=== PATIENT | male | born 1995 | race Hispanic/Latino ===

== ENCOUNTER 2018-02-27 08:18 | Emergency (ER) | payer BC, SELFPAY ==
--- NOTE | 2018-02-27 09:32 | EDPHYS ---
Physician Documentation [facility] Name: Lele Castillo Jr Age: 23 yrs Sex: Male : 1995 Arrival Date: 02/27/2018 Time: 08:26 Bed 15 Private MD: ED Physician Cheikh Novoa HPI: 02/27 09:29 This 23 yrs old Male presents to ER via Ambulatory with complaints of Back kb Pain. 09:29 The patient presents with pain that is acute. The symptoms are located in the left kb scapular area, right scapular area, left subscapular area, right subscapular area, left low back, left mid back, right mid back and right low back. Onset: The symptoms/episode began/occurred 4 day(s) ago. The pain does not radiate. Associated signs and symptoms: The patient has no apparent associated signs or symptoms. The problem was sustained when lifting heavy object. Modifying factors: The patient symptoms are alleviated by nothing, the patient symptoms are aggravated by any movement. Severity of symptoms: At their worst the symptoms were mild, moderate, in the emergency department the symptoms are unchanged. The patient has not experienced similar symptoms in the past. The patient has not recently seen a physician. Pt states he started having back pain after work on Saturday. States pain has gotten worse. . Historical: - Allergies: 08:35 No Known Allergies; ss - Home Meds: 08:35 None [Active]; ss - PMHx: 08:35 None; ss - PSHx: 08:35 nose; ss - Immunization history:: Adult Immunizations up to date. - Social history:: Smoking status: Patient uses tobacco products, denies chronic smoking, but will smoke occasionally. ROS: 09:27 Constitutional: Negative for fever, chills, and weight loss, Cardiovascular: Negative kb for chest pain, palpitations, and edema, Respiratory: Negative for shortness of breath, cough, wheezing, and pleuritic chest pain, Abdomen/GI: Negative for abdominal pain, nausea, vomiting, diarrhea, and constipation, : Negative for injury, bleeding, discharge, and swelling, MS/Extremity: Negative for injury and deformity, Skin: Negative for injury, rash, and discoloration, Neuro: Negative for headache, weakness, numbness, tingling, and seizure. 09:27 Back: Positive for pain at rest, pain with movement, of the back. Exam: 09:27 Constitutional: This is a well developed, well nourished patient who is awake, alert, kb and in no acute distress. Head/Face: Normocephalic, atraumatic. Chest/axilla: Normal chest wall appearance and motion. Nontender with no deformity. No lesions are appreciated. Cardiovascular: Regular rate and rhythm with a normal S1 and S2. No gallops, murmurs, or rubs. Normal PMI, no JVD. No pulse deficits. Respiratory: Lungs have equal breath sounds bilaterally, clear to auscultation and percussion. No rales, rhonchi or wheezes noted. No increased work of breathing, no retractions or nasal flaring. Abdomen/GI: Soft, non-tender, with normal bowel sounds. No distension or tympany. No guarding or rebound. No evidence of tenderness throughout. Skin: Warm, dry with normal turgor. Normal color with no rashes, no lesions, and no evidence of cellulitis. MS/ Extremity: Pulses equal, no cyanosis. Neurovascular intact. Full, normal range of motion. Neuro: Awake and alert, GCS 15, oriented to person, place, time, and situation. Cranial nerves II-XII grossly intact. Motor strength 5/5 in all extremities. Sensory grossly intact. Cerebellar exam normal. Normal gait. 09:27 Back: pain, that is mild, that is moderate, of the left scapular area, right scapular area, left subscapular area, right subscapular area, left low back, left mid back, right mid back and right low back, ROM is normal, normal spinal alignment noted. Vital Signs: 08:43 BP 139 / 62; Pulse 73; Resp 16; Temp 98.3(O); Pulse Ox 98% on R/A; Weight 108.86 kg; ss Height 5 ft. 9 in. (175.26 cm); Pain 10/10; 08:43 Body Mass Index 35.44 (108.86 kg, 175.26 cm) ss MDM: 08:37 Patient medically screened. kb 09:27 Data reviewed: vital signs, nurses notes. Data interpreted: Pulse oximetry: on room air kb is 98 %. Interpretation: normal. Counseling: I had a detailed discussion with the patient and/or guardian regarding: the historical points, exam findings, and any diagnostic results supporting the discharge/admit diagnosis, the need for outpatient follow up, a family practitioner, to return to the emergency department if symptoms worsen or persist or if there are any questions or concerns that arise at home. 02/27 09:33 Order name: Urine Dipstick--Ancillary (enter results); Complete Time: 09:39 mw2 02/27 09:02 Order name: Urine Dipstick-Ancillary (obtain specimen); Complete Time: 09:11 kb Administered Medications: 09:47 Drug: TORadol 60 mg Route: IM; Site: right gluteus; iw 09:55 Follow up: Response: No adverse reaction iw Disposition: 02/28 07:51 Co-signature as Attending Physician, Cheikh Novoa MD I agree with the assessment and wa plan of care. Disposition: 02/27/18 09:31 Discharged to Home. Impression: Muscle spasm of back, Myalgia. - Condition is Stable. - Discharge Instructions: Muscle Pain, Adult, Back Pain, Adult, [id number], Muscle Cramps and Spasms, [id number]. - Prescriptions for Cyclobenzaprine 10 mg Oral Tablet - take 1 tablet by ORAL route every 8 hours As needed; 21 tablet. Diclofenac Sodium 75 mg Oral Tablet, Delayed Release (E.C.) - take 1 tablet by ORAL route 2 times per day As needed; 30 tablet. - Work release form, Medication Reconciliation Form, Thank You Letter, Antibiotic Education, Prescription Opioid Use form. - Follow up: Private Physician; When: 2 - 3 days; Reason: Recheck today's complaints, Continuance of care, Re-evaluation by your physician. Follow up: Emergency Department; When: As needed; Reason: Worsening of condition. Signatures: Dispatcher [employer] Nirmala Meadows, INA CAPPS-Jo Junior, Allison Benjamin RN, RN RN ss Appiah, William, MD MD wa
--- NOTE | 2018-02-27 09:32 | ER ---
Nurse's Notes [facility] Name: Lele Castillo Jr Age: 23 yrs Sex: Male : 1995 Arrival Date: 02/27/2018 Time: 08: Bed 15 Private MD: Diagnosis: Muscle spasm of back;Myalgia Presentation: 02/27 08:34 Presenting complaint: Patient states: lower back pain that began 3 days ago and has ss progressed to top of back. Pt denies injury. Transition of care: patient was not received from another setting of care. Onset of symptoms was February 24, 2018. Care prior to arrival: None. 08:34 Method Of Arrival: Ambulatory ss 08:34 Acuity: ANJANA 4 ss Historical: - Allergies: 08:35 No Known Allergies; ss - Home Meds: 08:35 None [Active]; ss - PMHx: 08:35 None; ss - PSHx: 08:35 nose; ss - Immunization history:: Adult Immunizations up to date. - Social history:: Smoking status: Patient uses tobacco products, denies chronic smoking, but will smoke occasionally. Screenin:44 Abuse screen: Denies threats or abuse. Denies injuries from another. Nutritional ss screening: No deficits noted. Tuberculosis screening: Never had TB. Fall Risk None identified. Assessment: 08:44 General: Appears uncomfortable, Behavior is calm, cooperative, Denies fever, feeling ss ill, fatigue, chills. Pain: Complains of pain in back Pain currently is 10 out of 10 on a pain scale. Quality of pain is described as aching, Pain began 2-3 days ago. Is continuous, Aggravated by exercise, increased activity, repositioning. Neuro: Level of Consciousness is awake, alert, obeys commands, Oriented to person, place, time, situation. Neuro: Denies blurred vision paresthesias numbness headache. Cardiovascular: Capillary refill < 3 seconds is brisk in bilateral fingers Patient's skin is warm and dry. Respiratory: Reports pain with cough pain with movement Airway is patent Respiratory effort is even, unlabored, Respiratory pattern is regular, agonal Denies cough, shortness of breath labored breathing. GI: Patient currently denies diarrhea, nausea, vomiting. : Denies burning with urination, inability to void, incontinence, urinary frequency. EENT: Nares are clear Throat is clear. Derm: Skin is intact, is healthy with good turgor, Skin is dry, Skin is pink, warm \T\ dry. normal. Musculoskeletal: Circulation, motion, and sensation intact. Capillary refill < 3 seconds, is brisk, in bilateral fingers. Range of motion: intact in all extremities, Swelling absent. 09:54 Reassessment: Patient appears in no apparent distress at this time. Patient and/or iw family updated on plan of care and expected duration. Pain level reassessed. Patient is alert, oriented x 3, equal unlabored respirations, skin warm/dry/pink. Patient states feeling better. Vital Signs: 08:43 BP 139 / 62; Pulse 73; Resp 16; Temp 98.3(O); Pulse Ox 98% on R/A; Weight 108.86 kg; ss Height 5 ft. 9 in. (175.26 cm); Pain 10/10; 08:43 Body Mass Index 35.44 (108.86 kg, 175.26 cm) ss ED Course: 08:26 Patient arrived in ED. as 08:34 Triage completed. ss 08:35 Arm band placed on right wrist. ss 08:36 Nirmala Reyna FNP-C is PHCP. kb 08:36 Cheikh Novoa MD is Attending Physician. kb 08:43 Allison Ochoa, REMBERTO is Primary Nurse. ss 08:44 Patient has correct armband on for positive identification. Bed in low position. Call ss light in reach. Side rails up X 1. 09:36 Urine collected: clean catch specimen, clear. ag 09:54 No provider procedures requiring assistance completed. Patient did not have IV access iw during this emergency room visit. Administered Medications: 09:47 Drug: TORadol 60 mg Route: IM; Site: right gluteus; iw 09:55 Follow up: Response: No adverse reaction iw Outcome: 09:31 Discharge ordered by . kb 09:54 Discharged to home ambulatory. iw 09:54 Condition: good 09:54 Discharge instructions given to patient, Instructed on discharge instructions, follow up and referral plans. medication usage, Demonstrated understanding of instructions, follow-up care, medications, Prescriptions given X 2. 09:55 Patient left the ED. iw Signatures: Nirmala Reyna FNP-C FNP-Darlyn Brown as Jo Godoy RN RN iw Allison Ochoa RN RN ss Lynnette Jewell ag
[2018-02-27 09:37] LABS: Urine Blood TRACE (NEG); Urine Glucose NEGATIVE (NEG); Urine Protein NEGATIVE (NEG); Urine Specific Gravity 1.025 (1.005-1.030); Urine pH 5.5 (5.0-7.0)
[2018-02-27] MEDS ORDERED: KETOROLAC 30 MG/ML INJ ONE (09:41)
[2018-02-27 10:00] VITALS: BP 139/62; TEMP 98.3; O2SAT 98
== END 2018-02-27 09:55 | disposition home or self-care (01) ==
LOC: ER 08:18
DX: M62.830 Muscle spasm of back (principal); Z72.0 Tobacco use
CPT/HCPCS: 81003; 96372; 99283

== ENCOUNTER 2018-03-20 16:31 | Emergency (ER) | payer BC ==
[2018-03-20] MEDS ORDERED: CEFTRIAXONE/SWI 1gm 1 GM/10 ML SYR ONE (18:29)
[2018-03-20] MEDS ORDERED: METHYLPREDNISOLONE 125 MG INJ ONE (18:29)
[2018-03-20] MEDS ORDERED: NA CHLORIDE 0.9% 2,000 ML ONE (18:29)
[2018-03-20 18:40] LABS: Absolute Lymphocytes (CBC) 1.4 K/uL (0.7-4.9); Absolute Monocytes 1.4 K/uL (0.1-1.3); Absolute Neutrophil 11.4 K/uL (1.8-8.0); Basophils % 0.4 % (0-1.3); Eosinophils % 5.1 % (0-4.4); Hematocrit 46.5 % (39.6-49.0); Lymphocytes % 9.5 % (15.3-44.8); MCH 29.2 pg (27.0-35.0); MCV 87.4 fL (80-100); MPV 9.3 fL (7.6-11.3); Monocytes % 9.4 % (3.3-12.3); RBC Red Blood Cell Count 5.32 M/uL (4.33-5.43)
[2018-03-20 18:46] LABS: Bicarbonate 25 mEq/L (21-31); Glucose Level 98 mg/dL (65-120); Potassium 3.5 mEq/L (3.6-5.0); Sodium Level 136 mEq/L (135-145)
[2018-03-20 18:47] LABS: BUN Blood Urea Nitrogen 11 mg/dL (6-20)
--- NOTE | 2018-03-20 19:49 | EDPHYS ---
Physician Documentation [facility] Name: Lele Castillo Jr Age: 23 yrs Sex: Male : 1995 Arrival Date: 03/20/2018 Time: 16:35 Bed 12 Private MD: ED Physician Cheikh Novoa HPI: 03/20 22:14 This 23 yrs old Male presents to ER via Ambulatory with complaints of Fever, snw Cough. 22:14 The patient reports fever, not measured (subjective). Onset: The symptoms/episode snw began/occurred suddenly, 4 day(s) ago, and became worse and became persistent. Associated signs and symptoms: Pertinent positives: headache, nausea, sinus congestion, sinus drainage, sore throat. Severity of symptoms: At their worst the symptoms were moderate. The patient has not experienced similar symptoms in the past. The patient has not recently seen a physician. Historical: - Allergies: 16:46 No Known Allergies; hj - Home Meds: 16:46 None [Active]; hj - PMHx: 16:46 None; hj - PSHx: 16:46 None; hj - Immunization history:: Adult Immunizations unknown. - Social history:: Smoking status: unknown. ROS: 22:14 Constitutional: Negative for fever, chills, and weight loss, Eyes: Negative for injury, snw pain, redness, and discharge. 22:14 Neck: Negative for injury, pain, and swelling, Cardiovascular: Negative for chest pain, palpitations, and edema. 22:14 Back: Negative for injury and pain, : Negative for injury, bleeding, discharge, and swelling, MS/Extremity: Negative for injury and deformity, Skin: Negative for injury, rash, and discoloration, Neuro: Negative for headache, weakness, numbness, tingling, and seizure. 22:14 ENT: Positive for ear pain, sinus congestion, sore throat. 22:14 Respiratory: Positive for cough. 22:14 Abdomen/GI: Positive for nausea. Exam: 18:20 Constitutional: This is a well developed, well nourished patient who is awake, alert, snw and in no acute distress. Head/Face: Normocephalic, atraumatic. Eyes: Pupils equal round and reactive to light, extra-ocular motions intact. Lids and lashes normal. Conjunctiva and sclera are non-icteric and not injected. Cornea within normal limits. Periorbital areas with no swelling, redness, or edema. Neck: Trachea midline, no thyromegaly or masses palpated, and no cervical lymphadenopathy. Supple, full range of motion without nuchal rigidity, or vertebral point tenderness. No Meningismus. Chest/axilla: Normal chest wall appearance and motion. Nontender with no deformity. No lesions are appreciated. 18:20 Back: No spinal tenderness. No costovertebral tenderness. Full range of motion. Skin: Warm, dry with normal turgor. Normal color with no rashes, no lesions, and no evidence of cellulitis. MS/ Extremity: Pulses equal, no cyanosis. Neurovascular intact. Full, normal range of motion. Neuro: Awake and alert, GCS 15, oriented to person, place, time, and situation. Cranial nerves II-XII grossly intact. Motor strength 5/5 in all extremities. Sensory grossly intact. Cerebellar exam normal. Normal gait. 18:20 ENT: TM's: are normal, Nose: is normal, Mouth: is normal, Posterior pharynx: Tonsils: bilaterally enlarged, with erythema, swelling, erythema, that is moderate, that is marked, Voice: is normal. 18:20 Cardiovascular: Rate: tachycardic, Rhythm: regular, Pulses: no pulse deficits are appreciated, Heart sounds: normal, Edema: is not appreciated. 18:20 Respiratory: the patient does not display signs of respiratory distress, Respirations: normal, Breath sounds: + upper airway congestion. bronchitic cough. 18:20 Abdomen/GI: Exam negative for Vital Signs: 16:46 BP 123 / 84; Pulse 118; Resp 18; Temp 98.8(TE); Pulse Ox 97% on R/A; Weight 108.86 kg; hj Height 5 ft. 9 in. (175.26 cm); Pain 10/10; 18:37 BP 112 / 68; Pulse 127; Resp 20 S; Pulse Ox 97% on R/A; Pain 10/10; iw 19:24 BP 118 / 63; Pulse 106; Resp 16; Pulse Ox 98% on R/A; Pain 0/10; aa1 20:02 BP 111 / 84; Pulse 107; Resp 18; Temp 98.6; Pulse Ox 100% on R/A; aa1 16:46 Body Mass Index 35.44 (108.86 kg, 175.26 cm) hj MDM: 17:41 Patient medically screened. snw 22:16 Data reviewed: vital signs, nurses notes. Data interpreted: Pulse oximetry: on room air snw is 100 %. Interpretation: normal. Counseling: I had a detailed discussion with the patient and/or guardian regarding: the historical points, exam findings, and any diagnostic results supporting the discharge/admit diagnosis, the presence of at least one elevated blood pressure reading (>120/80) during this emergency department visit, lab results, the need for outpatient follow up, to return to the emergency department if symptoms worsen or persist or if there are any questions or concerns that arise at home. Special discussion: I have referred the patient to see his PCP for further evaluation of high blood pressure. Based on the history and exam findings, there is no indication for further emergent testing or inpatient evaluation. I discussed with the patient/guardian the need to see the primary care provider for further evaluation of the symptoms. 03/20 17:47 Order name: Strep; Complete Time: 18:59 snw 03/20 17:47 Order name: CBC with Diff; Complete Time: 18:59 snw 03/20 17:34 Order name: Chest Pa And Lat (2 Views) XRAY snw 03/20 17:47 Order name: Chem 7; Complete Time: 18:50 snw 03/20 17:47 Order name: Blood Culture* snw Administered Medications: 18:37 Drug: NS 0.9% 2000 ml Route: IV; Rate: 1000 ml; Site: right hand; iw 20:03 Follow up: IV Status: Completed infusion aa1 18:37 Drug: SOLU-Medrol 125 mg Route: IVP; Site: right hand; iw 20:03 Follow up: Response: No adverse reaction; Marked relief of symptoms aa1 19:01 Drug: Rocephin 1 grams Route: IV; Rate: calculated rate; Site: right hand; iw 19:11 Follow up: IV Status: Completed infusion aa1 Disposition: 03/21 06:59 Co-signature as Attending Physician, Cheikh Novoa MD I agree with the assessment and wa plan of care. Disposition: 03/20/18 19:48 Discharged to Home. Impression: Streptococcal pharyngitis, Dehydration. - Condition is Stable. - Discharge Instructions: Dehydration, Adult, Strep Throat, Rehydration, Adult. - Prescriptions for Zithromax 500 mg Oral Tablet - take 1 tablet by ORAL route once daily for 5 days; 5 tablet. Prednisone 20 mg Oral Tablet - take 2 tablet by ORAL route once daily for 5 days; 10 tablet. - Work release form, Medication Reconciliation Form, Thank You Letter, Antibiotic Education, Prescription Opioid Use form. - Follow up: Private Physician; When: 1 - 2 days; Reason: Recheck today's complaints, Continuance of care, Re-evaluation by your physician. Follow up: Emergency Department; When: As needed; Reason: Worsening of condition. Signatures: Dispatcher [employer] EDMS Natalie Weeks RN RN aa1 Hoa Fairchild, NREMT-C NREMT-Csnw Jo Godoy RN RN Rafael Goss RN RN Cheikh Novoa MD MD wa Corrections: (The following items were deleted from the chart) 03/20 20:04 19:48 03/20/2018 19:48 Discharged to Home. Impression: Streptococcal pharyngitis; aa1 Dehydration. Condition is Stable. Prescriptions for Zithromax 500 mg Oral Tablet - take 1 tablet by ORAL route once daily for 5 days; 5 tablet. and Forms are Medication Reconciliation Form, Thank You Letter, Antibiotic Education, Prescription Opioid Use. Follow up: Private Physician; When: 1 - 2 days; Reason: Recheck today's complaints, Continuance of care, Re-evaluation by your physician. Follow up: Emergency Department; When: As needed; Reason: Worsening of condition. snw
--- NOTE | 2018-03-20 19:49 | ER ---
Nurse's Notes [facility] Name: Lele Castillo Jr Age: 23 yrs Sex: Male : 1995 Arrival Date: 03/20/2018 Time: 16:35 Bed 12 Private MD: Diagnosis: Streptococcal pharyngitis;Dehydration Presentation: 03/20 16:44 Presenting complaint: Patient states: fever, coughing, nausea and vomiting since Saturday hj night and its getting worse; reports painful swallowing;. Transition of care: patient was not received from another setting of care. Onset of symptoms was March 20, 2018. Initial Sepsis Screen: Does the patient meet any 2 criteria? No. Patient's initial sepsis screen is negative. Does the patient have a suspected source of infection? No. Patient's initial sepsis screen is negative. Care prior to arrival: None. 16:44 Method Of Arrival: Ambulatory 16:44 Acuity: ANJANA 4 hj Triage Assessment: 16:46 General: Appears in no apparent distress. uncomfortable, Behavior is calm, cooperative, hj appropriate for age. Pain: Complains of pain in throat. Historical: - Allergies: 16:46 No Known Allergies; hj - Home Meds: 16:46 None [Active]; hj - PMHx: 16:46 None; hj - PSHx: 16:46 None; hj - Immunization history:: Adult Immunizations unknown. - Social history:: Smoking status: unknown. Screenin:46 Abuse screen: Denies threats or abuse. Denies injuries from another. Nutritional iw screening: No deficits noted. Tuberculosis screening: No symptoms or risk factors identified. Fall Risk None identified. Assessment: 18:10 General: Appears uncomfortable, Behavior is calm, cooperative. General: Reports fever iw for feeling ill for. Pain: Complains of pain in throat Pain currently is 10 out of 10 on a pain scale. Neuro: Level of Consciousness is awake, alert, obeys commands, Oriented to person, place, time, Moves all extremities. Cardiovascular: Patient's skin is warm and dry. Respiratory: Respiratory effort is even, unlabored. EENT: Throat is reddened has enlarged tonsils bilaterally with gag reflex present, Reports difficulty swallowing. Derm: Skin is normal. Musculoskeletal: Range of motion: intact in all extremities. 20:02 Reassessment: Patient appears in no apparent distress at this time. Patient is alert, aa1 oriented x 3, equal unlabored respirations, skin warm/dry/pink. Discussed d/c \T\ f/u instructions with pt; denies questions or concerns at this time Patient states feeling better. Vital Signs: 16:46 BP 123 / 84; Pulse 118; Resp 18; Temp 98.8(TE); Pulse Ox 97% on R/A; Weight 108.86 kg; hj Height 5 ft. 9 in. (175.26 cm); Pain 10/10; 18:37 BP 112 / 68; Pulse 127; Resp 20 S; Pulse Ox 97% on R/A; Pain 10/10; iw 19:24 BP 118 / 63; Pulse 106; Resp 16; Pulse Ox 98% on R/A; Pain 0/10; aa1 20:02 BP 111 / 84; Pulse 107; Resp 18; Temp 98.6; Pulse Ox 100% on R/A; aa1 16:46 Body Mass Index 35.44 (108.86 kg, 175.26 cm) ED Course: 16:35 Patient arrived in ED. mr 16:45 Triage completed. hj 16:46 Arm band placed on left wrist. hj 17:00 Patient has correct armband on for positive identification. iw 17:34 Ho[facility] Fairchild [facility]C [facility]. snw 17:34 Cheikh Novoa MD is Attending Physician. snw 18:18 Initial lab(s) drawn, by il, sent to lab. First set of blood cultures drawn by me. dh3 Inserted saline lock: 20 gauge in right hand, using aseptic technique. Blood collected. 18:28 Jo Godoy, RN is Primary Nurse. iw 18:47 X-ray completed. Patient tolerated procedure well. ml 18:47 Chest Pa And Lat (2 Views) XRAY In Process Unspecified. EDMS 18:56 Second set of blood cultures drawn by venipuncture 23G left hand by me. dh3 20:02 No provider procedures requiring assistance completed. IV discontinued, intact, aa1 bleeding controlled, No redness/swelling at site. Pressure dressing applied. Administered Medications: 18:37 Drug: NS 0.9% 2000 ml Route: IV; Rate: 1000 ml; Site: right hand; iw 20:03 Follow up: IV Status: Completed infusion aa1 18:37 Drug: SOLU-Medrol 125 mg Route: IVP; Site: right hand; iw 20:03 Follow up: Response: No adverse reaction; Marked relief of symptoms aa1 19:01 Drug: Rocephin 1 grams Route: IV; Rate: calculated rate; Site: right hand; iw 19:11 Follow up: IV Status: Completed infusion aa1 Outcome: 19:48 Discharge ordered by MD. carlson 20:02 Discharged to home ambulatory. aa1 20:02 Condition: good 20:02 Discharge instructions given to patient, Instructed on discharge instructions, follow up and referral plans. medication usage, Demonstrated understanding of instructions, follow-up care, medications, Prescriptions given X 2. 20:04 Patient left the ED. aa1 Signatures: Dispatcher [employer] EDMS Natalie Weeks RN RN aa1 Hoa Fairchild, PYROTECHNIC MIXER-C PYROTECHNIC MIXER-Kimw Mary [place] Irene, RN RN iw Lopez, Melissa ml Joaquin, Henry, RN RN Genevieve Montoya 3 Corrections: (The following items were deleted from the chart) 16:48 16:46 Pulse 118bpm; Resp 18bpm; Pulse Ox 97% RA; Temp 98.8F Temporal; 108.86 kg; Height hj 5 ft. 9 in.; BMI: 35.4; Pain 10/10; hj 16:49 16:46 Pulse 118bpm; Resp 18bpm; Pulse Ox 97% RA; Temp 98.8F Temporal; 108.86 kg; Height hj 5 ft. 9 in.; BMI: 35.4; Pain 10/10; hj
--- NOTE | 2018-03-20 20:04 | RAD REPORT ---
EXAM DESCRIPTION: RAD - Chest Pa And Lat (2 Views) - 03/20/2018 6:47 pm CLINICAL HISTORY: Cough, fever COMPARISON: March 2008 TECHNIQUE: PA and lateral views of the chest were obtained. FINDINGS: The lungs are clear. No pneumonia evident at this time. No failure or volume overload. He art size is normal and central vasculature is within normal limits. No pleural effusion or pneumotho rax seen. No acute bony finding noted. No aortic abnormality. IMPRESSION: No acute cardiopulmonary process. No suspicious change from prior imaging.
[2018-03-20 20:11] VITALS: BP 111/84; TEMP 98.6; O2SAT 100
== END 2018-03-20 20:04 | disposition home or self-care (01) ==
LOC: ER 16:31
DX: J02.0 Streptococcal pharyngitis (principal); E86.0 Dehydration; R50.9 Fever, unspecified
CPT/HCPCS: 36415; 71046; 80048; 85025; 87040; 87081; 96361; 96374; 96375; 99284; J0696; J2930; J7030

== ENCOUNTER 2018-10-24 08:51 | Emergency (ER) | payer BC ==
[2018-10-24] MEDS ORDERED: NA CHLORIDE 0.9% 1,000 ML ONE ×2 (09:18→10:58)
[2018-10-24] MEDS ORDERED: PROMETHAZINE 25 MG/ML VIAL ONE (09:18)
[2018-10-24 09:36] LABS: Absolute Lymphocytes (CBC) 1.3 K/uL (0.7-4.9); Absolute Monocytes 0.7 K/uL (0.1-1.3); Absolute Neutrophil 7.6 K/uL (1.8-8.0); Basophils % 0.5 % (0-1.3); Eosinophils % 0.2 % (0-4.4); MCH 30.6 pg (27.0-35.0); MCV 87.3 fL (80-100); MPV 8.8 fL (7.6-11.3); Monocytes % 7.7 % (3.3-12.3); RBC Red Blood Cell Count 5.15 M/uL (4.33-5.43)
[2018-10-24 10:11] LABS: ALT/SGPT 184 U/L (12-78); AST/SGOT 103 U/L (15-37); Albumin 3.8 g/dL (3.4-5.0); Alkaline Phosphatase 97 U/L (45-117); BUN Blood Urea Nitrogen 9 mg/dL (7-18); Bicarbonate 23 mmol/L (21-32); Bilirubin Direct 0.3 mg/dL (0-0.2); Bilirubin Total 0.6 mg/dL (0.2-1.0); Glucose Level 115 mg/dL (74-106); Lipase 113 U/L (73-393); Potassium 3.3 mmol/L (3.5-5.1); Protein, Total 9.1 g/dL (6.4-8.2); Sodium Level 139 mmol/L (136-145)
[2018-10-24 12:12] LABS: Urine Blood 1+ (NEG); Urine Glucose NEGATIVE (NEG); Urine Protein NEGATIVE (NEG); Urine Specific Gravity 1.015 (1.005-1.030); Urine pH 5.5 (5.0-7.0)
--- NOTE | 2018-10-24 13:10 | ER ---
Nurse's Notes [facility] Name: Lele Castillo Jr Age: 23 yrs Sex: Male : 1995 Arrival Date: 10/24/2018 Time: 08:54 Bed 5 Private MD: None, None Diagnosis: Vomiting, unspecified;Dehydration;Hypokalemia Presentation: 10/24 09:07 Presenting complaint: Patient states: has had n/v cough, fever, body aches, headache iw for 3 days, had to leave work and was told to get a doctors note to come back. Transition of care: patient was not received from another setting of care. Onset of symptoms was October 21, 2018. Risk Assessment: Do you want to hurt yourself or someone else? Patient reports no desire to harm self or others. Initial Sepsis Screen: Does the patient meet any 2 criteria? No. Patient's initial sepsis screen is negative. Does the patient have a suspected source of infection? No. Patient's initial sepsis screen is negative. Care prior to arrival: None. 09:07 Method Of Arrival: Ambulatory iw 09:07 Acuity: ANJANA 3 iw Historical: - Allergies: 09:07 NKA; iw - Home Meds: 09:07 None [Active]; iw - PMHx: 09:07 None; iw - PSHx: 09:07 None; iw - Immunization history:: Adult Immunizations up to date. - Social history:: Smoking status: Patient uses tobacco products, 3 cigarettes per day , Patient uses alcohol, weekly. Patient/guardian denies using street drugs. - Ebola Screening: : Patient negative for fever greater than or equal to 101.5 degrees Fahrenheit, and additional compatible Ebola Virus Disease symptoms Patient denies exposure to infectious person Patient denies travel to an Ebola-affected area in the 21 days before illness onset No symptoms or risks identified at this time. Screenin:33 Abuse screen: Denies threats or abuse. Denies injuries from another. Nutritional jl7 screening: No deficits noted. Tuberculosis screening: No symptoms or risk factors identified. Fall Risk IV access (20 points). Total Betancourt Fall Scale indicates No Risk (0-24 pts). Assessment: 09:15 General: Appears in no apparent distress. uncomfortable, Behavior is calm, cooperative, jl7 appropriate for age. Pain: Complains of pain in "all over". Neuro: Level of Consciousness is awake, alert, obeys commands, Oriented to person, place, time, situation. Cardiovascular: Patient's skin is warm and dry. Respiratory: Airway is patent Respiratory effort is even, unlabored, Respiratory pattern is regular, symmetrical, Breath sounds are clear bilaterally. GI: Abdomen is round non-distended. Derm: Skin is pink, warm \\T\\ dry. 10:00 Reassessment: Patient appears in no apparent distress at this time. No changes from hb previously documented assessment. Patient and/or family updated on plan of care and expected duration. Pain level reassessed. Patient is alert, oriented x 3, equal unlabored respirations, skin warm/dry/pink. 11:00 Reassessment: Patient appears in no apparent distress at this time. No changes from jl7 previously documented assessment. Patient and/or family updated on plan of care and expected duration. Pain level reassessed. Patient is alert, oriented x 3, equal unlabored respirations, skin warm/dry/pink. Patient states symptoms have improved. 12:00 Reassessment: Patient and/or family updated on plan of care and expected duration. Pain jl7 level reassessed. Patient is alert, oriented x 3, equal unlabored respirations, skin warm/dry/pink. Vital Signs: 09:05 BP 141 / 81; Pulse 138; Resp 18 S; Temp 97.0(TE); Pulse Ox 98% on R/A; Weight 111.13 iw kg; Height 5 ft. 9 in. (175.26 cm); Pain 9/10; 09:35 BP 119 / 62; Pulse 133; Resp 19 S; Pulse Ox 97% on R/A; jl7 10:30 BP 118 / 63; Pulse 99; Resp 16 S; Pulse Ox 98% on R/A; jl7 11:36 BP 112 / 68; Pulse 87; Resp 14 S; Pulse Ox 96% on R/A; jl7 12:30 BP 125 / 82; Pulse 89; Resp 16 S; Pulse Ox 100% on R/A; jl7 13:30 BP 188 / 71; Pulse 86; Resp 16 S; Pulse Ox 97% on R/A; jl7 09:05 Body Mass Index 36.18 (111.13 kg, 175.26 cm) ED Course: 08:54 Patient arrived in ED. mr 08:55 None, None is Private Physician. mr 09:01 [facility] Fairchild [facility] snw 09:01 Thom Rodriguez MD is Attending Physician. snw 09:05 Arm band placed on. iw 09:08 Triage completed. iw 09:10 Sonali Torres, REMBERTO is Primary Nurse. jl7 09:33 Patient has correct armband on for positive identification. Bed in low position. Call jl7 light in reach. Side rails up X 1. Pulse ox on. NIBP on. 09:33 Initial lab(s) drawn, by me, sent to lab. Flu and/or RSV swab sent to lab. Strep swab jl7 sent to lab. Inserted saline lock: 20 gauge in right antecubital area, using aseptic technique. Blood collected. 13:47 No provider procedures requiring assistance completed. IV discontinued, intact, jl7 bleeding controlled, No redness/swelling at site. Pressure dressing applied. Administered Medications: 09:20 Drug: NS 0.9% 1000 ml Route: IV; Rate: 1 bolus; Site: right antecubital; jl7 10:30 Follow up: IV Status: Completed infusion jl7 09:21 Drug: Phenergan 6.25 mg Route: IVP; Site: right antecubital; jl7 09:45 Follow up: Response: No adverse reaction; Nausea is decreased jl7 11:05 Drug: NS 0.9% 1000 ml Route: IV; Rate: 1 bolus; Site: right antecubital; jl7 12:15 Follow up: Response: No adverse reaction; IV Status: Completed infusion jl7 Outcome: 13:09 Discharge ordered by . snw 13:47 Discharged to home ambulatory. jl7 13:47 Condition: stable 13:47 Discharge instructions given to patient, Instructed on discharge instructions, follow up and referral plans. medication usage, Demonstrated understanding of instructions, follow-up care, medications, Prescriptions given X 1. 13:48 Patient left the ED. jl7 Signatures: Hoa Fairchild FNP-C SHIRT LINE OPERATOR-Kimw [place] Renate GodoyJo, RN REMBERTO Dariela Moura RN RN Sonali Torres RN RN jl7
--- NOTE | 2018-10-24 13:10 | EDPHYS ---
Physician Documentation [facility] Name: Lele Castillo Jr Age: 23 yrs Sex: Male : 1995 Arrival Date: 10/24/2018 Time: 08:54 Bed 5 Private MD: None, None ED Physician Thom Rodriguez HPI: 10/24 09:23 This 23 yrs old Male presents to ER via Ambulatory with complaints of Cough, snw Vomiting. 09:23 The patient or guardian reports. snw 09:23 The patient presents with vomiting. Onset: The symptoms/episode began/occurred snw suddenly, 5 day(s) ago, and became persistent. The symptoms do not radiate. The symptoms are described as crampy. Severity of pain: At its worst the pain was very mild. The patient has not experienced similar symptoms in the past. The patient has not recently seen a physician. Historical: - Allergies: 09:07 NKA; iw - Home Meds: 09:07 None [Active]; iw - PMHx: : None; iw - PSHx: 09:07 None; iw - Immunization history:: Adult Immunizations up to date. - Social history:: Smoking status: Patient uses tobacco products, 3 cigarettes per day , Patient uses alcohol, weekly. Patient/guardian denies using street drugs. - Ebola Screening: : Patient negative for fever greater than or equal to 101.5 degrees Fahrenheit, and additional compatible Ebola Virus Disease symptoms Patient denies exposure to infectious person Patient denies travel to an Ebola-affected area in the 21 days before illness onset No symptoms or risks identified at this time. ROS: 09:23 Constitutional: Negative for fever, chills, and weight loss, Eyes: Negative for injury, snw pain, redness, and discharge, ENT: Negative for injury, pain, and discharge, Neck: Negative for injury, pain, and swelling, Cardiovascular: Negative for chest pain, palpitations, and edema, Respiratory: Negative for shortness of breath, cough, wheezing, and pleuritic chest pain, Back: Negative for injury and pain, : Negative for injury, bleeding, discharge, and swelling, MS/Extremity: Negative for injury and deformity, Skin: Negative for injury, rash, and discoloration, Neuro: Negative for headache, weakness, numbness, tingling, and seizure. 09:23 Abdomen/GI: Positive for nausea and vomiting, Negative for abdominal pain, diarrhea, constipation. Exam: 09:22 Constitutional: This is a well developed, well nourished patient who is awake, alert, snw and in no acute distress. Head/Face: Normocephalic, atraumatic. Eyes: Pupils equal round and reactive to light, extra-ocular motions intact. Lids and lashes normal. Conjunctiva and sclera are non-icteric and not injected. Cornea within normal limits. Periorbital areas with no swelling, redness, or edema. ENT: Nares patent. No nasal discharge, no septal abnormalities noted. Tympanic membranes are normal and external auditory canals are clear. Oropharynx with no redness, swelling, or masses, exudates, or evidence of obstruction, uvula midline. Mucous membranes moist. Neck: Trachea midline, no thyromegaly or masses palpated, and no cervical lymphadenopathy. Supple, full range of motion without nuchal rigidity, or vertebral point tenderness. No Meningismus. Chest/axilla: Normal chest wall appearance and motion. Nontender with no deformity. No lesions are appreciated. Cardiovascular: Tachycardic rate and rhythm with a normal S1 and S2. No gallops, murmurs, or rubs. Normal PMI, no JVD. No pulse deficits. Respiratory: Lungs have equal breath sounds bilaterally, clear to auscultation and percussion. No rales, rhonchi or wheezes noted. No increased work of breathing, no retractions or nasal flaring. Abdomen/GI: Soft, non-tender, with normal bowel sounds. No distension or tympany. No guarding or rebound. No evidence of tenderness throughout. Back: No spinal tenderness. No costovertebral tenderness. Full range of motion. Skin: Warm, dry with normal turgor. Normal color with no rashes, no lesions, and no evidence of cellulitis. MS/ Extremity: Pulses equal, no cyanosis. Neurovascular intact. Full, normal range of motion. Neuro: Awake and alert, GCS 15, oriented to person, place, time, and situation. Cranial nerves II-XII grossly intact. Motor strength 5/5 in all extremities. Sensory grossly intact. Cerebellar exam normal. Normal gait. Psych: Awake, alert, with orientation to person, place and time. Behavior, mood, and affect are within normal limits. Vital Signs: 09:05 BP 141 / 81; Pulse 138; Resp 18 S; Temp 97.0(TE); Pulse Ox 98% on R/A; Weight 111.13 iw kg; Height 5 ft. 9 in. (175.26 cm); Pain 9/10; 09:35 BP 119 / 62; Pulse 133; Resp 19 S; Pulse Ox 97% on R/A; jl7 10:30 BP 118 / 63; Pulse 99; Resp 16 S; Pulse Ox 98% on R/A; jl7 11:36 BP 112 / 68; Pulse 87; Resp 14 S; Pulse Ox 96% on R/A; jl7 12:30 BP 125 / 82; Pulse 89; Resp 16 S; Pulse Ox 100% on R/A; jl7 13:30 BP 188 / 71; Pulse 86; Resp 16 S; Pulse Ox 97% on R/A; jl7 09:05 Body Mass Index 36.18 (111.13 kg, 175.26 cm) iw MDM: 09:04 Patient medically screened. snw 13:13 Data reviewed: vital signs, nurses notes. Data interpreted: Pulse oximetry: on room air snw is 96 %. Interpretation: acceptable. Counseling: I had a detailed discussion with the patient and/or guardian regarding: the historical points, exam findings, and any diagnostic results supporting the discharge/admit diagnosis, lab results, the need for outpatient follow up, to return to the emergency department if symptoms worsen or persist or if there are any questions or concerns that arise at home. Response to treatment: the patient's symptoms have markedly improved after treatment, and as a result, I will discharge patient. Special discussion: Based on the history and exam findings, there is no indication for further emergent testing or inpatient evaluation. I discussed with the patient/guardian the need to see the primary care provider for further evaluation of the symptoms. 10/24 09:08 Order name: Basic Metabolic Panel snw 10/24 09:08 Order name: CBC with Diff; Complete Time: 09:40 snw 10/24 09:08 Order name: Hepatic Function snw 10/24 09:08 Order name: Lipase; Complete Time: 10:17 snw 10/24 09:08 Order name: Flu; Complete Time: 10:07 snw 10/24 09:08 Order name: Strep; Complete Time: 10:07 snw 10/24 09:08 Order name: IV Saline Lock; Complete Time: 09:35 snw 12 09:08 Order name: Basic Metabolic Panel; Complete Time: 10:17 EDMS 10/24 09:09 Order name: Liver (Hepatic) Function; Complete Time: 10:17 EDMS 10/24 10:01 Order name: Throat Culture EDMS 10/24 11:10 Order name: Urine Dipstick--Ancillary (enter results); Complete Time: 12:27 bd 10/24 09:08 Order name: Labs collected and sent; Complete Time: 09:35 snw 10/24 12:31 Order name: PO challenge; Complete Time: 13:21 snw Administered Medications: 09:20 Drug: NS 0.9% 1000 ml Route: IV; Rate: 1 bolus; Site: right antecubital; jl7 10:30 Follow up: IV Status: Completed infusion jl7 09:21 Drug: Phenergan 6.25 mg Route: IVP; Site: right antecubital; jl7 09:45 Follow up: Response: No adverse reaction; Nausea is decreased jl7 11:05 Drug: NS 0.9% 1000 ml Route: IV; Rate: 1 bolus; Site: right antecubital; jl7 12:15 Follow up: Response: No adverse reaction; IV Status: Completed infusion jl7 Disposition: 17:43 Co-signature as Attending Physician, Thom Rodriguez MD I agree with the assessment and kdr plan of care. Disposition: 10/24/18 13:09 Discharged to Home. Impression: Vomiting, unspecified, Dehydration, Hypokalemia. - Condition is Stable. - Discharge Instructions: Dehydration, Adult, Clear Liquid Diet, Adult, Potassium Content of Foods, Nausea and Vomiting, Adult, Rehydration, Adult. - Prescriptions for Zofran 4 mg Oral Tablet - take 1 tablet by ORAL route every 12 hours As needed; 20 tablet. - Work release form, Medication Reconciliation Form, Thank You Letter, Antibiotic Education, Prescription Opioid Use form. - Follow up: Emergency Department; When: As needed; Reason: Worsening of condition. Follow up: Private Physician; When: 2 - 3 days; Reason: Recheck today's complaints, Continuance of care, Re-evaluation by your physician. Signatures: Dispatcher [employer] EDThom Aquino MD MD kdr Hoa Fairchild, OFFICE SECRETARY-C OFFICE SECRETARY-Cs[facility] Jo Godoy, RN RN iw Sonali Torres RN RN jl7 Corrections: (The following items were deleted from the chart) 13:48 13:09 10/24/2018 13:09 Discharged to Home. Impression: Vomiting, unspecified; jl7 Dehydration; Hypokalemia. Condition is Stable. Forms are Medication Reconciliation Form, Thank You Letter, Antibiotic Education, Prescription Opioid Use. Follow up: Emergency Department; When: As needed; Reason: Worsening of condition. Follow up: Private Physician; When: 2 - 3 days; Reason: Recheck today's complaints, Continuance of care, Re-evaluation by your physician. snw
[2018-10-24 14:10] VITALS: TEMP 97
[2018-10-24 14:19] VITALS: BP 188/71; O2SAT 97
== END 2018-10-24 13:48 | disposition home or self-care (01) ==
LOC: ER 08:51
DX: E86.0 Dehydration (principal); E87.6 Hypokalemia; R11.10 Vomiting, unspecified; F17.210 Nicotine dependence, cigarettes, uncomplicated
CPT/HCPCS: 36415; 80048; 80076; 81003; 83690; 85025; 87070; 87081; 87804; 96361; 96374; 99284; J2550; J7030

== ENCOUNTER 2019-02-16 15:50 | Emergency (ER) | payer BC ==
[2019-02-16] MEDS ORDERED: DEXAMETHASONE 10 MG/ML VIAL ONE (17:35)
--- NOTE | 2019-02-16 17:46 | ER ---
Nurse's Notes [facility] Name: Lele Castillo Jr Age: 24 yrs Sex: Male : 1995 Arrival Date: 02/16/2019 Time: 15:52 Bed Treatment Private MD: None, None Diagnosis: Acute tonsillitis Presentation: 02/16 15:53 Presenting complaint: Patient states: cough, vomiting, sore throat x 3 weeks. sv Transition of care: patient was not received from another setting of care. Onset of symptoms was January 2019. Care prior to arrival: None. 15:53 Method Of Arrival: Ambulatory sv 15:53 Acuity: ANJANA 4 sv 18:16 Initial Sepsis Screen: Does the patient meet any 2 criteria? No. Patient's initial aj1 sepsis screen is negative. Does the patient have a suspected source of infection? No. Patient's initial sepsis screen is negative. 18:16 Risk Assessment: Do you want to hurt yourself or someone else? Patient reports no aj1 desire to harm self or others. Triage Assessment: 15:55 General: Appears in no apparent distress. uncomfortable, Behavior is calm, cooperative, sv appropriate for age. EENT: Reports pain when swallowing. Neuro: Level of Consciousness is awake, alert, obeys commands, Oriented to person, place, time, situation, Gait is steady. Respiratory: Reports cough that is non-productive, Respiratory effort is even, unlabored, Respiratory pattern is regular, symmetrical. GI: Reports vomiting. Historical: - Allergies: 15:54 NKA; sv - PMHx: 15:54 None; sv - PSHx: 15:54 None; sv - Immunization history:: Adult Immunizations up to date. - Social history:: Smoking status: unknown. - Ebola Screening: : Patient denies travel to an Ebola-affected area in the 21 days before illness onset. Screenin:30 Abuse screen: Denies threats or abuse. Denies injuries from another. Nutritional aj1 screening: No deficits noted. Tuberculosis screening: No symptoms or risk factors identified. 18:16 Fall Risk None identified. aj1 Assessment: 16:30 General: Appears in no apparent distress. uncomfortable, Behavior is calm, cooperative, aj1 appropriate for age. Pain: Complains of pain in left aspect of posterior pharynx and right aspect of posterior pharynx Pain does not radiate. Neuro: Level of Consciousness is awake, alert, obeys commands, Oriented to person, place, time, situation. Cardiovascular: Patient's skin is warm and dry. Respiratory: Airway is patent Respiratory effort is even, unlabored, Respiratory pattern is regular, symmetrical, Breath sounds are clear bilaterally. Respiratory: Reports cough that is non-productive. GI: Reports nausea. : No signs and/or symptoms were reported regarding the genitourinary system. EENT: Throat is reddened has enlarged tonsils bilaterally Reports difficulty swallowing. Derm: No signs and/or symptoms reported regarding the dermatologic system. Skin is pink, warm \T\ dry. normal. Musculoskeletal: No signs and/or symptoms reported regarding the musculoskeletal system. Circulation, motion, and sensation intact. 17:29 Reassessment: Patient appears in no apparent distress at this time. No changes from aj1 previously documented assessment. Patient and/or family updated on plan of care and expected duration. Pain level reassessed. Patient is alert, oriented x 3, equal unlabored respirations, skin warm/dry/pink. 18:15 Reassessment: Patient appears in no apparent distress at this time. No changes from aj1 previously documented assessment. Patient and/or family updated on plan of care and expected duration. Pain level reassessed. Patient is alert, oriented x 3, equal unlabored respirations, skin warm/dry/pink. Vital Signs: 15:54 BP 136 / 81; Pulse 117; Resp 20; Temp 98.3; Pulse Ox 98% ; Weight 104.33 kg; Height 5 sv ft. 9 in. (175.26 cm); 15:54 Body Mass Index 33.97 (104.33 kg, 175.26 cm) sv ED Course: 15:52 Patient arrived in ED. mr 15:53 None, None is Private Physician. mr 15:53 Triage completed. sv 15:55 Arm band placed on. sv 15:56 Adebayo Garcia PA is PHCP. jmm 15:56 Shahriar Mirza MD is Attending Physician. jmm 16:16 Lenora Bertrand, REMBERTO is Primary Nurse. aj1 16:30 Patient has correct armband on for positive identification. aj1 16:30 No provider procedures requiring assistance completed. aj1 18:16 Patient did not have IV access during this emergency room visit. aj1 Administered Medications: 17:27 Drug: Decadron 10 mg Route: IM; Site: left deltoid; aj1 18:17 Follow up: Response: No adverse reaction aj1 Outcome: 17:45 Discharge ordered by . juancho 18:16 Discharged to home ambulatory. aj1 18:16 Condition: good 18:16 Discharge instructions given to patient, Instructed on discharge instructions, follow up and referral plans. medication usage, Demonstrated understanding of instructions, follow-up care, medications, Prescriptions given X 1. 18:16 Patient left the ED. aj1 Signatures: Lenora Bertrand RN RN aj Emeli Richardson RN RN Adebayo Eugene PA PA jmm Rivera, Mary mr Corrections: (The following items were deleted from the chart) 15:55 15:54 Resp 20bpm; Pulse Ox 98%; Temp 98.3F; 104.33 kg; Height 5 ft. 9 in.; BMI: 33.9; svsv
--- NOTE | 2019-02-16 17:46 | EDPHYS ---
Physician Documentation [facility] Name: Lele Castillo Jr Age: 24 yrs Sex: Male : 1995 Arrival Date: 02/16/2019 Time: 15:52 Bed Treatment Private MD: None, None ED Physician Shahriar Mirza HPI: 02/16 15:57 This 24 yrs old Male presents to ER via Ambulatory with complaints of Sore jmm Throat. 15:57 The patient presents with sore throat. Onset: The symptoms/episode began/occurred jmm gradually, 3 week(s) ago. Associated signs and symptoms: Pertinent negatives dysphagia, fever, vomiting. This is a 24 year old male with no chronic medical conditions that presents to the ED with complaints of 3 weeks of sore throat, denies vomiting, denies shortness of breath. Denies cough. Historical: - Allergies: 15:54 NKA; sv - PMHx: 15:54 None; sv - PSHx: 15:54 None; sv - Immunization history:: Adult Immunizations up to date. - Social history:: Smoking status: unknown. - Ebola Screening: : Patient denies travel to an Ebola-affected area in the 21 days before illness onset. ROS: 15:57 Constitutional: Negative for fever, chills, and weight loss. jm 15:57 Neck: Negative for injury, pain, and swelling, Cardiovascular: Negative for chest pain, palpitations, and edema, Respiratory: Negative for shortness of breath, cough, wheezing, and pleuritic chest pain, Abdomen/GI: Negative for abdominal pain, nausea, vomiting, diarrhea, and constipation. 15:57 ENT: Positive for sore throat. 15:57 All other systems are negative. Exam: 15:57 Head/Face: atraumatic. Eyes: EOMI, no conjunctival erythema appreciated jm 15:57 Neck: Trachea midline, Supple Chest/axilla: Normal chest wall appearance and motion. Cardiovascular: Regular rate and rhythm. No edema appreciated Respiratory: Normal respirations, no respiratory distress appreciated Abdomen/GI: Non distended, soft Skin: General appearance color normal MS/ Extremity: Moves all extremities, no obvious deformities appreciated, no edema noted to the lower extremities Neuro: Awake and alert, normal gait Psych: Behavior is normal, Mood is normal, Patient is cooperative and pleasant 15:57 Constitutional: The patient appears in no acute distress, alert, awake. 15:57 ENT: Posterior pharynx: Tonsils: enlarged on the right, enlarged on the left, no exudate, swelling, is not appreciated, erythema, that is mild, Voice: is normal. Vital Signs: 15:54 BP 136 / 81; Pulse 117; Resp 20; Temp 98.3; Pulse Ox 98% ; Weight 104.33 kg; Height 5 sv ft. 9 in. (175.26 cm); 15:54 Body Mass Index 33.97 (104.33 kg, 175.26 cm) sv MDM: 15:57 Patient medically screened. ke 17:45 Data reviewed: vital signs, nurses notes. Counseling: I had a detailed discussion with juancho the patient and/or guardian regarding: the historical points, exam findings, and any diagnostic results supporting the discharge/admit diagnosis, radiology results, the need for outpatient follow up, to return to the emergency department if symptoms worsen or persist or if there are any questions or concerns that arise at home. 17:45 ED course: Enlarged tonsils noted on PE. No uvular shift, no peritonsillar mass juancho appreciated. patient administered dexamethasone and advised to follow up with ENT for further evaluation. patient is otherwise given strict return precautions. patient understood and agrees with the plan of care. . 02/16 16:09 Order name: Strep; Complete Time: 16:49 [facility] 02/16 16:49 Order name: Throat Culture EDMS Administered Medications: 17:27 Drug: Decadron 10 mg Route: IM; Site: left deltoid; aj1 18:17 Follow up: Response: No adverse reaction aj1 Disposition: 02/17 07:27 Co-signature as Attending Physician, Shahriar Mirza MD I agree with the assessment and [facility] plan of care. Disposition: 02/16/19 17:45 Discharged to Home. Impression: Acute tonsillitis. - Condition is Stable. - Discharge Instructions: Tonsillitis. - Prescriptions for Medrol (Eliseo) 4 mg Oral Tablets, Dose Pack - take 1 tablet by ORAL route as directed - follow package instructions; 1 packet. - Medication Reconciliation Form, Thank You Letter, Antibiotic Education, Prescription Opioid Use form. - Follow up: Private Physician; When: 2 - 3 days; Reason: Recheck today's complaints, Continuance of care, Re-evaluation by your physician. Signatures: Dispatcher [employer] EDLenora Hodges RN RN aj1 Emeli Richardson RN RN sv Anderson, Corey, MD MD cha Mickail, Joel, PA PA jmm Corrections: (The following items were deleted from the chart) 02/16 18:16 17:45 02/16/2019 17:45 Discharged to Home. Impression: Acute tonsillitis. Condition is aj1 Stable. Forms are Medication Reconciliation Form, Thank You Letter, Antibiotic Education, Prescription Opioid Use. Follow up: Private Physician; When: 2 - 3 days; Reason: Recheck today's complaints, Continuance of care, Re-evaluation by your physician. juancho
[2019-02-16 18:58] VITALS: BP 136/81; TEMP 98.3; O2SAT 98
== END 2019-02-16 18:16 | disposition home or self-care (01) ==
LOC: ER 15:50
DX: J03.90 Acute tonsillitis, unspecified (principal)
CPT/HCPCS: 87070; 87081; 96372; 99283; J1100

== ENCOUNTER 2019-07-08 08:56 | Emergency (ER) | payer BC ==
--- NOTE | 2019-07-08 10:12 | ER ---
Nurse's Notes [facility] Name: Lele Castillo Jr Age: 24 yrs Sex: Male : 1995 Arrival Date: 07/08/2019 Time: 09:09 Bed 11 Private MD: Diagnosis: Acute Gastroenteritis Presentation: 07/08 09:29 Presenting complaint: Patient states: for the last three days I have had a cough, felt la1 ill, been vomiting. Tolerating PO today, had to miss work. Transition of care: patient was not received from another setting of care. Onset of symptoms was July 08, 2019. Risk Assessment: Do you want to hurt yourself or someone else? Patient reports no desire to harm self or others. Initial Sepsis Screen: Does the patient meet any 2 criteria? No. Patient's initial sepsis screen is negative. Does the patient have a suspected source of infection? No. Patient's initial sepsis screen is negative. Care prior to arrival: None. 09:29 Method Of Arrival: Ambulatory la1 09:29 Acuity: ANJANA 4 la1 Historical: - Allergies: 09:30 NKA; la1 - Home Meds: 09:30 None [Active]; la1 - PMHx: 09:30 None; la1 - PSHx: 09:30 None; la1 - Immunization history:: Adult Immunizations up to date. - Social history:: Smoking status: Patient/guardian denies using tobacco. - Ebola Screening: : No symptoms or risks identified at this time. Screenin:32 Abuse screen: Denies threats or abuse. Nutritional screening: No deficits noted. la1 Tuberculosis screening: No symptoms or risk factors identified. Fall Risk None identified. Assessment: 09:31 General: Appears in no apparent distress. Behavior is calm, cooperative. Pain: Denies la1 pain. Neuro: Level of Consciousness is awake, alert, obeys commands, Oriented to person, place, time, situation. Cardiovascular: Capillary refill < 3 seconds Patient's skin is warm and dry. Respiratory: Airway is patent Respiratory effort is even, unlabored, Respiratory pattern is regular, symmetrical. GI: Abdomen is round non-distended, Abd is soft and non tender X 4 quads. Reports diarrhea, nausea. : No signs and/or symptoms were reported regarding the genitourinary system. Vital Signs: 09:30 BP 134 / 73; Pulse 97; Resp 16; Temp 97.6; Pulse Ox 98% on R/A; Weight 108.86 kg; la1 Height 5 ft. 9 in. (175.26 cm); 09:30 Body Mass Index 35.44 (108.86 kg, 175.26 cm) la1 ED Course: 09:09 Patient arrived in ED. cf2 09:30 Triage completed. la1 09:31 Arm band placed on left wrist. la1 09:32 Call light in reach. Side rails up X 1. la1 09:41 Orlin Abel PA is PHCP. jr8 09:41 Gibran Jasso MD is Attending Physician. jr8 10:10 Jo Godoy, RN is Primary Nurse. iw 10:23 No provider procedures requiring assistance completed. Patient did not have IV access iw during this emergency room visit. Administered Medications: No medications were administered Outcome: 10:11 Discharge ordered by MD. jr8 10:23 Discharged to home ambulatory. iw 10:23 Condition: good 10:23 Discharge instructions given to patient, Instructed on discharge instructions, follow up and referral plans. medication usage, Demonstrated understanding of instructions, follow-up care, medications, Prescriptions given X 2. 10:23 Patient left the ED. iw Signatures: Jo Godoy RN RN iw Orlin Abel PA PA jr8 Louie Chu RN RN la1 Dom Moreau cf2 Corrections: (The following items were deleted from the chart) 09:31 09:29 Acuity: ANJANA 3 la1 la1
--- NOTE | 2019-07-08 10:12 | EDPHYS ---
Physician Documentation [facility] Name: Lele Castillo Jr Age: 24 yrs Sex: Male : 1995 Arrival Date: 07/08/2019 Time: 09:09 Bed 11 Private MD: ED Physician Gibran Jasso HPI: 07/08 10:15 This 24 yrs old Male presents to ER via Ambulatory with complaints of jr8 Nausea/Vomiting, Cough, Doesn't Feel Right. 10:15 Onset: The symptoms/episode began/occurred gradually, 2 day(s) ago. Possible causes: jr8 unknown. The symptoms are aggravated by nothing. The symptoms are alleviated by nothing. Associated signs and symptoms: The patient has no apparent associated signs or symptoms. Severity of symptoms: At their worst the symptoms were mild in the emergency department the symptoms are unchanged. The patient has not experienced similar symptoms in the past. The patient has not recently seen a physician. Patient stated that he was sent home from work. Needs work note. Had been having congestion, n/v/d. Feeling better but still not well enough to go back to work. Historical: - Allergies: 09:30 NKA; la1 - Home Meds: 09:30 None [Active]; la1 - PMHx: 09:30 None; la1 - PSHx: 09:30 None; la1 - Immunization history:: Adult Immunizations up to date. - Social history:: Smoking status: Patient/guardian denies using tobacco. - Ebola Screening: : No symptoms or risks identified at this time. ROS: 10:15 Eyes: Negative for injury, pain, redness, and discharge, ENT: Negative for injury, jr8 pain, and discharge, Neck: Negative for injury, pain, and swelling, Cardiovascular: Negative for chest pain, palpitations, and edema, Respiratory: Negative for shortness of breath, cough, wheezing, and pleuritic chest pain, Back: Negative for injury and pain, MS/Extremity: Negative for injury and deformity, Skin: Negative for injury, rash, and discoloration, Neuro: Negative for headache, weakness, numbness, tingling, and seizure. 10:15 Abdomen/GI: Positive for nausea, vomiting, and diarrhea, abdominal cramps, Negative for abdominal pain, abdominal distension, anorexia, dysphagia, hematemesis, black/tarry stool, rectal pain, rectal bleeding, bowel incontinence, flatulence. Exam: 10:15 Eyes: Pupils equal round and reactive to light, extra-ocular motions intact. Lids and jr8 lashes normal. Conjunctiva and sclera are non-icteric and not injected. Cornea within normal limits. Periorbital areas with no swelling, redness, or edema. ENT: Nares patent. No nasal discharge, no septal abnormalities noted. Tympanic membranes are normal and external auditory canals are clear. Oropharynx with no redness, swelling, or masses, exudates, or evidence of obstruction, uvula midline. Mucous membranes moist. Neck: Trachea midline, no thyromegaly or masses palpated, and no cervical lymphadenopathy. Supple, full range of motion without nuchal rigidity, or vertebral point tenderness. No Meningismus. Cardiovascular: Regular rate and rhythm with a normal S1 and S2. No gallops, murmurs, or rubs. Normal PMI, no JVD. No pulse deficits. Respiratory: Lungs have equal breath sounds bilaterally, clear to auscultation and percussion. No rales, rhonchi or wheezes noted. No increased work of breathing, no retractions or nasal flaring. Abdomen/GI: Soft, non-tender, with normal bowel sounds. No distension or tympany. No guarding or rebound. No evidence of tenderness throughout. Back: No spinal tenderness. No costovertebral tenderness. Full range of motion. Skin: Warm, dry with normal turgor. Normal color with no rashes, no lesions, and no evidence of cellulitis. MS/ Extremity: Pulses equal, no cyanosis. Neurovascular intact. Full, normal range of motion. Neuro: Awake and alert, GCS 15, oriented to person, place, time, and situation. Cranial nerves II-XII grossly intact. Motor strength 5/5 in all extremities. Sensory grossly intact. Cerebellar exam normal. Normal gait. Vital Signs: 09:30 BP 134 / 73; Pulse 97; Resp 16; Temp 97.6; Pulse Ox 98% on R/A; Weight 108.86 kg; la1 Height 5 ft. 9 in. (175.26 cm); 09:30 Body Mass Index 35.44 (108.86 kg, 175.26 cm) la1 MDM: 10:00 Patient medically screened. jr8 10:11 Data reviewed: vital signs, nurses notes, and as a result, I will discharge patient. jr8 Data interpreted: Pulse oximetry: on room air is 98 %. Interpretation: normal. Counseling: I had a detailed discussion with the patient and/or guardian regarding: the historical points, exam findings, and any diagnostic results supporting the discharge/admit diagnosis, the need for outpatient follow up, a family practitioner, to return to the emergency department if symptoms worsen or persist or if there are any questions or concerns that arise at home. 10:15 ED course: Patients exam in benign. No acute findings. Patient wants to try medication jr8 for now without being worked up and see how he does. If worse would come back for further work up. I agreed with plan and feel that that is reasonable for now . Administered Medications: No medications were administered Disposition: 14:10 Co-signature as Attending Physician, Gibran Jasso MD. rn Disposition: 07/08/19 10:11 Discharged to Home. Impression: Acute Gastroenteritis. - Condition is Stable. - Discharge Instructions: Viral Gastroenteritis, Adult. - Prescriptions for Bentyl 20 mg Oral Tablet - take 1 tablet by ORAL route every 6 hours As needed; 20 tablet. Zofran 4 mg Oral Tablet - take 1 tablet by ORAL route every 12 hours As needed; 20 tablet. - Work release form, Medication Reconciliation Form, Thank You Letter, Antibiotic Education, Prescription Opioid Use form. - Follow up: Private Physician; When: 5 - 6 days; Reason: Recheck today's complaints, Continuance of care, Re-evaluation by your physician. - Problem is new. - Symptoms have improved. Signatures: Jo Godoy RN RN iw Gibran Jasso MD MD rn Roszak, Josh, PA PA jr8 Louie Chu RN RN la1 Corrections: (The following items were deleted from the chart) 10:23 10:11 07/08/2019 10:11 Discharged to Home. Impression: Acute Gastroenteritis. Condition iw is Stable. Forms are Medication Reconciliation Form, Thank You Letter, Antibiotic Education, Prescription Opioid Use. Follow up: Private Physician; When: 5 - 6 days; Reason: Recheck today's complaints, Continuance of care, Re-evaluation by your physician. Problem is new. Symptoms have improved. jr8
[2019-07-08 10:40] VITALS: BP 134/73; TEMP 97.6; O2SAT 98
== END 2019-07-08 10:23 | disposition home or self-care (01) ==
LOC: ER 08:56
DX: K52.9 Noninfective gastroenteritis and colitis, unspecified (principal)
CPT/HCPCS: 99282

== ENCOUNTER 2019-12-02 09:26 | Emergency (ER) | payer BC ==
[2019-12-02] MEDS ORDERED: ONDANSETRON 4 MG (ODT) TAB ONE (10:28)
[2019-12-02] MEDS ORDERED: AMOX/K CLAV 875 MG TAB ONE (10:28)
--- NOTE | 2019-12-02 11:00 | EDPHYS ---
Physician Documentation [facility] Name: Lele Castillo Jr Age: 24 yrs Sex: Male : 1995 Arrival Date: 12/02/2019 Time: 09:27 Bed 13 Private MD: REHANA Physician Shahriar Mirza HPI: 12/02 10:20 This 24 yrs old Male presents to ER via Ambulatory with complaints of Flu ke Symptoms. 10:20 The patient presents to the emergency department with nausea, vomiting. Onset: The ke symptoms/episode began/occurred 3 day(s) ago. Possible causes: unknown. The symptoms are aggravated by nothing. The symptoms are alleviated by nothing. The patient or guardian reports cough, described as mild, flu symptoms, arthralgias, low-grade fever, myalgias, no appetite. Modifying factors: The symptoms are alleviated by nothing. the symptoms are aggravated by nothing. Severity of symptoms: At their worst the symptoms were mild, in the emergency department the symptoms are unchanged. Historical: - Allergies: 09:41 NKA; ss - Home Meds: :41 None [Active]; ss - PMHx: :41 None; ss - PSHx: 09:41 None; ss - Immunization history:: Adult Immunizations up to date. - Social history:: Smoking status: Patient/guardian denies using tobacco. - Ebola Screening: : Patient denies exposure to infectious person Patient denies travel to an Ebola-affected area in the 21 days before illness onset. - Family history:: not pertinent. ROS: 10:20 Constitutional: Negative for fever, chills, and weight loss, Eyes: Negative for injury, ke pain, redness, and discharge, Neck: Negative for injury, pain, and swelling, Cardiovascular: Negative for chest pain, palpitations, and edema, Back: Negative for injury and pain, : Negative for injury, bleeding, discharge, and swelling, MS/Extremity: Negative for injury and deformity, Skin: Negative for injury, rash, and discoloration, Neuro: Negative for headache, weakness, numbness, tingling, and seizure, Psych: Negative for depression, anxiety, suicide ideation, homicidal ideation, and hallucinations, Allergy/Immunology: Negative for hives, rash, and allergies, Endocrine: Negative for neck swelling, polydipsia, polyuria, polyphagia, and marked weight changes, Hematologic/Lymphatic: Negative for swollen nodes, abnormal bleeding, and unusual bruising. 10:20 ENT: Positive for sinus congestion, sore throat. 10:20 Respiratory: Positive for cough. 10:20 Abdomen/GI: Positive for nausea and vomiting. Exam: 10:20 Constitutional: This is a well developed, well nourished patient who is awake, alert, ke and in no acute distress. Head/Face: Normocephalic, atraumatic. Eyes: Pupils equal round and reactive to light, extra-ocular motions intact. Lids and lashes normal. Conjunctiva and sclera are non-icteric and not injected. Cornea within normal limits. Periorbital areas with no swelling, redness, or edema. ENT: Nares patent. No nasal discharge, no septal abnormalities noted. Tympanic membranes are normal and external auditory canals are clear. Oropharynx with no redness, swelling, or masses, exudates, or evidence of obstruction, uvula midline. Mucous membranes moist. Neck: Trachea midline, no thyromegaly or masses palpated, and no cervical lymphadenopathy. Supple, full range of motion without nuchal rigidity, or vertebral point tenderness. No Meningismus. Chest/axilla: Normal chest wall appearance and motion. Nontender with no deformity. No lesions are appreciated. Abdomen/GI: Soft, non-tender, with normal bowel sounds. No distension or tympany. No guarding or rebound. No evidence of tenderness throughout. Back: No spinal tenderness. No costovertebral tenderness. Full range of motion. Skin: Warm, dry with normal turgor. Normal color with no rashes, no lesions, and no evidence of cellulitis. MS/ Extremity: Pulses equal, no cyanosis. Neurovascular intact. Full, normal range of motion. Neuro: Awake and alert, GCS 15, oriented to person, place, time, and situation. Cranial nerves II-XII grossly intact. Motor strength 5/5 in all extremities. Sensory grossly intact. Cerebellar exam normal. Normal gait. Psych: Awake, alert, with orientation to person, place and time. Behavior, mood, and affect are within normal limits. 10:20 Cardiovascular: Rate: tachycardic, Rhythm: regular, Pulses: Pulses are 4+ in bilateral radial, brachial, femoral, popliteal, posterior tibial and and dorsalis pedis arteries.. Heart sounds: normal, normal S1and S2, no S3 or S4, no murmur, no rub, no gallop, Edema: is not appreciated, JVD: is not appreciated. Vital Signs: 09:38 BP 131 / 85; Pulse 114; Resp 20; Temp 97.0(TE); Pulse Ox 99% on R/A; Weight 108.86 kg; ss Height 5 ft. 9 in. (175.26 cm); Pain 0/10; 10:38 BP 123 / 80; Pulse 110; Resp 17; Pulse Ox 95% ; bp 11:07 BP 148 / 86; Pulse 105; Resp 16; Pulse Ox 95% ; bp 09:38 Body Mass Index 35.44 (108.86 kg, 175.26 cm) ss MDM: 09:36 Patient medically screened. [facility] 10:23 Data reviewed: vital signs, nurses notes, lab test result(s). [facility] 12/02 10:17 Order name: Flu; Complete Time: [facility] 12/02 10:17 Order name: Strep; Complete Time: [facility] 12/02 10:20 Order name: PO challenge; Complete Time: 10:37 [facility] 12/02 10:45 Order name: Throat Culture EDMS Administered Medications: 10:25 Drug: Augmentin 875 mg Route: PO; bp 11:06 Follow up: Response: No adverse reaction; Nausea is decreased bp 10:25 Drug: Zofran 4 mg Route: PO; bp 11:07 Follow up: Response: Nausea is decreased bp Disposition: 12/02/19 11:00 Discharged to Home. Impression: Acute upper respiratory infection, unspecified, Acute pharyngitis, Vomiting. - Condition is Stable. - Discharge Instructions: Nausea and Vomiting, Adult, Pharyngitis, Upper Respiratory Infection, Adult, Nausea and Vomiting, Adult, [id number], Pharyngitis, [id number], Cough, Adult, Sore Throat, [id number]. - Prescriptions for Augmentin 875- 125 mg Oral Tablet - take 1 tablet by ORAL route every 12 hours for 10 days; 20 tablet. Zofran 4 mg Oral Tablet - take 1 tablet by ORAL route every 12 hours As needed; 20 tablet. - Work release form, Medication Reconciliation Form, Thank You Letter, Antibiotic Education, Prescription Opioid Use form. - Follow up: Private Physician; When: 2 - 3 days; Reason: Recheck today's complaints, Continuance of care, Re-evaluation by your physician. - Problem is new. - Symptoms have improved. Signatures: Dispatcher [employer] EDShahriar Rivera MD MD cha Smirch, Shelby, RN RN Rhett Hearn RN RN bp Corrections: (The following items were deleted from the chart) 11:22 11:00 12/02/2019 11:00 Discharged to Home. Impression: Acute upper respiratory bp infection, unspecified; Acute pharyngitis; Vomiting. Condition is Stable. Discharge Instructions: Nausea and Vomiting, Adult, Pharyngitis, Upper Respiratory Infection, Adult, Nausea and Vomiting, Adult, [id number], Pharyngitis, [id number], Cough, Adult, Sore Throat, [id number]. Prescriptions for Augmentin 875-125 mg Oral Tablet - take 1 tablet by ORAL route every 12 hours for 10 days; 20 tablet, Zofran 4 mg Oral Tablet - take 1 tablet by ORAL route every 12 hours As needed; 20 tablet. and Forms are Medication Reconciliation Form, Thank You Letter, Antibiotic Education, Prescription Opioid Use. Follow up: Private Physician; When: 2 - 3 days; Reason: Recheck today's complaints, Continuance of care, Re-evaluation by your physician. Problem is new. Symptoms have improved. ke
--- NOTE | 2019-12-02 11:00 | ER ---
Nurse's Notes [facility] Name: Lele Castillo Jr Age: 24 yrs Sex: Male : 1995 Arrival Date: 12/02/2019 Time: 09:27 Bed 13 Private MD: Diagnosis: Acute upper respiratory infection, unspecified;Acute pharyngitis;Vomiting Presentation: 12/02 09:38 Presenting complaint: Patient states: fever, cough, N/V/D that began 3 days ago. ss Transition of care: patient was not received from another setting of care. Onset of symptoms was November 29, 2019. Risk Assessment: Do you want to hurt yourself or someone else? Patient reports no desire to harm self or others. Initial Sepsis Screen: Does the patient meet any 2 criteria? HR > 90 bpm. Does the patient have a suspected source of infection? No. Patient's initial sepsis screen is negative. Care prior to arrival: None. 09:38 Method Of Arrival: Ambulatory ss 09:38 Acuity: ANJANA 3 ss Triage Assessment: 09:45 General: Appears in no apparent distress. comfortable, Behavior is cooperative, bp appropriate for age, anxious. Pain: Complains of pain in GENERALIZED [place]. EENT: No deficits noted. Neuro: No deficits noted. Cardiovascular: No deficits noted. Respiratory: Reports cough that is. GI: Reports nausea. : No deficits noted. No signs and/or symptoms were reported regarding the genitourinary system. Derm: No deficits noted. Musculoskeletal: No deficits noted. Historical: - Allergies: 09:41 NKA; ss - Home Meds: 09:41 None [Active]; ss - PMHx: 09:41 None; ss - PSHx: 09:41 None; ss - Immunization history:: Adult Immunizations up to date. - Social history:: Smoking status: Patient/guardian denies using tobacco. - Ebola Screening: : Patient denies exposure to infectious person Patient denies travel to an Ebola-affected area in the 21 days before illness onset. - Family history:: not pertinent. Screenin:38 Abuse screen: Denies threats or abuse. Denies injuries from another. Nutritional bp screening: No deficits noted. Tuberculosis screening: No symptoms or risk factors identified. Fall Risk None identified. Assessment: 09:45 General: SEE TRIAGE NOTE. bp 10:38 Reassessment: PO CHALLENGE SUCCESSFUL. LAB RESULTS PENDING. PT STATES NO CHANGE S/S. bp 11:21 Reassessment: PT D/C HOME AMBULATORY, DX WITH ACUTE URI. bp Vital Signs: 09:38 BP 131 / 85; Pulse 114; Resp 20; Temp 97.0(TE); Pulse Ox 99% on R/A; Weight 108.86 kg; Height 5 ft. 9 in. (175.26 cm); Pain 0/10; 10:38 BP 123 / 80; Pulse 110; Resp 17; Pulse Ox 95% ; bp 11:07 BP 148 / 86; Pulse 105; Resp 16; Pulse Ox 95% ; bp 09:38 Body Mass Index 35.44 (108.86 kg, 175.26 cm) ED Course: 09:27 Patient arrived in ED. as 09:34 Rhett Gomez, RN is Primary Nurse. bp 09:36 Shahriar Mirza MD is Attending Physician. [facility] 09:38 Arm band placed on right wrist. 09:40 Triage completed. 10:38 Patient has correct armband on for positive identification. Bed in low position. Call bp light in reach. Side rails up X2. 11:08 No provider procedures requiring assistance completed. Patient did not have IV access bp during this emergency room visit. Administered Medications: 10:25 Drug: Augmentin 875 mg Route: PO; bp 11:06 Follow up: Response: No adverse reaction; Nausea is decreased bp 10:25 Drug: Zofran 4 mg Route: PO; bp 11:07 Follow up: Response: Nausea is decreased bp Outcome: 11:00 Discharge ordered by . [facility] 11:21 Discharged to home ambulatory. bp 11:21 Condition: stable 11:21 Discharge instructions given to patient, Instructed on discharge instructions, follow up and referral plans. medication usage, Demonstrated understanding of instructions, follow-up care, medications, Prescriptions given X 2. 11:22 Patient left the ED. bp Signatures: Shahriar Mirza MD MD cha Martinez, Amelia as Smirch, Shelby, RN RN Rhett Gomez, REMBERTO RN bp
[2019-12-02 11:39] VITALS: O2SAT 95
[2019-12-02 11:40] VITALS: TEMP 97
[2019-12-02 11:42] VITALS: BP 148/86
== END 2019-12-02 11:22 | disposition home or self-care (01) ==
LOC: ER 09:26
DX: J06.9 Acute upper respiratory infection, unspecified (principal); J02.9 Acute pharyngitis, unspecified; R11.10 Vomiting, unspecified
CPT/HCPCS: 87070; 87081; 87804; 99283

== ENCOUNTER 2020-02-25 08:04 | Emergency (ER) | payer BC ==
[2020-02-25] MEDS ORDERED: FAMOTIDINE 20 MG TAB ONE (08:25)
[2020-02-25] MEDS ORDERED: predniSONE 20 MG TAB ONE (08:25)
[2020-02-25] MEDS ORDERED: DIPHENHYDRAMINE 25 MG TAB/CAP ONE (08:25)
--- NOTE | 2020-02-25 08:29 | ER ---
Nurse's Notes [facility] Name: Lele Castillo Jr Age: 25 yrs Sex: Male : 1995 Arrival Date: 02/25/2020 Time: 08:05 Bed 4 Private MD: Diagnosis: Allergic contact dermatitis due to plants, except food Presentation: 02/24 08:14 Chief complaint: Patient states: poison roro to bilateral hands to elbows and groin. jl7 Coronavirus screen: Proceed with normal triage. Ebola Screen: No symptoms or risks identified at this time. Initial Sepsis Screen: Does the patient meet any 2 criteria? No. Patient's initial sepsis screen is negative. Does the patient have a suspected source of infection? No. Patient's initial sepsis screen is negative. Risk Assessment: Do you want to hurt yourself or someone else? Patient reports no desire to harm self or others. Onset of symptoms was February 22, 2020. 08:14 Method Of Arrival: Ambulatory 7 08:14 Acuity: ANJANA 4 jl7 Triage Assessment: 08:16 General: Appears in no apparent distress. uncomfortable, Behavior is calm, cooperative, jl7 appropriate for age. Pain: Denies pain. Neuro: Level of Consciousness is awake, alert, obeys commands, Oriented to person, place, time, situation. Cardiovascular: Patient's skin is warm and dry. Respiratory: Airway is patent Respiratory effort is even, unlabored, Respiratory pattern is regular, symmetrical, Denies shortness of breath. Derm: Rash noted that is itchy, papular, on left hand, right arm and left arm Reports itching. Historical: - Allergies: 08:16 NKA; jl7 - Home Meds: 08:16 None [Active]; jl7 - PMHx: 08:16 None; jl7 - PSHx: 08:16 None; jl7 - Immunization history:: Adult Immunizations not up to date. - Social history:: Smoking status: Patient denies any tobacco usage or history of. Screenin:15 Abuse screen: Denies threats or abuse. Denies injuries from another. Nutritional jl7 screening: No deficits noted. Tuberculosis screening: No symptoms or risk factors identified. Fall Risk None identified. Assessment: 08:15 General: See triage assessment. jl7 08:41 Reassessment: Patient is alert, oriented x 3, equal unlabored respirations, skin aa5 warm/dry/pink. Vital Signs: 08:14 BP 141 / 98; Pulse 103; Resp 17; Temp 97.9; Pulse Ox 100% ; Pain 10/10; jl7 ED Course: 08:05 Patient arrived in ED. as 08:06 Thom Rodriguez MD is Attending Physician. kdr 08:14 Sonali Torres, RN is Primary Nurse. jl7 08:15 Triage completed. jl7 08:15 Patient has correct armband on for positive identification. Bed in low position. Call jl7 light in reach. Side rails up X 1. Pulse ox on. NIBP on. 08:16 Arm band placed on not placed per pt due to rash on wrists. jl7 08:42 No provider procedures requiring assistance completed. Patient did not have IV access aa5 during this emergency room visit. Administered Medications: 08:20 Drug: predniSONE 60 mg Route: PO; jl7 08:20 Drug: Pepcid 20 mg Route: PO; jl7 08:20 Drug: Benadryl 25 mg Route: PO; jl7 Outcome: 08:28 Discharge ordered by . kdr 08:41 Discharged to home ambulatory. aa5 08:41 Condition: stable 08:41 Discharge instructions given to patient, Instructed on discharge instructions, follow up and referral plans. medication usage, Demonstrated understanding of instructions, follow-up care, medications, Prescriptions given X 3. 08:42 Patient left the ED. aa5 Signatures: Thom Rodriguez MD MD kdr Darlyn Jeronimo Audri RN RN aa5 Sonali Torres, REMBERTO RN jl7
--- NOTE | 2020-02-25 08:29 | EDPHYS ---
Physician Documentation [facility] Name: Lele Castillo Jr Age: 25 yrs Sex: Male : 1995 Arrival Date: 02/25/2020 Time: 08:05 Bed 4 Private MD: ED Physician Thom Rodriguez HPI: 02/24 08:14 This 25 yrs old Male presents to ER via Unassigned with complaints of Rash - kdr poison lisa. 08:14 The patient's rash thought to be caused by allergies, Dermatitis Contact allergy. The kdr rash is located on the pelvis, right arm and left arm. The rash can be described as diffuse, macular, papular, raised. Onset: The symptoms/episode began/occurred gradually, 4 day(s) ago. Associated signs and symptoms: Pertinent positives: burning sensation, itching, Pertinent negatives: swelling of lips, swelling of throat, swelling of tongue, vomiting, wheezing. Severity of symptoms: At their worst the symptoms were moderate just prior to arrival, in the emergency department the symptoms are unchanged. Treatment given at home: Calamine Lotion. The patient has experienced similar episodes in the past. The patient has not recently seen a physician. Historical: - Allergies: 08:16 NKA; jl7 - Home Meds: 08:16 None [Active]; jl7 - PMHx: 08:16 None; jl7 - PSHx: 08:16 None; jl7 - Immunization history:: Adult Immunizations not up to date. - Social history:: Smoking status: Patient denies any tobacco usage or history of. ROS: 08:14 Constitutional: Negative for fever, chills, and weight loss, Eyes: Negative for injury, kdr pain, redness, and discharge, ENT: Negative for injury, pain, and discharge, Neck: Negative for injury, pain, and swelling, Cardiovascular: Negative for chest pain, palpitations, and edema, Respiratory: Negative for shortness of breath, cough, wheezing, and pleuritic chest pain, Abdomen/GI: Negative for abdominal pain, nausea, vomiting, diarrhea, and constipation, Back: Negative for injury and pain, MS/Extremity: Negative for injury and deformity, Neuro: Negative for headache, weakness, numbness, tingling, and seizure activity. Psych: Negative for depression, anxiety, suicide ideation, homicidal ideation, and hallucinations, Allergy/Immunology: Negative for hives, rash, and allergies, Endocrine: Negative for neck swelling, polydipsia, polyuria, polyphagia, and marked weight changes, Hematologic/Lymphatic: Negative for swollen nodes, abnormal bleeding, and unusual bruising. 08:14 Skin: Positive for rash. Exam: 08:14 Constitutional: This is a well developed, well nourished patient who is awake, alert, kdr and in no acute distress. Head/Face: Normocephalic, atraumatic. Eyes: Pupils equal round and reactive to light, extra-ocular motions intact. Lids and lashes normal. Conjunctiva and sclera are non-icteric and not injected. Cornea within normal limits. Periorbital areas with no swelling, redness, or edema. 08:14 Skin: rash a moderate rash is noted, contact dermatitis. Vital Signs: 08:14 BP 141 / 98; Pulse 103; Resp 17; Temp 97.9; Pulse Ox 100% ; Pain 10/10; jl7 MDM: 08:28 Patient medically screened. kdr 15:31 Data reviewed: vital signs, nurses notes, lab test result(s), radiologic studies. kdr Counseling: I had a detailed discussion with the patient and/or guardian regarding: the historical points, exam findings, and any diagnostic results supporting the discharge/admit diagnosis, lab results. Administered Medications: 08:20 Drug: predniSONE 60 mg Route: PO; jl7 08:20 Drug: Pepcid 20 mg Route: PO; jl7 08:20 Drug: Benadryl 25 mg Route: PO; jl7 Disposition: 02/25/20 08:28 Discharged to Home. Impression: Allergic contact dermatitis due to plants, except food. - Condition is Stable. - Discharge Instructions: Contact Dermatitis, Poison Lisa Dermatitis, Poison [place] Dermatitis, Rash, [id number]. - Prescriptions for Benadryl 25 mg Oral Capsule - take 1 capsule by ORAL route every 6 hours As needed; 30 tablet. Prednisone 20 mg Oral Tablet - take 1 tablet by ORAL route as directed for 10 days Take one tablet three times a day for three days then 1 tablet two times a day for three days then 1 dablet per day for four days. Dispense QS; 1 Pack. Pepcid 20 mg Oral Tablet - take 1 tablet by ORAL route once daily for 10 days; 10 tablet. - Medication Reconciliation Form, Thank You Letter form. - Follow up: Private Physician; When: 2 - 3 days; Reason: If symptoms return, Further diagnostic work-up, Recheck today's complaints, Continuance of care, Re-evaluation by your physician. - Problem is an ongoing problem. - Symptoms are unchanged. Signatures: Thom Rodriguez MD MD kdr Isatu Le RN RN aa5 Sonali Torres RN RN jl7 Corrections: (The following items were deleted from the chart) 08:42 08:28 02/25/2020 08:28 Discharged to Home. Impression: Allergic contact dermatitis due aa5 to plants, except food. Condition is Stable. Forms are Medication Reconciliation Form, Thank You Letter, Antibiotic Education, Prescription Opioid Use. Follow up: Private Physician; When: 2 - 3 days; Reason: If symptoms return, Further diagnostic work-up, Recheck today's complaints, Continuance of care, Re-evaluation by your physician. Problem is an ongoing problem. Symptoms are unchanged. kdr
[2020-02-25 08:47] VITALS: BP 141/98; TEMP 97.9; O2SAT 100
== END 2020-02-25 08:42 | disposition home or self-care (01) ==
LOC: ER 08:04
DX: L23.7 Allergic contact dermatitis due to plants, except food (principal)
CPT/HCPCS: 99283; J7512

== ENCOUNTER 2020-05-12 14:35 | Emergency (ER) | payer BC ==
[2020-05-12] MEDS ORDERED: dexAMETHasone 10 MG/ML VIAL ONE (15:06)
[2020-05-12] MEDS ORDERED: NA CHLORIDE 0.9% 1,000 ML ONE ×2 (15:07→16:35)
[2020-05-12 15:29] LABS: Absolute Lymphocytes (CBC) 0.4 K/uL (0.7-4.9); Basophils % 0.6 % (0-1.3); Hematocrit 45.7 % (39.6-49.0); Lymphocytes % 6.3 % (15.3-44.8); MPV 9.9 fL (7.6-11.3); RBC Red Blood Cell Count 5.12 M/uL (4.33-5.43)
[2020-05-12 15:46] LABS: Potassium 3.6 mmol/L (3.5-5.1)
[2020-05-12] MEDS ORDERED: CEFTRIAXONE/SWI 1gm 1 GM/10 ML SYR ONE (16:11)
--- NOTE | 2020-05-12 16:19 | RAD REPORT ---
EXAM DESCRIPTION: CT - Soft Tissue Neck W/Contr - 05/12/2020 4:00 pm CLINICAL HISTORY: r/o abscess;Swelling;Pain;Sore throat COMPARISON: No comparisonsNo comparisons TECHNIQUE: During dynamic enhancement using 100 milliliters nonionic IV contrast, axial 5 millimeter thick images of the neck were obtained. All CT scans are performed using dose optimization technique as appropriate and may include automated exposure control or mA/KV adjustment according to patient size. FINDINGS: Intracranial portion the examination is unremarkable. No globe or orbital content abnormal ity. Mastoid air cells and paranasal sinuses are clear. No adenoid tissue abnormality seen. Tonsillar tissue is mildly prominent with the baseline unknown. Soft palate appear slightly thickened as well. No peritonsillar abscess identified. The parapharyngeal fat is normal. No tongue base abnormality. T he epiglottis and laryngeal structures are normal. No oropharyngeal mass. Parotid, submandibular and thyroid gland tissue show no suspicious findings. Bilateral cervical lymph nodes are present. These are relatively few in number. The largest measures 2.4 cm on the left. No suspicious enhancement pattern or necrosis. No suspicious bony finding. No vascular abnormality. IMPRESSION: Mild prominence of the bilateral tonsillar tissues and soft palate. Baseline presentatio n for the patient is unknown. A mild tonsillitis/pharyngitis is certainly possible. No peritonsillar abscess seen. Benign-appearing reactive bilateral cervical lymph nodes.
--- NOTE | 2020-05-12 16:26 | EDPHYS ---
Physician Documentation [facility] Name: Lele Castillo Jr Age: 25 yrs Sex: Male : 1995 Arrival Date: 05/12/2020 Time: 14:38 Bed 2 Private MD: ED Physician Zachary Low HPI: 05/12 14:59 This 25 yrs old Male presents to ER via Ambulatory with complaints of Sore kb Throat. 14:59 The patient presents with sore throat. The patient describes throat pain as constant. kb Onset: The symptoms/episode began/occurred this morning. Severity of symptoms: At their worst the symptoms were moderate, in the emergency department the symptoms are unchanged. Modifying factors: The symptoms are alleviated by nothing, the symptoms are aggravated by swallowing. Associated signs and symptoms: Pertinent positives: fever, Sore throat. The patient has not experienced similar symptoms in the past. The patient has not recently seen a physician. Pt reports he woke up with sore throat and fever. 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 Historical: - Allergies: 14:48 NKA; ll1 - PSHx: 14:48 nasal surgery; ll1 - Immunization history:: Adult Immunizations. - Social history:: Smoking status: Patient denies any tobacco usage or history of. Patient/guardian denies using alcohol, street drugs, tobacco products. ROS: 14:58 Cardiovascular: Negative for chest pain, palpitations, and edema, Respiratory: Negative kb for shortness of breath, cough, wheezing, and pleuritic chest pain, Abdomen/GI: Negative for abdominal pain, nausea, diarrhea, and constipation. +vomiting MS/Extremity: Negative for injury and deformity, Skin: Negative for injury, rash, and discoloration, Neuro: Negative for headache, weakness, numbness, tingling, and seizure. 14:58 Constitutional: Positive for fever. 14:58 ENT: Positive for sore throat. Exam: 14:59 Constitutional: This is a well developed, well nourished patient who is awake, alert, kb and in no acute distress. Head/Face: Normocephalic, atraumatic. Chest/axilla: Normal chest wall appearance and motion. Nontender with no deformity. No lesions are appreciated. Cardiovascular: Regular rate and rhythm with a normal S1 and S2. No gallops, murmurs, or rubs. Normal PMI, no JVD. No pulse deficits. Respiratory: Lungs have equal breath sounds bilaterally, clear to auscultation and percussion. No rales, rhonchi or wheezes noted. No increased work of breathing, no retractions or nasal flaring. Abdomen/GI: Soft, non-tender, with normal bowel sounds. No distension or tympany. No guarding or rebound. No evidence of tenderness throughout. Skin: Warm, dry with normal turgor. Normal color with no rashes, no lesions, and no evidence of cellulitis. MS/ Extremity: Pulses equal, no cyanosis. Neurovascular intact. Full, normal range of motion. Neuro: Awake and alert, GCS 15, oriented to person, place, time, and situation. Cranial nerves II-XII grossly intact. Motor strength 5/5 in all extremities. Sensory grossly intact. Cerebellar exam normal. Normal gait. 14:59 ENT: Posterior pharynx: Airway: patent, Tonsils: bilaterally enlarged, with erythema, Uvula: edematous, erythema, swelling, that is moderate, erythema, that is moderate. Vital Signs: 14:46 BP 120 / 60; Pulse 148; Resp 18; Temp 99.6; Pulse Ox 95% ; Pain 10/10; ll1 15:26 BP 140 / 96; Pulse 121; Resp 16; Pulse Ox 95% ; sv 16:15 BP 145 / 59; Pulse 116; Pulse Ox 95% ; sv 17:13 BP 132 / 77; Pulse 115; Resp 20; Temp 99; Pulse Ox 96% ; sv 18:00 BP 139 / 60; Pulse 105; Resp 16; Pulse Ox 96% ; sv MDM: 14:51 Patient medically screened. kb 14:58 Data reviewed: vital signs, nurses notes. Data interpreted: Pulse oximetry: on room air kb is 95 %. Interpretation: normal. 15:49 ED course: Pt states he can swallow better now, appears to be feeling better. kb 16:23 Counseling: I had a detailed discussion with the patient and/or guardian regarding: the kb historical points, exam findings, and any diagnostic results supporting the discharge/admit diagnosis, lab results, radiology results, the need for outpatient follow up, a family practitioner, to return to the emergency department if symptoms worsen or persist or if there are any questions or concerns that arise at home. 05/12 14:56 Order name: CBC with Diff; Complete Time: 15:38 kb 05/12 14:56 Order name: Basic Metabolic Panel; Complete Time: 15:48 kb 05/12 14:56 Order name: Strep; Complete Time: 15:38 kb 05/12 15:49 Order name: CT Soft Tissue Neck W/contr; Complete Time: 16:23 kb 05/12 16:01 Order name: Throat Culture EDMA 05/12 14:56 Order name: IV Start; Complete Time: 15:11 kb Administered Medications: 15:11 Drug: Decadron - Dexamethasone 10 mg Route: IVP; Site: left antecubital; sv 16:06 Follow up: Response: No adverse reaction sv 15:11 Drug: NS 0.9% 1000 ml Route: IV; Rate: 1000 ml; Site: left antecubital; sv 16:30 Follow up: Response: No adverse reaction; IV Status: Completed infusion; IV Intake: sv 1000ml 16:06 Drug: Rocephin 1 grams Route: IV; Rate: calculated rate; Site: left antecubital; sv 16:08 Follow up: Response: No adverse reaction; IV Status: Completed infusion; IV Intake: 10mlsv 16:30 Drug: NS 0.9% 1000 ml Route: IV; Rate: 1000 ml; Site: left antecubital; sv 18:24 Follow up: Response: No adverse reaction; IV Status: Completed infusion; IV Intake: sv 1000ml Disposition: 19:35 Co-signature as Attending Physician, Zachary Low MD. [email or web address] Disposition: 05/12/20 16:25 Discharged to Home. Impression: Acute tonsillitis. - Condition is Stable. - Discharge Instructions: Tonsillitis, [id number]. - Prescriptions for Augmentin 875- 125 mg Oral Tablet - take 1 tablet by ORAL route every 12 hours for 10 days; 20 tablet. Prednisone 20 mg Oral Tablet - take 1 tablet by ORAL route once daily for 5 days; 5 tablet. - Medication Reconciliation Form, Thank You Letter, Antibiotic Education, Prescription Opioid Use form. - Follow up: Emergency Department; When: As needed; Reason: Worsening of condition. Follow up: Private Physician; When: 2 - 3 days; Reason: Recheck today's complaints, Continuance of care, Re-evaluation by your physician. Signatures: Dispatcher [employer] EDMA Nirmala Reyna LYE TREATER-C LYE TREATER-Emeli Curiel, RN RN sv Sam Marion RN RN ll1 Zachary Low MD MD [email or web address] Corrections: (The following items were deleted from the chart) 18:25 16:25 05/12/2020 16:25 Discharged to Home. Impression: Acute tonsillitis. Condition is sv Stable. Forms are Medication Reconciliation Form, Thank You Letter, Antibiotic Education, Prescription Opioid Use. Follow up: Emergency Department; When: As needed; Reason: Worsening of condition. Follow up: Private Physician; When: 2 - 3 days; Reason: Recheck today's complaints, Continuance of care, Re-evaluation by your physician. kb
--- NOTE | 2020-05-12 16:26 | ER ---
Nurse's Notes [facility] Name: Lele Castillo Jr Age: 25 yrs Sex: Male : 1995 Arrival Date: 05/12/2020 Time: 14:38 Bed 2 Private MD: Diagnosis: Acute tonsillitis Presentation: 05/12 14:46 Chief complaint: Patient states: Awoke today with severe pain and swelling to tonsil ll1 area. No fever. + lightheaded and dizzy. Coronavirus screen: Proceed with normal triage. Patient denies a cough. Patient denies shortness of breath or difficulty breathing. Patient denies measured and/or subjective temperature greater than 100.4F prior to today's visit. Patient denies travel on a cruise ship or to a country the [facility] currently lists as an affected area. Patient denies contact with known and/or suspected case of COVID-19. Ebola Screen: Patient denies travel to an Ebola-affected area in the 21 days before illness onset. Initial Sepsis Screen: Does the patient meet any 2 criteria? HR > 90 bpm. No. Patient's initial sepsis screen is negative. Does the patient have a suspected source of infection? Yes: Other: sore throat/tonsils. Risk Assessment: Do you want to hurt yourself or someone else? Patient reports no desire to harm self or others. Onset of symptoms was May 12, 2020. 14:46 Method Of Arrival: Ambulatory ll1 14:46 Acuity: ANJANA 2 ll1 Historical: - Allergies: 14:48 NKA; ll1 - PSHx: 14:48 nasal surgery; ll1 - Immunization history:: Adult Immunizations. - Social history:: Smoking status: Patient denies any tobacco usage or history of. Patient/guardian denies using alcohol, street drugs, tobacco products. Screenin:00 Abuse screen: Denies threats or abuse. Denies injuries from another. Nutritional sv screening: No deficits noted. Tuberculosis screening: No symptoms or risk factors identified. Fall Risk None identified. Assessment: 15:00 General: Appears in no apparent distress. uncomfortable, well developed, Behavior is sv calm, cooperative, appropriate for age. Pain: Complains of pain in left aspect of posterior pharynx and right aspect of posterior pharynx Pain currently is 10 out of 10 on a pain scale. Is continuous. Neuro: Level of Consciousness is awake, alert, obeys commands, Oriented to person, place, time, situation, Moves all extremities. Full function Gait is steady. Respiratory: Airway is patent Respiratory effort is even, unlabored, Respiratory pattern is regular, symmetrical. EENT: Oral mucosa is moist. Throat is reddened has enlarged tonsils bilaterally with gag reflex present. 15:50 Reassessment: Patient appears in no apparent distress at this time. Patient and/or sv family updated on plan of care and expected duration. Pain level reassessed. Patient is alert, oriented x 3, equal unlabored respirations, skin warm/dry/pink. Patient states feeling better. Patient states symptoms have improved. 16:30 Reassessment: Patient appears in no apparent distress at this time. Patient and/or sv family updated on plan of care and expected duration. Pain level reassessed. Patient is alert, oriented x 3, equal unlabored respirations, skin warm/dry/pink. Pt up for discharge but is to receive 1L NS bolus first before discharge. Patient states feeling better. Patient states symptoms have improved. 17:16 Reassessment: Patient appears in no apparent distress at this time. Patient and/or sv family updated on plan of care and expected duration. Pain level reassessed. Patient is alert, oriented x 3, equal unlabored respirations, skin warm/dry/pink. Pt still receiving NS bolus. 18:23 Reassessment: Patient appears in no apparent distress at this time. Patient and/or sv family updated on plan of care and expected duration. Pain level reassessed. Patient is alert, oriented x 3, equal unlabored respirations, skin warm/dry/pink. Vital Signs: 14:46 BP 120 / 60; Pulse 148; Resp 18; Temp 99.6; Pulse Ox 95% ; Pain 10/10; ll1 15:26 BP 140 / 96; Pulse 121; Resp 16; Pulse Ox 95% ; sv 16:15 BP 145 / 59; Pulse 116; Pulse Ox 95% ; sv 17:13 BP 132 / 77; Pulse 115; Resp 20; Temp 99; Pulse Ox 96% ; sv 18:00 BP 139 / 60; Pulse 105; Resp 16; Pulse Ox 96% ; sv ED Course: 14:38 Patient arrived in ED. mr 14:48 Triage completed. ll1 14:49 Arm band placed on. ll1 14:51 Nirmala Reyna FNP-C is PHCP. kb 14:51 Zachary Low MD is Attending Physician. kb 14:57 Emeli Richardson, REMBERTO is Primary Nurse. sv 15:00 Patient has correct armband on for positive identification. Bed in low position. Call sv light in reach. Pulse ox on. NIBP on. Door closed. Head of bed elevated. 15:00 Strep swab sent to lab. Inserted saline lock: 20 gauge in left antecubital area, using sv aseptic technique. Blood collected. Flushed left antecubital with 5 ml normal saline. 16:01 CT Soft Tissue Neck W/contr In Process Unspecified. EDMS 16:06 Throat Culture Sent. sv 18:24 No provider procedures requiring assistance completed. IV discontinued, intact, sv bleeding controlled, No redness/swelling at site. Pressure dressing applied. Administered Medications: 15:11 Drug: Decadron - Dexamethasone 10 mg Route: IVP; Site: left antecubital; sv 16:06 Follow up: Response: No adverse reaction sv 15:11 Drug: NS 0.9% 1000 ml Route: IV; Rate: 1000 ml; Site: left antecubital; sv 16:30 Follow up: Response: No adverse reaction; IV Status: Completed infusion; IV Intake: sv 1000ml 16:06 Drug: Rocephin 1 grams Route: IV; Rate: calculated rate; Site: left antecubital; sv 16:08 Follow up: Response: No adverse reaction; IV Status: Completed infusion; IV Intake: 10mlsv 16:30 Drug: NS 0.9% 1000 ml Route: IV; Rate: 1000 ml; Site: left antecubital; sv 18:24 Follow up: Response: No adverse reaction; IV Status: Completed infusion; IV Intake: sv 1000ml Intake: 16:08 IV: 10ml; Total: 10ml. sv 16:30 IV: 1000ml; Total: 1010ml. sv 18:24 IV: 1000ml; Total: 2010ml. sv Outcome: 16:25 Discharge ordered by . kb 18:24 Discharged to home ambulatory. sv 18:24 Condition: stable 18:24 Condition: improved 18:24 Discharge instructions given to patient, Instructed on discharge instructions, follow up and referral plans. medication usage, Demonstrated understanding of instructions, follow-up care, medications, Prescriptions given X 2. 18:25 Patient left the ED. sv Signatures: Dispatcher [employer] EDMS Nirmala Reyna, ARIADNAC OFFICE HELPER-Emeli Curiel RN RN Renate Joshi Lynsay, RN RN ll1 Corrections: (The following items were deleted from the chart) 17:14 17:13 BP 132 / 77; Pulse 115bpm; Resp 20bpm; sv sv
[2020-05-12 18:48] VITALS: TEMP 99; O2SAT 96
[2020-05-12 18:50] VITALS: BP 139/60
== END 2020-05-12 18:25 | disposition home or self-care (01) ==
LOC: ER 14:35
DX: J03.90 Acute tonsillitis, unspecified (principal)
CPT/HCPCS: 96361; 87070; 85025; 80048; 36415; 87081; 70491; 96375; 96374; 99284; Q9967; J1100; J0696; J7030 ×2

== ENCOUNTER 2021-04-17 16:51 | Emergency (ER) | payer BC ==
--- OUTSIDE RECORDS SUMMARY | 2021-04-17 16:53 | XMS REPORT | Continuity of Care Document ---
:1995 Author Organization [facility] t Address [address] [place] [address] [address]. Clemente. [address] [place] [address] Care Team Providers Name Role Phone Nic WEST Attending Clinician Problems This patient has no known problems. Allergies, Adverse Reactions, Alerts This patient has no known allergies or adverse reactions. Medications This patient has no known medications. Procedures This patient has no known procedures. Encounters Start End Encounter Admission Attending Care Care Encounter Source Date/Time Date/Time Type Type Clinicians Facility Department ID 2020-10-17 2020-10-17 Emergency Nic [facility] [id number] 09:13:00 11:07:00 Shivam Naranjo [id number] [place] [id number] [place] [id number] Results This patient has no known results.
--- NOTE | 2021-04-17 18:00 | RAD REPORT ---
EXAM DESCRIPTION: RAD - Chest Single View - 04/17/2021 5:54 pm CLINICAL HISTORY: cough, sob COMPARISON: Two view chest March 2018 TECHNIQUE: AP portable chest image was obtained 04/17/2021 5:54 pm . FINDINGS: Lungs are clear. Heart and vasculature are normal. No measurable pleural effusion and no p neumothorax. No acute bony abnormality seen. No acute aortic findings suspected. IMPRESSION: No acute cardiopulmonary process. No significant change from comparison study.
[2021-04-17 19:21] LABS: SARS-COV-2 RT PCR NEGATIVE (NEGATIVE)
--- NOTE | 2021-04-17 19:30 | ER ---
Nurse's Notes [facility] Name: Lele Castillo Jr Age: 26 yrs Sex: Male : 1995 Arrival Date: 04/17/2021 Time: 16:53 Bed 14 Private MD: Diagnosis: Acute bronchitis Presentation: 04/17 16:56 Chief complaint: Patient states: Runny nose and cough for 2 days. Dry heaves/vomit with ll1 bad coughing fit. No fever. Coronavirus screen: Client denies travel out of the [place] in the last 14 days. chills, congestion, cough unrelated to allergies, runny nose, vomiting. Client presents with at least one sign or symptom that may indicate coronavirus-19. Standard/surgical mask placed on the client. Ebola Screen: Patient denies travel to an Ebola-affected area in the 21 days before illness onset. Initial Sepsis Screen: Does the patient meet any 2 criteria? HR > 90 bpm. No. Patient's initial sepsis screen is negative. Does the patient have a suspected source of infection? Yes: Productive cough/pneumonia. Risk Assessment: Do you want to hurt yourself or someone else? Patient reports no desire to harm self or others. Onset of symptoms was April 16, 2021. 16:56 Method Of Arrival: Ambulatory ll1 16:56 Acuity: ANJANA 3 ll1 Historical: - Allergies: 16:59 NKA; ll1 - PMHx: 16:59 None; ll1 - PSHx: 16:59 nasal surgery; ll1 - Immunization history:: Flu vaccine is not up to date. - Social history:: Smoking status: Patient denies any tobacco usage or history of. Screenin:39 Abuse screen: Denies threats or abuse. Nutritional screening: No deficits noted. vg1 Tuberculosis screening: No symptoms or risk factors identified. Fall Risk No fall in past 12 months (0 pts). No secondary diagnosis (0 pts). No IV (0 pts). Ambulatory Aid- None/Bed Rest/Nurse Assist (0 pts). Gait- Normal/Bed Rest/Wheelchair (0 pts) Mental Status- Oriented to own ability (0 pts). Total Betancourt Fall Scale indicates No Risk (0-24 pts). Assessment: 18:37 General: Appears in no apparent distress. comfortable, Behavior is calm, cooperative. vg1 Pain: Denies pain. Neuro: Level of Consciousness is awake, alert, obeys commands, Oriented to person, place, time, situation. Cardiovascular: Patient's skin is warm and dry. Respiratory: Reports cough that is dry, Airway is patent Respiratory effort is even, unlabored, Denies shortness of breath. GI: Patient currently denies diarrhea, nausea, vomiting. : No signs and/or symptoms were reported regarding the genitourinary system. EENT: Reports nasal congestion nasal discharge. Derm: Skin is intact, is healthy with good turgor. Musculoskeletal: Circulation, motion, and sensation intact. Vital Signs: 16:56 BP 116 / 58; Pulse 108; Resp 18; Temp 98.5; Pulse Ox 96% on R/A; Weight 108.86 kg; ll1 Height 5 ft. 9 in. (175.26 cm); Pain 0/10; 18:39 BP 125 / 77; Pulse 108; Resp 16; Pulse Ox 100% on R/A; vg1 16:56 Body Mass Index 35.44 (108.86 kg, 175.26 cm) ll1 ED Course: 16:53 Patient arrived in ED. ds1 16:58 Triage completed. ll1 16:59 Arm band placed on. 1 17:31 Adebayo Garcia [facility] 17:31 Gibran Jasso MD is Attending Physician. [facility] 17:54 Chest Single View XRAY In Process Unspecified. EDMS 18:37 Anusha Tejada, RN is Primary Nurse. vg1 18:40 Patient has correct armband on for positive identification. Bed in low position. Call 1 light in reach. Side rails up X 1. 19:56 No provider procedures requiring assistance completed. Patient did not have IV access aldo during this emergency room visit. Administered Medications: No medications were administered Outcome: 19:29 Discharge ordered by . juancho 19:57 Discharged to home ambulatory. jm8 19:57 Condition: good 19:57 Discharge instructions given to patient, Instructed on discharge instructions, follow up and referral plans. medication usage, Demonstrated understanding of instructions, follow-up care, medications, Prescriptions given X 2. 19:57 Patient left the ED. jm8 Signatures: Dispatcher [employer] EDMS Adebayo Garcia PA PA jmm [place], Demi ds1 Anusha Tejada, RN RN vg1 Sam Marion, REMBERTO RN ll1 Pete Cantu, REMBERTO RN jm8 Corrections: (The following items were deleted from the chart) 16:59 16:56 BP 116 / 58; Pulse 113bpm; Resp 18bpm; Pulse Ox 96% RA; Temp 98.5F; 108.86 kg; ll1 Height 5 ft. 9 in.; BMI: 35.4; Pain 0/10; ll1 18:26 17:55 CORONAVIRUS+MR.LAB.BRZ drawn [facility] EDMS 19:47 17:55 Influenza Screen (A \T\ B)+BA.LAB.BRZ drawn and [facility]. [facility] EDMS
--- NOTE | 2021-04-17 19:30 | EDPHYS ---
Physician Documentation [facility] Name: Lele Castillo Jr Age: 26 yrs Sex: Male : 1995 Arrival Date: 04/17/2021 Time: 16:53 Bed 14 Private MD: ED Physician Gibran Jasso HPI: 04/17 19:27 This 26 yrs old Male presents to ER via Ambulatory with complaints of Cough. jmm 19:27 The patient or guardian reports cough. Onset: The symptoms/episode began/occurred jmm gradually, 2 day(s) ago. Modifying factors: The symptoms are alleviated by nothing, the symptoms are aggravated by nothing. Associated signs and symptoms: Pertinent negatives: fever, sore throat. It is unknown whether or not the patient has had similar symptoms in the past. Historical: - Allergies: 16:59 NKA; ll1 - PMHx: 16:59 None; ll1 - PSHx: 16:59 nasal surgery; ll1 - Immunization history:: Flu vaccine is not up to date. - Social history:: Smoking status: Patient denies any tobacco usage or history of. ROS: 19:27 Constitutional: Negative for fever, chills, and weight loss, Cardiovascular: Negative jmm for chest pain, palpitations, and edema. 19:27 Respiratory: Positive for cough. 19:27 All other systems are negative. Exam: 19:27 Constitutional: This is a well developed, well nourished patient who is awake, alert, jmm and in no acute distress. Head/Face: atraumatic. Eyes: EOMI, no conjunctival erythema appreciated ENT: Moist Mucus Membranes Neck: Trachea midline, Supple Chest/axilla: Normal chest wall appearance and motion. Cardiovascular: Regular rate and rhythm. No edema appreciated 19:27 Back: Normal ROM Skin: General appearance color normal MS/ Extremity: Moves all extremities, no obvious deformities appreciated, no edema noted to the lower extremities Neuro: Awake and alert, normal gait Psych: Behavior is normal, Mood is normal, Patient is cooperative and pleasant 19:27 Respiratory: the patient does not display signs of respiratory distress, Respirations: normal, Breath sounds: wheezing: that is mild, is scattered, is heard in the right posterior upper lobe. Vital Signs: 16:56 BP 116 / 58; Pulse 108; Resp 18; Temp 98.5; Pulse Ox 96% on R/A; Weight 108.86 kg; ll1 Height 5 ft. 9 in. (175.26 cm); Pain 0/10; 18:39 BP 125 / 77; Pulse 108; Resp 16; Pulse Ox 100% on R/A; vg1 16:56 Body Mass Index 35.44 (108.86 kg, 175.26 cm) ll1 MDM: 17:37 Patient medically screened. [facility] 19:28 Data reviewed: vital signs, nurses notes. Counseling: I had a detailed discussion with [facility] the patient and/or guardian regarding: the historical points, exam findings, and any diagnostic results supporting the discharge/admit diagnosis, radiology results, the need for outpatient follow up, to return to the emergency department if symptoms worsen or persist or if there are any questions or concerns that arise at home. ED course: Patient is alert and non toxic in appearance in the ED. No signs of resp distress. Patient is advised to follow up with pcp and otherwise given strict return precautions. Patient understood and agrees with the plan of care. . 04/17 17:41 Order name: Chest Single View XRAY; Complete Time: 18:15 [facility] 04/17 19:21 Order name: COVID-19/FLU A+B; Complete Time: 19:27 EDMS Administered Medications: No medications were administered Disposition: 04/18 19:09 Co-signature as Attending Physician, Gibran Jasso MD. rn Disposition: 04/17/21 19:29 Discharged to Home. Impression: Acute bronchitis. - Condition is Stable. - Discharge Instructions: Acute Bronchitis, Adult. - Prescriptions for Prednisone 20 mg Oral Tablet - take 3 tablet by ORAL route once daily for 5 days; 15 tablet. Albuterol Sulfate 90 mcg/actuation - inhale 1-2 puff by INHALATION route every 4-6 hours; 1 Inhaler. - Medication Reconciliation Form, Thank You Letter, Antibiotic Education, Prescription Opioid Use form. - Follow up: Private Physician; When: 2 - 3 days; Reason: Recheck today's complaints, Continuance of care, Re-evaluation by your physician. Signatures: Dispatcher [employer] EDMS Adebayo Garcia PA PA [facility] Gibran Jasso MD MD rn Lewis, Lynsay, RN RN 1 Pete Cantu RN RN jm8 Corrections: (The following items were deleted from the chart) 04/17 18:26 17:42 CORONAVIRUS+MR.LAB.BRZ ordered. EDMS EDMS 19:47 17:42 Influenza Screen (A \T\ B)+BA.LAB.BRZ ordered. EDMS EDMS 19:57 19:29 04/17/2021 19:29 Discharged to Home. Impression: Acute bronchitis. Condition is jm8 Stable. Forms are Medication Reconciliation Form, Thank You Letter, Antibiotic Education, Prescription Opioid Use. Follow up: Private Physician; When: 2 - 3 days; Reason: Recheck today's complaints, Continuance of care, Re-evaluation by your physician. juancho
[2021-04-17 20:29] VITALS: TEMP 98.5
[2021-04-17 20:30] VITALS: BP 125/77; O2SAT 100
== END 2021-04-17 19:57 | disposition home or self-care (01) ==
LOC: ER 16:51
DX: J20.9 Acute bronchitis, unspecified (principal); Z20.822 Contact with and (suspected) exposure to COVID-19
CPT/HCPCS: 0240U; 71045; 99283

== ENCOUNTER 2021-04-24 10:13 | Emergency (ER) | payer BC ==
--- OUTSIDE RECORDS SUMMARY | 2021-04-24 10:16 | XMS REPORT | Continuity of Care Document ---
:1995 Author Organization [facility] t Address [address] [place] [address] [address]. [address]e. [address] [place] [address] Care Team Providers Name Role Phone Nic [...] Facility Department ID 2020-10-17 2020-10-17 Emergency Nic [facility] [id number] 09:13:00 11:07:00 Shivam Naranjo [id number] [place] [id number] [place] [id number] Results This patient has no known results.
--- NOTE | 2021-04-24 11:25 | ER ---
Nurse's Notes [facility] Name: Lele Castillo Jr Age: 26 yrs Sex: Male : 1995 Arrival Date: 04/24/2021 Time: 10:14 Bed 18 Private MD: Diagnosis: Acute tonsillitis;Acute sinusitis Presentation: 04/24 10:36 Chief complaint: Patient states: "I was here the Saturday before last and I was told I jd3 have bronchitis. and I am just feeling worse 2 weeks later.". Coronavirus screen: cough unrelated to allergies, nausea, Client presents with at least one sign or symptom that may indicate coronavirus-19. Standard/surgical mask placed on the client. Provider contacted for isolation considerations. Ebola Screen: Patient negative for fever greater than or equal to 101.5 degrees Fahrenheit, and additional compatible Ebola Virus Disease symptoms. Initial Sepsis Screen: Does the patient meet any 2 criteria? No. Patient's initial sepsis screen is negative. Does the patient have a suspected source of infection? No. Patient's initial sepsis screen is negative. Risk Assessment: Do you want to hurt yourself or someone else? Patient reports no desire to harm self or others. Onset of symptoms was April 11, 2021. 10:36 Method Of Arrival: Ambulatory jd3 10:36 Acuity: ANJANA 3 jd3 Historical: - Allergies: 10:39 NKA; jd3 - Home Meds: 10:39 None [Active]; jd3 - PMHx: 10:39 None; jd3 - PSHx: 10:39 nasal surgery; jd3 - Immunization history:: Adult Immunizations up to date. - Social history:: Smoking status: Patient denies any tobacco usage or history of. - Family history:: not pertinent. - Hospitalizations: : No recent hospitalization is reported. Screenin:42 Abuse screen: Denies threats or abuse. Nutritional screening: No deficits noted. ll1 Tuberculosis screening: No symptoms or risk factors identified. Fall Risk None identified. Total Betancourt Fall Scale indicates No Risk (0-24 pts). Assessment: 10:41 General: Appears in no apparent distress. Behavior is calm, cooperative, appropriate ll1 for age. Pain: Complains of pain in throat Quality of pain is described as aching, Aggravated by eating, drinking. Neuro: No deficits noted. Cardiovascular: No deficits noted. Respiratory: Airway is patent Trachea midline Respiratory effort is even, unlabored, Respiratory pattern is regular, symmetrical, Breath sounds are clear bilaterally. Onset: The symptoms/episode began/occurred 2 weeks, the patient has mild shortness of breath. EENT: Throat is reddened Reports nasal congestion pain when swallowing. Musculoskeletal: Circulation, motion, and sensation intact. Capillary refill < 3 seconds, Range of motion: intact in all extremities, Reports pain in body. Vital Signs: 10:39 BP 132 / 88; Pulse 106; Resp 17 S; Temp 97.7(TE); Pulse Ox 99% on R/A; Weight 108.86 kg jd3 (R); Height 5 ft. 9 in. (175.26 cm) (R); Pain 10/10; 11:37 Pulse 100; Resp 17; Pulse Ox 99% on R/A; ll1 10:39 Body Mass Index 35.44 (108.86 kg, 175.26 cm) jd3 ED Course: 10:14 Patient arrived in ED. am2 10:38 Triage completed. jd3 10:40 Arm band placed on. jd3 10:41 Sam Marion, RN is Primary Nurse. ll1 10:43 Patient has correct armband on for positive identification. Bed in low position. Call ll1 light in reach. Side rails up X 1. Cardiac monitoring not applicable on this patient. 10:44 Gibran Jasso MD is Attending Physician. rn 11:36 No provider procedures requiring assistance completed. Patient did not have IV access ll1 during this emergency room visit. Administered Medications: No medications were administered Outcome: 11:24 Discharge ordered by . rn 11:37 Discharged to home ambulatory. ll1 11:37 Condition: stable 11:37 Discharge instructions given to patient, Instructed on discharge instructions, follow up and referral plans. medication usage, Demonstrated understanding of instructions, follow-up care, medications, Prescriptions given X 1. 11:37 Patient left the ED. ll1 Signatures: Gibran Jasso MD MD rn Moreno, Amanda am2 Davies, Jonathon, RN RN jSam Dey RN RN 1
--- NOTE | 2021-04-24 11:25 | EDPHYS ---
Physician Documentation [facility] Name: Lele Castillo Jr Age: 26 yrs Sex: Male : 1995 Arrival Date: 04/24/2021 Time: 10:14 Bed 18 Private MD: ED Physician Gibran Jasso HPI: 04/24 11:21 This 26 yrs old Male presents to ER via Ambulatory with complaints of Sore rn Throat, Difficulty Swallowing, Doesn't Feel Right, Nausea/Vomiting. 11:21 The patient presents with sore throat. The patient describes throat pain as raw. Onset: rn The symptoms/episode began/occurred 1 week(s) ago. Severity of symptoms: At their worst the symptoms were moderate, in the emergency department the symptoms are unchanged. Modifying factors: The symptoms are alleviated by nothing, the symptoms are aggravated by nothing. The patient has experienced a previous episode. The patient has been recently seen by a physician:. Reports seen 1 week ago for this, feels worse, neg COVID/flu/CXR last week, keep getting sent home from work for feeling sick. No sob. + sinus pressure and drainage. . Historical: - Allergies: 10:39 NKA; jd3 - Home Meds: 10:39 None [Active]; jd3 - PMHx: 10:39 None; jd3 - PSHx: 10:39 nasal surgery; jd3 - Immunization history:: Adult Immunizations up to date. - Social history:: Smoking status: Patient denies any tobacco usage or history of. - Family history:: not pertinent. - Hospitalizations: : No recent hospitalization is reported. ROS: 11:21 Constitutional: Negative for fever, chills, and weight loss, Eyes: Negative for injury, rn pain, redness, and discharge, ENT: + sore throat and sinus pressure Neck: Negative for injury, pain, and swelling, Cardiovascular: Negative for chest pain, palpitations, and edema, Respiratory: Negative for shortness of breath, cough, wheezing, and pleuritic chest pain, Abdomen/GI: Negative for abdominal pain, nausea, vomiting, diarrhea, and constipation, Back: Negative for injury and pain, : Negative for injury, bleeding, discharge, and swelling, MS/Extremity: Negative for injury and deformity, Skin: Negative for injury, rash, and discoloration, Neuro: Negative for headache, weakness, numbness, tingling, and seizure. Exam: 11:21 Constitutional: This is a well developed, well nourished patient who is awake, alert, rn and in no acute distress. Head/Face: Normocephalic, atraumatic. Eyes: Pupils equal round and reactive to light, extra-ocular motions intact. Lids and lashes normal. Conjunctiva and sclera are non-icteric and not injected. Cornea within normal limits. Periorbital areas with no swelling, redness, or edema. ENT: No stridor, + mild tonsillar hypertrophy, no exudate Neck: Trachea midline, no thyromegaly or masses palpated, and no cervical lymphadenopathy. Supple, full range of motion without nuchal rigidity, or vertebral point tenderness. No Meningismus. Cardiovascular: Tachycardic, regular. No pulse deficits. Respiratory: No increased work of breathing, no retractions or nasal flaring. Skin: Warm, dry MS/ Extremity: Pulses equal, no cyanosis. Neuro: Awake and alert, GCS 15 Vital Signs: 10:39 BP 132 / 88; Pulse 106; Resp 17 S; Temp 97.7(TE); Pulse Ox 99% on R/A; Weight 108.86 kg jd3 (R); Height 5 ft. 9 in. (175.26 cm) (R); Pain 10/10; 11:37 Pulse 100; Resp 17; Pulse Ox 99% on R/A; ll1 10:39 Body Mass Index 35.44 (108.86 kg, 175.26 cm) jd3 MDM: 10:44 Patient medically screened. rn 11:21 Differential diagnosis: gastroesophageal reflux disease, kawasaki's disease rn pharyngitis, tonsillitis, upper respiratory infection, viral syndrome. Data reviewed: vital signs, nurses notes, old medical records, and as a result, I will discharge patient. Counseling: I had a detailed discussion with the patient and/or guardian regarding: the historical points, exam findings, and any diagnostic results supporting the discharge/admit diagnosis, the need for outpatient follow up, to return to the emergency department if symptoms worsen or persist or if there are any questions or concerns that arise at home. Special discussion: I discussed with the patient/guardian in detail that at this point there is no indication for admission to the hospital. It is understood, however, that if the symptoms persist or worsen the patient needs to return immediately for re-evaluation. ED course: NO need to repeat tests, no need for imaging, will dc home with abx given worsening symptoms, already with neg cxr and COVID. No oxygen requirement. . Administered Medications: No medications were administered Disposition: 04/24/21 11:24 Discharged to Home. Impression: Acute tonsillitis, Acute sinusitis. - Condition is Stable. - Discharge Instructions: Sinusitis, Adult, Tonsillitis. - Prescriptions for Zithromax Z- Eliseo 250 mg Oral Tablet - take 1 tablet by ORAL route as directed for 5 days Day 1 - take two (2) tablets one time. Day 2, 3, 4 , 5 take one (1) tablet once daily.; 6 tablet. - Medication Reconciliation Form, Thank You Letter, Antibiotic Education, Prescription Opioid Use, Work release form form. - Follow up: Private Physician; When: As needed; Reason: Recheck today's complaints, Re-evaluation by your physician. - Problem is an ongoing problem. - Symptoms are unchanged. Signatures: Gibran Jasso MD MD rn Davies, Jonathon, RN RN jd3 Sam Marion RN RN ll1 Corrections: (The following items were deleted from the chart) 11:37 11:24 04/24/2021 11:24 Discharged to Home. Impression: Acute tonsillitis; Acute ll1 sinusitis. Condition is Stable. Forms are Medication Reconciliation Form, Thank You Letter, Antibiotic Education, Prescription Opioid Use. Follow up: Private Physician; When: As needed; Reason: Recheck today's complaints, Re-evaluation by your physician. Problem is an ongoing problem. Symptoms are unchanged. rn
[2021-04-24 11:43] VITALS: BP 132/88; TEMP 97.7; O2SAT 99
== END 2021-04-24 11:37 | disposition home or self-care (01) ==
LOC: ER 10:13
DX: J03.90 Acute tonsillitis, unspecified (principal); J01.90 Acute sinusitis, unspecified
CPT/HCPCS: 99282

== ENCOUNTER 2021-06-14 08:50 | Emergency (ER) | payer BC ==
--- OUTSIDE RECORDS SUMMARY | 2021-06-14 08:53 | XMS REPORT | Continuity of Care Document ---
:1995 Author Organization [facility] t Address [address] [place] [address] [address] [place] [address] Care Team Providers Name Role Phone Nic [...] Facility Department ID 2020-10-17 2020-10-17 Emergency Nic [facility] [id number] [id number] 09:13:00 11:07:00 Shivam [place] [id number] [place] [id number] [place] [id number] Results This patient has no known results.
--- NOTE | 2021-06-14 09:35 | ER ---
Nurse's Notes [facility] Name: Lele Castillo Jr Age: 26 yrs Sex: Male : 1995 Arrival Date: 06/14/2021 Time: 08:51 Bed 24 Private MD: Diagnosis: Presentation: 06/14 09:06 Chief complaint: Patient states: numbness and tingling to L leg that began yesterday 1 ss pm. Went away after a while but after laying down last night the tingling came back in L leg. Pt reports he woke up at 0600 this morning and from his neck down his L side feels tinglly/ numb. Also c/o L groin pain 08/27. Coronavirus screen: Client denies travel out of the [place] in the last 14 days. Ebola Screen: Patient denies exposure to infectious person. Patient denies travel to an Ebola-affected area in the 21 days before illness onset. Initial Sepsis Screen: Does the patient meet any 2 criteria? HR > 90 bpm. No. Patient's initial sepsis screen is negative. Does the patient have a suspected source of infection? No. Patient's initial sepsis screen is negative. Risk Assessment: Do you want to hurt yourself or someone else? Patient reports no desire to harm self or others. Onset of symptoms was June 14, 2021. 09:06 Method Of Arrival: Ambulatory 09:06 Acuity: ANJANA 3 ss Historical: - Allergies: 09:08 NKA; ss - Home Meds: 09:08 None [Active]; ss - PMHx: 09:08 None; ss - PSHx: 09:08 None; ss - Immunization history:: Adult Immunizations up to date. - Social history:: Smoking status: Patient denies any tobacco usage or history of. - Family history:: not pertinent. - Hospitalizations: : No recent hospitalization is reported. Screenin:16 Abuse screen: Denies threats or abuse. Nutritional screening: No deficits noted. tw2 Tuberculosis screening: No symptoms or risk factors identified. Fall Risk None identified. Assessment: 09:16 Reassessment: provider at bedside at this time. tw2 09:33 Reassessment: came in to exam room at this time to ask pt his name and with iv tw2 start items and medication, pt states "im not going to do all that for just a migraine", pt educated and instructed as to POC, pt refused states "he didn't help me last time", pt signed ama form, provider notified. Vital Signs: 09:06 BP 137 / 83; Pulse 110; Resp 18; Temp 97.0(TE); Pulse Ox 99% on R/A; Weight 108.86 kg; Height 5 ft. 9 in. (175.26 cm); Pain 10; 09:06 Body Mass Index 35.44 (108.86 kg, 175.26 cm) ED Course: 08:51 Patient arrived in ED. am2 09:08 Triage completed. ss 09:08 Arm band placed on left wrist. ss 09:09 Gibran Jasso MD is Attending Physician. rn 09:10 Bed in low position. Call light in reach. Pulse ox on. NIBP on. tw2 09:16 Mala Juarez, RN is Primary Nurse. tw2 Administered Medications: 09:24 Not Given (Duplicate Order): Ketorolac 15 mg IVP once rn Outcome: 09:34 AMA AMA form signed tw2 09:35 Patient left the ED. tw2 Signatures: Gibran Jasso MD MD rn Smirch, Shelby, RN RN Mala Juarez RN RN tw2 Maria Dolores Wells am2
[2021-06-14] MEDS ORDERED: KETOROLAC 30 MG/ML INJ ONE (09:50)
[2021-06-14] MEDS ORDERED: dexAMETHasone 10 MG/ML VIAL ONE (09:50)
[2021-06-14] MEDS ORDERED: NA CHLORIDE 0.9% 1,000 ML ONE (09:50)
[2021-06-14] MEDS ORDERED: METOCLOPRAMIDE 10 MG/2mL INJ ONE (09:50)
[2021-06-15 08:13] VITALS: BP 137/83; TEMP 97; O2SAT 99
--- NOTE | 2021-06-15 09:35 | EDPHYS ---
Physician Documentation [facility] Name: Lele Castillo Jr Age: 26 yrs Sex: Male : 1995 Arrival Date: 06/14/2021 Time: 08:51 Bed 24 Private MD: ED Physician Gibran Jasso HPI: 06/14 09:38 This 26 yrs old Male presents to ER via Ambulatory with complaints of Numbness rn - left side of body. 09:38 The patient's problem is reported as paresthesias, in left upper extremity, in left rn lower extremity, Left side of torso. Onset: The symptoms/episode began/occurred yesterday. Duration: The episodes are intermittent. Context: occurred while the patient was at rest. The symptoms are alleviated by nothing. The symptoms are aggravated by nothing. Associated signs and symptoms: Pertinent positives: headache, Pertinent negatives: abdominal pain, ataxia, chest pain, confusion, diaphoresis, lightheadedness, palpitations, seizure, shortness of breath, vertigo, vomiting, weakness. Severity of symptoms: At their worst the symptoms were mild in the emergency department the symptoms are unchanged. The patient has not experienced similar symptoms in the past. The patient has not recently seen a physician. Historical: - Allergies: 09:08 NKA; ss - Home Meds: 09:08 None [Active]; ss - PMHx: 09:08 None; ss - PSHx: 09:08 None; ss - Immunization history:: Adult Immunizations up to date. - Social history:: Smoking status: Patient denies any tobacco usage or history of. - Family history:: not pertinent. - Hospitalizations: : No recent hospitalization is reported. ROS: 09:39 Constitutional: Negative for fever, chills, and weight loss, Eyes: Negative for injury, rn pain, redness, and discharge, Neck: Negative for injury, pain, and swelling, Cardiovascular: Negative for chest pain, palpitations, and edema, Respiratory: Negative for shortness of breath, cough, wheezing, and pleuritic chest pain, Abdomen/GI: Negative for abdominal pain, nausea, vomiting, diarrhea, and constipation, Back: Negative for injury and pain, : Negative for injury, bleeding, discharge, and swelling, MS/Extremity: Negative for injury and deformity, Skin: Negative for injury, rash, and discoloration, Neuro: Negative for weakness, and seizure Exam: 09:39 Constitutional: This is a well developed, well nourished patient who is awake, alert, rn and in no acute distress. Patient texting using both hands when I walked in. Sitting straight up. Head/Face: Normocephalic, atraumatic. Eyes: Pupils equal round and reactive to light, extra-ocular motions intact. Periorbital areas with no swelling, redness, or edema. Cardiovascular: Tachycardic, regular. No pulse deficits. Respiratory: No increased work of breathing, no retractions or nasal flaring. Skin: Warm, dry MS/ Extremity: Pulses equal, no cyanosis. Neurovascular intact. Full, normal range of motion. Equal circumference. Neuro: Awake and alert, GCS 15, oriented to person, place, time, and situation. Cranial nerves II-XII grossly intact. Motor strength 5/5 in all extremities. Decreased sensation to soft touch and painful stimuli left upper extremity/left torso/left lower extremity. Cerebellar exam normal. Normal gait. Vital Signs: 09:06 BP 137 / 83; Pulse 110; Resp 18; Temp 97.0(TE); Pulse Ox 99% on R/A; Weight 108.86 kg; ss Height 5 ft. 9 in. (175.26 cm); Pain 10/10; 09:06 Body Mass Index 35.44 (108.86 kg, 175.26 cm) ss MDM: 09:09 Patient medically screened. rn 09:39 Differential diagnosis: CVA, metabolic disorder, Complicated migraine, electrolyte rn problem. Data reviewed: vital signs, nurses notes. Refusal of service: The patient/guardian displays adequate decision making capability and despite a detailed discussion of alternatives, benefits, risks, and consequences refuses: CT Scan, all lab tests, Medications. ED course: Patient refuses all care, I recommended a full work-up including blood and CT scan, patient refuses to stay. Does not give a reason, signed out AMA.. 06/14 09:22 Order name: EKG - Nurse/Tech rn Administered Medications: 09:24 Not Given (Duplicate Order): Ketorolac 15 mg IVP once rn Disposition Summary: 06/14/21 09:35 Left Against Medical Advice Location: Home tw2 Condition: Undetermined tw2 Signatures: Dispatcher [employer] EDMS Gibran Jasso MD MD rn Smirch, Allison, RN RN ss Mala Juarez RN RN tw2 Corrections: (The following items were deleted from the chart) 09:40 09:39 Constitutional: Negative for fever, chills, and weight loss, Eyes: Negative for rn injury, pain, redness, and discharge, Neck: Negative for injury, pain, and swelling, Cardiovascular: Negative for chest pain, palpitations, and edema, Respiratory: Negative for shortness of breath, cough, wheezing, and pleuritic chest pain, Abdomen/GI: Negative for abdominal pain, nausea, vomiting, diarrhea, and constipation, Back: Negative for injury and pain, : Negative for injury, bleeding, discharge, and swelling, MS/Extremity: Negative for injury and deformity, Skin: Negative for injury, rash, and discoloration, Neuro: Negative for weakness, and seizure rn
== END 2021-06-14 09:35 | disposition left against medical advice (07) ==
LOC: ER 08:50
DX: R20.2 Paresthesia of skin (principal)
CPT/HCPCS: 99282; J2765; J7030; J1100

== ENCOUNTER 2021-08-12 14:49 | Emergency (ER) | payer BC ==
--- NOTE | 2021-08-12 15:41 | EDPHYS ---
Physician Documentation [facility] Name: Lele Castillo Jr Age: 26 yrs Sex: Male : 1995 Arrival Date: 08/12/2021 Time: 14:52 Bed 12 Private MD: ED Physician Libra Alberto HPI: 08/12 15:37 This 26 yrs old Male presents to ER via Ambulatory with complaints of Rash. jmm 15:37 The patient's rash thought to be caused by Dermatitis. The rash is located on the body jmm diffusely. Onset: The symptoms/episode began/occurred 2 day(s) ago. Associated signs and symptoms: Pertinent positives: burning sensation, itching, Pertinent negatives: nausea, swelling of lips, swelling of throat, swelling of tongue, wheezing. Historical: - Allergies: 14:59 NKA; ll1 - PMHx: 14:59 None; ll1 - PSHx: 14:59 nose SX; ll1 - Immunization history:: Client reports receiving the 2nd dose of the Covid vaccine. - Social history:: Smoking status: Patient denies any tobacco usage or history of. ROS: 15:37 Constitutional: Negative for fever, chills, and weight loss, Cardiovascular: Negative jmm for chest pain, palpitations, and edema, Respiratory: Negative for shortness of breath, cough, wheezing, and pleuritic chest pain. 15:37 Skin: Positive for rash. 15:37 All other systems are negative. Exam: 15:37 Constitutional: This is a well developed, well nourished patient who is awake, alert, jmm and in no acute distress. Head/Face: atraumatic. Eyes: EOMI, no conjunctival erythema appreciated ENT: Moist Mucus Membranes Neck: Trachea midline, Supple Chest/axilla: Normal chest wall appearance and motion. Cardiovascular: Regular rate and rhythm. No edema appreciated Respiratory: Normal respirations, no respiratory distress appreciated Abdomen/GI: Non distended, soft Back: Normal ROM 15:37 Neuro: Awake and alert, normal gait Psych: Behavior is normal, Mood is normal, Patient is cooperative and pleasant 15:37 Skin: on the abdomen, right arm, left arm, right leg and left leg. Vital Signs: 14:57 BP 133 / 83; Pulse 100; Resp 17; Temp 97.2; Pulse Ox 100% ; Weight 108.86 kg; Height 5 ll1 ft. 9 in. (175.26 cm); Pain 0/10; 14:57 Body Mass Index 35.44 (108.86 kg, 175.26 cm) ll1 MDM: 15:37 Patient medically screened. [facility] 15:39 Data reviewed: vital signs, nurses notes. Counseling: I had a detailed discussion with [facility] the patient and/or guardian regarding: the historical points, exam findings, and any diagnostic results supporting the discharge/admit diagnosis, the need for outpatient follow up, to return to the emergency department if symptoms worsen or persist or if there are any questions or concerns that arise at home. Administered Medications: 15:44 CANCELLED (Duplicate Order): Decadron - Dexamethasone 10 mg IVP once [facility] 15:51 Drug: Decadron (dexamethasone) 10 mg Route: IM; Site: right deltoid; 1 15:53 Follow up: Response: Medication administered at discharge. vg1 Disposition: 17:43 Co-signature as Attending Physician, Libra Alberto MD. ma2 Disposition Summary: 08/12/21 15:40 Discharge Ordered Location: Home [facility] Condition: Stable [facility] Diagnosis - Rash and other nonspecific skin eruption [facility] Followup: [facility] - With: Private Physician - When: 2 - 3 days - Reason: Recheck today's complaints, Continuance of care, Re-evaluation by your physician Discharge Instructions: - Discharge Summary Sheet [facility] - Rash, Adult jmm Forms: - Medication Reconciliation Form [facility] - Thank You Letter [facility] - Antibiotic Education [facility] - Prescription Opioid Use [facility] Prescriptions: - Prednisone 20 mg Oral Tablet - take 3 tablets by ORAL route once daily for 5 days Please take 3 tabs by mouth [facility] daily for 3 days, then take 2 tabs by mouth daily for 3 days, then take 1 tab by mouth daily for 3 days, then take one half tab by mouth for 3 days daily; 20 tablet; Refills: 0, Product Selection Permitted Signatures: Adebayo Garcia PA PA jmm Alzahri, Mohammad, MD MD ma2 Anusha Tejada RN RN vg1 Sam Marion RN RN ll1 Corrections: (The following items were deleted from the chart) 15:44 15:37 Decadron - Dexamethasone 10 mg IVP once ordered. [facility] juancho
--- NOTE | 2021-08-12 15:41 | ER ---
Nurse's Notes [facility] Name: Lele Castillo Jr Age: 26 yrs Sex: Male : 1995 Arrival Date: 08/12/2021 Time: 14:52 Bed 12 Private MD: Diagnosis: Rash and other nonspecific skin eruption Presentation: 08/12 14:57 Chief complaint: Patient states: Rash to body for 2 days. Exposed to poison roro, wants ll1 a shot to help. Coronavirus screen: Vaccine status: Patient reports receiving the 2nd dose of the covid vaccine. Client denies travel out of the [place] in the last 14 days. At this time, the client does not indicate any symptoms associated with coronavirus-19. Ebola Screen: Patient denies travel to an Ebola-affected area in the 21 days before illness onset. Initial Sepsis Screen: Does the patient meet any 2 criteria? HR > 90 bpm. No. Patient's initial sepsis screen is negative. Does the patient have a suspected source of infection? Yes: Skin breakdown/wound. Risk Assessment: Do you want to hurt yourself or someone else? Patient reports no desire to harm self or others. Onset of symptoms was August 11, 2021. 14:57 Method Of Arrival: Ambulatory ll1 14:57 Acuity: ANJANA 4 ll1 Historical: - Allergies: 14:59 NKA; ll1 - PMHx: 14:59 None; ll1 - PSHx: 14:59 nose SX; ll1 - Immunization history:: Client reports receiving the 2nd dose of the Covid vaccine. - Social history:: Smoking status: Patient denies any tobacco usage or history of. Screenin:52 Abuse screen: Denies threats or abuse. Nutritional screening: No deficits noted. vg1 Tuberculosis screening: No symptoms or risk factors identified. Fall Risk No fall in past 12 months (0 pts). No secondary diagnosis (0 pts). No IV (0 pts). Ambulatory Aid- None/Bed Rest/Nurse Assist (0 pts). Gait- Normal/Bed Rest/Wheelchair (0 pts) Mental Status- Oriented to own ability (0 pts). Total Betancourt Fall Scale indicates No Risk (0-24 pts). Assessment: 15:45 General: Appears in no apparent distress. comfortable, Behavior is calm, cooperative. vg1 Pain: Denies pain. Neuro: Level of Consciousness is awake, alert, obeys commands, Oriented to person, place, time, situation. Cardiovascular: Patient's skin is warm and dry. Respiratory: Airway is patent Respiratory effort is even, unlabored, Denies shortness of breath. GI: No signs and/or symptoms were reported involving the gastrointestinal system. : No signs and/or symptoms were reported regarding the genitourinary system. EENT: No signs and/or symptoms were reported regarding the EENT system. Derm: Skin is intact, Rash noted that is Left arm, left side of abdomen, left leg and right wrist. Musculoskeletal: Circulation, motion, and sensation intact. Vital Signs: 14:57 BP 133 / 83; Pulse 100; Resp 17; Temp 97.2; Pulse Ox 100% ; Weight 108.86 kg; Height 5 ll1 ft. 9 in. (175.26 cm); Pain 0/10; 14:57 Body Mass Index 35.44 (108.86 kg, 175.26 cm) ll1 ED Course: 14:52 Patient arrived in ED. ds1 14:59 Triage completed. ll1 14:59 Arm band placed on Patient placed in an exam room, on a stretcher. ll1 15:01 Anusha Tejada, REMBERTO is Primary Nurse. vg1 15:09 Adebayo Garcia PA is PHCP. [facility] 15:09 Libra Alberto MD is Attending Physician. [facility] 15:52 Patient has correct armband on for positive identification. Call light in reach. vg1 15:52 No provider procedures requiring assistance completed. Patient did not have IV access vg1 during this emergency room visit. Administered Medications: 15:44 CANCELLED (Duplicate Order): Decadron - Dexamethasone 10 mg IVP once [facility] 15:51 Drug: Decadron (dexamethasone) 10 mg Route: IM; Site: right deltoid; vg1 15:53 Follow up: Response: Medication administered at discharge. vg1 Outcome: 15:40 Discharge ordered by . [facility] 15:52 Discharged to home ambulatory. vg1 15:52 Condition: stable 15:52 Discharge instructions given to patient, Instructed on discharge instructions, follow up and referral plans. medication usage, Demonstrated understanding of instructions, follow-up care, medications, Prescriptions given X 1. 15:53 Patient left the ED. vg1 Signatures: Adebayo Garcia PA PA jmm Sanford, Demi ds1 Anusha Tejada, RN RN vg1 Sam Marion RN RN ll1
[2021-08-12 15:58] VITALS: BP 133/83; TEMP 97.2; O2SAT 100
[2021-08-12] MEDS ORDERED: dexAMETHasone 10 MG/ML VIAL ONE (16:10)
== END 2021-08-12 15:53 | disposition home or self-care (01) ==
LOC: ER 14:49
DX: R21 Rash and other nonspecific skin eruption (principal)
CPT/HCPCS: 96372; 99283; J1100

== ENCOUNTER 2022-02-18 21:53 | Emergency (ER) | payer BC ==
--- OUTSIDE RECORDS SUMMARY | 2022-02-18 21:56 | XMS REPORT | Continuity of Care Document ---
:[address] [facility] t Address [address] [place] [address] [address] [place] [address] Care Team Providers Name Role Phone Nic WEST Attending Clinician Payers Payer Name Policy Type Policy Number Effective Date Expiration Date S ource Problems This patient has no known problems. Allergies, Adverse Reactions, Alerts Allergy Allergy Status Severity Reaction(s) Onset Inactive Treating Comm ents Source Name Type Date Date Clinician NO KNOWN Drug Active Univers ALLERGIE Class ity of S [facility] Social History Social Habit Start Date Stop Date Quantity Comments Source [facility] Exposure to SARS-CoV-2 Not sure [facility] [place] (event) [facility] Smoking Status Start Date Stop Date Source Unknown if ever smoked Universit y [facility] Medications Ordered Filled Start Stop Current Ordering Indication Dosage Frequency Signature Comments Components Source Medication Medication Date Date Medication? Clinician (SIG) Name Name ondansetron 2019-11 Yes [id number] 4mg Take 1 Univers 4 mg 1-30 tablet by ity of disintegrat 00:00: mouth [place] ing tablet 00 every 4 Medica l (four) Branch hours as needed for Nausea and Vomiting (N/V) (te). benzonatate 2019-11 Yes [id number] 100mg Take 1 Univers 100 mg 1-30 capsule by ity of capsule 00:00: mouth 3 [place] 00 (three) Medical times Branch daily as needed for Cough. albuterol 2019-11 Yes [id number] 2{puff} Inhale 2 Univers 90 1-30 Puffs ity of mcg/actuati 00:00: every 4 [place] as on inhaler 00 (four) Medical hours as Branch needed for Wheezing or Shortness of Breath. Vital Signs Vital Name Observation Time Observation Value Comments Source Systolic blood 2020-10-17 15:08:00 146 mm[Hg] Univer sity [facility] [place] [facility] Diastolic blood 2020-10-17 15:08:00 96 mm[Hg] Unive rs[facility] [place] [facility] Heart rate 2020-10-17 15:08:00 82 /min [facility] [place] [facility] Body temperature 2020-10-17 15:08:00 37.11 Debbie [facility] [place] [facility] Respiratory rate 2020-10-17 15:08:00 16 /min [facility] [place] [facility] Body height 2020-10-17 15:08:00 175.3 cm [facility] [place] [facility] Body weight 2020-10-17 15:08:00 108.863 kg [facility] [place] [facility] BMI 2020-10-17 15:08:00 35.44 kg/m2 [facility] [place] [facility] Oxygen saturation in 2020-10-17 15:08:00 99 /min University of Arterial blood by [place] [employer] [place] Pulse oximetry Branch Systolic blood 2020-10-17 15:08:00 146 mm[Hg] Univer sity [facility] [place] [facility] Diastolic blood 2020-10-17 15:08:00 96 mm[Hg] Unive rsity [facility] [place] [facility] Heart rate 2020-10-17 15:08:00 82 /min [facility] [place] [facility] Body temperature 2020-10-17 15:08:00 37.11 Debbie [facility] [place] [facility] Respiratory rate 2020-10-17 15:08:00 16 /min [facility] [place] [facility] Body height 2020-10-17 15:08:00 175.3 cm [facility] [place] [facility] Body weight 2020-10-17 15:08:00 108.863 kg [facility] [place] [facility] BMI 2020-10-17 15:08:00 35.44 kg/m2 [facility] [place] [facility] Oxygen saturation in 2020-10-17 15:08:00 99 /min University of Arterial blood by [employer] [place] Pulse oximetry Branch Procedures Procedure Date / Time Performed Performing Clinician Sourc e RAPID STREP SCREEN 2020-10-17 15:50:00 [facility] [place] [facility] COVID-19 (ID NOW 2020-10-17 15:50:00 Shivam Lucero [facility] RAPID TESTING) Medical Branch NOTICE OF PRIVACY 2020-10-17 15:05:13 [facility]igned, [facility] CONSENT/REFUSAL FOR 2020-10-17 15:04:51 Doctor Un[facility]igned, [facility] AND Name [facility] TREATMENT Encounters Start End Encounter Admission Attending Care Care Encounter Source Date/Time Date/Time Type Type Clinicians Facility Department ID 2020-10-17 2020-10-17 Emergency [facility] [id number] Univers 09:13:00 11:07:00 Shivam Naranjo [id number] i ty of [place] [id number] [facility] [id number] [facility] 08 Branch 2020-10-17 2020-10-17 Emergency [facility] [id number] 09:13:00 11:07:00 Shivam Naranjo [id number] [place] [id number] [place] [id number] [facility] 2020-10-17 2020-10-17 Emergency X [facility] ERT [id number] Univers 09:03:00 09:03:00 [facility] Results Test Description Test Time Test Comments Results Result Comments Source RAPID STREP SCREEN FOR GROUP A 2020-10-17 16:23:00 Test Item Value Reference Range Interpretation Comme nts Streptococcus pyogenes (group A) antigen (test code = 45206- 2) Negative Negative Lab Interpretation (test code = 21922-0) Normal [facility]2020-10-17 16:18:00 Test Item Value Reference Range Interpretation Comments SARS-CoV-2 Rapid ID NOW Positive Not Detected A (test code = 96438-4) TAYLOR (test code = TAYLOR) ID NOW COVID-19 Assay is an isothermal nucleic acid amplification test intended for the qualitative detection of nucleic acid from SARS-CoV-2 viral RNA in nasopharyngeal (PRESS CLIPPER) specimens. It is used under Emergency Use Authorization (EUA) by FDA. The limit of detection (LOD) of the assay is 125 Genome Equivalents/mL. A positive result is indicative of the presence of SARS-CoV-2 RNA. ?Clinical correlation with patient history and other diagnostic information is necessary to determine patient infection status. A negative (Not Detected) result does not preclude SARS-CoV-2 infection. In patients with clinical symptoms and other tests that are consistent with SARS-CoV-2 infection, negative results should be treated as presumptive negative and a new specimen should be tested with alternative PCR molecular test. Invalid: Please collect a new specimen for repeat patient testing if clinically indicated. Lab Interpretation Abnormal (test code = 02438-8) [facility]
[2022-02-19] MEDS ORDERED: IBUPROFEN 400 MG TAB ONE (00:22)
--- NOTE | 2022-02-19 01:33 | RAD REPORT ---
EXAM DESCRIPTION: RAD - Hand Right 3 View - 02/18/2022 11:49 pm CLINICAL HISTORY: SMASH INJURY COMPARISON: Hand Right 3 View dated 09/02/2016 FINDINGS: Soft tissue swelling is seen along the lateral aspect the hand. No acute fracture or dislo cation seen.
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
[2022-02-19 03:03] VITALS: TEMP 98.2; O2SAT 98
[2022-02-19 03:04] VITALS: BP 137/97
== END 2022-02-19 02:35 | disposition home or self-care (01) ==
LOC: ER 21:53
PROC: 2W3CX1Z Immobilization of Right Lower Arm using Splint (ICD-10-PCS; principal; 2022-02-19)
DX: S60.410A Abrasion of right index finger, initial encounter (principal); S60.221A Contusion of right hand, initial encounter; W51.XXXA Accidental striking against or bumped into by another person, initial encounter
CPT/HCPCS: 99284

== ENCOUNTER 2022-07-03 20:48 | Emergency (ER) | payer BC, SELFPAY ==
--- OUTSIDE RECORDS SUMMARY | 2022-07-03 20:51 | XMS REPORT | Continuity of Care Document ---
:[address] [facility] t Address [address] [place] [address] Care Team Providers Name Role Phone Rhett Wells Primary Care Physician CLAUDIO ESPINOSA Attending Clinician Unavailable Claudio Gómez Attending Clinician Shivam Lucero MD Attending Clinician Payers Payer Name Policy Type Policy Number Effective Date Expiration Date Albin francis [facility] [id number] 2017 2022 00:00:00 SELECT 00:00:00 Problems Condition Condition Condition Status Onset Resolution Last Treating Co mments Source Name Details Category Date Date Treatment Clinician Date No known No known Disease Unive rs active active ity of problems problems [facility] [place] Allergies, Adverse Reactions, Alerts Allergy Allergy Status Severity Reaction(s) Onset Inactive Treating Comm ents Source Name Type Date Date Clinician NO KNOWN Drug Active Univers ALLERGIE Class ity of S [facility] [place] Social History Social Habit Start Date Stop Date Quantity Comments Source Exposure to 2022-06-23 2022-07-03 Not sure [facility] SARS-CoV-2 (event) 00:00:00 14:28:00 Medica l Branch Sex Assigned At [birth year] [place] [facility] [place] 00:[facility] 00:00:00 Medical Branch Smoking Status Start Date Stop Date Source Tobacco smoking consumption [facility] Medications Ordered Filled Start Stop Current Ordering Indication Dosage Frequency Signature Comments Components Source Medication Medication Date Date Medication? Clinician (SIG) Name Name ondansetron 2021- Yes 4mg 4 mg, Univ ers (ZOFRAN-ODT 07-03 08-17 Oral, ity of ) 21:15: 09:14 ONCE, 1 [place] disintegrat 00 :00 dose, On Medi duane ing tablet Tue Branch 4 mg 07/03/22 at 1615, Routine NaCl 0.9% 2021- No 1000mL at 999 Uni vers (NS) bolus 05-22 07-05 mL/hr, ity of infusion 17:15: 17:50 1,000 mL, Shar as 1,000 mL 00 :00 IV Medical Infusion, Branch ONCE, 1 dose, On Sat05/22/22 at 1215, ESTELA ondansetron 2021- No 4mg 4 mg, Univ ers (ZOFRAN-ODT 05-22 07-05 Oral, ity of ) 15:15: 15:17 ONCE, 1 [place] disintegrat 00 :00 dose, On Medi duane ing tablet Sat05/22/22 Bra nch 4 mg at 1015, Routine metFORMIN 2021- Yes [id number] 500mg Take 1 Univers 500 mg 05-22 08-05 tablet by ity of tablet 00:00: 04:59 mouth 2 [place] 00 :00 (two) Medical times Branch daily with meals for 30 days. ondansetron 2019-11 Yes [id number] 4mg Take 1 Univers 4 mg 1-30 tablet by ity of disintegrat 00:00: mouth [place] ing tablet 00 every 4 Medica l (four) Branch hours as needed for Nausea and Vomiting (N/V) (te). benzonatate 2019-11 Yes [id number] 100mg Take 1 Univers 100 mg 1-30 capsule by ity of capsule 00:00: mouth 3 [place] 00 (three) Medical times Branch daily as needed for Cough. albuterol 2019-11 Yes [id number] 2{puff} Inhale 2 Univers 90 1-30 Puffs ity of mcg/actuati 00:00: every 4 Shar as on inhaler 00 (four) Medical hours as Branch needed for Wheezing or Shortness of Breath. ondansetron 2019-11 Yes [id number] 4mg Take 1 Univers 4 mg 1-30 tablet by ity of disintegrat 00:00: mouth [place] ing tablet 00 every 4 Medica l (four) Branch hours as needed for Nausea and Vomiting (N/V) (te). benzonatate 2019-11 Yes [id number] 100mg Take 1 Univers 100 mg 1-30 capsule by ity of capsule 00:00: mouth 3 [place] 00 (three) Medical times Branch daily as needed for Cough. ondansetron 2019-11 Yes [id number] 4mg Take 1 Univers 4 mg 1-30 tablet by ity of disintegrat 00:00: mouth [place] ing tablet 00 every 4 Medica l (four) Branch hours as needed for Nausea and Vomiting (N/V) (te). benzonatate 2019-11 Yes [id number] 100mg Take 1 Univers 100 mg 1-30 capsule by ity of capsule 00:00: mouth 3 [place] 00 (three) Medical times Branch daily as needed for Cough. albuterol 2019-11 Yes [id number] 2{puff} Inhale 2 Univers 90 1-30 Puffs ity of mcg/actuati 00:00: every 4 Shar as on inhaler 00 (four) Medical hours as Branch needed for Wheezing or Shortness of Breath. albuterol 2019-11 Yes [id number] 2{puff} Inhale 2 Univers 90 1-30 Puffs ity of mcg/actuati 00:00: every 4 Shar as on inhaler 00 (four) Medical hours as Branch needed for Wheezing or Shortness of Breath. Vital Signs Vital Name Observation Time Observation Value Comments Source Systolic blood 2022-07-03 19:29:00 131 mm[Hg] [facility] Diastolic blood 2022-07-03 19:29:00 78 mm[Hg] [facility] Heart rate 2022-07-03 19:29:00 105 /min [facility] Body temperature 2022-07-03 19:29:00 37.78 Debbie [facility] Respiratory rate 2022-07-03 19:29:00 17 /min [facility] Body height 2022-07-03 19:29:00 175.3 cm [facility] Body weight 2022-07-03 19:29:00 102.059 kg [facility] BMI 2022-07-03 19:29:00 33.23 kg/m2 [facility] Oxygen saturation in 2022-07-03 19:29:00 100 /min [facility] blood by [place] Medi duane Pulse oximetry Branch Systolic blood 2022-05-22 18:00:00 119 mm[Hg] Univer sity of pressure [place] [facility] Diastolic blood 2022-05-22 18:00:00 70 mm[Hg] Unive rsity of pressure [place] [facility] Heart rate 2022-05-22 18:00:00 69 /min [facility] [place] [facility] Body temperature 2022-05-22 18:00:00 36.22 Debbie Univ ers[facility] [place] [facility] Respiratory rate 2022-05-22 18:00:00 16 /min Univ ers[facility] [place] [facility] Oxygen saturation in 2022-05-22 18:00:00 95 /min University of Arterial blood by [facility] Pulse oximetry Branch Body height 2022-05-22 14:03:00 175.3 cm [facility]i [facility] [place] [facility] Body weight 2022-05-22 14:03:00 102.059 kg [facility] [place] [facility] BMI 2022-05-22 14:03:00 33.23 kg/m2 [facility] [place] [facility] Systolic blood 2020-10-17 15:08:00 146 mm[Hg] Univer sity of pressure [place] [facility] Diastolic blood 2020-10-17 15:08:00 96 mm[Hg] Unive rsity of pressure [place] [facility] Heart rate 2020-10-17 15:08:00 82 /min [facility] [place] [facility] Body temperature 2020-10-17 15:08:00 37.11 Debbie [facility] ers[facility] [place] [facility] Respiratory rate 2020-10-17 15:08:00 16 /min Univ [facility] [place] [facility] Body height 2020-10-17 15:08:00 175.3 cm [facility] [place] [facility] Body weight 2020-10-17 15:08:00 108.863 kg [facility] [place] [facility] BMI 2020-10-17 15:08:00 35.44 kg/m2 [facility] [place] [facility] Oxygen saturation in 2020-10-17 15:08:00 99 /min University of Arterial blood by [facility] Pulse oximetry Branch Systolic blood 2020-10-17 15:08:00 146 mm[Hg] Univer sity of pressure [place] [facility] Diastolic blood 2020-10-17 15:08:00 96 mm[Hg] Unive rsity of pressure [place] [facility] Heart rate 2020-10-17 15:08:00 82 /min [facility] Body temperature 2020-10-17 15:08:00 37.11 Debbie [facility] Respiratory rate 2020-10-17 15:08:00 16 /min [facility] Body height 2020-10-17 15:08:00 175.3 cm [facility] Body weight 2020-10-17 15:08:00 108.863 kg [facility] BMI 2020-10-17 15:08:00 35.44 kg/m2 [facility] Oxygen saturation in 2020-10-17 15:08:00 99 /min [facility] blood by [facility] Pulse oximetry Branch Procedures Procedure Date / Time Performing Clinician Source Performed CONSENT/REFUSAL FOR 2022-07-03 19:09:53 Doctor Kerline [facility] DIAGNOSIS AND TREATMENT [place] [facility] LIPASE 2022-05-22 16:49:00 Claudio Espinosa [facility] COMP. METABOLIC PANEL 2022-05-22 16:49:00 Claudio Espinosa [facility] ([id number]) Medical Branch CBC WITH DIFF 2022-05-22 16:49:00 [facility] COVID-19 (ID NOW RAPID 2022-05-22 15:18:00 Claudio Espinosa [facility] TESTING) Medical Branch LAB ONLY COVID 2022-05-22 15:18:00 Claudio Espinosa [facility] INTERPRETATION [facility] URINALYSIS 2022-05-22 15:18:[address] [facility] NOTICE OF PRIVACY 2022-05-22 13:54:40 Doctor Kerline, [facility] PRACTICES [place] [facility] CONSENT/REFUSAL FOR 2022-05-22 13:52:44 Doctor Kerline [facility] DIAGNOSIS AND TREATMENT [place] [facility] [place] CONSENT/REFUSAL FOR 2022-05-22 13:52:42 Doctor Kerline [facility] DIAGNOSIS AND TREATMENT [place] [facility] [place] RAPID STREP SCREEN FOR 2020-10-17 15:50:00 Shivam Lucero [facility] GROUP A Medical Branch COVID-19 (ID NOW RAPID 2020-10-17 15:50:00 Shivam Lucero [facility] TESTING) Medical [place] NOTICE OF PRIVACY 2020-10-17 15:05:13 Doctor Unassigned, [facility] PRACTICES [place] [facility] CONSENT/REFUSAL FOR 2020-10-17 15:04:51 [facility] DIAGNOSIS AND TREATMENT [place] [facility] Plan of Care Planned Activity Planned Date Details Comments Source Encounters Start End Encounter Admission Attending Care Care Encounter Source Date/Time Date/Time Type Type Clinicians Facility Department ID 2022-07-03 2022-07-03 Emergency X ESPINOSA, [facility] ERT [id number] Univers 14:29:00 16:03:00 CLAUDIO ity [facility] 2022-07-03 2022-07-03 Emergency Espinosa, [facility] [id number] Univers 14:29:00 16:03:00 Claudio NARANJO [id number] i ty of [place] [id number] [place] [id number] 2022-05-22 2022-05-22 Emergency X ESPINOSA, [facility] ERT [id number] Univers 09:14:00 13:43:00 CLAUDIO doty [facility] 2022-05-22 2022-05-22 Emergency Espinosa, [facility] [id number] Univers 09:14:00 13:43:00 Claudio NARANJO [id number] i ty [facility] [id number] [place] [id number] 2020-10-17 2020-10-17 Emergency Lucero, [facility] [id number] Univers 09:13:00 11:07:00 Shivam Naranjo [id number] i ty of [place] 4.2.7.2.686 [facility] [id number] [address] 2020-10-17 2020-10-17 Emergency Nic, [facility] [id number] 09:13:00 11:07:00 Shivam Naranjo [id number] [place] 4.2.7.2.686 [place] [id number] 2020-10-17 2020-10-[address] [facility] ERT [id number] Univers 09:03:00 09:03:00 [facility] Results Test Description Test Time Test Comments Results Result Comments Source CBC WITH DIFF 2022-05-22 17:42:14 Test Item Value Reference Range Interpretation Comme nts WBC (test code = 6690-2) See_Comment [A utomated message] The system which ge nerated this result transmit shaylee reference range: 4.20 - 1 0.70 10*3/?L. The reference r migue was not used to interpr et this result as normal/abnor mal. RBC (test code = 789-8) See_Comment H [Au tomated message] The system which ge nerated this result transmit shaylee reference range: 4.26 - 5 .52 10*6/?L. The reference r migue was not used to interpr et this result as normal/abnor mal. HGB (test code = 718-7) 16.3 g/dL 12.2-16.4 HCT (test code = 4544-3) 48.3 % 38.4-49.3 MCV (test code = 787-2) 84.7 fL 81.7-95.6 MCH (test code = 785-6) 28.6 pg 26.1-32.7 MCHC (test code = 786-4) 33.7 g/dL 31.2-35.0 RDW-SD (test code = 49039-8) 41.2 fL 38.5-51.6 RDW-CV (test code = 788-0) 13.2 % 12.1-15.4 PLT (test code = 777-3) See_Comment [Au tomated message] The system which ge nerated this result transmit shaylee reference range: 150 - 32 8 10*3/?L. The reference range was not used to interpret th is result as normal/abnormal . MPV (test code = 86285-9) 11.2 fL 9.8-13.0 NRBC/100 WBC (test code = See_Comment [ Automated message] The [id number]) system which ge nerated this result transmit shaylee reference range: 0.0 - 10 .0 /100 WBCs. The reference r migue was not used to interpr et this result as normal/abnor mal. NRBC x10^3 (test code = <0.01 See_Comment [Au tomated message] The 9865423031) system which ge nerated this result transmit shaylee reference range: 10*3/?L. The reference range was not u sed to interpret this result as normal/abnormal . GRAN MAT (NEUT) % (test code 66.0 % = 770-8) IMM GRAN % (test code = 0.40 % 7743399499) LYMPH % (test code = 736-9) 18.5 % MONO % (test code = 5905-5) 5.8 % EOS % (test code = 713-8) 8.5 % BASO % (test code = 706-2) 0.8 % GRAN MAT x10^3(ANC) (test 6.98 10*3/uL 1.99-6.95 H code = 9747852629) IMM GRAN x10^3 (test code = 0.04 10*3/uL 0.00-0.06 7483985057) LYMPH x10^3 (test code = 1.96 10*3/uL 1.09-3.23 731-0) MONO x10^3 (test code = 0.61 10*3/uL 0.36-1.02 742-7) EOS x10^3 (test code = 0.90 10*3/uL 0.06-0.53 H 711-2) BASO x10^3 (test code = 0.08 10*3/uL 0.01-0.09 704-7) Lab Interpretation (test Abnormal code = 72210-8) [id number][facility]2022-[facility]-22 17:40:54 Test Item Value Reference Range Interpretation Comments NA (test code = 136 mmol/L 135-145 0533918020) K (test code = 4.7 mmol/L 3.5-5.0 7662273008) CL (test code = 94 mmol/L 98-108 L 8475602566) CO2 TOTAL (test code = 28 mmol/L 23-31 4393183822) AGAP (test code = 2-16 3210072435) BUN (test code = 11 mg/dL 7-23 3845197778) GLUCOSE (test code = 357 mg/dL 70-110 H 6374138255) CREATININE (test code = 0.65 mg/dL 0.60-1.25 8130780684) TOTAL BILI (test code = 0.6 mg/dL 0.1-1.1 1504038338) CALCIUM (test code = 9.9 mg/dL 8.6-10.6 2687589902) T PROTEIN (test code = 8.5 g/dL 6.3-8.2 H 8485147098) ALBUMIN (test code = 4.7 g/dL 3.5-5.0 5264369564) ALK PHOS (test code = 223 U/L 34-122 H 1198397648) ALTv (test code = 80 U/L 5-50 H 1742-6) AST(SGOT) (test code = 42 U/L 13-40 H 0511206824) eGFR (test code = mL/min/1.73m2 4259138958) TAYLOR (test code = TAYLOR) Association of Glomerular Filtration Rate (GFR) and Staging of Kidney Disease* + --+ --+ ------+| GFR (mL/min/1.73 m2) ?| With Kidney Damage ?| ?Without Kidney Damage+ --------+ --------+ +| ?>90 ?| ?Stage one ?| ? Normal ?+ ---+ ---+ -------+| ?60-89 ?| ?Stage two ?| ? Decreased GFR ? + --+ --+ ------+| ?30-59 ?| ?Stage three ?| ? Stage three ? + --+ --+ ------+| ?15-29 ?| ?Stage four ? | ? Stage four ?+ ---+ ---+ -------+| ?<15 (or dialysis) ? ?| ?Stage five ? | ? Stage five ?+ ---+ ---+ -------+ *Each stage assumes the associated GFR level has been in effect for at least three months. ?Stages 1 to 5, with or without kidney disease, indicate chronic kidney disease. Notes: Determination of stages one and two (with eGFR >59mL/min/1.73 m2) requires estimation of kidney damage for at least three months as defined by structural or functional abnormalities of the kidney, manifested by either:Pathological abnormalities or Markers of kidney damage (including abnormalities in the composition of the blood or urine or abnormalities in imaging tests). Lab Interpretation Abnormal (test code = 31732-0) [facility] 17:40:09 Test Item Value Reference Range Interpretation Comments LIPASE (test code = 3997450707) 66 U/L 0-220 Lab Interpretation (test code = Normal 00038-8) [facility] [id number] 06:00:06 Test Item Value Reference Range Interpretation Comments HEMOGLOBIN A1c >15.5 % 4.2-5.6 H [place] GWEN MCCOLLUM (test code = 33321) ASSOCIAT ION GUIDELINES FOR HGB A1C: PREDIABETES/INC REASED RISK . . . . . . . 5 .7-6.4% DIAGNOSIS OF DI ABETES . . . . . . . . . >=6 .5% WITH CONFIRMATION OR APPROPRIATE SYMPTOMS NOTE: ASSAY MAY BE AFFECTED BY HEMOGLOBINOPATH IES (SICKLE CELL ANEMIA, S- C DISEASE, OTHERS) OR MYLENE FICIALLY LOWERED BY DECR EASED RED CELL SURVIVAL ( HEMOLYTIC ANEMIAS, BLOOD LOSS, ETC.). CONSIDER ALTERN ATE TESTING OR LABORATORY C ONSULTATION. UNLESS OTHERWIS E INDICATED, ALL TESTING PER [facility] ATCLINICAL PATH [facility], [address] [address] LABORATORY DIRE CTOR: Micky RAMOS CLIA NUMBER [id number] CAP ACCREDITATION N O. [id number] RAPID STREP SCREEN FOR GROUP [id number] 16:23:00 Test Item Value Reference Range Interpretation Comments Streptococcus pyogenes (group A) Negative Negative antigen (test code = 89782-5) Lab Interpretation (test code = Normal 99036-9) [facility] (ID NOW RAPID TESTING)2020-10-17 16:18:00 Test Item Value Reference Range Interpretation Comments SARS-CoV-2 Rapid ID NOW Positive Not Detected A (test code = 01445-4) TAYLOR (test code = TAYLOR) ID NOW COVID-19 Assay is an isothermal nucleic acid amplification test intended for the qualitative detection of nucleic acid from SARS-CoV-2 viral RNA in nasopharyngeal (EXCEPTIONAL STUDENT EDUCATION AIDE) specimens. It is used under Emergency Use [...] indicated. Lab Interpretation Abnormal (test code = 11193-6) [facility]"
[2022-07-03] MEDS ORDERED: ACETAMINOPHEN 500 MG TAB ONE (21:32)
[2022-07-03] MEDS ORDERED: ONDANSETRON 4 MG (ODT) TAB ONE (21:39)
--- NOTE | 2022-07-03 21:59 | RAD REPORT ---
EXAM DESCRIPTION: Elvis Single View07/03/2022 9:52 pm CLINICAL HISTORY: Fever COMPARISON: 2020 FINDINGS: Right upper lobe consolidation Left lung appears clear The heart is normal size IMPRESSION: Right upper lobe consolidation consistent with pneumonia
[2022-07-03 22:57] LABS: Absolute Lymphocytes (CBC) 1.2 K/uL (0.7-4.9); Hematocrit 40.9 % (39.6-49.0); Lymphocytes % 10.4 % (15.3-44.8); MCV 82.7 fL (80-100); MPV 8.4 fL (7.6-11.3); RBC Red Blood Cell Count 4.95 M/uL (4.33-5.43)
[2022-07-03] MEDS ORDERED: CEFTRIAXONE 1000 MG/VIAL ONE (22:57)
[2022-07-03 22:58] LABS: Protime INR 1.5
[2022-07-03] MEDS ORDERED: NA CHLORIDE 0.9% 250 ML ONE (22:58)
[2022-07-03] MEDS ORDERED: NA CHLORIDE 0.9% 3,000 ML ONE (22:58)
[2022-07-03] MEDS ORDERED: AZITHROMYCIN 500 MG INJ IVPB ONE (22:58)
[2022-07-03 23:20] LABS: ALT/SGPT 57 U/L (12-78); AST/SGOT 27 U/L (15-37); Albumin 3.1 g/dL (3.4-5.0); Alkaline Phosphatase 94 U/L (45-117); BUN Blood Urea Nitrogen 8 mg/dL (7-18); Bicarbonate 27 mmol/L (21-32); Bilirubin Direct 0.2 mg/dL (0-0.2); Bilirubin Total 0.7 mg/dL (0.2-1.0); Glomerular Filtration Rate 97 ml/min (=/>90); Glucose Level 285 mg/dL (74-106); Lipase 78 U/L (73-393); Magnesium 2.1 mg/dL (1.8-2.4); Potassium 3.6 mmol/L (3.5-5.1); Protein, Total 8.8 g/dL (6.4-8.2); Sodium Level 133 mmol/L (136-145); Troponin High Sensitivity 3.5 pg/mL (<58.9)
--- NOTE | 2022-07-04 02:11 | EDPHYS ---
Physician Documentation [facility] Name: Lele Castillo Jr Age: 27 yrs Sex: Male : 1995 Arrival Date: 07/03/2022 Time: 20:50 Bed 27 Private MD: ED Physician Zachary Low HPI: 07/03 21:35 This 27 yrs old Male presents to ER via Wheelchair with complaints of cp Nausea/Vomiting, Headache, Fever. 21:35 The patient presents to the emergency department with nausea, with "dry heaves", cp vomiting, that is continuous. Onset: The symptoms/episode began/occurred 8 day(s) ago. Possible causes: patient with history of non-insulin dependent diabetes. Associated signs and symptoms: Pertinent positives: fever, nausea, vomiting, headache, Pertinent negatives: abdominal pain, diarrhea, GI bleeding. 21:35 Severity of symptoms: in the emergency department the symptoms are unchanged despite cp home interventions. Historical: - Allergies: 21:11 NKA; hb - Immunization history:: Client reports receiving the 2nd dose of the Covid vaccine. - Social history:: Smoking status: Patient denies any tobacco usage or history of. ROS: 21:40 Constitutional: Positive for fever, poor PO intake. cp 21:40 Eyes: Negative for injury, pain, redness, and discharge. cp 21:40 ENT: Negative for drainage from ear(s), ear pain, sore throat, difficulty swallowing, difficulty handling secretions. 21:40 Neck: Negative for pain with movement, pain at rest, stiffness. 21:40 Cardiovascular: Negative for chest pain, edema, palpitations. 21:40 Respiratory: Negative for cough, shortness of breath, wheezing. 21:40 Abdomen/GI: Positive for nausea and vomiting, anorexia, Negative for abdominal pain, diarrhea, constipation. 21:40 Back: Negative for pain at rest, pain with movement. 21:40 : Negative for urinary symptoms, flank pain, testicular pain 21:40 Skin: Negative for cellulitis, rash. 21:40 Neuro: Positive for headache, Negative for altered mental status, weakness. 21:40 All other systems are negative. Exam: 21:45 Constitutional: The patient appears in no acute distress, alert, awake, cp non-diaphoretic, non-toxic, well developed, well nourished, overweight 21:45 Head/Face: Normocephalic, atraumatic. cp 21:45 Eyes: Periorbital structures: appear normal, Conjunctiva: normal, no exudate, no injection, Sclera: no appreciated abnormality, Lids and lashes: appear normal, bilaterally. 21:45 ENT: External ear(s): are unremarkable, Ear canal(s): are normal, clear, TM's: dullness, bilaterally, Nose: is normal, Mouth: Lips: moist, Oral mucosa: moist, Posterior pharynx: Airway: no evidence of obstruction, patent, Tonsils: with erythema, no enlargement, no exudate, swelling, is not appreciated, erythema, that is mild, exudate, is not appreciated. 21:45 Neck: ROM/movement: is normal, is supple, without pain, no range of motions limitations, no meningismus, no nuchal rigidity, Lymph nodes: no appreciated lymphadenopathy. 21:45 Chest/axilla: Inspection: normal, Palpation: is normal, no crepitus, no tenderness. 21:45 Cardiovascular: Rate: tachycardic, Rhythm: regular, Edema: is not appreciated, JVD: is not appreciated. 21:45 Respiratory: the patient does not display signs of respiratory distress, Respirations: normal, no use of accessory muscles, no retractions, labored breathing, is not present, Breath sounds: bronchial sounds, that are mild, are heard diffusely, stridor, is not appreciated, wheezing: is not appreciated. 21:45 Abdomen/GI: Inspection: abdomen appears normal, Bowel sounds: active, all quadrants, Palpation: abdomen is soft and non-tender, in all quadrants. 21:45 Back: pain, is absent, ROM is normal, CVA tenderness, is absent. 21:45 Skin: cellulitis, is not appreciated, no rash present. 21:45 Neuro: Orientation: to person, place \\T\\ time. Mentation: is normal, Cerebellar function: is grossly normal, Motor: moves all fours, strength is normal, Sensation: is normal. Vital Signs: 21:06 BP 130 / 71; Pulse 149; Resp 20; Temp 103.3(O); Pulse Ox 100% on R/A; Weight 102.06 kg; hb Height 5 ft. 9 in. (175.26 cm); Pain 08/27; 07/04 01:14 BP 119 / 58; Pulse 81; Resp 18; Temp 98.8(O); Pulse Ox 98% on R/A; Pain 0/10; ke1 02:53 BP 122 / 60; Pulse 79; Resp 17; Temp 98.7; Pulse Ox 100% ; Pain 0/10; ke1 07/03 21:06 Body Mass Index 33.23 (102.06 kg, 175.26 cm) hb MDM: 07/03 21:25 Patient medically screened. 07/04 01:51 Data reviewed: vital signs, nurses notes, lab test result(s), EKG, radiologic studies, cp CT scan, plain films. Test interpretation: by ED physician or midlevel provider: ECG, plain radiologic studies. Counseling: I had a detailed discussion with the patient and/or guardian regarding: the historical points, exam findings, and any diagnostic results supporting the discharge/admit diagnosis, lab results, radiology results, the need for outpatient follow up, a family practitioner, to return to the emergency department if symptoms worsen or persist or if there are any questions or concerns that arise at home. Special discussion: left adrenal mass with recommendation for f/u for dedicated CT abdomen adrenal mass protocol. ED course: VSS. Patient appears non-toxic and no signs of respiratory distress. Will discharge to home for continued monitoring. 07/03 21:33 Order name: Basic Metabolic Panel; Complete Time: 23:29 07/03 23:29 Interpretation: Normal except: NA 133; GLUC 285. 07/03 21:33 Order name: CBC with Diff; Complete Time: 23:29 07/03 23:29 Interpretation: Normal except: WBC 11.40; MCV 82.7; MARYLOU% 78.4; LYM% 10.4; NEUT A 8.9. 07/03 21:33 Order name: LFT's; Complete Time: 23:29 07/04 01:40 Interpretation: Normal except: TP 8.8; ALB 3.1; GLOB 5.7; A/G 0.5. 07/03 21:33 Order name: Magnesium; Complete Time: 23:29 cp 07/04 01:41 Interpretation: MG 2.1; Reviewed. 07/03 21:33 Order name: PT-INR; Complete Time: 23:29 cp 07/04 01:40 Interpretation: Reviewed. 07/03 21:33 Order name: Troponin HS; Complete Time: 23:29 cp 07/04 01:40 Interpretation: Reviewed. 07/03 21:33 Order name: Procalcitonin; Complete Time: 01:36 cp 07/04 01:36 Interpretation: Abnormal: Procalcitonin 0.14. cp 07/03 21:33 Order name: Lactate; Complete Time: 23:29 07/04 01:41 Interpretation: LAC 1.1; Reviewed. 07/03 21:33 Order name: Blood Culture Adult (2) cp 07/03 21:33 Order name: Ketone, Serum; Complete Time: 23:29 cp 07/03 21:33 Order name: Strep; Complete Time: 01:36 07/04 01:36 Interpretation: Reviewed. 07/03 21:33 Order name: [place] Screen Profile; Complete Time: 01:36 07/04 01:36 Interpretation: Reviewed. 07/03 21:33 Order name: COVID-19 SARS RT PCR (Document "Date of Onset" if Symptomatic); Complete cp Time: :36 07/04 01:37 Interpretation: Reviewed. 07/03 21:33 Order name: Influenza Screen (a \\T\\ B); Complete Time: 01:36 07/04 01:37 Interpretation: Reviewed. 07/03 21:33 Order name: XRAY Chest (1 view); Complete Time: 22:38 07/04 01:41 Interpretation: Report review. 07/03 21:33 Order name: EKG; Complete Time: 21:35 07/03 21:33 Order name: Cardiac monitoring; Complete Time: 00:48 07/03 21:33 Order name: EKG - Nurse/Tech; Complete Time: 00:48 cp 07/03 21:33 Order name: IV Saline Lock; Complete Time: 22:45 07/03 21:33 Order name: Labs collected and sent; Complete Time: 22:45 07/03 21:33 Order name: Lipase; Complete Time: 23:29 cp 07/04 01:42 Interpretation: Reviewed. 07/03 22:46 Order name: Glucose, Ancillary Testing; Complete Time: 23:29 EDMS 07/04 01:40 Interpretation: GLUC,ANCIL 269; Reviewed. 07/03 23:32 Order name: CT Chest For PE Angio cp 07/03 23:32 Order name: CT Abd/Pelvis - IV Contrast Only cp 07/03 23:39 Order name: Throat Culture EDMS 07/03 21:33 Order name: O2 Per Protocol; Complete Time: 22:45 cp 07/03 21:33 Order name: O2 Sat Monitoring; Complete Time: 22:45 cp 07/03 21:33 Order name: Accucheck Blood Glucose; Complete Time: 22:45 cp 07/04 01:54 Order name: PO challenge; Complete Time: 02:49 cp Administered Medications: 07/03 21:29 Drug: Tylenol 1000 mg Route: PO; bb 23:00 Follow up: Response: Marked relief of symptoms ke 21:29 Drug: Zofran (Ondansetron) 4 mg Route: PO; bb 22:45 Follow up: Response: No adverse reaction 23:08 Drug: Zithromax (azithromycin) 500 mg Route: IVPB; Infused Over: 1 hrs; Site: right [facility] antecubital; 07/04 00:08 Follow up: Response: No adverse reaction; IV Status: Completed infusion [facility] 07/03 23:20 Drug: NS 0.9% (30 ml/kg) 30 ml/kg Route: IV; Rate: bolus; Site: right antecubital; [facility] 07/04 02:51 Follow up: IV Status: Completed infusion [facility] 07/03 23:20 Drug: Rocephin (cefTRIAXone) 1 grams Route: IV; Rate: calculated rate; Site: right [facility] antecubital; 23:21 Follow up: Response: No adverse reaction; IV Status: Completed infusion [facility] Disposition: 07/04 06:39 Co-signature as Attending Physician, Zachary Low MD. [email or web address] Disposition Summary: 07/04/22 02:10 Discharge Ordered Location: Home cp Problem: new cp Symptoms: have improved cp Condition: Stable cp Diagnosis - Pneumonia, unspecified organism cp - Nausea with vomiting, unspecified cp - Fever presenting with conditions classified elsewhere cp - Diabetes mellitus due to underlying condition with hyperglycemia cp - Left Adrenal Mass cp - Headache cp Followup: cp - With: Private Physician - When: 2 - 3 days - Reason: Recheck today's complaints Discharge Instructions: - Discharge Summary Sheet cp - Hyperglycemia cp - Nausea and Vomiting, Adult cp - Community-Acquired Pneumonia, Adult cp - Blood Glucose Monitoring, Adult cp - Diabetes Mellitus and Nutrition, Adult cp - Form - Excuse from Work, School, or Physical Activity cp Forms: - Medication Reconciliation Form cp - Thank You Letter cp - Antibiotic Education cp - Prescription Opioid Use cp - Work release form bd Prescriptions: - Ibuprofen 800 mg Oral Tablet - take 1 tablet by ORAL route every 8 hours As needed take with food; 30 tablet; cp Refills: 0, Product Selection Permitted - Zofran 4 mg Oral Tablet - take 1 tablet by ORAL route every 12 hours As needed; 20 tablet; Refills: 0, cp Product Selection Permitted - Zithromax Z-Eliseo 250 mg Oral Tablet - take 1 tablet by ORAL route as directed for 5 days Day 1 - take two (2) tablets cp one time. Day 2, 3, 4 , 5 take one (1) tablet once daily.; 6 tablet; Refills: 0, Product Selection Permitted - cefdinir 300 mg Oral capsule - take 1 capsule by ORAL route every 12 hours for 10 days; 20 capsule; Refills: cp 0, Product Selection Permitted Signatures: Dispatcher [employer] Geeta Edwards RN RN bb Shahriar Pete, ANTONI PA cp Dariela Moura RN RN Zachary Low MD MD [email or web address] Estelita Hatfield RN RN ke1 Corrections: (The following items were deleted from the chart) 15:10 08/16 21:35 Associated signs and symptoms: Pertinent positives: fever, headache, cp cp
--- NOTE | 2022-07-04 02:11 | ER ---
Nurse's Notes [facility] Name: Lele Castillo Jr Age: 27 yrs Sex: Male : 1995 Arrival Date: 07/03/2022 Time: 20:50 Bed 27 Private MD: Diagnosis: Pneumonia, unspecified organism;Nausea with vomiting, unspecified;Fever presenting with conditions classified elsewhere;Diabetes mellitus due to underlying condition with hyperglycemia;Left Adrenal Mass;Headache Presentation: 07/03 21:06 Chief complaint: N/V and headache x 8 days. Not tolerating fluids. Coronavirus screen: Client presents with at least one sign or symptom that may indicate coronavirus-19. Standard/surgical mask placed on the client. Provider contacted for isolation considerations. Ebola Screen: No symptoms or risks identified at this time. Initial Sepsis Screen: Does the patient meet any 2 criteria? Yes. Risk Assessment: Do you want to hurt yourself or someone else? Patient reports no desire to harm self or others. Onset of symptoms was June 25, 2022. 21:06 Method Of Arrival: Wheelchair 21:06 Acuity: ANJANA 2 hb 21:15 Initial Sepsis Screen: Does the patient meet any 2 criteria? Temp <36.0*C (96.8*F)) or ke1 > 38.3*C (100.9*F). HR > 90 bpm. Yes Does the patient have a suspected source of infection? No. Patient's initial sepsis screen is negative. Triage Assessment: 23:00 Pain: Denies pain. GI: Reports nausea, vomiting. ke1 07/04 00:45 General: Appears in no apparent distress. Behavior is appropriate for age. ke1 Historical: - Allergies: 07/03 21:11 NKA; hb - Immunization history:: Client reports receiving the 2nd dose of the Covid vaccine. - Social history:: Smoking status: Patient denies any tobacco usage or history of. Screenin/17 00:45 Abuse screen: Denies threats or abuse. Abuse screen: Denies threats or abuse. ke1 Nutritional screening: No deficits noted. Tuberculosis screening: No symptoms or risk factors identified. Fall Risk None identified. Assessment: 07/03 23:00 GI: Abdomen is round non-distended. ke1 07/04 00:00 Reassessment: Patient states feeling better. Patient states symptoms have improved. ke1 01:00 Reassessment: Patient appears in no apparent distress at this time. No changes from ke1 previously documented assessment. 02:00 Reassessment: Patient appears in no apparent distress at this time. No changes from ke1 previously documented assessment. Vital Signs: 07/03 21:06 BP 130 / 71; Pulse 149; Resp 20; Temp 103.3(O); Pulse Ox 100% on R/A; Weight 102.06 kg; hb Height 5 ft. 9 in. (175.26 cm); Pain 10/10; 07/04 01:14 BP 119 / 58; Pulse 81; Resp 18; Temp 98.8(O); Pulse Ox 98% on R/A; Pain 0/10; ke1 02:53 BP 122 / 60; Pulse 79; Resp 17; Temp 98.7; Pulse Ox 100% ; Pain 0/10; ke1 07/03 21:06 Body Mass Index 33.23 (102.06 kg, 175.26 cm) hb ED Course: 07/03 20:50 Patient arrived in ED. ag3 21:11 Triage completed. hb 21:11 Arm band placed on. hb 21:15 Bed in low position. ke1 21:22 Shahriar Pete PA is PHCP. cp 21:22 Zachary Low MD is Attending Physician. cp 21:33 Estelita Hatfield, REMBERTO is Primary Nurse. ke1 21:54 XRAY Chest (1 view) In Process Unspecified. EDMS 22:44 Inserted saline lock: 20 gauge in right antecubital area, using aseptic technique. ke1 22:45 Influenza Screen (a \\T\\ B) Sent. ke1 22:45 COVID-19 SARS RT PCR (Document "Date of Onset" if Symptomatic) Sent. ke1 22:45 Strep Sent. ke1 07/04 00:49 CT Chest For PE Angio In Process Unspecified. EDMS 00:50 CT Abd/Pelvis - IV Contrast Only In Process Unspecified. EDMS 02:52 No provider procedures requiring assistance completed. IV discontinued. ke1 Administered Medications: 07/03 21:29 Drug: Tylenol 1000 mg Route: PO; bb 23:00 Follow up: Response: Marked relief of symptoms ke1 21:29 Drug: Zofran (Ondansetron) 4 mg Route: PO; bb 22:45 Follow up: Response: No adverse reaction ke1 23:08 Drug: Zithromax (azithromycin) 500 mg Route: IVPB; Infused Over: 1 hrs; Site: right ke1 antecubital; 07/04 00:08 Follow up: Response: No adverse reaction; IV Status: Completed infusion ke1 07/03 23:20 Drug: NS 0.9% (30 ml/kg) 30 ml/kg Route: IV; Rate: bolus; Site: right antecubital; ke1 07/04 02:51 Follow up: IV Status: Completed infusion ke1 07/03 23:20 Drug: Rocephin (cefTRIAXone) 1 grams Route: IV; Rate: calculated rate; Site: right ke1 antecubital; 23:21 Follow up: Response: No adverse reaction; IV Status: Completed infusion ke1 Medication: 07/04 02:52 VIS not applicable for this client. ke1 Outcome: 02:10 Discharge ordered by MD. alejo 02:52 Discharged to home ambulatory. ke1 02:52 Condition: good 02:52 Discharge instructions given to patient. 02:54 Patient left the ED. ke1 Signatures: Dispatcher [employer] Geeta Edwards RN Shahriar Novak PA PA cp Baxter, Heather, RN RN Mattie Mcmillan [facility] Estelita Hatfield RN RN ke1
[2022-07-04 03:29] VITALS: BP 122/60; TEMP 98.7; O2SAT 100
--- NOTE | 2022-07-04 11:18 | RAD REPORT ---
EXAM DESCRIPTION: CT Abdomen and Pelvis With Intravenous Contrast CLINICAL HISTORY: The patient is 27 years old and is Male; Nausea/vomiting TECHNIQUE: Axial computed tomography images of the abdomen and pelvis with intravenous contrast. S agittal and coronal reformatted images were created and reviewed. This CT exam was performed using one or more of the following dose reduction techniques: automated exposure control, adjustment of t he mA and/or kV according to patient size, and/or use of iterative reconstruction technique. DLP: 1689 mGy*cm COMPARISON: None. FINDINGS: LUNG BASES: Lung bases are clear. HEART: Visualized heart is normal. ABDOMEN: LIVER: Diffuse hepatic steatosis. GALLBLADDER AND BILE DUCTS: Unremarkable. No calcified stones. No ductal dilation. PANCREAS: Unremarkable. No mass. No ductal dilation. SPLEEN: Unremarkable. No splenomegaly. ADRENALS: Small enhancing left adrenal mass measuring 8 mm. KIDNEYS AND URETERS: Unremarkable. No solid mass. No hydronephrosis. STOMACH AND BOWEL: Unremarkable. No obstruction. No mucosal thickening. PELVIS: APPENDIX: No findings to suggest acute appendicitis. BLADDER: Unremarkable. No mass. REPRODUCTIVE: Unremarkable as visualized. ABDOMEN and PELVIS: INTRAPERITONEAL SPACE: Unremarkable. No free air. No significant fluid collection. BONES/JOINTS: L5-S1 degenerative changes. No acute fracture. No dislocation. SOFT TISSUES: Unremarkable. VASCULATURE: Unremarkable. No abdominal aortic aneurysm. LYMPH NODES: Unremarkable. No enlarged lymph nodes. IMPRESSION: 1. No acute abdominal or pelvic abnormality. 2. Small enhancing left adrenal mass measuring [address] abdomen within without contrast adrenal mass protocol is recommended. 3. Diffuse hepatic steatosis. Electronically signed by: Gurdeep Echols DO 07/04/2022 1:17 AM CDT Due to temporary technical issues with the PACS/Fluency reporting system, reports are being signed by the in house radiologists without review as a courtesy to insure prompt reporting. The interpreting radiologist is fully responsible for the content of the report.
--- NOTE | 2022-07-04 11:24 | RAD REPORT ---
EXAM DESCRIPTION: CT chest angiography with intravenous contrast CLINICAL HISTORY: 27 years Male pneumonia. TECHNIQUE: Following the administration of intravenous contrast, multiple high-resolution axial imag es of the chest were performed followed by sagittal and coronal reconstructed images. Coronal oblique MIP images were also performed. The CT study is performed according to ALARA (as low as reasonably a chievable) or ALARA/IMAGE GENTLY, with automatic adjustment of mA and/or kV according to patient size . Performed on: 07/04/2022 and 12:28 AM COMPARISON: Chest x-ray report from 07/03/2022. The image was unavailable for review. FINDINGS: There is satisfactory visualization and contrast opacification of pulmonary arteries. No definite intra-arterial filling defects are identified to suggest acute or chronic pulmonary embolis m. The thoracic aorta is normal in caliber and contour without evidence of aneurysm or dissection. There is dense and patchy airspace consolidation in the right upper lobe consistent with a pneumonic infiltrate. There is also mild patchy airspace disease in the posterior superior right lower lobe mos t consistent with multifocal pneumonia. There is likely minimal lingular atelectasis. The central air ways are clear.. The heart is normal in size. There is no pericardial effusion. There is no reflux of contrast into th e hepatic veins to suggest right heart strain.The RV/LV ratio is within normal limits. There is no evidence of hilar, mediastinal or axillary lymphadenopathy. No acute osseous abnormality is identified. Visualized upper abdominal structures revealed decreased attenuation of the liver commonly due to fat ty infiltration. No acute abnormalities are identified in the visualized portions of the upper abdome n. IMPRESSION: 1. No CT evidence to suggest acute or chronic pulmonary embolism, aortic aneurysm or a ortic dissection. 2. Dense and patchy airspace consolidation in the right upper lobe consistent with a pneumonic infi ltrate. There is also mild patchy airspace disease in the posterior superior right lower lobe most co nsistent with multifocal pneumonia. 3. Decreased attenuation of the liver commonly due to fatty infiltration. Electronically signed by: Rochelle Horan DO 07/04/2022 1:24 AM CDT Due to temporary technical issues with the PACS/Fluency reporting system, reports are being signed by the in house radiologists without review as a courtesy to insure prompt reporting. The interpreting radiologist is fully responsible for the content of the report.
--- NOTE | 2022-07-05 07:56 | EKG ---
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
== END 2022-07-04 02:54 | disposition home or self-care (01) ==
LOC: ER 20:48
DX: J18.9 Pneumonia, unspecified organism (principal); E11.65 Type 2 diabetes mellitus with hyperglycemia; R51.9 Headache, unspecified; E27.8 Other specified disorders of adrenal gland; Z20.822 Contact with and (suspected) exposure to COVID-19
CPT/HCPCS: 36415; 71045; 71275; 74177; 80048; 80076; 82010; 82947; 83605; 83690; 83735; 84145; 84484; 85025; 85610; 86308; 87040; 87070; 87081; 87804; 93005; J0456; J7030; J7050; Q0162; Q9967; U0003

== ENCOUNTER 2022-08-03 00:12 | Emergency (ER) | payer SELFPAY ==
--- OUTSIDE RECORDS SUMMARY | 2022-08-03 00:16 | XMS REPORT | Continuity of Care Document ---
:1995 Author Organization [facility] t Address [address] [place] [address] Care Team Providers Name Role Phone MUSA STOREY Primary Care Physician Unavailable CLAUDIO ESPINOSA Attending Clinician Unavailable Claudio Gómez Attending Clinician Shivam Lucero MD Attending Clinician Payers Payer Name Policy Type Policy Number Effective Date Expiration Date Albin francis [facility] [id number] 2017 2022 00:00:00 SELECT 00:00:00 Problems Condition Condition Condition Status Onset Resolution Last Treating Co mments Source Name Details Category Date Date Treatment Clinician Date No known No known Disease Unive rs active active ity of problems problems [facility] Allergies, Adverse Reactions, Alerts Allergy Allergy Status Severity Reaction(s) Onset Inactive Treating Comm ents Source Name Type Date Date Clinician NO KNOWN Drug Active Univers ALLERGIE Class ity of S [facility] Social History Social Habit Start Date Stop Date Quantity Comments Source Exposure to 2022-06-23 2022-07-03 Not sure [facility] SARS-CoV-2 (event) 00:00:00 14:28:00 Medica l Branch Sex Assigned At [birth year] [facility] 00:00:00 00:00:00 Medical Branch Smoking Status Start Date Stop Date Source Tobacco smoking consumption Univ [facility] Medical unknown Branch Medications Ordered Filled Start Stop Current Ordering Indication Dosage Frequency Signature Comments Components Source Medication Medication Date Date Medication? Clinician (SIG) Name Name ondansetron 2021- Yes 4mg 4 mg, [facility] ers (ZOFRAN-ODT 07-03 Oral, ity of ) 21:15: 09:14 ONCE, 1 [place] disintegrat 00 :00 dose, On Medi [place] ing tablet Tue Branch 4 mg 07/03/22 at 1615, Routine NaCl 0.9% 2021- No 1000mL at 999 Uni vers (NS) bolus 05-22-05 mL/hr, ity of infusion 17:15: 17:50 1,000 mL, Shar as 1,000 mL 00 :00 IV Medical Infusion, Branch ONCE, 1 dose, On Sat05/22/22 at 1215, ESETLA ondansetron 2021- No 4mg 4 mg, [facility] ers (ZOFRAN-ODT 05-22 Oral, ity of ) 15:15: 15:17 ONCE, 1 [place] disintegrat 00 :00 dose, On Medi [place] ing tablet Sat05/22/22 Bra nch 4 mg at 1015, Routine metFORMIN 2021- Yes [id number] 500mg Take 1 Univers 500 mg 05-22 tablet by ity of tablet 00:00: 04:59 mouth 2 [place] 00 :00 (two) Medical times Branch daily with meals for 30 days. ondansetron 2019-11 Yes [id number] 4mg Take 1 Univers 4 mg 1-30 tablet by ity of disintegrat 00:00: mouth [place] ing tablet 00 every 4 Medica l (four) Branch hours as needed for Nausea and Vomiting (N/V) (te). benzonatate 2019-11 Yes [id number] 100mg Take 1 Univers 100 mg 1-30 capsule by ity of capsule 00:00: mouth 3 [place] 00 (three) Medical times Branch daily as needed for Cough. albuterol 2019-11 Yes [id number] 2{puff} Inhale 2 Univers 90 1-30 Puffs ity of mcg/actuati 00:00: every 4 Shar as on inhaler 00 (four) Medical hours as Branch needed for Wheezing or Shortness of Breath. ondansetron 2019-11 Yes [id number] 4mg Take 1 Univers 4 mg 1-30 tablet by ity of disintegrat 00:00: mouth [place] ing tablet 00 every 4 Medica l (four) Branch hours as needed for Nausea and Vomiting (N/V) (te). benzonatate 2019-11 Yes [id number] 100mg Take 1 Univers 100 mg 1-30 capsule by ity of capsule 00:00: mouth 3 [place] 00 (three) Medical times Branch daily as needed for Cough. ondansetron 2019-11 Yes [id number] 4mg Take 1 Univers 4 mg 1-30 tablet by ity of disintegrat 00:00: mouth [place] ing tablet 00 every 4 Medica l (four) Branch hours as needed for Nausea and Vomiting (N/V) (te). benzonatate 2019-11 Yes [id number] 100mg Take 1 Univers 100 mg 1-30 capsule by ity of capsule 00:00: mouth 3 [place] 00 (three) Medical times Branch daily as needed for Cough. albuterol 2019-11 Yes [id number] 2{puff} Inhale 2 Univers 90 1-30 Puffs ity of mcg/actuati 00:00: every 4 Shar as on inhaler 00 (four) Medical hours as Branch needed for Wheezing or Shortness of Breath. albuterol 2019-11 Yes [id number] 2{puff} Inhale 2 Univers 90 1-30 Puffs ity of mcg/actuati 00:00: every 4 Shar as on inhaler 00 (four) Medical hours as Branch needed for Wheezing or Shortness of Breath. Vital Signs Vital Name Observation Time Observation Value Comments Source Systolic blood 2022-07-03 19:29:00 131 mm[Hg] [facility] Diastolic blood 2022-07-03 19:29:00 78 mm[Hg] [facility] Heart rate 2022-07-03 19:29:00 105 /min [facility] Body temperature 2022-07-03 19:29:00 37.78 Debbie [facility] Respiratory rate 2022-07-03 19:29:00 17 /min [facility] Body height 2022-07-03 19:29:00 175.3 cm [facility] Body weight 2022-07-03 19:29:00 102.059 kg [facility] BMI 2022-07-03 19:29:00 33.23 kg/m2 [facility] Oxygen saturation in 2022-07-03 19:29:00 100 /min University of Arterial blood by [place] [employer] [place] Pulse oximetry Branch Systolic blood 2022-05-22 18:00:00 119 mm[Hg] Univer sity [facility] Diastolic blood 2022-05-22 18:00:00 70 mm[Hg] Unive rsity of [facility] Heart rate 2022-05-22 18:00:00 69 /min [facility] Body temperature 2022-05-22 18:00:00 36.22 Debbie [facility] Respiratory rate 2022-05-22 18:00:00 16 /min [facility] Oxygen saturation in 2022-05-22 18:00:00 95 /min University of Arterial blood by [place] [employer] [place] Pulse oximetry Branch Body height 2022-05-22 14:03:00 175.3 cm [facility] Body weight 2022-05-22 14:03:00 102.059 kg [facility] BMI 2022-05-22 14:03:00 33.23 kg/m2 [facility] Systolic blood 2020-10-17 15:08:00 146 mm[Hg] [facility]iver [facility]ity [facility] Diastolic blood 2020-10-17 15:08:00 96 mm[Hg] Unive rsity [facility] Heart rate 2020-10-17 15:08:00 82 /min [facility] Body temperature 2020-10-17 15:08:00 37.11 Debbie [facility] Respiratory rate 2020-10-17 15:08:00 16 /min [facility] Body height 2020-10-17 15:08:00 175.3 cm [facility] Body weight 2020-10-17 15:08:00 108.863 kg [facility] [place] [facility] BMI 2020-10-17 15:08:00 35.44 kg/m2 [facility] Oxygen saturation in 2020-10-17 15:08:00 99 /min [facility] of Arterial blood by [facility] Pulse oximetry Branch Systolic blood 2020-10-17 15:08:00 146 mm[Hg] Univer sity of pressure [facility] Diastolic blood 2020-10-17 15:08:00 96 mm[Hg] Unive rsity of pressure [facility] Heart rate 2020-10-17 15:08:00 82 /min [facility] Body temperature 2020-10-17 15:08:00 37.11 Debbie [facility] Respiratory rate 2020-10-17 15:08:00 16 /min [facility] Body height 2020-10-17 15:08:00 175.3 cm [facility] Body weight 2020-10-17 15:08:00 108.863 kg [facility] BMI 2020-10-17 15:08:00 35.44 kg/m2 [facility] Oxygen saturation in 2020-10-17 15:08:00 99 /min [facility] Arterial blood by [facility] Pulse oximetry Branch Procedures Procedure Date / Time Performing Clinician Source Performed CONSENT/REFUSAL FOR 2022-07-03 19:09:53 Doctor Kerline, [facility] DIAGNOSIS AND TREATMENT [facility] LIPASE 2022-05-22 16:49:00 Claudio Espinosa [facility] COMP. METABOLIC PANEL 2022-05-22 16:49:00 [id number] Branch CBC WITH DIFF 2022-05-22 16:49:00 Claudio Espinosa [facility] COVID-19 (ID NOW RAPID 2022-05-22 15:18:00 Claudio Espinosa [facility] TESTING) Medical Branch LAB ONLY COVID 2022-05-22 15:18:00 Claudio Espinosa [facility] INTERPRETATION [facility] URINALYSIS 2022-05-22 15:18:00 Claudio Espinosa [facility] NOTICE OF PRIVACY 2022-05-22 13:54:40 Doctor Kerline, [facility] PRACTICES [facility] CONSENT/REFUSAL FOR 2022-05-22 13:52:44 Doctor Kerline, [facility] DIAGNOSIS AND TREATMENT [facility] CONSENT/REFUSAL FOR 2022-05-22 13:52:42 [facility] DIAGNOSIS AND TREATMENT [facility] RAPID STREP SCREEN FOR 2020-10-17 15:50:00 [facility]ivam [facility] GROUP A Medical Branch COVID-19 (ID NOW RAPID 2020-10-17 15:50:00 Shivam Lucero [facility] TESTING) Medical Branch NOTICE OF PRIVACY 2020-10-17 15:05:13 Doctor Kerline [facility] PRACTICES [facility] CONSENT/REFUSAL FOR 2020-10-17 15:04:51 Doctor Marilyn Churchill [facility] DIAGNOSIS AND TREATMENT [facility] Encounters Start End Encounter Admission Attending Care Care Encounter Source Date/Time Date/Time Type Type Clinicians Facility Department ID 2022-07-03 2022-07-03 Emergency X ESPINOSA, [facility] ERT [id number] Univers 14:29:00 16:03:00 CLAUDIO doty [facility] 2022-07-03 2022-07-03 Emergency [facility] [id number] Univers 14:29:00 16:03:00 Claudio NARANJO [id number] i ty of [place] 4.2.7.2.686 [facility] [id number] [address] 2022-05-22 2022-05-22 Emergency X ESPINOSA, [facility] ERT [id number] Univers 09:14:00 13:43:00 CLAUDIO [facility] 2022-05-22 2022-05-22 Emergency [facility] [id number] Univers 09:14:00 13:43:00 Claudio NARANJO [id number] i ty of [place] 4.2.7.2.686 [facility] [id number] [address] 2020-10-17 2020-10-17 [facility] [id number] Univers 09:13:00 11:07:00 Shivam Naranjo 350.1.13.10 i ty of [place] 4.2.7.2.686 [facility] [id number] [address] 2020-10-17 2020-10-17 Emergency Lucero, [facility] [id number] 09:13:00 11:07:00 Shivam Naranjo [id number] [place] 4.2.7.2.686 [place] [id number] [employer] 2020-10-17 2020-10-17 Emergency X [facility] ERT [id number] Univers 09:03:00 09:03:00 ity [facility] Results Test Description Test Time [...] 33.7 g/dL 31.2-35.0 RDW-SD (test code = 54399-4) 41.2 fL 38.5-51.6 RDW-CV (test code = 788-0) 13.2 % 12.1-15.4 PLT (test code = 777-3) See_Comment [Au tomated message] The system which ge nerated this result transmit shaylee reference range: 150 - 32 8 10*3/?L. The reference range was not used to interpret th is result as normal/abnormal . MPV (test code = 18446-3) 11.2 fL 9.8-13.0 NRBC/100 WBC (test code = See_Comment [ Automated message] The [id number]) system which [employer] nerated this result transmit shaylee reference range: 0.0 - 10 .0 /100 WBCs. The reference r migue was not used to interpr et this result as normal/abnor mal. NRBC x10^3 (test code = <0.01 See_Comment [Au tomated message] The [id number]) system which [employer] nerated this result transmit shaylee reference range: 10*3/?L. The reference range was not u sed to interpret this result as normal/abnormal . GRAN MAT (NEUT) % (test code 66.0 % = 770-8) IMM GRAN % (test code = 0.40 % 4461005119) LYMPH % (test code = 736-9) 18.5 % MONO % (test code = 5905-5) 5.8 % EOS % (test code = 713-8) 8.5 % BASO % (test code = 706-2) 0.8 % GRAN MAT x10^3(ANC) (test 6.98 10*3/uL 1.99-6.95 H code = 3680712168) IMM GRAN x10^3 (test code = 0.04 10*3/uL 0.00-0.06 8290743828) LYMPH x10^3 (test code = 1.96 10*3/uL 1.09-3.23 731-0) MONO x10^3 (test code = 0.61 10*3/uL 0.36-1.02 742-7) EOS x10^3 (test code = 0.90 10*3/uL 0.06-0.53 H 711-2) BASO x10^3 (test code = 0.08 10*3/uL 0.01-0.09 704-7) Lab Interpretation (test Abnormal code = 08863-8) [facility] (01843)2022-05-22 17:40:54 Test Item Value Reference Range Interpretation Comments NA (test code = 136 mmol/L 135-145 1106158435) K (test code = 4.7 mmol/L 3.5-5.0 9352264896) CL (test code = 94 mmol/L 98-108 L 2866143602) CO2 TOTAL (test code = 28 mmol/L 23-31 2856253359) AGAP (test code = 2-16 4718533374) BUN (test code = 11 mg/dL 7-23 6217195991) GLUCOSE (test code = 357 mg/dL 70-110 H 9981073451) CREATININE (test code = 0.65 mg/dL 0.60-1.25 0729308290) TOTAL BILI (test code = 0.6 mg/dL 0.1-1.0 6200357736) CALCIUM (test code = 9.9 mg/dL 8.6-10.6 3998109599) T PROTEIN (test code = 8.5 g/dL 6.3-8.2 H 7937868506) ALBUMIN (test code = 4.7 g/dL 3.5-5.0 2436555795) ALK PHOS (test code = 223 U/L 34-122 H 1607272335) ALTv (test code = 80 U/L 5-50 H 1742-6) AST(SGOT) (test code = 42 U/L 13-40 H 5072509243) eGFR (test code = mL/min/1.73m2 8284595250) TAYLOR (test code = TAYLOR) Association of [...] tests). Lab Interpretation Abnormal (test code = 34438-6) [facility]09 Test Item Value Reference Range Interpretation Comments LIPASE (test code = 0491324334) 66 U/L 0-220 Lab Interpretation (test code = Normal 05555-9) [facility] [id number] 06:00:06 Test Item Value Reference Range Interpretation Comments HEMOGLOBIN A1c >15.5 % 4.2-5.6 H HUNGARIAN GWEN MCCOLLUM (test code = 40665) ASSOCIAT ION GUIDELINES FOR HGB A1C: PREDIABETES/INC [...] UNLESS OTHERWIS E INDICATED, ALL TESTING PER FORMED ATCLINICAL PATH [facility], [address] [address] LABORATORY DIRE CTOR: Micky RAMOS. CLIA NUMBER [id number] CAP ACCREDITATION N O. [id number] RAPID STREP SCREEN FOR GROUP [id number] 16:23:00 Test Item Value Reference Range Interpretation Comments Streptococcus pyogenes (group A) Negative Negative antigen (test code = 92094-9) Lab Interpretation (test code = Normal 22426-7) [facility]ID NOW RAPID TESTING)2020-10-17 16:18:00 Test Item Value Reference Range Interpretation Comments SARS-CoV-2 Rapid ID NOW Positive Not Detected A (test code = 93947-3) TAYLOR (test code = TAYLOR) ID NOW COVID-19 Assay is an isothermal nucleic acid amplification test intended for the qualitative detection of nucleic acid from SARS-CoV-2 viral RNA in nasopharyngeal (GAMING SURVEILLANCE OBSERVER) specimens. It is used under Emergency Use [...] indicated. Lab Interpretation Abnormal (test code = 61189-9) [facility]"
--- NOTE | 2022-08-03 00:36 | EDPHYS ---
Physician Documentation [facility] Name: Lele Castillo Jr Age: 27 yrs Sex: Male : 1995 Arrival Date: 08/03/2022 Time: 00:17 Bed Waiting Private MD: ED Physician Gibran Jasso HPI: 08/03 00:31 This 27 yrs old Male presents to ER via Unassigned with complaints of Eye rn Problem. 00:31 The patient is experiencing foreign body sensation, The patient sustained None. to the rn left eye, caused by metal fragment. Onset: The symptoms/episode began/occurred just prior to arrival. Duration: the symptoms are continuous. Aggravated by closing eye, rubbing, Alleviated by nothing. Associated signs and symptoms: Pertinent negatives: fever. Patient does not utilize any form of vision correction. Severity of symptoms: At their worst the symptoms were moderate in the emergency department the symptoms are unchanged. The patient has not experienced similar symptoms in the past. The patient has not recently seen a physician. Pt reports working under vehicle, no eye protection, piece of metal fell into eye, tried flushing it but still feels something in eye. Not high speed injury, just a hans fell off vehicle.. Historical: - Allergies: 00:32 NKA; tw5 - PSHx: 00:32 nose sx; tw5 - Immunization history:: Flu vaccine is up to date. - Social history:: Smoking status: Patient denies any tobacco usage or history of. - Family history:: not pertinent. - Hospitalizations: : No recent hospitalization is reported. ROS: 00:31 Constitutional: Negative for fever, chills, and weight loss, Eyes: + foreign body rn sensation left eye Exam: 00:31 Constitutional: This is a well developed, well nourished patient who is awake, alert, rn rubbing left eye Head/Face: Normocephalic, atraumatic. Eyes: Left eye with erythema and injected sclera. NO evidence of corneal abrasion. PEERL. + small piece of metal identified under upper eyelid. Vital Signs: 00:30 Pulse 80; Resp 18; Temp 98.2; Pulse Ox 100% on R/A; Weight 98.88 kg; Height 5 ft. 9 in. tw5 (175.26 cm); 00:30 Body Mass Index 32.19 (98.88 kg, 175.26 cm) tw5 Procedures: 00:31 Foreign Body Removal: a piece of metal, from the left eye, by using a cotton-tipped rn swab, The patient tolerated the removal well, Used tetracaine drops x 2. MDM: 00:23 Patient medically screened. rn 00:31 Differential diagnosis: Foreign body in left eye. Data reviewed: vital signs, nurses rn notes, and as a result, I will discharge patient. Counseling: I had a detailed discussion with the patient and/or guardian regarding: the historical points, exam findings, and any diagnostic results supporting the discharge/admit diagnosis, the need for outpatient follow up, to return to the emergency department if symptoms worsen or persist or if there are any questions or concerns that arise at home. Response to treatment: the patient's symptoms have resolved after treatment, the patient's condition has returned to base line, the patient is now symptom free, and as a result, I will discharge patient. Special discussion: I discussed with the patient/guardian in detail that at this point there is no indication for admission to the hospital. It is understood, however, that if the symptoms persist or worsen the patient needs to return immediately for re-evaluation. Administered Medications: 00:33 Drug: Tetracaine Drops 0.5 % 1 drops Route: Ophthalmic; Site: left eye; tw5 00:33 Follow up: Response: No adverse reaction; Pain is decreased tw5 Disposition Summary: 08/03/22 00:35 Discharge Ordered Location: Home rn Problem: new rn Symptoms: are resolved rn Condition: Stable rn Diagnosis - Superficial foreign body of left eyelid and periocular area, initial encounter rn Followup: rn - With: Private Physician - When: As needed - Reason: Recheck today's complaints, Re-evaluation by your physician Discharge Instructions: - Discharge Summary Sheet rn - Eye Foreign Body rn Forms: - Medication Reconciliation Form rn - Thank You Letter rn - Antibiotic broomcorn seeder - Prescription Opioid Use rn Signatures: Gibran Jasso MD MD rn Wood, Tiffany tw5
--- NOTE | 2022-08-03 00:36 | ER ---
Nurse's Notes [facility] Name: Lele Castillo Jr Age: 27 yrs Sex: Male : 1995 Arrival Date: 08/03/2022 Time: 00:17 Bed Waiting Private MD: Diagnosis: Superficial foreign body of left eyelid and periocular area, initial encounter Presentation: 08/03 00:30 Chief complaint: Patient states: I was cutting a muffler off my car and something got tw5 in my eye. Coronavirus screen: Vaccine status: Patient reports being unvaccinated. Ebola Screen: Patient negative for fever greater than or equal to 101.5 degrees Fahrenheit, and additional compatible Ebola Virus Disease symptoms Patient denies exposure to infectious person. Patient denies travel to an Ebola-affected area in the 21 days before illness onset. Initial Sepsis Screen: Does the patient meet any 2 criteria? No. Patient's initial sepsis screen is negative. Does the patient have a suspected source of infection? No. Patient's initial sepsis screen is negative. Risk Assessment: Do you want to hurt yourself or someone else? Patient reports no desire to harm self or others. Onset of symptoms is unknown. 00:30 Method Of Arrival: Ambulatory tw5 00:30 Acuity: ANJANA 5 tw5 Triage Assessment: 00:32 General: Appears in no apparent distress. Behavior is calm, cooperative, appropriate tw5 for age. Pain: Pain currently is 0 out of 10 on a pain scale. Historical: - Allergies: 00:32 NKA; tw5 - PSHx: 00:32 nose sx; tw5 - Immunization history:: Flu vaccine is up to date. - Social history:: Smoking status: Patient denies any tobacco usage or history of. - Family history:: not pertinent. - Hospitalizations: : No recent hospitalization is reported. Screenin:33 Abuse screen: Denies threats or abuse. Denies injuries from another. Nutritional tw5 screening: No deficits noted. Nutritional screening: No deficits noted. Tuberculosis screening: No symptoms or risk factors identified. Fall Risk None identified. Vital Signs: 00:30 Pulse 80; Resp 18; Temp 98.2; Pulse Ox 100% on R/A; Weight 98.88 kg; Height 5 ft. 9 in. tw5 (175.26 cm); 00:30 Body Mass Index 32.19 (98.88 kg, 175.26 cm) tw5 ED Course: 00:17 Patient arrived in ED. ja2 00:23 Gibran Jasso MD is Attending Physician. rn 00:32 Triage completed. tw5 00:32 Arm band placed on. tw5 00:33 No provider procedures requiring assistance completed. Patient did not have IV access tw5 during this emergency room visit. 00:34 Meaghan Santoyo is Primary Nurse. tw5 00:34 Patient has correct armband on for positive identification. tw5 Administered Medications: 00:33 Drug: Tetracaine Drops 0.5 % 1 drops Route: Ophthalmic; Site: left eye; tw 00:33 Follow up: Response: No adverse reaction; Pain is decreased Medication: 00:34 VIS not applicable for this client. Outcome: 00:33 Discharged to home ambulatory. tw 00:33 Condition: improved 00:33 Discharge instructions given to patient, Instructed on discharge instructions, follow up and referral plans. Demonstrated understanding of instructions, follow-up care. 00:35 Discharge ordered by . rn 00:36 Patient left the ED. tw5 Signatures: Gibran Jasso MD MD rn Alexander, Jessica ja2 Wood, Tiffany tw5
[2022-08-03] MEDS ORDERED: TETRACAINE HCL 0.5% 4ML OPTH ONE (00:37)
[2022-08-04 09:39] VITALS: TEMP 98.2; O2SAT 100
== END 2022-08-03 00:36 | disposition home or self-care (01) ==
LOC: ER 00:12
PROC: 08C1XZZ Extirpation of Matter from Left Eye, External Approach (ICD-10-PCS; principal; 2022-08-03)
DX: S00.252A Superficial foreign body of left eyelid and periocular area, initial encounter (principal)
CPT/HCPCS: 99282

== ENCOUNTER 2022-09-01 20:33 | Emergency (ER) | payer SELFPAY ==
--- OUTSIDE RECORDS SUMMARY | 2022-09-01 20:36 | XMS REPORT | Continuity of Care Document ---
:1995 Author Organization [facility] t Address [address] [place] [address] Care Team Providers Name Role Phone MUSA STOREY Primary Care Physician Unavailable CLAUDIO ESPINOSA Attending Clinician Unavailable Claudio Gómez Attending Clinician Shivam Lucero MD Attending Clinician Payers Payer Name Policy Type Policy Number Effective Date Expiration Date Albin francis [facility] [id number] 2017 2022 00:00:00 SELECT 00:00:00 Problems Condition Condition Condition Status Onset Resolution Last Treating Co mments Source Name Details Category Date Date Treatment Clinician Date No known No known Disease Unive rs active active ity of problems problems [facility] Allergies, Adverse Reactions, Alerts Allergy Allergy Status Severity Reaction(s) Onset Inactive Treating Comm ents Source Name Type Date Date Clinician NO KNOWN Drug Active Univers ALLERGIE Class ity of S [facility] Social History Social Habit Start Date Stop Date Quantity Comments Source Exposure to 2022-06-23 2022-07-03 Not sure [facility] SARS-CoV-2 (event) 00:00:00 14:28:00 Medica l Branch Sex Ass[birth year] At [birth year] [facility] [place] 00:00:00 00:00:00 Medical Branch Smoking Status Start Date Stop Date Source Tobacco smoking consumption [facility] [place] [facility] unknown Branch Medications Ordered Filled Start Stop Current Ordering Indication Dosage Frequency Signature Comments Components Source Medication Medication Date Date Medication? Clinician (SIG) Name Name ondansetron 2021- Yes 4mg 4 mg, [facility] ers (ZOFRAN-ODT 07-03 Oral, ity of ) 21:15: 09:14 ONCE, 1 [place] disintegrat 00 :00 dose, On Medi [place] ing tablet Sat Branch 4 mg 07/03/22 at 1615, Routine NaCl 0.9% 2021- No 1000mL at 999 Uni vers (NS) bolus 05-22 mL/hr, ity of infusion 17:15: 17:50 1,000 mL, Shar as 1,000 mL 00 :00 IV Medical Infusion, Branch ONCE, 1 dose, On Sat05/22/22 at 1215, ESTELA ondansetron 2021- No 4mg 4 mg, [facility] ers (ZOFRAN-ODT 05-22 Oral, ity of ) 15:15: 15:17 ONCE, 1 [place] disintegrat 00 :00 dose, On Medi [place] ing tablet Sat05/22/22 Bra nch 4 mg at 1015, Routine metFORMIN 2021- No [id number] 500mg Take 1 Univers 500 mg 05-22 tablet by ity of tablet 00:00: 04:59 mouth 2 [place] 00 :00 (two) Medical times Branch daily with meals for 30 days. ondansetron 2019-11 Yes [id number] 4mg Take 1 Univers 4 mg 1-30 tablet by ity of disintegrat 00:00: mouth [place] ing tablet 00 every 4 Medica l (four) Branch hours as needed for Nausea and Vomiting (N/V) (te). benzonatate 2019-11 Yes [id number] 100mg Take 1 Univers 100 mg 1-30 capsule by ity of capsule 00:00: mouth 3 [place] 00 (three) Medical times Branch daily as needed for Cough. albuterol 2019-11 Yes [id number] 2{puff} Inhale 2 Univers 90 1-30 Puffs ity of mcg/actuati 00:00: every 4 Shar as on inhaler 00 (four) Medical hours as Branch needed for Wheezing or Shortness of Breath. ondansetron 2019-11 Yes [id number] 4mg Take 1 Univers 4 mg 1-30 tablet by ity of disintegrat 00:00: mouth [place] ing tablet 00 every 4 Medica l (four) Branch hours as needed for Nausea and Vomiting (N/V) (te). benzonatate 2019-11 Yes [id number] 100mg Take 1 Univers 100 mg 1-30 capsule by ity of capsule 00:00: mouth 3 [place] 00 (three) Medical times Branch daily as needed for Cough. ondansetron 2019-11 Yes [id number] 4mg Take 1 Univers 4 mg 1-30 tablet by ity of disintegrat 00:00: mouth [place] ing tablet 00 every 4 Medica l (four) Branch hours as needed for Nausea and Vomiting (N/V) (te). benzonatate 2019-11 Yes [id number] 100mg Take 1 Univers 100 mg 1-30 capsule by ity of capsule 00:00: mouth 3 [place] 00 (three) Medical times Branch daily as needed for Cough. albuterol 2019-11 Yes [id number] 2{puff} Inhale 2 Univers 90 1-30 Puffs ity of mcg/actuati 00:00: every 4 Shar as on inhaler 00 (four) Medical hours as Branch needed for Wheezing or Shortness of Breath. albuterol 2019-11 Yes [id number] 2{puff} Inhale 2 Univers 90 1-30 Puffs ity of mcg/actuati 00:00: every 4 Shar as on inhaler 00 (four) Medical hours as Branch needed for Wheezing or Shortness of Breath. Vital Signs Vital Name Observation Time Observation Value Comments Source Systolic blood 2022-07-03 19:29:00 131 mm[Hg] [facility] Diastolic blood 2022-07-03 19:29:00 78 mm[Hg] [facility] Heart rate 2022-07-03 19:29:00 105 /min [facility] Body temperature 2022-07-03 19:29:00 37.78 Debbie [facility] Respiratory rate 2022-07-03 19:29:00 17 /min [facility] Body height 2022-07-03 19:29:00 175.3 cm [facility] Body weight 2022-07-03 19:29:00 102.059 kg [facility] [place] [facility] BMI 2022-07-03 19:29:00 33.23 kg/m2 [facility] [place] [facility] Oxygen saturation in 2022-07-03 19:29:00 100 /min University of Arterial blood by [facility] Pulse oximetry Branch Systolic blood 2022-05-22 18:00:00 119 mm[Hg] [facility] [place] [facility] Diastolic blood 2022-05-22 18:00:00 70 mm[Hg] [facility]ive [facility] [place] [facility] Heart rate 2022-05-22 18:00:00 69 /min [facility] [place] [facility] Body temperature 2022-05-22 18:00:00 36.22 Debbie [facility] [place] [facility] Respiratory rate 2022-05-22 18:00:00 16 /min [facility] [place] [facility] Oxygen saturation in 2022-05-22 18:00:00 95 /min University of Arterial blood by [facility] Pulse oximetry Branch Body height 2022-05-22 14:03:00 175.3 cm [facility] [place] [facility] Body weight 2022-05-22 14:03:00 102.059 kg [facility] [place] [facility] BMI 2022-05-22 14:03:00 33.23 kg/m2 [facility] [place] [facility] Systolic blood 2020-10-17 15:08:00 146 mm[Hg] [facility] [place] [facility] Diastolic blood 2020-10-17 15:08:00 96 mm[Hg] [facility]ive [facility] [place] [facility] Heart rate 2020-10-17 15:08:00 82 /min [facility] [place] [facility] Body temperature 2020-10-17 15:08:00 37.11 Debbie [facility] [place] [facility] Respiratory rate 2020-10-17 15:08:00 16 /min [facility] [place] [facility] Body height 2020-10-17 15:08:00 175.3 cm [facility] [place] [facility] Body weight 2020-10-17 15:08:00 108.863 kg [facility] [place] [facility] BMI 2020-10-17 15:08:00 35.44 kg/m2 [facility] [place] [facility] Oxygen saturation in 2020-10-17 15:08:00 99 /min University of Arterial blood by [facility] Pulse oximetry Branch Systolic blood 2020-10-17 15:08:00 146 mm[Hg] Univer sity of pressure [facility] Diastolic blood 2020-10-17 15:08:00 96 mm[Hg] Unive rsity of pressure [facility] Heart rate 2020-10-17 15:08:00 82 /min [facility] Body temperature 2020-10-17 15:08:00 37.11 Debbie [facility] Respiratory rate 2020-10-17 15:08:00 16 /min [facility] Body height 2020-10-17 15:08:00 175.3 cm [facility] Body weight 2020-10-17 15:08:00 108.863 kg [facility] BMI 2020-10-17 15:08:00 35.44 kg/m2 [facility] Oxygen saturation in 2020-10-17 15:08:00 99 /min [facility] Arterial blood by [facility] Pulse oximetry Branch Procedures Procedure Date / Time Performing Clinician Source Performed CONSENT/REFUSAL FOR 2022-07-03 19:09:53 Doctor Kerline, [facility] DIAGNOSIS AND TREATMENT [facility] LIPASE 2022-05-22 16:49:00 Claudio Espinosa [facility] COMP. METABOLIC PANEL 2022-05-22 16:49:00 Claudio Espinosa [facility] ([id number]) [facility] CBC WITH DIFF 2022-05-22 16:49:00 Claudio Espinosa [facility] COVID-19 (ID NOW RAPID 2022-05-22 15:18:00 Claudio Espinosa [facility] TESTING) Medical Branch LAB ONLY COVID 2022-05-22 15:18:00 Claudio Espinosa [facility] INTERPRETATION [facility] URINALYSIS 2022-05-22 15:18:00 Claudio Espinosa [facility] NOTICE OF PRIVACY 2022-05-22 13:54:40 Doctor Kerline, [facility] PRACTICES [facility] [place] CONSENT/REFUSAL FOR 2022-05-22 13:52:44 Doctor Kerline [facility] DIAGNOSIS AND TREATMENT [facility] CONSENT/REFUSAL FOR 2022-05-22 13:52:42 [facility] DIAGNOSIS AND TREATMENT [facility] RAPID STREP SCREEN FOR 2020-10-17 15:50:00 Shivma Lucero [facility] GROUP A Medical Branch COVID-19 (ID NOW RAPID 2020-10-17 15:50:00 Shivam Lucero [facility] TESTING) Medical Branch NOTICE OF PRIVACY 2020-10-17 15:05:[address] [facility] PRACTICES [facility] CONSENT/REFUSAL FOR 2020-10-17 15:04:51 Doctor Marilyn Churchill [facility] DIAGNOSIS AND TREATMENT [facility] Encounters Start End Encounter Admission Attending Care Care Encounter Source Date/Time Date/Time Type Type Clinicians Facility Department ID 2022-07-03 2022-07-03 Emergency X ESPINOSA, [facility] ERT [id number] Univers 14:29:00 16:03:[facility]22-07-03 2022-07-03 Emergency Espinosa, [facility] [id number] Univers 14:29:00 16:03:00 Claudio NARANJO [id number] i ty of [place] [id number] [facility] [id number] [address] 2022-05-22 2022-05-22 Emergency X ESPINOSA, [facility] ERT [id number] Univers 09:14:00 13:43:00 [facility] 2022-05-22 2022-05-22 Emergency Espinosa, [facility] [id number] Univers 09:14:00 13:43:00 Claudio NARANJO [id number] i ty of [place] [id number] [facility] [id number] [address] 2020-10-17 2020-10-17 [facility] [id number] Univers 09:13:00 11:07:00 Shivam Naranjo [id number] i ty of [place] [id number] [facility] [id number] [address] 2020-10-17 2020-10-17 Emergency Lucero, [facility] [id number] 09:13:00 11:07:00 Shivam Naranjo [id number] [place] [id number] [place] [id number] [facility] 2020-10-17 2020-10-17 Emergency X [place] ERT [id number] Univers 09:03:00 09:03:00 ity [facility] Results Test Description Test Time Test [...] 33.7 g/dL 31.2-35.0 RDW-SD (test code = 00370-8) 41.2 fL 38.5-51.6 RDW-CV (test code = 788-0) 13.2 % 12.1-15.4 PLT (test code = 777-3) See_Comment [Au tomated message] The system which ge nerated this result transmit shaylee reference range: 150 - 32 8 10*3/?L. The reference range was not used to interpret th is result as normal/abnormal . MPV (test code = 81521-5) 11.2 fL 9.8-13.0 NRBC/100 WBC (test code = See_Comment [ Automated message] The [id number]) system which [facility] nerated this result transmit shaylee reference range: 0.0 - 10 .0 /100 WBCs. The reference r migue was not used to interpr et this result as normal/abnor mal. NRBC x10^3 (test code = <0.01 See_Comment [Au tomated message] The 8940484309) system which [facility] nerated this result transmit shaylee reference range: 10*3/?L. The reference range was not u sed to interpret this result as normal/abnormal . GRAN MAT (NEUT) % (test code 66.0 % = 770-8) IMM GRAN % (test code = 0.40 % 7075622799) LYMPH % (test code = 736-9) 18.5 % MONO % (test code = 5905-5) 5.8 % EOS % (test code = 713-8) 8.5 % BASO % (test code = 706-2) 0.8 % GRAN MAT x10^3(ANC) (test 6.98 10*3/uL 1.99-6.95 H code = 9071742082) IMM GRAN x10^3 (test code = 0.04 10*3/uL 0.00-0.06 2821501505) LYMPH x10^3 (test code = 1.96 10*3/uL 1.09-3.23 731-0) MONO x10^3 (test code = 0.61 10*3/uL 0.36-1.02 742-7) EOS x10^3 (test code = 0.90 10*3/uL 0.06-0.53 H 711-2) BASO x10^3 (test code = 0.08 10*3/uL 0.01-0.09 704-7) Lab Interpretation (test Abnormal code = 11561-0) [facility]. METABOLIC PANEL (86342)2022-05-22 17:40:54 Test Item Value Reference Range Interpretation Comments NA (test code = 136 mmol/L 135-145 7107521297) K (test code = 4.7 mmol/L 3.5-5.0 4925368354) CL (test code = 94 mmol/L 98-108 L 2825127618) CO2 TOTAL (test code = 28 mmol/L 23-31 2327765976) AGAP (test code = 2-16 8050789584) BUN (test code = 11 mg/dL 7-23 6443335492) GLUCOSE (test code = 357 mg/dL 70-110 H 6090095185) CREATININE (test code = 0.65 mg/dL 0.60-1.25 3244825459) TOTAL BILI (test code = 0.6 mg/dL 0.1-1.1 1538014716) CALCIUM (test code = 9.9 mg/dL 8.6-10.6 7112016178) T PROTEIN (test code = 8.5 g/dL 6.3-8.2 H 0050006651) ALBUMIN (test code = 4.7 g/dL 3.5-5.0 6337944570) ALK PHOS (test code = 223 U/L 34-122 H 8048512625) ALTv (test code = 80 U/L 5-50 H 1742-6) AST(SGOT) (test code = 42 U/L 13-40 H 5671578677) eGFR (test code = mL/min/1.73m2 0856004688) TAYLOR (test code = TAYLOR) Association of [...] tests). Lab Interpretation Abnormal (test code = 24863-4) [facility] 17[facility]40:09 Test Item Value Reference Range Interpretation Comments LIPASE (test code = 6015684639) 66 U/L 0-220 Lab Interpretation (test code = Normal 48499-8) [facility] [id number] 06:00:06 Test Item Value Reference Range Interpretation Comments HEMOGLOBIN A1c >15.5 % 4.2-5.6 H MACANESE GWEN MCCOLLUM (test code = 76031) ASSOCIAT ION GUIDELINES FOR HGB A1C: PREDIABETES/INC [...] INDICATED, ALL TESTING PER FORMED ATCLINICAL PATH [facility], [place] [address] [place] [id number] LABORATORY DIRE CTOR: Micky RAMOS. CLIA NUMBER [id number] CAP ACCREDITATION N O. [id number] RAPID STREP SCREEN FOR GROUP [id number] 16:23:00 Test Item Value Reference Range Interpretation Comments Streptococcus pyogenes (group A) Negative Negative antigen (test code = 49170-4) Lab Interpretation (test code = Normal 29250-0) [facility] (ID NOW RAPID TESTING)2020-10-17 16:18:00 Test Item Value Reference Range Interpretation Comments SARS-CoV-2 Rapid ID NOW Positive Not Detected A (test code = 96997-7) TAYLOR (test code = TAYLOR) ID NOW COVID-19 Assay is an isothermal nucleic acid amplification test intended for the qualitative detection of nucleic acid from SARS-CoV-2 viral RNA in nasopharyngeal (WILDLIFE REFUGE SPECIALIST) specimens. It is used under Emergency Use [...] indicated. Lab Interpretation Abnormal (test code = 97332-5) [facility]"
[2022-09-01] MEDS ORDERED: CYCLOBENZAPRINE 10 MG TAB ONE (21:25)
[2022-09-01] MEDS ORDERED: KETOROLAC 30 MG/ML INJ ONE (21:25)
--- NOTE | 2022-09-01 21:25 | ER ---
Nurse's Notes [facility] Name: Lele Castillo Jr Age: 27 yrs Sex: Male : 1995 Arrival Date: 09/01/2022 Time: 20:34 Bed IW4 Private MD: Diagnosis: Torticollis Presentation: 09/01 20:42 Chief complaint: Neck pain upon waking 2 weeks ago. Pain is temporarily relieved by hb popping his neck. Denies injury. Coronavirus screen: At this time, the client does not indicate any symptoms associated with coronavirus-19. Ebola Screen: No symptoms or risks identified at this time. Risk Assessment: Do you want to hurt yourself or someone else? Patient reports no desire to harm self or others. Onset of symptoms was August 18, 2022. 20:42 Method Of Arrival: Ambulatory hb 20:42 Acuity: ANJANA 4 hb Triage Assessment: 20:44 General: Appears in no apparent distress. Behavior is calm, cooperative. Pain: Pain hb currently is 10 out of 10 on a pain scale. Neuro: Level of Consciousness is awake, alert, obeys commands, Oriented to person, place, time, situation. Cardiovascular: Patient's skin is warm and dry. Respiratory: Respiratory effort is even, unlabored, Respiratory pattern is regular, symmetrical. Historical: - Allergies: 20:44 NKA; hb - Immunization history:: Adult Immunizations up to date. - Social history:: Smoking status: Patient denies any tobacco usage or history of. Vital Signs: 20:42 BP 126 / 74; Pulse 76; Resp 16; Temp 98.3; Pulse Ox 100% on R/A; Weight 99.79 kg; hb Height 5 ft. 9 in. (175.26 cm); Pain 10/10; 20:42 Body Mass Index 32.49 (99.79 kg, 175.26 cm) hb ED Course: 20:34 Patient arrived in ED. as 20:39 Nirmala Reyna [facility]-C [facility]. kb 20:39 Ryan Doyle DO is Attending Physician. kb 20:44 Triage completed. hb 20:44 Arm band placed on. hb Administered Medications: 21:31 Drug: Ketorolac 30 mg Route: IM; Site: right deltoid; hb 21:31 Drug: Flexeril (cyclobenzaprine) 10 mg Route: PO; hb Medication: 20:45 VIS not applicable for this client. hb Outcome: 21:24 Discharge ordered by . lynsey 21:31 Discharged to home ambulatory. hb 21:31 Condition: stable 21:31 Discharge instructions given to patient, Instructed on discharge instructions, follow up and referral plans. medication usage, Demonstrated understanding of instructions, follow-up care, medications, Prescriptions given X 2. 21:31 Patient left the ED. hb Signatures: Nirmala Reyna FNP-Damaso CAPPS-Darlyn Brown as Dariela Moura, RN RN hb Corrections: (The following items were deleted from the chart) 20:44 20:44 Social history: Smoking status: Patient/guardian denies using tobacco, hb hb
--- NOTE | 2022-09-01 21:25 | EDPHYS ---
Physician Documentation [facility] Name: Lele Castillo Jr Age: 27 yrs Sex: Male : 1995 Arrival Date: 09/01/2022 Time: 20:34 Bed IW4 Private MD: ED Physician Ryan Doyle HPI: 09/01 22:26 This 27 yrs old Male presents to ER via Ambulatory with complaints of Neck kb Pain, >24Hrs Old. 22:26 The patient or guardian complains of pain, that is acute. The symptoms are located on kb the right trapezius and left trapezius and right mid cervical area and left mid cervical area. Onset: The symptoms/episode began/occurred 2 week(s) ago. Context: The problem was sustained at home, The neck injury/problem resulted from from unknown cause. Associated signs and symptoms: The patient has no apparent associated signs or symptoms. The pain does not radiate. Modifying factors: The symptoms are alleviated by remaining still, the symptoms are aggravated by movement. Severity of symptoms: At their worst the symptoms were moderate, in the emergency department the symptoms are unchanged. The patient has not experienced similar symptoms in the past. The patient has not recently seen a physician. Pt reports he woke up with neck pain 2 weeks ago. Denies injury or trauma. States pain is reproducible when he turns head to the right. Historical: - Allergies: 20:44 NKA; hb - Immunization history:: Adult Immunizations up to date. - Social history:: Smoking status: Patient denies any tobacco usage or history of. ROS: 22:24 Constitutional: Negative for fever, chills, and weight loss. kb 22:24 Neck: Positive for pain with movement. 22:24 All other systems are negative. Exam: 22:24 Constitutional: This is a well developed, well nourished patient who is awake, alert, kb and in no acute distress. Head/Face: Normocephalic, atraumatic. Cardiovascular: Regular rate and rhythm with a normal S1 and S2. No gallops, murmurs, or rubs. No pulse deficits. Respiratory: Respirations even and unlabored. No increased work of breathing. Talking in full sentences Skin: Warm, dry with normal turgor. Normal color. MS/ Extremity: Pulses equal, no cyanosis. Neurovascular intact. Full, normal range of motion. Neuro: Awake and alert, GCS 15, oriented to person, place, time, and situation. Moves all extremities. Normal gait. Psych: Awake, alert, with orientation to person, place and time. Behavior, mood, and affect are within normal limits. 22:24 Neck: External neck: tenderness, that is mild, of the left mid cervical area, right mid cervical area, left trapezius and right trapezius, C-spine: appears grossly normal. Vital Signs: 20:42 BP 126 / 74; Pulse 76; Resp 16; Temp 98.3; Pulse Ox 100% on R/A; Weight 99.79 kg; hb Height 5 ft. 9 in. (175.26 cm); Pain 10/10; 20:42 Body Mass Index 32.49 (99.79 kg, 175.26 cm) hb MDM: 20:47 Patient medically screened. kb 22:24 Data reviewed: vital signs, nurses notes. Data interpreted: Pulse oximetry: on room air kb is 100 %. Interpretation: normal. Counseling: I had a detailed discussion with the patient and/or guardian regarding: the historical points, exam findings, and any diagnostic results supporting the discharge/admit diagnosis, the need for outpatient follow up, a family practitioner, to return to the emergency department if symptoms worsen or persist or if there are any questions or concerns that arise at home. Administered Medications: 21:31 Drug: Ketorolac 30 mg Route: IM; Site: right deltoid; hb 21:31 Drug: Flexeril (cyclobenzaprine) 10 mg Route: PO; hb Disposition: 09/02 05:15 Co-signature as Attending Physician, Ryan HAQ was immediately available onsite ms3 in the emergency department for consultation in the care of the patient. Disposition Summary: 09/01/22 21:24 Discharge Ordered Location: Home kb Condition: Stable kb Diagnosis - Torticollis kb Followup: kb - With: Emergency Department - When: As needed - Reason: Worsening of condition Followup: kb - With: Private Physician - When: 2 - 3 days - Reason: Recheck today's complaints, Continuance of care, Re-evaluation by your physician Discharge Instructions: - Discharge Summary Sheet kb - Acute Torticollis, Adult kb Forms: - Medication Reconciliation Form kb - Thank You Letter kb - Antibiotic Education kb - Prescription Opioid Use kb Prescriptions: - Cyclobenzaprine 10 mg Oral Tablet - take 1 tablet by ORAL route every 8 hours As needed; 15 tablet; Refills: 0, kb Product Selection Permitted - Diclofenac Sodium 75 mg Oral tablet,delayed release (DR/EC) - take 1 tablet by ORAL route 2 times per day As needed; 30 tablet; Refills: 0, kb Product Selection Permitted Signatures: Nirmala Reyna, Dariela Michelle RN RN Ryan Doyle DO DO ms3 Corrections: (The following items were deleted from the chart) 09/01 20:44 20:44 Social history: Smoking status: Patient/guardian denies using tobacco, [facility] 21:25 21:24 Myalgia kb kb
[2022-09-01 21:36] VITALS: BP 126/74; TEMP 98.3; O2SAT 100
== END 2022-09-01 21:31 | disposition home or self-care (01) ==
LOC: ER 20:33
DX: M43.6 Torticollis (principal)
CPT/HCPCS: 96372; 99283

== ENCOUNTER 2022-10-14 00:23 | Emergency (ER) | payer SELFPAY ==
--- OUTSIDE RECORDS SUMMARY | 2022-10-14 00:27 | XMS REPORT | Continuity of Care Document ---
:1995 Author Organization [facility] t Address [address] [place] [address] Care Team Providers Name Role Phone MUSA STOREY Primary Care Physician Unavailable CLAUDIO ESPINOSA Attending Clinician Unavailable Claudio Gómez Attending Clinician Shivam Lucero MD Attending Clinician Payers Payer Name Policy Type Policy Number Effective Date Expiration Date Albin francis [facility] [id number] 2017 2022 00:00:00 SELECT 00:00:00 Problems Condition Condition Condition Status Onset Resolution Last Treating Co mments Source Name Details Category Date Date Treatment Clinician Date No known No known Disease Unive rs active active ity of problems problems [facility] Allergies, Adverse Reactions, Alerts Allergy Allergy Status Severity Reaction(s) Onset Inactive Treating Comm ents Source Name Type Date Date Clinician NO KNOWN Drug Active Univers ALLERGIE Class ity of S [facility] Social History Social Habit Start Date Stop Date Quantity Comments Source Exposure to 2022-06-23 2022-07-03 Not sure [facility] SARS-CoV-2 (event) 00:00:00 14:28:00 Medica l Branch Sex Ass[birth year] At [birth year] [facility] 00:00:00 00:00:00 Medical Branch Smoking Status Start Date Stop Date Source Tobacco smoking consumption Univ [facility] Medical unknown Branch Medications Ordered Filled Start Stop Current Ordering Indication Dosage Frequency Signature Comments Components Source Medication Medication Date Date Medication? Clinician (SIG) Name Name ondansetron No 4mg 4 mg, [facility] ers (ZOFRAN-ODT 07-03 Oral, ity of ) 21:15: 09:14 ONCE, 1 [place] disintegrat 00 :00 dose, On Medi [place] ing tablet Tue Branch 4 mg 07/03/22 at 1615, Routine NaCl 0.9% No 1000mL at 999 Uni vers (NS) bolus 05-22 07-05 mL/hr, ity of infusion 17:15: 17:50 1,000 mL, Shar as 1,000 mL 00 :00 IV Medical Infusion, Branch ONCE, 1 dose, On Sat05/22/22 at 1215, ESTELA ondansetron No 4mg 4 mg, [facility] ers (ZOFRAN-ODT 05-22 Oral, ity of ) 15:15: 15:17 ONCE, 1 [place] disintegrat 00 :00 dose, On Medi [place] ing tablet Sat05/22/22 Bra nch 4 mg at 1015, Routine metFORMIN 2021- No [id number] 500mg Take 1 Univers 500 mg 05-22 tablet by ity of tablet 00:00: 04:59 mouth 2 [place] 00 :00 (two) Medical times Branch daily with meals for 30 days. ondansetron 2019-11 Yes [id number] 4mg Take 1 Univers 4 mg 1-30 tablet by ity of disintegrat 00:00: mouth [place] ing tablet 00 every 4 Medica l (four) Branch hours as needed for Nausea and Vomiting (N/V) (te). benzonatate 2019-11 Yes [id number] 100mg Take 1 Univers 100 mg 1-30 capsule by ity of capsule 00:00: mouth 3 [place] 00 (three) Medical times Branch daily as needed for Cough. albuterol 2019-11 Yes [id number] 2{puff} Inhale 2 Univers 90 1-30 Puffs ity of mcg/actuati 00:00: every 4 Shar as on inhaler 00 (four) Medical hours as Branch needed for Wheezing or Shortness of Breath. ondansetron 2019-11 Yes [id number] 4mg Take 1 Univers 4 mg 1-30 tablet by ity of disintegrat 00:00: mouth [place] ing tablet 00 every 4 Medica l (four) Branch hours as needed for Nausea and Vomiting (N/V) (te). benzonatate 2019-11 Yes [id number] 100mg Take 1 Univers 100 mg 1-30 capsule by ity of capsule 00:00: mouth 3 [place] 00 (three) Medical times Branch daily as needed for Cough. ondansetron 2019-11 Yes [id number] 4mg Take 1 Univers 4 mg 1-30 tablet by ity of disintegrat 00:00: mouth [place] ing tablet 00 every 4 Medica l (four) Branch hours as needed for Nausea and Vomiting (N/V) (te). benzonatate 2019-11 Yes [id number] 100mg Take 1 Univers 100 mg 1-30 capsule by ity of capsule 00:00: mouth 3 [place] 00 (three) Medical times Branch daily as needed for Cough. albuterol 2019-11 Yes [id number] 2{puff} Inhale 2 Univers 90 1-30 Puffs ity of mcg/actuati 00:00: every 4 Shar as on inhaler 00 (four) Medical hours as Branch needed for Wheezing or Shortness of Breath. albuterol 2019-11 Yes [id number] 2{puff} Inhale 2 Univers 90 1-30 Puffs ity of mcg/actuati 00:00: every 4 Shar as on inhaler 00 (four) Medical hours as Branch needed for Wheezing or Shortness of Breath. Vital Signs Vital Name Observation Time Observation Value Comments Source Systolic blood 2022-07-03 19:29:00 131 mm[Hg] [facility] Diastolic blood 2022-07-03 19:29:00 78 mm[Hg] [facility] Heart rate 2022-07-03 19:29:00 105 /min [facility] Body temperature 2022-07-03 19:29:00 37.78 Debbie [facility] Respiratory rate 2022-07-03 19:29:00 17 /min [facility] Body height 2022-07-03 19:29:00 175.3 cm [facility] Body weight 2022-07-03 19:29:00 102.059 kg [facility] [place] [facility] BMI 2022-07-03 19:29:00 33.23 kg/m2 [facility] [place] [facility] Oxygen saturation in 2022-07-03 19:29:00 100 /min University of Arterial blood by [facility] duane Pulse oximetry Branch Systolic blood 2022-05-22 18:00:00 119 mm[Hg] Univer sity of pressure [place] [facility] Diastolic blood 2022-05-22 18:00:00 70 mm[Hg] Unive rsity of pressure [place] [facility] Heart rate 2022-05-22 18:00:00 69 /min [facility] [place] [facility] Body temperature 2022-05-22 18:00:00 36.22 Debbie [facility] [place] [facility] Respiratory rate 2022-05-22 18:00:00 16 /min [facility] [place] [facility] Oxygen saturation in 2022-05-22 18:00:00 95 /min University of Arterial blood by [facility] Pulse oximetry Branch Body height 2022-05-22 14:03:00 175.3 cm [facility] [place] [facility] Body weight 2022-05-22 14:03:00 102.059 kg [facility] [place] [facility] BMI 2022-05-22 14:03:00 33.23 kg/m2 [facility] [place] [facility] Systolic blood 2020-10-17 15:08:00 146 mm[Hg] Univer sity of [facility] [place] [facility] Diastolic blood 2020-10-17 15:08:00 96 mm[Hg] Unive rsity of [facility] [place] [facility] Heart rate 2020-10-17 15:08:00 82 /min [facility] [place] [facility] Body temperature 2020-10-17 15:08:00 37.11 Debbie [facility] [place] [facility] Respiratory rate 2020-10-17 15:08:00 16 /min [facility] [place] [facility] Body height 2020-10-17 15:08:00 175.3 cm [facility] [place] [facility] Body weight 2020-10-17 15:08:00 108.863 kg [facility] [place] [facility] BMI 2020-10-17 15:08:00 35.44 kg/m2 [facility] [place] [facility] Oxygen saturation in 2020-10-17 15:08:00 99 /min University of Arterial blood by [facility] Pulse oximetry Branch Systolic blood 2020-10-17 15:08:00 146 mm[Hg] Univer sity of pressure [facility] Diastolic blood 2020-10-17 15:08:00 96 mm[Hg] Unive rsity of pressure [facility] Heart rate 2020-10-17 15:08:00 82 /min [facility] Body temperature 2020-10-17 15:08:00 37.11 Debbie [facility] Respiratory rate 2020-10-17 15:08:00 16 /min [facility] Body height 2020-10-17 15:08:00 175.3 cm [facility] Body weight 2020-10-17 15:08:00 108.863 kg [facility] BMI 2020-10-17 15:08:00 35.44 kg/m2 [facility] Oxygen saturation in 2020-10-17 15:08:00 99 /min [facility] of Arterial blood by [facility] Pulse oximetry Branch Procedures Procedure Date / Time Performing Clinician Source Performed CONSENT/REFUSAL FOR 2022-07-03 19:09:53 Doctor Kerline [facility] DIAGNOSIS AND TREATMENT [facility] [place] LIPASE 2022-05-22 16:49:00 Claudio Espinosa [facility] COMP. METABOLIC PANEL 2022-05-22 16:49:00 Claudio Espinosa [facility] ([id number]) [facility] [place] CBC WITH DIFF 2022-05-22 16:49:00 Claudio Espinosa [facility] COVID-19 (ID NOW RAPID 2022-05-22 15:18:00 Claudio Espinosa [facility] TESTING) Medical Branch LAB ONLY COVID 2022-05-22 15:18:00 Claudio Espinosa [facility] INTERPRETATION [facility] URINALYSIS 2022-05-22 15:18:00 Claudio Espinosa [facility] NOTICE OF PRIVACY 2022-05-22 13:54:40 Doctor Kerline, [facility] PRACTICES [facility] [place] CONSENT/REFUSAL FOR 2022-05-22 13:52:44 Doctor Kerline [facility] DIAGNOSIS AND TREATMENT [facility] [place] CONSENT/REFUSAL FOR 2022-05-22 13:52:42 [facility] DIAGNOSIS AND TREATMENT [facility] RAPID STREP SCREEN FOR 2020-10-17 15:50:00 Shivam Lucero [facility] GROUP A Medical Branch COVID-19 (ID NOW RAPID 2020-10-17 15:50:00 Shivam Lucero [facility] TESTING) Medical Branch NOTICE OF PRIVACY 2020-10-17 15:05:13 Doctor Kerline [facility] CONSENT/REFUSAL FOR 2020-10-17 15:04:51 Doctor Marilyn Churchill [facility] DIAGNOSIS AND TREATMENT [facility] Encounters Start End Encounter Admission Attending Care Care Encounter Source Date/Time Date/Time Type Type Clinicians Facility Department ID 2022-07-03 2022-07-03 Emergency X ESPINOSA, [facility] ERT [id number] Univers 14:29:00 16:03:00 CLAUDIO lopeskt [facility] 2022-07-03 2022-07-03 Emergency [facility] [id number] Univers 14:29:00 16:03:00 Claudio NARANJO [id number] i ty of [place] [id number] [facility] [id number] [address] 2022-05-22 2022-05-22 Emergency X ESPINOSA, [facility] ERT [id number] Univers 09:14:00 13:43:00 CLAUDIO [facility] 2022-05-22 2022-05-22 Emergency [facility] [id number] Univers 09:14:00 13:43:00 Claudio NARANJO [id number] i ty of [place] [id number] [facility] [id number] [address] 2020-10-17 2020-10-17 [facility] [id number] Univers 09:13:00 11:07:00 Shivam Naranjo [id number] i ty of [place] [id number] [facility] [id number] [address] 2020-10-17 2020-10-17 Emergency Lucero, [facility] [id number] 09:13:00 11:07:00 Shivam Naranjo [id number] [place] [id number] [place] [id number] [facility] 2020-10-17 2020-10-17 Emergency X [facility] ERT [id number] Univers 09:03:00 09:03:00 ity [facility] Results Test Description Test Time Test Comments [...] 33.7 g/dL 31.2-35.0 RDW-SD (test code = 78096-0) 41.2 fL 38.5-51.6 RDW-CV (test code = 788-0) 13.2 % 12.1-15.4 PLT (test code = 777-3) See_Comment [Au tomated message] The system which ge nerated this result transmit shaylee reference range: 150 - 32 8 10*3/?L. The reference range was not used to interpret th is result as normal/abnormal . MPV (test code = 93694-9) 11.2 fL 9.8-13.0 NRBC/100 WBC (test code = See_Comment [ Automated message] The [id number]) system which fintonic nerated this result transmit shaylee reference range: 0.0 - 10 .0 /100 WBCs. The reference r migue was not used to interpr et this result as normal/abnor mal. NRBC x10^3 (test code = <0.01 See_Comment [Au tomated message] The [id number]) system which fintonic nerated this result transmit shaylee reference range: 10*3/?L. The reference range was not u sed to interpret this result as normal/abnormal . GRAN MAT (NEUT) % (test code 66.0 % = 770-8) IMM GRAN % (test code = 0.40 % 6595664689) LYMPH % (test code = 736-9) 18.5 % MONO % (test code = 5905-5) 5.8 % EOS % (test code = 713-8) 8.5 % BASO % (test code = 706-2) 0.8 % GRAN MAT x10^3(ANC) (test 6.98 10*3/uL 1.99-6.95 H code = 8355985315) IMM GRAN x10^3 (test code = 0.04 10*3/uL 0.00-0.06 1161913672) LYMPH x10^3 (test code = 1.96 10*3/uL 1.09-3.23 731-0) MONO x10^3 (test code = 0.61 10*3/uL 0.36-1.02 742-7) EOS x10^3 (test code = 0.90 10*3/uL 0.06-0.53 H 711-2) BASO x10^3 (test code = 0.08 10*3/uL 0.01-0.09 704-7) Lab Interpretation (test Abnormal code = 24281-5) [facility]76001[facility]-22 17:40:54 Test Item Value Reference Range Interpretation Comments NA (test code = 136 mmol/L 135-145 1281374272) K (test code = 4.7 mmol/L 3.5-5.0 0859103652) CL (test code = 94 mmol/L 98-108 L 4499510981) CO2 TOTAL (test code = 28 mmol/L 23-31 2211893303) AGAP (test code = 2-16 0804880893) BUN (test code = 11 mg/dL 7-23 6188576078) GLUCOSE (test code = 357 mg/dL 70-110 H 8579904906) CREATININE (test code = 0.65 mg/dL 0.60-1.25 0853634734) TOTAL BILI (test code = 0.6 mg/dL 0.1-1.3 8008429051) CALCIUM (test code = 9.9 mg/dL 8.6-10.6 8875590353) T PROTEIN (test code = 8.5 g/dL 6.3-8.2 H 4670432067) ALBUMIN (test code = 4.7 g/dL 3.5-5.0 3558536861) ALK PHOS (test code = 223 U/L 34-122 H 6130013788) ALTv (test code = 80 U/L 5-50 H 1742-6) AST(SGOT) (test code = 42 U/L 13-40 H 2122496965) eGFR (test code = mL/min/1.73m2 9746497203) TAYLOR (test code = TAYLOR) Association of [...] tests). Lab Interpretation Abnormal (test code = 02291-5) [facility] 17[facility]40:09 Test Item Value Reference Range Interpretation Comments LIPASE (test code = 7482472716) 66 U/L 0-220 Lab Interpretation (test code = Normal 67523-9) [facility] [id number] 06:00:06 Test Item Value Reference Range Interpretation Comments HEMOGLOBIN A1c >15.5 % 4.2-5.6 H BRAZILIAN GWEN MCCOLLUM (test code = 60585) ASSOCIAT ION GUIDELINES FOR HGB A1C: PREDIABETES/INC [...] INDICATED, ALL TESTING PER FORMED ATCLINICAL PATH [facility], [address] [address] LABORATORY DIRE CTOR: Micky RAMOS. CLIA NUMBER [id number] CAP ACCREDITATION N O. [id number] RAPID STREP SCREEN FOR GROUP [id number] 16:23:00 Test Item Value Reference Range Interpretation Comments Streptococcus pyogenes (group A) Negative Negative antigen (test code = 94632-0) Lab Interpretation (test code = Normal 31943-1) [facility]ID NOW RAPID TESTING)2020-10-17 16:18:00 Test Item Value Reference Range Interpretation Comments SARS-CoV-2 Rapid ID NOW Positive Not Detected A (test code = 19136-0) TAYLOR (test code = TAYLOR) ID NOW COVID-19 Assay is an isothermal nucleic acid amplification test intended for the qualitative detection of nucleic acid from SARS-CoV-2 viral RNA in nasopharyngeal (FACING GRINDER) specimens. It is used under Emergency Use [...] indicated. Lab Interpretation Abnormal (test code = 16421-1) [facility]"
[2022-10-14] MEDS ORDERED: MORPHINE 4 MG/ML SYR ONE (01:51)
[2022-10-14] MEDS ORDERED: ONDANSETRON 4 MG/2 ML VIAL ONE (01:51)
[2022-10-14 01:57] LABS: Absolute Lymphocytes (CBC) 2.6 K/uL (0.7-4.9); Hematocrit 46.2 % (39.6-49.0); Lymphocytes % 18.1 % (15.3-44.8); MCV 84.5 fL (80-100); MPV 9.2 fL (7.6-11.3); RBC Red Blood Cell Count 5.47 M/uL (4.33-5.43)
--- NOTE | 2022-10-14 01:57 | EDPHYS ---
Physician Documentation [facility] Name: Lele Castillo Jr Age: 27 yrs Sex: Male : 1995 Arrival Date: 10/14/2022 Time: 00:26 Bed 7 Private MD: ED Physician Robbin Machado HPI: 10/14 01:49 This 27 yrs old Male presents to ER via Ambulatory with complaints of rt Testicular Lump, Testicular Pain. 01:49 The patient presents with swelling, that is moderate. Onset: The symptoms/episode rt began/occurred 3 day(s) ago. Modifying factors: The symptoms are alleviated by nothing, the symptoms are aggravated by movement. Associated signs and symptoms: The patient has no apparent associated signs or symptoms. Severity of symptoms: At their worst the symptoms were moderate. Patient is a type II diabetic presents to the ED with swelling to the left perineal region for about 3 days. This is worsened, to the point where he finds it difficult to walk due to the pain. Denies dysuria, discharge. Denies other acute complaints at this time, symptoms are moderate in severity, no other aggravating or alleviating factors.. Historical: - Allergies: 00:48 NKA; kd3 - Home Meds: 00:48 None [Active]; kd3 - PMHx: 00:48 Diabetes mellitus; kd3 - Immunization history:: Adult Immunizations up to date. - Social history:: Smoking status: Patient denies any tobacco usage or history of. - Family history:: not pertinent. ROS: 01:49 Constitutional: Negative for fever, chills, and weight loss, Eyes: Negative for injury, rt pain, redness, and discharge, ENT: Negative for injury, pain, and discharge, Neck: Negative for injury, pain, and swelling, Cardiovascular: Negative for chest pain, palpitations, and edema, Respiratory: Negative for shortness of breath, cough, wheezing, and pleuritic chest pain, Abdomen/GI: Negative for abdominal pain, nausea, vomiting, diarrhea, and constipation, MS/Extremity: Negative for injury and deformity, Skin: Negative for injury, rash, and discoloration, Neuro: Negative for headache, weakness, numbness, tingling, and seizure, Psych: Negative for depression, anxiety, suicide ideation, homicidal ideation, and hallucinations. 01:49 : Positive for Negative for urinary frequency, hematuria. Exam: 01:49 Constitutional: This is a well developed, well nourished patient who is awake, alert, rt and in no acute distress. Head/Face: Normocephalic, atraumatic. Eyes: Pupils equal round and reactive to light, extra-ocular motions intact. Lids and lashes normal. Conjunctiva and sclera are non-icteric and not injected. Cornea within normal limits. Periorbital areas with no swelling, redness, or edema. ENT: Nares patent. No nasal discharge, no septal abnormalities noted. Tympanic membranes are normal and external auditory canals are clear. Oropharynx with no redness, swelling, or masses, exudates, or evidence of obstruction, uvula midline. Mucous membranes moist. Neck: Trachea midline, no thyromegaly or masses palpated, and no cervical lymphadenopathy. Supple, full range of motion without nuchal rigidity, or vertebral point tenderness. No Meningismus. Chest/axilla: Normal chest wall appearance and motion. Nontender with no deformity. No lesions are appreciated. Cardiovascular: Regular rate and rhythm with a normal S1 and S2. No gallops, murmurs, or rubs. Normal PMI, no JVD. No pulse deficits. Respiratory: Lungs have equal breath sounds bilaterally, clear to auscultation and percussion. No rales, rhonchi or wheezes noted. No increased work of breathing, no retractions or nasal flaring. Abdomen/GI: Soft, non-tender, with normal bowel sounds. No distension or tympany. No guarding or rebound. No evidence of tenderness throughout. Skin: Warm, dry with normal turgor. Normal color with no rashes, no lesions, and no evidence of cellulitis. MS/ Extremity: Pulses equal, no cyanosis. Neurovascular intact. Full, normal range of motion. Neuro: Awake and alert, GCS 15, oriented to person, place, time, and situation. Cranial nerves II-XII grossly intact. Motor strength 5/5 in all extremities. Sensory grossly intact. Cerebellar exam normal. Normal gait. Psych: Awake, alert, with orientation to person, place and time. Behavior, mood, and affect are within normal limits. 01:49 : 1 x 2 cm region of swelling, pain to the left perineal region. Scrotum and penis are within normal limits, there is no testicular swelling, tenderness.. Vital Signs: 00:46 BP 125 / 68; Pulse 109; Resp 19; Pulse Ox 98% on R/A; Weight 97.52 kg; Height 5 ft. 9 kd3 in. (175.26 cm); Pain 10/10; 01:04 Temp 98.6(O); kd3 00:46 Body Mass Index 31.75 (97.52 kg, 175.26 cm) kd3 MDM: 01:04 Patient medically screened. rt 01:57 Differential diagnosis: Perineal abscess, Blayne's gangrene, cellulitis, rt lymphadenopathy. Data reviewed: vital signs, nurses notes. Refusal of service: The patient/guardian displays adequate decision making capability and despite a detailed discussion of alternatives, benefits, risks, and consequences refuses: CT Scan, all lab tests, Medications. ED course: Patient presents to the ED with swelling to the perineal region. I have a suspicion of an abscess at that location. I ordered labs, CT scan. The patient stated that he did not wish to stay for this work-up to be performed. I informed patient that I was concerned for an abscess and that he could potentially have a severe infection present especially as he is a diabetic. Patient understands and has decisional making capacity. He was informed that he may return anytime if he changes his mind or if he has worsening symptoms.. 10/14 01:09 Order name: CBC with Diff rt 10/14 01:09 Order name: CMP rt 10/14 01:09 Order name: Lactate w/ 2H reflex if indic. rt 10/14 01:21 Order name: Scrotum Testicles bb Administered Medications: 02:02 Not Given (Patient Refused): Zofran (Ondansetron) 4 mg IVP once; over 2 minutes jb4 02:03 Not Given (Patient Refused): morphine 4 mg IVP once over 4 mins jb4 Disposition Summary: 10/14/22 01:56 Discharge Ordered Location: Home rt Problem: new rt Symptoms: are unchanged rt Condition: Fair rt Diagnosis - Cutaneous abscess of perineum rt Followup: rt - With: Private Physician - When: 1 - 2 days - Reason: Discharge Instructions: - Discharge Summary Sheet rt - Skin Abscess rt Forms: - Medication Reconciliation Form rt - Thank You Letter rt - Antibiotic Education rt - Prescription Opioid Use rt Signatures: Dispatcher [employer] Lacey Russo RN RN kd3 Robbin Machado MD MD rt Franki Goldberg RN jb4 Corrections: (The following items were deleted from the chart) 00:49 00:48 PSHx: nose sx; kd3 kd3
--- NOTE | 2022-10-14 01:57 | ER ---
Nurse's Notes [facility] Name: Lele Castillo Jr Age: 27 yrs Sex: Male : 1995 Arrival Date: 10/14/2022 Time: 00:26 Bed 7 Private MD: Diagnosis: Cutaneous abscess of perineum Presentation: 10/14 00:46 Chief complaint: Patient states: I have a lump on the left side on the under side of my kd3 testicle that hurts. I thought it would go away but it didn't. it showed up the day before thanksgiving. It hurts to sit, walk. really to do anything. Coronavirus screen: Vaccine status: Patient reports receiving the 2nd dose of the covid vaccine. [employer]. Ebola Screen: No symptoms or risks identified at this time. Initial Sepsis Screen: Does the patient meet any 2 criteria? No. Patient's initial sepsis screen is negative. Does the patient have a suspected source of infection? No. Patient's initial sepsis screen is negative. Risk Assessment: Do you want to hurt yourself or someone else? Patient reports no desire to harm self or others. Onset of symptoms was October 14, 2022. 00:46 Method Of Arrival: Ambulatory kd3 00:46 Acuity: ANJANA 3 kd3 Triage Assessment: 00:48 General: Appears uncomfortable, Behavior is calm, cooperative. Pain: Complains of pain kd3 in left testicle. Neuro: Level of Consciousness is awake, alert, obeys commands, Oriented to person, place, time, situation. Cardiovascular: Patient's skin is warm and dry. Respiratory: Airway is patent Trachea midline Respiratory effort is even, unlabored, Respiratory pattern is regular, symmetrical. Historical: - Allergies: 00:48 NKA; kd3 - Home Meds: 00:48 None [Active]; kd3 - PMHx: 00:48 Diabetes mellitus; kd3 - Immunization history:: Adult Immunizations up to date. - Social history:: Smoking status: Patient denies any tobacco usage or history of. - Family history:: not pertinent. Screenin:49 Abuse screen: Denies threats or abuse. Denies injuries from another. Nutritional kd3 screening: No deficits noted. Tuberculosis screening: No symptoms or risk factors identified. Fall Risk None identified. Assessment: 01:57 Reassessment: Pt states " I want to leave, I don't want to be waiting here for hours. I jb4 am going to go to [place]." Pt refused pain medication and zofran. Provider made aware. Pt refused CT, removed own IV. Catheter intact. No bleeding noted, refused bandage. Ambulated out of ED prior to receiving discharge paper work. Vital Signs: 00:46 BP 125 / 68; Pulse 109; Resp 19; Pulse Ox 98% on R/A; Weight 97.52 kg; Height 5 ft. 9 kd3 in. (175.26 cm); Pain 1010; 01:04 Temp 98.6(O); kd3 00:46 Body Mass Index 31.75 (97.52 kg, 175.26 cm) kd3 ED Course: 00:26 Patient arrived in ED. bp1 00:48 Triage completed. kd3 00:48 Arm band placed on right wrist. kd3 00:50 Patient has correct armband on for positive identification. kd3 01:04 Robbin Machado MD is Attending Physician. rt 01:41 US Scrotum Testicles In Process Unspecified. EDMS 01:51 Lactate w/ 2H reflex if indic. Sent. rv1 01:51 CMP Sent. rv1 01:51 CBC with Diff Sent. rv1 02:01 No provider procedures requiring assistance completed. intact, bleeding controlled, No jb4 redness/swelling at site. Administered Medications: 02:02 Not Given (Patient Refused): Zofran (Ondansetron) 4 mg IVP once; over 2 minutes jb4 02:03 Not Given (Patient Refused): morphine 4 mg IVP once over 4 mins jb4 Medication: 00:50 VIS not applicable for this client. kd3 Outcome: 01:56 Discharge ordered by . rt 02:01 Discharged to home ambulatory. jb4 02:01 Condition: stable 02:01 Discharge instructions given to Pt left prior to recieving 02:03 Patient left the ED. jb4 Signatures: Dispatcher [employer] EDMS Franki Goldberg, RN RN jb4 Jo-Ann Cobb bp1 Lacey Miner RN RN kd3 Robbin Machado MD MD rt Akilah Sánchez rv1 Corrections: (The following items were deleted from the chart) 00:49 00:48 PSHx: nose sx; kd3 kd3
[2022-10-14 02:08] VITALS: BP 125/68; TEMP 98.6; O2SAT 98
[2022-10-14 02:19] LABS: Albumin 3.8 g/dL (3.4-5.0); Bilirubin Total 0.5 mg/dL (0.2-1.0); Protein, Total 8.9 g/dL (6.4-8.2)
[2022-10-14 02:20] LABS: Potassium 4.1 mmol/L (3.5-5.1)
--- NOTE | 2022-10-14 17:27 | RAD REPORT ---
EXAM DESCRIPTION: US - Scrotum Testicles - 10/14/2022 1:40 am CLINICAL HISTORY: The patient is 27 years old and is Male; PAIN TECHNIQUE: Real-time ultrasound of the scrotum with color Doppler and image documentation. COMPARISON: 07/04/2022 CT abdomen pelvis with contrast FINDINGS: BILATERAL TESTES: Left and right testes demonstrate normal internal blood flow and low res istance arterial waveforms. No evidence of torsion. RIGHT TESTICLE: Unremarkable. The right testicle measures 3.1 x 4.3 x 2.8 cm. LEFT TESTICLE: Unremarkable. The left testicle measures 3.4 x 4.5 x 2.5 cm. EPIDIDYMIDES: Unremarkable. SCROTUM: Small right hydrocele. Left-sided varicocele. OTHER FINDINGS: Irregular, avascular area of heterogenous echogenicity demonstrated within the repo rted area of pain and palpation, measuring approximately 3.2 x 2.1 x 1.8 cm. IMPRESSION: 1. Left and right testes demonstrate normal internal blood flow and low resistance art erial waveforms. No evidence of torsion. 2. Irregular area of avascular subcutaneous heterogeneity demonstrated within the reported area of pain and palpation in the left posterior perineum, measuring approximately 3.2 x 2.1 x 1.8 cm, with m ild peripheral blood flow. Appearance is nonspecific but could reflect a sebaceous cyst or similar in flammatory process. Physical exam correlation recommended. 3. Left-sided varicocele. Electronically signed by: Jevon Barrett MD 10/14/2022 3:43 AM [employer] Due to temporary technical issues with the PACS/Fluency reporting system, reports are being signed by the in house radiologists without review as a courtesy to insure prompt reporting. The interpreting radiologist is fully responsible for the content of the report.
== END 2022-10-14 02:03 | disposition home or self-care (01) ==
LOC: ER 00:23
DX: L02.215 Cutaneous abscess of perineum (principal)
CPT/HCPCS: 36415; 76870; 80053; 83605; 85025; 99283; J2405

== ENCOUNTER 2023-10-16 10:35 | Emergency (ER) | payer BC, SELFPAY ==
--- OUTSIDE RECORDS SUMMARY | 2023-10-16 10:51 | XMS REPORT | Continuity of Care Document ---
:[address] [facility] t Address [address] [facility] [address] [place] [id number] Care Team Providers Name Role Phone MUSA STOREY Primary Care Physician Unavailable Heriberto Monae Attending Clinician HERIBERTO CARDENAS Attending Clinician Unavailable CLAUDIO ESPINOSA Attending Clinician Unavailable Claudio Gómez Attending Clinician Shivam Lucero MD Attending Clinician HERIBERTO CARDENAS Admitting Clinician Unavailable Payers Payer Name Policy Type Policy Number Effective Date Expiration Date Albin francis [facility] [id number] 2017 2022 00:00:00 SELECT 00:00:00 Problems Condition Condition Condition Status Onset Resolution Last Treating Co mments Source Name Details Category Date Date Treatment Clinician Date No known No known Disease Unive rs active active ity of problems problems [facility] Allergies, Adverse Reactions, Alerts Allergy Allergy Status Severity Reaction(s) Onset Inactive Treating Comm ents Source Name Type Date Date Clinician NO KNOWN Drug Active Univers ALLERGIE Class ity of S [facility] Social History Social Habit Start Date Stop Date Quantity Comments Source Exposure to 2022-10-04 2022-10-14 Not sure [facility] SARS-CoV-2 (event) 00:00:00 18:30:00 Medica l Branch Sex Assigned At [address] [facility] 00:00:00 00:00:00 Medical Branch Smoking Status Start Date Stop Date Source Tobacco smoking consumption [facility] Medical unknown Branch Medications Ordered Filled Start Stop Current Ordering Indication Dosage Frequency Signature Comments Components Source Medication Medication Date Date Medication? Clinician (SIG) Name Name juventino 2021-11- No 3.375g 3.375 g, Univers n-tazobacta 12-15 IV ity of m (ZOSYN) 06:15: 06:57 [place]back[place] 3.375 g in 00 :00 ONCE, 1 Medica l NaCl 0.9% dose, On Branch (NS) 50 mL Mon MINI-BAG 10/15/22 at 0015, Administer over 30 Minutes, 50 mL
Reas on for Anti-Infec tive: Documented Infection< br>Documen shaylee Infection Site: Skin / Soft Tissue
Duration of Therapy: Other (see Comments) iopamidol 2021-11 No [id number] 75mL 75 mL, U nivers (ISOVUE 12-15 Intravenou ity o f 370-500 mL) 06:00: 06:00 s, ONCE, 1 [place] injection 00 :00 dose, On Medica l 75 mL [facility] 10/15/22 at 0000, Routine NaCl 0.9% 2021-11 No 1000mL at 999 Uni vers (NS) bolus 12-15 mL/hr, ity of infusion 06:00: 06:00 1,000 mL, Shar as 1,000 mL 00 :00 IV Medical Infusion, Branch ONCE, 1 dose, On [facility] 10/15/22 at 0000, ESTELA ketorolac 2021-11- No 30mg 30 mg, Unive rs (TORADOL) 12-15 Slow IV ity of injection 05:30: 04:49 Push, [place] 30 mg 00 :00 ONCE, 1 Medical dose, On Branch [place] 10/14/22 at 2330, Routine ondansetron 2021-11- No 4mg 4 mg, Slow Univers (ZOFRAN 12-15 IV Push, ity of (PF)) 04:30: 04:49 ONCE, 1 [place] injection 4 00 :00 dose, On Medi [place] [facility] 10/14/22 at 2230, ESTELA metFORMIN 2021-11- No [id number] 500mg Take 1 Univers 500 mg 12-15-29 tablet by ity of tablet 00:00: 05:59 mouth in [place] 00 :00 the Medical morning Branch and 1 tablet in the evening. Do all this for 30 days. amoxicillin 2021-11- No [id number] 1{tbl} Take 1 Univers -clavulanat 12-15 12-13 tablet by it y of e [id number] 00:00: 05:59 mouth [place] mg per 00 :00 every 12 Medical tablet (twelve) Branch hours for 14 days. ondansetron 2021- No 4mg 4 mg, Univ ers (ZOFRAN-ODT 07-03 Oral, ity of ) 21:15: 09:14 ONCE, 1 [place] disintegrat 00 :00 dose, On Medi [place] ing tablet [facility] Branch 4 mg 07/03/22 at 1615, Routine NaCl 0.9% No 1000mL at 999 Uni vers (NS) bolus 05-22 07-05 mL/hr, ity of infusion 17:15: 17:50 1,000 mL, Shar as 1,000 mL 00 :00 IV Medical Infusion, Branch ONCE, 1 dose, On Sat05/22/22 at 1215, ESTELA ondansetron 2021- No 4mg 4 mg, [facility] ers (ZOFRAN-ODT 05-22 07-05 Oral, ity of ) 15:15: 15:17 ONCE, 1 [place] disintegrat 00 :00 dose, On Medi [place] ing tablet Sat05/22/22 Bra nch 4 mg at 1015, Routine metFORMIN 2021- No [id number] 500mg Take 1 Univers 500 mg 05-22 08-05 tablet by ity of tablet 00:00: 04:59 mouth 2 [place] 00 :00 (two) Medical times Branch daily with meals for 30 days. ondansetron 2019-11 Yes [id number] 4mg Take 1 Univers 4 mg 1-30 tablet by ity of disintegrat 00:00: mouth [place] ing tablet 00 every 4 Medica l (four) Branch hours as needed for Nausea and Vomiting (N/V) (te). benzonatate 2019-11 Yes [id number] 100mg Take 1 Univers 100 mg 1-30 capsule by ity of capsule 00:00: mouth 3 [place] 00 (three) Medical times Branch daily as needed for Cough. albuterol 2019-11 Yes [id number] 2{puff} Inhale 2 Univers 90 1-30 Puffs ity of mcg/actuati 00:00: every 4 [place] as on inhaler 00 (four) Medical hours as Branch needed for Wheezing or Shortness of Breath. ondansetron 2019-11 Yes [id number] 4mg Take 1 Univers 4 mg 1-30 tablet by ity of disintegrat 00:00: mouth [place] ing tablet 00 every 4 Medica l (four) Branch hours as needed for Nausea and Vomiting (N/V) (te). benzonatate 2019-11 Yes [id number] 100mg Take 1 Univers 100 mg 1-30 capsule by ity of capsule 00:00: mouth 3 [place] 00 (three) Medical times Branch daily as needed for Cough. albuterol 2019-11 Yes [id number] 2{puff} Inhale 2 Univers 90 1-30 Puffs ity of mcg/actuati 00:00: every 4 [place] as on inhaler 00 (four) Medical hours as Branch needed for Wheezing or Shortness of Breath. ondansetron 2019-11 Yes [id number] 4mg Take 1 Univers 4 mg 1-30 tablet by ity of disintegrat 00:00: mouth [place] ing tablet 00 every 4 Medica l (four) Branch hours as needed for Nausea and Vomiting (N/V) (te). benzonatate 2019-11 Yes [id number] 100mg Take 1 Univers 100 mg 1-30 capsule by ity of capsule 00:00: mouth 3 [place] 00 (three) Medical times Branch daily as needed for Cough. ondansetron 2019-11 Yes [id number] 4mg Take 1 Univers 4 mg 1-30 tablet by ity of disintegrat 00:00: mouth [place] ing tablet 00 every 4 Medica l (four) Branch hours as needed for Nausea and Vomiting (N/V) (te). benzonatate 2019-11 Yes [id number] 100mg Take 1 Univers 100 mg 1-30 capsule by ity of capsule 00:00: mouth 3 [place] 00 (three) Medical times Branch daily as needed for Cough. albuterol 2019-11 Yes [id number] 2{puff} Inhale 2 Univers 90 1-30 Puffs ity of mcg/actuati 00:00: every 4 [place] as on inhaler 00 (four) Medical hours as Branch needed for Wheezing or Shortness of Breath. albuterol 2019-11 Yes [id number] 2{puff} Inhale 2 Univers 90 1-30 Puffs ity of mcg/actuati 00:00: every 4 Shar as on inhaler 00 (four) Medical hours as Branch needed for Wheezing or Shortness of Breath. Vital Signs Vital Name Observation Time Observation Value Comments Source Systolic blood 2022-10-15 07:00:00 120 mm[Hg] Univer [facility]ity of [facility] Diastolic blood 2022-10-15 07:00:00 49 mm[facility]Hg] [facility] 2022-10-15 07:00:00 83 /min [facility] Respiratory rate 2022-10-15 07:00:00 16 /min [facility] Oxygen saturation in 2022-10-15 07:00:00 96 /min University of Arterial blood by [facility] Pulse oximetry Branch Body temperature 2022-10-15 00:32:00 37.33 Debbie [facility] Body height 2022-10-15 00:32:00 175.3 cm Universi ty [facility] [place] Body weight 2022-10-15 00:32:00 97.523 kg Universi [facility] BMI 2022-10-15 00:32:00 31.75 kg/m2 Universi [facility] Respiratory rate 2022-07-03 19:29:00 17 /min [facility] Body height 2022-07-03 19:29:00 175.3 cm Universi ty [facility] [place] Body weight 2022-07-03 19:29:00 102.059 kg Universi [facility] BMI 2022-07-03 19:29:00 33.23 kg/m2 Universi [facility] Oxygen saturation in 2022-07-03 19:29:00 100 /min University of Arterial blood by [place] [employer] [place] Pulse oximetry Branch Systolic blood 2022-07-03 19:29:00 131 mm[Hg] Univer sity of [facility] [place] [facility] Diastolic blood 2022-07-03 19:29:00 78 mm[Hg] Unive rsity of [facility] [place] [facility] Heart rate 2022-07-03 19:29:00 105 /min Universi ty [facility] [place] [facility] Body temperature 2022-07-03 19:29:00 37.78 Debbie Univ ers[facility] [place] [facility] Systolic blood 2022-05-22 18:00:00 119 mm[Hg] Univer sity of [facility] [place] [facility] Diastolic blood 2022-05-22 18:00:00 70 mm[Hg] Unive rsity of [facility] [place] [facility] Heart rate 2022-05-22 18:00:00 69 /min Universi ty [facility] [place] [facility] Body temperature 2022-05-22 18:00:00 36.22 Debbie Univ ers[facility] [place] [facility] Respiratory rate 2022-05-22 18:00:00 16 /min Univ ersity of [facility] Oxygen saturation in 2022-05-22 18:00:00 95 /min University of Arterial blood by [facility] Pulse oximetry Branch Body height 2022-05-22 14:03:00 175.3 cm [facility]i ty [facility] [place] [facility] Body weight 2022-05-22 14:03:00 102.059 kg [facility]i ty [facility] [place] [facility] BMI 2022-05-22 14:03:00 33.23 kg/m2 [facility]i [facility] [place] [facility] Systolic blood 2020-10-17 15:08:00 146 mm[Hg] Univer sity of [facility] [place] [facility] Diastolic blood 2020-10-17 15:08:00 96 mm[Hg] Unive rsity of [facility] [place] [facility] Heart rate 2020-10-17 15:08:00 82 /min [facility]i ty [facility] [place] [facility] Body temperature 2020-10-17 15:08:00 37.11 Debbie Univ ersity of [facility] Respiratory rate 2020-10-17 15:08:00 16 /min Univ ers[facility] [place] [facility] Body height 2020-10-17 15:08:00 175.3 cm Universi ty [facility] [place] [facility] [place] Body weight 2020-10-17 15:08:00 108.863 kg [facility]i [facility] [place] [facility] BMI 2020-10-17 15:08:00 35.44 kg/m2 Universi ty of [facility] Branch Oxygen saturation in 2020-10-17 15:08:00 99 /min University of Arterial blood by [facility] Pulse oximetry Branch Systolic blood 2020-10-17 15:08:00 146 mm[Hg] [facility] Diastolic blood 2020-10-17 15:08:00 96 mm[Hg] [facility] Heart rate 2020-10-17 15:08:00 82 /min [facility] Body temperature 2020-10-17 15:08:00 37.11 Debbie [facility] 2020-10-17 15:08:00 16 /min [facility] Body height 2020-10-17 15:08:00 175.3 cm [facility] Body weight 2020-10-17 15:08:00 108.863 kg [facility] BMI 2020-10-17 15:08:00 35.44 kg/m2 [facility] Oxygen saturation in 2020-10-17 15:08:00 99 /min [place] [facility] Arterial blood by [facility] Pulse oximetry Branch Procedures Procedure Date / Time Performing Clinician Source Performed INCISION AND DRAINAGE 2022-10-15 06:24:14 Heriberto Cardenas [facility] CT ABDOMEN PELVIS W 2022-10-15 05:12:47 Heriberto Cardenas [facility] CONTRAST [facility] BASIC METABOLIC PANEL 2022-10-15 04:35:00 Heriberto Cardenas [facility] (NA, K, CL, CO2, GLUCOSE, Medica l Branch BUN, CREATININE, CA) CBC WITH DIFF 2022-10-15 04:35:00 Heriberto Cardenas [place] o f [facility] NOTICE OF PRIVACY 2022-10-15 00:08:32 Doctor Kerline, [facility] PRACTICES [place] [facility] CONSENT/REFUSAL FOR 2022-10-15 00:07:37 Doctor Kerline, Marilyn [facility] DIAGNOSIS AND TREATMENT [place] [facility] [place] CONSENT/REFUSAL FOR 2022-07-03 19:09:53 [facility] [place] [facility] LIPASE 2022-05-22 16:49:00 Claudio Espinosa [facility] COMP. METABOLIC PANEL 2022-05-22 16:49:00 Claudio Espinosa [facility] ([id number]) Medical Branch CBC WITH DIFF 2022-05-22 16:49:00 Claudio Espinosa [facility] URINALYSIS 2022-05-22 15:18:00 Claudio Espinosa [facility] COVID-19 (ID NOW RAPID 2022-05-22 15:18:[address] [facility] TESTING) Medical Branch LAB ONLY COVID 2022-05-22 15:18:00 Claudio Espinosa [facility] INTERPRETATION [facility] Branch NOTICE OF PRIVACY 2022-05-22 13:54:40 Doctor Unassigned, [facility] PRACTICES [facility] [place] CONSENT/REFUSAL FOR 2022-05-22 13:52:44 Doctor Kerline [facility] DIAGNOSIS AND TREATMENT [facility] [place] CONSENT/REFUSAL FOR 2022-05-22 13:52:42 Doctor Unasseduardo, [facility] DIAGNOSIS AND TREATMENT [place] [facility] RAPID STREP SCREEN FOR 2020-10-17 15:50:00 Shivam Lucero [facility] GROUP A Medical Branch COVID-19 (ID NOW RAPID 2020-10-17 15:50:00 Shivam Lucero [facility] TESTING) Medical Branch NOTICE OF PRIVACY 2020-10-17 15:05:13 Doctor Unajuanigned, [facility] [place] CONSENT/REFUSAL FOR 2020-10-17 15:04:51 Doctor Unanara [facility] DIAGNOSIS AND TREATMENT [place] [facility] Encounters Start End Encounter Admission Attending Care Care Encounter Source Date/Time Date/Time Type Type Clinicians Facility Department ID 2022-10-14 2022-10-15 Emergency Ebrahim, [facility] [id number] Univers 18:33:00 02:20:00 Heriberto LOCKWOOD [id number] i [place] 4.2.7.2.686 [facility] [id number] [facility] 084 Branch 2022-10-14 2022-10-15 Emergency X EBRAHIM, [facility] ERT [id number] Univers 18:33:00 02:20:00 HERIBERTO itkt [facility] [place] 2022-07-03 2022-07-03 Emergency X ESPINOSA, [facility] ERT [id number] Univers 14:29:00 16:03:00 CLAUDIO doty [facility] [place] 2022-07-03 2022-07-03 Emergency Espinosa, [facility] [id number] Univers 14:29:00 16:03:00 Claudio LOCKWOOD [id number] i ty of [place] [id number] [facility] [id number] [address] 2022-05-22 2022-05-22 Emergency X ESPINOSA, [facility] ERT [id number] Univers 09:14:00 13:43:00 CLAUDIO doty [facility] [place] 2022-05-22 2022-05-22 Emergency Espinosa, [facility] [id number] Univers 09:14:00 13:43:00 Claudio LOCKWOOD [id number] i ty of [place] [id number] [facility] [id number] [address] 2020-10-17 2020-10-17 Emergency Lucero, [facility] [id number] Univers 09:13:00 11:07:00 Shivam Teixeiraton 350.1.13.10 i ty of [place] 4.2.7.2.686 [facility] [id number] [address] 2020-10-17 2020-10-17 Emergency Lucero, [facility] [id number] 09:13:00 11:07:00 Shivam Krebs 350.1.13.10 [place] 4.2.7.2.686 [place] [id number] [facility] 2020-10-17 2020-10-17 Emergency X [facility] ERT [id number] Univers 09:03:00 09:03:00 [facility] Results Test Description Test Time Test [...] 33.7 g/dL 31.2-35.0 RDW-SD (test code = 99097-3) 41.2 fL 38.5-51.6 RDW-CV (test code = 788-0) 13.2 % 12.1-15.4 PLT (test code = 777-3) See_Comment [Au tomated message] The system which ge nerated this result transmit shaylee reference range: 150 - 32 8 10*3/?L. The reference range was not used to interpret th is result as normal/abnormal . MPV (test code = 25797-9) 11.2 fL 9.8-13.0 NRBC/100 WBC (test code = See_Comment [ Automated message] The 9059658752) system which Portr nerated this result transmit shaylee reference range: 0.0 - 10 .0 /100 WBCs. The reference r migue was not used to interpr et this result as normal/abnor mal. NRBC x10^3 (test code = <0.01 See_Comment [Au tomated message] The 8159334075) system which Portr nerated this result transmit shaylee reference range: 10*3/?L. The reference range was not u sed to interpret this result as normal/abnormal . GRAN MAT (NEUT) % (test code 66.0 % = 770-8) IMM GRAN % (test code = 0.40 % 1405067970) LYMPH % (test code = 736-9) 18.5 % MONO % (test code = 5905-5) 5.8 % EOS % (test code = 713-8) 8.5 % BASO % (test code = 706-2) 0.8 % GRAN MAT x10^3(ANC) (test 6.98 10*3/uL 1.99-6.95 H code = 4322141321) IMM GRAN x10^3 (test code = 0.04 10*3/uL 0.00-0.06 6888014449) LYMPH x10^3 (test code = 1.96 10*3/uL 1.09-3.23 731-0) MONO x10^3 (test code = 0.61 10*3/uL 0.36-1.02 742-7) EOS x10^3 (test code = 0.90 10*3/uL 0.06-0.53 H 711-2) BASO x10^3 (test code = 0.08 10*3/uL 0.01-0.09 704-7) Lab Interpretation (test Abnormal code = 07778-3) [facility]. METABOLIC PANEL (12556)2022-05-22 17:40:54 Test Item Value Reference Range Interpretation Comments NA (test code = 136 mmol/L 135-145 2932893250) K (test code = 4.7 mmol/L 3.5-5.0 9701067375) CL (test code = 94 mmol/L 98-108 L 6894857771) CO2 TOTAL (test code = 28 mmol/L 23-31 4430939413) AGAP (test code = 2-16 5827984399) BUN (test code = 11 mg/dL 7-23 6929566495) GLUCOSE (test code = 357 mg/dL 70-110 H 7178987025) CREATININE (test code = 0.65 mg/dL 0.60-1.25 3672158631) TOTAL BILI (test code = 0.6 mg/dL 0.1-1.7 7278647746) CALCIUM (test code = 9.9 mg/dL 8.6-10.6 2804481809) T PROTEIN (test code = 8.5 g/dL 6.3-8.2 H 0453688977) ALBUMIN (test code = 4.7 g/dL 3.5-5.0 2979641203) ALK PHOS (test code = 223 U/L 34-122 H 8704717455) ALTv (test code = 80 U/L 5-50 H 1742-6) AST(SGOT) (test code = 42 U/L 13-40 H 4231695363) eGFR (test code = mL/min/1.73m2 9001079441) TAYLOR (test code = TAYLOR) Association of [...] tests). Lab Interpretation Abnormal (test code = 84270-6) [facility] 17[facility]09 Test Item Value Reference Range Interpretation Comments LIPASE (test code = 0096545005) 66 U/L 0-220 Lab Interpretation (test code = Normal 52347-3) [facility] [id number] 06:00:06 Test Item Value Reference Range Interpretation Comments HEMOGLOBIN A1c >15.5 % 4.2-5.6 H ADENIKE MCCOLLUM (test code = 14981) ASSOCIAT ION GUIDELINES FOR HGB A1C: PREDIABETES/INC [...] OTHERWIS E INDICATED, ALL TESTING PER FORMED [facility]. [address] [place] [address] LABORATORY DIRE CTOR: Micky RAMOS CLIA NUMBER [id number] CAP ACCREDITATION N O. [id number] RAPID STREP SCREEN FOR GROUP [id number] 16:23:00 Test Item Value Reference Range Interpretation Comments Streptococcus pyogenes (group A) Negative Negative antigen (test code = 83441-7) Lab Interpretation (test code = Normal 80597-1) [facility]ID NOW RAPID TESTING)2020-10-17 16:18:00 Test Item Value Reference Range Interpretation Comments SARS-CoV-2 Rapid ID NOW Positive Not Detected A (test code = 92662-2) TAYLOR (test code = TAYLOR) ID NOW COVID-19 Assay is an isothermal nucleic acid amplification test intended for the qualitative detection of nucleic acid from SARS-CoV-2 viral RNA in nasopharyngeal (HAT TRIMMER) specimens. It is used under Emergency Use [...] indicated. Lab Interpretation Abnormal (test code = 23755-0) [facility]"
--- NOTE | 2023-10-16 11:39 | RAD REPORT ---
EXAM DESCRIPTION: CT - Stone Protocol - 10/16/2023 11:03 am CLINICAL HISTORY: Abdominal pain. COMPARISON: None. TECHNIQUE: Computed axial tomography of the abdomen pelvis was obtained without oral or IV contrast. Lack of IV and oral contrast limits evaluation of solid organs, appendix, bowel, and vessels. Nash l reformatted images were obtained and reviewed. All CT scans are performed using dose optimization technique as appropriate and may include automated exposure control or mA/KV adjustment according to patient size. FINDINGS: A renal calculus is not seen. An ureteral calculus is not noted. A bladder calculus is not present. No hydronephrosis Fatty liver. Spleen, pancreas and adrenals appear grossly normal There is no evidence of diverticulitis. The appendix appears normal IMPRESSION: Negative for a genitourinary calculus Fatty liver
--- NOTE | 2023-10-16 11:40 | RAD REPORT ---
EXAM DESCRIPTION: RAD - Shoulder Right 2 View - 10/16/2023 11:08 am CLINICAL HISTORY: Right shoulder pain FINDINGS: No fracture or dislocation is seen. No bone or joint abnormality noted
[2023-10-16 11:53] LABS: Absolute Lymphocytes (CBC) 1.6 K/uL (0.7-4.9); Hematocrit 48.9 % (39.6-49.0); Lymphocytes % 22.4 % (15.3-44.8); MCV 86.9 fL (80-100); MPV 9.5 fL (7.6-11.3); Platelets 229 thou/uL (152-406); RBC Red Blood Cell Count 5.63 M/uL (4.33-5.43)
[2023-10-16] MEDS ORDERED: KETOROLAC 30 MG/ML INJ ONE (11:57)
[2023-10-16] MEDS ORDERED: ONDANSETRON 4 MG/2 ML VIAL ONE (11:57)
[2023-10-16] MEDS ORDERED: NA CHLORIDE 0.9% 1,000 ML ONE ×2 (11:57→12:54)
[2023-10-16 12:10] LABS: Specific Gravity > 1.030 (1.005-1.030); Urine Bilirubin NEGATIVE (Negative); Urine Blood Negative (Negative); Urine Clarity Clear (Clear); Urine Color Colorless (Yellow); Urine Glucose 4+ (Over) (Negative); Urine Protein NEGATIVE (Negative); Urine Urobilinogen Normal (Normal)
[2023-10-16 12:15] LABS: Albumin 3.3 g/dL (3.4-5.0); Bilirubin Total 0.4 mg/dL (0.2-1.0); Potassium 4.4 mEq/L (3.5-5.1); Protein, Total 8.3 g/dL (6.4-8.2)
[2023-10-16] MEDS ORDERED: INSULIN REGULAR (HUMAN) 100 UNIT/ML ONE (12:54)
--- NOTE | 2023-10-16 13:37 | EDPHYS ---
Physician Documentation [facility] Name: Lele Castillo Jr Age: 28 yrs Sex: Male : 1995 Arrival Date: 10/16/2023 Time: 10:35 Bed 11 Private MD: ED Physician Shahriar Mirza HPI: 10/16 11:31 This 28 yrs old Male presents to ER via Ambulatory with complaints of kb Vomiting, Headache, Low Back Pain, Neck and Upper Back Pain, Shoulder Pain, Fall Injury - on [id number]. 11:31 Patient is a 28-year-old male who presents for right shoulder pain after a fall off the kb bed on as well as malaise, vomiting and left flank pain that started Saturday. Denies cough, congestion, fever.. Historical: - Allergies: 10:44 NKA; aa5 - PMHx: 10:44 diabetes mellitus; aa5 - PSHx: 10:44 nose (diabetes mellitus ); aa5 - Immunization history:: Adult Immunizations unknown. - Social history:: Smoking status: Patient denies any tobacco usage or history of. ROS: 11:31 Respiratory: Negative for shortness of breath, cough, wheezing, and pleuritic chest kb pain, 11:31 Constitutional: Positive for malaise, 11:31 Abdomen/GI: Positive for nausea and vomiting, Negative for abdominal pain, 11:31 Back: Positive for flank pain, on the left, 11:31 MS/extremity: Positive for pain, of the anterior aspect of right shoulder, 11:31 All other systems are negative, Exam: 11:31 Constitutional: This is a well developed, well nourished patient who is awake, alert, kb and in no acute distress. Head/Face: Normocephalic, atraumatic. ENT: Moist Mucous membranes Cardiovascular: Regular rate Respiratory: Respirations even and unlabored. No increased work of breathing. Talking in full sentences Abdomen/GI: Soft, non-tender. No distention Skin: Warm, dry with normal turgor. Normal color. Neuro: Awake and alert, GCS 15, oriented to person, place, time, and situation. Moves all extremities. Normal gait. 11:31 Back: CVA tenderness, that is mild, is noted on the left, 11:31 Musculoskeletal/extremity: Extremities: grossly normal except: noted in the anterior aspect of right shoulder: pain, ROM: intact in all extremities, Circulation is intact in all extremities. Sensation intact. Weight bearing: able to fully bear weight, Vital Signs: 10:45 BP 142 / 96; Pulse 116; Resp 20 S; Temp 97.7(TE); Pulse Ox 98% on R/A; Weight 97.52 kg aa5 (R); Height 5 ft. 9 in. (R); 11:53 BP 124 / 76; Pulse 99; Resp 18; Pulse Ox 96% on R/A; cm10 13:49 BP 131 / 75; Pulse 87; Resp 18; Pulse Ox 96% ; cm10 10:45 Body Mass Index 31.75 (97.52 kg, 175.26 cm) aa5 MDM: 10:39 Patient medically screened. kb 11:33 Differential diagnosis: fracture, strain, contusion, kidney stone, flu, covid. Data kb reviewed: vital signs, nurses notes. 13:36 Counseling: I had a detailed discussion with the patient and/or guardian regarding the kb historical points, exam findings, and any diagnostic results supporting the discharge/admit diagnosis, lab results, radiology results, the need for outpatient follow up, a family practitioner, to return to the emergency department if symptoms worsen or persist or if there are any questions or concerns that arise at home. ED course: Pt states his blood sugar is always high and he doesn't take anything for it. Now requesting to be discharged. 10/16 10:49 Order name: CBC with Diff; Complete Time: 11:56 kb 10/16 10:49 Order name: CMP; Complete Time: 12:19 kb 10/16 10:49 Order name: Lipase; Complete Time: 12:19 kb 10/16 10:49 Order name: Urinalysis w/ reflexes; Complete Time: 12:10 kb 10/16 10:49 Order name: Flu; Complete Time: 11:51 kb 10/16 10:49 Order name: COVID-19 SARS RT PCR; Complete Time: 11:51 kb 10/16 12:50 Order name: Glucose, Ancillary Testing; Complete Time: 12:50 EDMS 10/16 13:44 Order name: Glucose, Ancillary Testing; Complete Time: 13:46 EDMS 10/16 10:49 Order name: Shoulder Right (2 View) XRAY; Complete Time: 11:44 kb 10/16 10:49 Order name: CT Stone Protocol; Complete Time: 11:44 kb 10/16 10:49 Order name: IV Saline Lock; Complete Time: 11:38 kb 10/16 10:49 Order name: Labs collected and sent; Complete Time: 11:38 kb Administered Medications: 11:51 Drug: NS 0.9% IV 1000 ml IV at 1 bolus Per protocol; 1000 mL bolus Route: IV; Rate: 1 cm10 bolus; Site: left antecubital; 12:43 Follow up: Response: No adverse reaction; IV Status: Completed infusion; IV Intake: cm10 1000ml 11:51 Drug: TORadol - Ketorolac IVP 15 mg IVP once Route: IVP; Site: left antecubital; cm10 12:46 Follow up: Response: No adverse reaction cm10 11:51 Drug: Ondansetron IVP 4 mg IVP once; over 2 minutes Route: IVP; Site: left antecubital; cm10 12:46 Follow up: Response: No adverse reaction cm10 12:46 Drug: NS 0.9% IV 1000 ml IV at 1000 ml once Route: IV; Rate: 1000 ml; Site: left cm10 antecubital; 13:49 Follow up: Response: No adverse reaction; IV Status: Completed infusion; IV Intake: cm10 1000ml 12:46 Drug: Insulin Regular Human IVP 10 units IVP once {Co-Signature: ko1 (Leslie Ibarra cm10 RN).} Route: IVP; Site: left antecubital; 13:48 Follow up: Response: No adverse reaction; Blood sugar is lowered cm10 Disposition Summary: 10/16/23 13:37 Discharge Ordered Notes: Location: Home kb Condition: Stable kb Diagnosis - Diabetes mellitus due to underlying condition with hyperglycemia kb - Pain in right shoulder kb Followup: kb - With: Emergency Department - When: As needed - Reason: Worsening of condition Followup: kb - With: Private Physician - When: 2 - 3 days - Reason: Recheck today's complaints, Continuance of care, Re-evaluation by your physician Discharge Instructions: - Discharge Summary Sheet kb - Musculoskeletal Pain kb - Shoulder Pain, [id number] kb - Hyperglycemia, [id number] kb Forms: - Medication Reconciliation Form kb - Thank You Letter kb - Antibiotic Education kb - Prescription Opioid Use kb - Patient Portal Instructions kb - Leadership Thank You Letter kb - Work release form cm10 Prescriptions: - Metformin 500 mg Oral tablet - take 1 tablet ORAL route every 12 hours; 30 tablet; Refills: 0, Product kb Selection Permitted Signatures: Dispatcher [employer] Nirmala Meadows, Isatu Santiago RN RN aa5 Seda Jeronimo RN RN cm10 Leslie Ibarra RN ko1
--- NOTE | 2023-10-16 13:37 | ER ---
Nurse's Notes [facility] Name: Lele Castillo Jr Age: 28 yrs Sex: Male : 1995 Arrival Date: 10/16/2023 Time: 10:35 Bed 11 Private MD: Diagnosis: Diabetes mellitus due to underlying condition with hyperglycemia;Pain in right shoulder Presentation: 10/16 10:45 Chief complaint: Patient states: lower back pain and vomiting that began Saturday. Pt aa5 states he fell out of bed on and has right shoulder pain from fall. Coronavirus screen: vomiting. Ebola Screen: Patient denies travel to an Ebola-affected area in the 21 days before illness onset. Initial Sepsis Screen: Does the patient meet any 2 criteria? HR > 90 bpm. Does the patient have a suspected source of infection? No. Patient's initial sepsis screen is negative. Risk Assessment: Do you want to hurt yourself or someone else? Patient reports no desire to harm self or others. Onset of symptoms was September 2023. 10:45 Acuity: ANJANA 3 aa5 10:45 Method Of Arrival: Ambulatory aa5 Triage Assessment: 13:50 GI: Reports. cm10 Historical: - Allergies: 10:44 NKA; aa5 - PMHx: 10:44 diabetes mellitus; aa5 - PSHx: 10:44 nose (diabetes mellitus ); aa5 - Immunization history:: Adult Immunizations unknown. - Social history:: Smoking status: Patient denies any tobacco usage or history of. Screenin:53 [facility] ED Fall Risk Assessment (Adult) History of falling in the last 3 months, cm10 including since admission No falls in past 3 months (0 pts) Confusion or Disorientation No (0 pts) Intoxicated or Sedated No (0 pts) Impaired Gait No (0 pts) Mobility Assist Device Used No (0 pt) Altered Elimination No (0 pt) Score/Fall Risk Level 0 - 2 = Low Risk Oriented to surroundings, Maintained a safe environment, Hourly rounding (assess needs \T\ fall precautionary measures) done. Abuse screen: Denies threats or abuse. Denies injuries from another. Nutritional screening: No deficits noted. Tuberculosis screening: No symptoms or risk factors identified. Assessment: 11:51 General: Appears in no apparent distress. uncomfortable, Behavior is calm, cooperative. cm10 Pain: Complains of pain in left low back and anterior aspect of right shoulder. Pain: Pain currently is 10 out of 10 on a pain scale. Neuro: No deficits noted. Level of Consciousness is awake, alert, obeys commands, Oriented to person, place, time, situation. Cardiovascular: No deficits noted. Heart tones present Patient's skin is warm and dry. Respiratory: No deficits noted. Airway is patent Respiratory effort is even, unlabored, Respiratory pattern is regular, symmetrical. GI: Abdomen is flat, Bowel sounds present X 4 quads. Abd is soft and non tender. : No deficits noted. No signs and/or symptoms were reported regarding the genitourinary system. Derm: No deficits noted. Skin is intact, Skin is pink, warm \T\ dry. Musculoskeletal: No deficits noted. Range of motion: intact in all extremities. 13:49 Reassessment: Patient appears in no apparent distress at this time. Patient and/or cm10 family updated on plan of care and expected duration. Pain level reassessed. Patient is alert, oriented x 3, equal unlabored respirations, skin warm/dry/pink. Patient states feeling better. Patient states symptoms have improved. Vital Signs: 10:45 BP 142 / 96; Pulse 116; Resp 20 S; Temp 97.7(TE); Pulse Ox 98% on R/A; Weight 97.52 kg aa5 (R); Height 5 ft. 9 in. (R); 11:53 BP 124 / 76; Pulse 99; Resp 18; Pulse Ox 96% on R/A; cm10 13:49 BP 131 / 75; Pulse 87; Resp 18; Pulse Ox 96% ; cm10 10:45 Body Mass Index 31.75 (97.52 kg, 175.26 cm) aa5 ED Course: 10:39 Patient arrived in ED. im 10:39 [facility] Reyn[facility]C [facility] kb 10:39 Shahriar Mirza MD is Attending Physician. kb 10:45 Arm band placed on. aa5 10:47 Triage completed. aa5 10:53 COVID swab sent to lab. Flu and/or RSV swab sent to lab. aa5 11:04 CT Stone Protocol In Process Unspecified. EDMS 11:10 Shoulder Right (2 View) XRAY In Process Unspecified. EDMS 11:38 CBC with Diff Sent. bc6 11:38 CMP Sent. bc6 11:38 Lipase Sent. bc6 11:38 Inserted saline lock: 20 gauge in left antecubital area, using aseptic technique. Blood bc6 collected. 11:39 Patient placed in an exam room, on a stretcher. aa5 11:43 Urinalysis w/ reflexes Sent. aa5 11:53 Patient has correct armband on for positive identification. Bed in low position. Call cm10 light in reach. Provided Education on: ER process and procedures.. Pulse ox on. NIBP on. 12:43 Seda Jeronimo, RN is Primary Nurse. cm10 13:49 No provider procedures requiring assistance completed. IV discontinued, intact, cm10 bleeding controlled, No redness/swelling at site. Pressure dressing applied. Administered Medications: 11:51 Drug: NS 0.9% IV 1000 ml IV at 1 bolus Per protocol; 1000 mL bolus Route: IV; Rate: 1 cm10 bolus; Site: left antecubital; 12:43 Follow up: Response: No adverse reaction; IV Status: Completed infusion; IV Intake: cm10 1000ml 11:51 Drug: TORadol - Ketorolac IVP 15 mg IVP once Route: IVP; Site: left antecubital; cm10 12:46 Follow up: Response: No adverse reaction cm10 11:51 Drug: Ondansetron IVP 4 mg IVP once; over 2 minutes Route: IVP; Site: left antecubital; cm10 12:46 Follow up: Response: No adverse reaction cm10 12:46 Drug: NS 0.9% IV 1000 ml IV at 1000 ml once Route: IV; Rate: 1000 ml; Site: left cm10 antecubital; 13:49 Follow up: Response: No adverse reaction; IV Status: Completed infusion; IV Intake: cm10 1000ml 12:46 Drug: Insulin Regular Human IVP 10 units IVP once {Co-Signature: ko1 (Leslie Ibarra cm10 RN).} Route: IVP; Site: left antecubital; 13:48 Follow up: Response: No adverse reaction; Blood sugar is lowered cm10 Medication: 11:53 VIS not applicable for this client. cm10 Intake: 12:43 IV: 1000ml; Total: 1000ml. cm10 13:49 IV: 1000ml; Total: 2000ml. cm10 Outcome: 13:37 Discharge ordered by MD. menon 13:50 Discharged to home ambulatory, with family, cm10 13:50 Condition: good 13:50 Discharge instructions given to patient, Instructed on discharge instructions, follow up and referral plans. medication usage, Demonstrated understanding of instructions, follow-up care, medications, Prescriptions given X 1, 13:50 Patient left the ED. cm10 Signatures: Dispatcher [employer] EDMS Nirmala Reyna, LIVESTOCK TRUCKER-C LIVESTOCK TRUCKER-Isatu Borwn, RN RN aa5 Gracy Hernandez6 Justa Castillo Clarissa, RN RN cm10 Leslie Ibarra RN ko1 Corrections: (The following items were deleted from the chart) 10:48 10:45 BP 142 / 96; Pulse 116bpm; Resp 20bpm; Spontaneous; Pulse Ox 98% RA; Temp 97.7F aa5 Temporal; aa5
[2023-10-16 14:06] VITALS: TEMP 97.7
[2023-10-16 14:12] VITALS: O2SAT 96
[2023-10-16 14:18] VITALS: BP 131/75
== END 2023-10-16 13:50 | disposition home or self-care (01) ==
LOC: ER 10:35
DX: M25.511 Pain in right shoulder (principal); E11.65 Type 2 diabetes mellitus with hyperglycemia; R11.0 Nausea; Z11.52 Encounter for screening for COVID-19
CPT/HCPCS: 96361; 85025; 36415; 82947 ×2; 81003; 83690; 80053; 87635; 87804 ×2; 76377; 74176; 73030; 96375; 96374; 99284; J1815; J2405; J7030 ×2

== ENCOUNTER → 2024-01-11 | Emergency (ER) | payer BC ==
[~2024-01-11] MED LIST: BUPIVACAINE 0.5% PF 10 ML VIAL ONE; LIDOCAINE 2% W/EPI 1:200,000 MPF 20 ML VIAL IM ONE
--- OUTSIDE RECORDS SUMMARY | 2024-01-11 09:28 | XMS REPORT | Continuity of Care Document ---
Author Name Unknown Address [address] [facility] [address] [place] [address] [facility] thconnect Address [address] 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 Role Phone MUSA STOREY Primary Care Physician Unavailab Heriberto Underwood Attending Clinician HERIBERTO CARDENAS Attending Clinician Unavailable CLAUDIO ESPINOSA Attending Clinician Unavailable Claudio Gómez Attending Clinician [phone] Shivam Lucero MD Attending Clinician HERIBERTO CARDENAS Admitting Clinician Unavailable Payers Payer Name Policy Type Policy Number Effective Date Expirati on Date Source [facility] [id number] 2017 00:00:00 2022 00:00:00 Problems Condition Name Condition Details Condition Category Status Onset Date Resolution Date Last Treatment Date Treating Clinician Comments Source No known active problems No known active problems Disease [facility] Allergies, Adverse Reactions, Alerts Allergy Name Allergy Type Status Severity Reaction(s) Onset Date Inactive Date Treating Clinician Comments Source NO KNOWN ALLERGIE S Drug Class Active [facility] Social History Social Habit Start Date Stop Date Quantity Comments Source Exposure to SARS-CoV-2 (event) 2022-10-04 00:00:00 2022-10-14 18:30:00 Not sure [facility] Sex Assigned At 1995 00:00:00 1995 00:00:00 [facility] Smoking Status Start Date Stop Date Source Tobacco smoking consumption unknown [facility] Medications Ordered Medication Name Filled Medication Name Start Date Stop Date Current Medication? Ordering Clinician Indication Dosage Frequency Signature (SIG) Comments Components Source piperacilli n-tazobacta m (ZOSYN) 3.375 g in NaCl 0.9% (NS) 50 mL MINI-BAG 2021-11 06:15: 00 10-15 06:57 :00 No 3.375g 3.375 g, IV Piggyback, ONCE, 1 dose, On Sat10/15/22 at 0015, Administer over 30 Minutes, 50 mL
Reas on for Anti-Infec tive: Documented Infection< br>Documen shaylee Infection Site: Skin / Soft Tissue
Duration of Therapy: Other (see Comments) [facility] iopamidol (ISOVUE 370-500 mL) injection 75 mL 2021-11 06:00: 00 10-15 06:00 :00 No [id number] 75mL 75 mL, Intravenou s, ONCE, 1 dose, On Sat10/15/22 at 0000, Routine [facility] NaCl 0.9% (NS) bolus infusion 1,000 mL 2021-11 06:00: 00 10-15 06:00 :00 No 1000mL at 999 mL/hr, 1,000 mL, IV Infusion, ONCE, 1 dose, On Sat10/15/22 at 0000, ESTELA [facility] ketorolac (TORADOL) injection 30 mg 2021-11 05:30: 00 10-15 04:49 :00 No 30mg 30 mg, Slow IV Push, ONCE, 1 dose, On Sat10/14/22 at 2330, Routine [facility] ondansetron (ZOFRAN (PF)) injection 4 mg 2021-11 04:30: 00 10-15 04:49 :00 No 4mg 4 mg, Slow IV Push, ONCE, 1 dose, On Sat10/14/22 at 2230, ESTELA [facility] metFORMIN 500 mg tablet 2021-11 00:00: 00 11-15 05:59 :00 No [id number] 500mg Take 1 tablet by mouth in the morning and 1 tablet in the evening. Do all this for 30 days. [facility] amoxicillin -clavulanat e 875-125 mg per tablet 2021-11 00:00: 00 10-30 05:59 :00 No [id number] 1{tbl} Take 1 tablet by mouth every 12 (twelve) hours for 14 days. [facility] ondansetron (ZOFRAN-ODT ) disintegrat ing tablet 4 mg 07-03 21:15: 00 07-04 09:14 :00 No 4mg 4 mg, Oral, ONCE, 1 dose, On Sat07/03/22 at 1615, Routine [facility] NaCl 0.9% (NS) bolus infusion 1,000 mL 05-22 17:15: 00 05-22 17:50 :00 No 1000mL at 999 mL/hr, 1,000 mL, IV Infusion, ONCE, 1 dose, On Sat05/22/22 at 1215, ESTELA [facility] ondansetron (ZOFRAN-ODT ) disintegrat ing tablet 4 mg 05-22 15:15: 00 05-22 15:17 :00 No 4mg 4 mg, Oral, ONCE, 1 dose, On Sat05/22/22 at 1015, Routine [facility] metFORMIN 500 mg tablet 05-22 00:00: 00 06-22 04:59 :00 No [id number] 500mg Take 1 tablet by mouth 2 (two) times daily with meals for 30 days. [facility] ondansetron 4 mg disintegrat ing tablet 2019-11 00:00: 00 Yes [id number] 4mg Take 1 tablet by mouth every 4 (four) hours as needed for Nausea and Vomiting (N/V) (te). [facility] benzonatate 100 mg capsule 2019-11 00:00: 00 Yes [id number] 100mg Take 1 capsule by mouth 3 (three) times daily as needed for Cough. [facility] albuterol 90 mcg/actuati on inhaler 2019-11 00:00: 00 Yes [id number] 2{puff} Inhale 2 Puffs every 4 (four) hours as needed for Wheezing or Shortness of Breath. [facility] ondansetron 4 mg disintegrat ing tablet 2019-11 00:00: 00 Yes [id number] 4mg Take 1 tablet by mouth every 4 (four) hours as needed for Nausea and Vomiting (N/V) (te). [facility] benzonatate 100 mg capsule 2019-11 00:00: 00 Yes [id number] 100mg Take 1 capsule by mouth 3 (three) times daily as needed for Cough. [facility] albuterol 90 mcg/actuati on inhaler 2019-11 00:00: 00 Yes [id number] 2{puff} Inhale 2 Puffs every 4 (four) hours as needed for Wheezing or Shortness of Breath. [facility] ondansetron 4 mg disintegrat ing tablet 2019-11 00:00: 00 Yes [id number] 4mg Take 1 tablet by mouth every 4 (four) hours as needed for Nausea and Vomiting (N/V) (te). [facility] benzonatate 100 mg capsule 2019-11 00:00: 00 Yes [id number] 100mg Take 1 capsule by mouth 3 (three) times daily as needed for Cough. [facility] ondansetron 4 mg disintegrat ing tablet 2019-11 00:00: 00 Yes [id number] 4mg Take 1 tablet by mouth every 4 (four) hours as needed for Nausea and Vomiting (N/V) (te). [facility] benzonatate 100 mg capsule 2019-11 00:00: 00 Yes [id number] 100mg Take 1 capsule by mouth 3 (three) times daily as needed for Cough. [facility] albuterol 90 mcg/actuati on inhaler 2019-11 00:00: 00 Yes [id number] 2{puff} Inhale 2 Puffs every 4 (four) hours as needed for Wheezing or Shortness of Breath. [facility] albuterol 90 mcg/actuati on inhaler 2019-11 00:00: 00 Yes [id number] 2{puff} Inhale 2 Puffs every 4 (four) hours as needed for Wheezing or Shortness of Breath. [facility] Vital Signs Vital Name Observation Time Observation Value Comments Albin francis Systolic blood pressure 2022-10-15 07:00:00 120 mm[Hg] [facility] Diastolic blood pressure 2022-10-15 07:00:00 49 mm[Hg] [facility] Heart rate 2022-10-15 07:00:00 83 /min [facility] Respiratory rate 2022-10-15 07:00:00 16 /min [facility] Oxygen saturation in Arterial blood by Pulse oximetry 2022-10-15 07:00:00 96 /min [facility] Body temperature 2022-10-15 00:32:00 37.33 Debbie [facility] Body height 2022-10-15 00:32:00 175.3 cm [facility] Body weight 2022-10-15 00:32:00 97.523 kg [facility] BMI 2022-10-15 00:32:00 31.75 kg/m2 [facility] Respiratory rate 2022-07-03 19:29:00 17 /min [facility] Body height 2022-07-03 19:29:00 175.3 cm [facility] Body weight 2022-07-03 19:29:00 102.059 kg [facility] BMI 2022-07-03 19:29:00 33.23 kg/m2 [facility] Oxygen saturation in Arterial blood by Pulse oximetry 2022-07-03 19:29:00 100 /min [facility] Systolic blood pressure 2022-07-03 19:29:00 131 mm[Hg] [facility] Diastolic blood pressure 2022-07-03 19:29:00 78 mm[Hg] [facility] Heart rate 2022-07-03 19:29:00 105 /min [facility] Body temperature 2022-07-03 19:29:00 37.78 Debbie [facility] Systolic blood pressure 2022-05-22 18:00:00 119 mm[Hg] [facility] Diastolic blood pressure 2022-05-22 18:00:00 70 mm[Hg] [facility] Heart rate 2022-05-22 18:00:00 69 /min [facility] Body temperature 2022-05-22 18:00:00 36.22 Debbie [facility] Respiratory rate 2022-05-22 18:00:00 16 /min [facility] Oxygen saturation in Arterial blood by Pulse oximetry 2022-05-22 18:00:00 95 /min [facility] Body height 2022-05-22 14:03:00 175.3 cm [facility] Body weight 2022-05-22 14:03:00 102.059 kg [facility] BMI 2022-05-22 14:03:00 33.23 kg/m2 [facility] Systolic blood pressure 2020-10-17 15:08:00 146 mm[Hg] [facility] Diastolic blood pressure 2020-10-17 15:08:00 96 mm[Hg] [facility] Heart rate 2020-10-17 15:08:00 82 /min [facility] Body temperature 2020-10-17 15:08:00 37.11 Debbie [facility] Respiratory rate 2020-10-17 15:08:00 16 /min [facility] Body height 2020-10-17 15:08:00 175.3 cm [facility] Body weight 2020-10-17 15:08:00 108.863 kg [facility] BMI 2020-10-17 15:08:00 35.44 kg/m2 [facility] Oxygen saturation in Arterial blood by Pulse oximetry 2020-10-17 15:08:00 99 /min [facility] Systolic blood pressure 2020-10-17 15:08:00 146 mm[Hg] [facility] Diastolic blood pressure 2020-10-17 15:08:00 96 mm[Hg] [facility] Heart rate 2020-10-17 15:08:00 82 [facility] 2020-10-17 15:08:00 37.11 Debbie [facility] Respiratory rate 2020-10-17 15:08:00 16 /min [facility] Body height 2020-10-17 15:08:00 175.3 cm [facility] Body weight 2020-10-17 15:08:00 108.863 kg [facility] BMI 2020-10-17 15:08:00 35.44 kg/m2 [facility] Oxygen saturation in Arterial blood by Pulse oximetry 2020-10-17 15:08:00 99 /min [facility] Procedures Procedure Date / Time Performed Performing Clinician Source INCISION AND DRAINAGE 2022-10-15 06:24:14 Kevin Cardenas [facility] CT ABDOMEN PELVIS W CONTRAST 2022-10-15 05:12:47 Heriberto Cardenas [facility] BASIC METABOLIC PANEL (NA, K, CL, CO2, GLUCOSE, BUN, CREATININE, CA) 2022-10-15 04:35:00 Heriberto Cardenas [facility] CBC WITH DIFF 2022-10-15 04:35:00 Heriberto Cardenas [facility] NOTICE OF PRIVACY PRACTICES 2022-10-15 00:08:32 Doctor Unassigned, [place] [facility] CONSENT/REFUSAL FOR DIAGNOSIS AND TREATMENT 2022-10-15 00:07:37 Doctor Unassigned, [place] [facility] CONSENT/REFUSAL FOR DIAGNOSIS AND TREATMENT 2022-07-03 19:09:53 Doctor Unassigned, [place] [facility] LIPASE 2022-05-22 16:49:00 Claudio Espinosa [facility] COMP. METABOLIC PANEL ([id number]) 2022-05-22 16:49:00 Claudio Espinosa [facility] CBC WITH DIFF 2022-05-22 16:49:00 Claudio Espinosa [facility] URINALYSIS 2022-05-22 15:18:00 Claudio Espinosa [facility] COVID-19 (ID NOW RAPID TESTING) 2022-05-22 15:18:00 Claudio Espinosa [facility] LAB ONLY COVID INTERPRETATION 2022-05-22 15:18:00 Claudio Espinosa [facility] NOTICE OF PRIVACY PRACTICES 2022-05-22 13:54:40 Doctor Unassigned, [place] [facility] CONSENT/REFUSAL FOR DIAGNOSIS AND TREATMENT 2022-05-22 13:52:44 Doctor Unassigned, [place] [facility] CONSENT/REFUSAL FOR DIAGNOSIS AND TREATMENT 2022-05-22 13:52:42 Doctor Unassigned, [place] [facility] RAPID STREP SCREEN FOR GROUP A 2020-10-17 15:50:00 Shivam Lucero [facility] COVID-19 (ID NOW RAPID TESTING) 2020-10-17 15:50:00 Shivam Lucero [facility] NOTICE OF PRIVACY PRACTICES 2020-10-17 15:05:13 Doctor Unassigned, [place] [facility] CONSENT/REFUSAL FOR DIAGNOSIS AND TREATMENT 2020-10-17 15:04:51 Doctor Unassigned, [place] [facility] Encounters Start Date/Time End Date/Time Encounter Type Admission Type Attending [facility] Care Facility Care Department Encounter ID Source 2022-10-14 18:33:00 2022-10-15 02:20:00 Emergency EbHeriberto hathaway [facility] [id number] [facility] 2022-10-14 18:33:00 2022-10-15 02:20:00 Emergency X EBHERIBERTO HATHAWAY [facility] ERT [id number] [facility] 2022-07-03 14:29:00 2022-07-03 16:03:00 Emergency X CLAUDIO ESPINOSA [facility] ERT [id number] [facility] 2022-07-03 14:29:00 2022-07-03 16:03:00 Emergency Claudio Espinosa [facility] [id number] [facility] 2022-05-22 09:14:00 2022-05-22 13:43:00 Emergency X CLAUDIO ESPINOSA [facility] ERT [id number] [facility] 2022-05-22 09:14:00 2022-05-22 13:43:00 Emergency Claudio Espinosa [facility] [id number] [id number] [facility] 2020-10-17 09:13:00 2020-10-17 11:07:00 Emergency [facility] [id number] [facility] 2020-10-17 09:13:00 2020-10-17 11:07:00 Emergency [facility] [id number] 2020-10-17 09:03:00 2020-10-17 09:03:00 Emergency X [facility] ERT [id number] [facility] Results Test Description Test Time Test Comments Results Result Co mments Source [facility]50034[facility]2022-[facility]-22 17:40:54* Test Item Value Reference Range Interpretation Comme nts NA (test code = 9877895044) 136 mmol/L 135-145 K (test code = 3919399415) 4.7 mmol/L 3.5-5.0 CL (test code = 0664689245) 94 mmol/L 98-108 L CO2 TOTAL (test code = 2573629849) 28 mmol/L 23-31 AGAP (test code = 5767558229) 2-16 BUN (test code = 4077487633) 11 mg/dL 7-23 GLUCOSE (test code = 8383434339) 357 mg/dL 70-110 H CREATININE (test code = 9269301633) 0.65 mg/dL 0.60-1.25 TOTAL BILI (test code = 5483354789) 0.6 mg/dL 0.1-1.1 CALCIUM (test code = 9599233216) 9.9 mg/dL 8.6-10.6 T PROTEIN (test code = 6613142136) 8.5 g/dL 6.3-8.2 H ALBUMIN (test code = 5655851357) 4.7 g/dL 3.5-5.0 ALK PHOS (test code = 9496193330) 223 U/L 34-122 H ALTv (test code = 1742-6) 80 U/L 5-50 H AST(SGOT) (test code = 5265049110) 42 U/L 13-40 H eGFR (test code = 4966612021) mL/min/1.73m2 TAYLOR (test code = TAYLOR) Association of [...] or abnormalities in imaging tests). Lab Interpretation (test code = 85590-7) [facility] 17[facility]40:09* Test Item Value Reference Range Interpretation Comme nts LIPASE (test code = 7451249638) 66 U/L 0-220 Lab Interpretation (test cod e = 18070-4) Normal [facility] [id number] 06:00:06* Test Item Value Reference Range Interpretation Comme nts HEMOGLOBIN A1c (test code = 83061) >15.5 % 4.2-5.6 H [employer] GUIDELINES FOR HGB A1C: PREDIABETES/INCREASED RISK . . . . . . . 5.7-6.4% DIAGNOSIS OF DIABETES . . . . . . . . . >=6.5% WITH CONFIRMATION OR APPROPRIATE SYMPTOMS NOTE: ASSAY MAY BE AFFECTED BY HEMOGLOBINOPATHIES (SICKLE CELL ANEMIA, S-C DISEASE, OTHERS) OR ARTIFICIALLY LOWERED BY DECREASED RED CELL SURVIVAL (HEMOLYTIC ANEMIAS, BLOOD LOSS, ETC.). CONSIDER ALTERNATE TESTING OR LABORATORY CONSULTATION. UNLESS OTHERWISE INDICATED, ALL TESTING PERFORMED [facility] [address] [place] [address] STRIP PICKER: SUGAR QUEVEDO M.D. CLIA NUMBER [id number] [facility] [place]. [id number] RAPID STREP SCREEN FOR GROUP [id number] 16:23:00* Test Item Value Reference Range Interpretation Comme nts Streptococcus pyogenes (grou p A) antigen (test code = 30907-4) Negative Negative Lab Interpretation (test cod e = 45362-0) Normal [facility]ID NOW RAPID TESTING)2020-10-17 16:18:00* Test Item Value Reference Range Interpretation Comme nts SARS-CoV-2 Rapid ID NOW (test code = 95518-9) Positive Not Detected A TAYLOR (test code = TAYLOR) ID NOW COVID-19 As say is an isothermal nucleic acid amplification test intended for the qualitative detection of nucleic acid from SARS-CoV-2 viral RNA in nasopharyngeal ([employer]) specimens. It is used under Emergency Use [...] patient testing if clinically indicated. Lab Interpretation (test code = 86000-3) Abnormal [facility]"
--- NOTE | 2024-01-11 11:17 | ER ---
Nurse's Notes [facility] Name: Lele Castillo Age: 28 yrs Sex: Male : 1995 Arrival Date: 01/11/2024 Time: 09:25 Bed 12 Private MD: Diagnosis: Cutaneous abscess of groin Presentation: 01/11 09:42 Chief complaint: Abscess on left groin x 1 week. Coronavirus screen: At this time, the hb client does not indicate any symptoms associated with coronavirus-19. Ebola Screen: No symptoms or risks identified at this time. Initial Sepsis Screen: Does the patient meet any 2 criteria? No. Patient's initial sepsis screen is negative. Does the patient have a suspected source of infection? No. Patient's initial sepsis screen is negative. Risk Assessment: Do you want to hurt yourself or someone else? Patient reports no desire to harm self or others. Onset of symptoms was January 04, 2024. 09:42 Method Of Arrival: Ambulatory hb 09:42 Acuity: ANJANA 4 hb Triage Assessment: 09:44 General: Appears in no apparent distress. Behavior is calm, cooperative. Pain: Pain hb currently is 10 out of 10 on a pain scale. Neuro: Level of Consciousness is awake, alert, obeys commands, Oriented to person, place, time, situation. Cardiovascular: Patient's skin is warm and dry. Respiratory: Respiratory effort is even, unlabored, Respiratory pattern is regular, symmetrical. Historical: - Allergies: 09:43 NKA; hb - Home Meds: 09:43 None [Active]; hb - PMHx: 09:43 diabetes mellitus; hb - PSHx: 09:43 Nose (es); hb - Immunization history:: Adult Immunizations up to date. - Social history:: Smoking status: Patient denies any tobacco usage or history of. Screenin:01 [facility] ED Fall Risk Assessment (Adult) History of falling in the last 3 months, cp4 including since admission No falls in past 3 months (0 pts) Confusion or Disorientation No (0 pts) Intoxicated or Sedated No (0 pts) Impaired Gait No (0 pts) Mobility Assist Device Used No (0 pt) Altered Elimination No (0 pt) Score/Fall Risk Level 0 - 2 = Low Risk Oriented to surroundings, Maintained a safe environment, Educated pt \T\ family on fall prevention, incl call for assistance when getting out of bed, Assessed \T\ reinforced patient's understanding of fall precautions, Hourly rounding (assess needs \T\ fall precautionary measures) done. Abuse screen: Denies threats or abuse. Nutritional screening: No deficits noted. Tuberculosis screening: No symptoms or risk factors identified. Assessment: 10:01 General: Appears in no apparent distress. Behavior is calm, cooperative, appropriate cp4 for age. Derm: Abscess located on left groin. Vital Signs: 09:42 BP 138 / 83; Pulse 101; Resp 16; Temp 98.4; Pulse Ox 99% on R/A; Weight 99.79 kg; hb Height 5 ft. 9 in. ; Pain 10/10; 09:42 Body Mass Index 32.49 (99.79 kg, 175.26 cm) hb 09:42 Pain Scale: Adult hb ED Course: 09:26 Patient arrived in ED. mr 09:27 Thom Rodriguez MD is Attending Physician. kdr 09:43 Triage completed. hb 09:44 Arm band placed on. hb 10:00 Eugenia Medrano is Primary Nurse. cp4 10:01 Placed in gown. Bed in low position. Call light in reach. Side rails up X 1. Provided cp4 Education on: abscess. 10:35 Assist provider with I \T\ D: of an abscess on left groin Set up I\T\D tray. Performed by cp 4 Thom Rodriguez MD Wound packed. iodoform gauze, Patient tolerated well. 11:38 Patient did not have IV access during this emergency room visit. cp4 Administered Medications: 11:37 Not Given (Patient left before receivingg): mg IM once cp4 11:37 Not Given (Patient left before receivingg): trimethoprim-sulfamethoxazole(160 mg-800 mg cp4 (ds) 1 tablet PO once Medication: 10:01 VIS not applicable for this client. cp4 Outcome: 11:16 Discharge ordered by . kdr 11:38 Discharged to home ambulatory, cp4 11:38 Condition: stable 11:38 Discharge instructions given to patient, Instructed on discharge instructions, follow up and referral plans. medication usage, Demonstrated understanding of instructions, follow-up care, medications, Prescriptions given X 3, 11:39 Patient left the ED. cp4 Signatures: Thom Rodriguez MD MD [facility] Renate Paris, [facility] Reg mr Dariela Moura, RN RN Eugenia Hare cp4
--- NOTE | 2024-01-11 11:17 | EDPHYS ---
Physician Documentation [facility] Name: Lele Castillo Age: 28 yrs Sex: Male : 1995 Arrival Date: 01/11/2024 Time: 09:25 Bed 12 Private MD: ED Physician Thom Rodriguez HPI: 01/11 11:37 This 28 yrs old Male presents to ER via Ambulatory with complaints of Abscess. kdr 11:37 Patient states he has had pain in his left groin for about a week. Patient had a kdr history of abscesses in the similar area previously. He believes he has recurrence of the prior abscesses. Patient states that he does shave in his groin area. The patient is afebrile and otherwise nontoxic-appearing. Onset: The symptoms/episode began/occurred gradually, 1 week(s) ago. Severity of symptoms: At their worst the symptoms were mild just prior to arrival, in the emergency department the symptoms are unchanged. The patient has experienced similar episodes in the past, a few times. The patient has not recently seen a physician. Historical: - Allergies: 09:43 NKA; hb - Home Meds: 09:43 None [Active]; hb - PMHx: 09:43 diabetes mellitus; hb - PSHx: 09:43 Nose (es); hb - Immunization history:: Adult Immunizations up to date. - Social history:: Smoking status: Patient denies any tobacco usage or history of. ROS: 11:37 Constitutional: Negative for fever, chills, and weight loss, Eyes: Negative for injury, kdr pain, redness, and discharge, ENT: Negative for injury, pain, and discharge, Neck: Negative for injury, pain, and swelling, Cardiovascular: Negative for chest pain, palpitations, and edema, Respiratory: Negative for shortness of breath, cough, wheezing, and pleuritic chest pain, Abdomen/GI: Negative for abdominal pain, nausea, vomiting, diarrhea, and constipation, Back: Negative for injury and pain, : Negative for injury, bleeding, discharge, and swelling, MS/Extremity: Negative for injury and deformity, Neuro: Negative for headache, weakness, numbness, tingling, and seizure activity. Psych: Negative for depression, anxiety, suicide ideation, homicidal ideation, and hallucinations, Allergy/Immunology: Negative for hives, rash, and allergies, Endocrine: Negative for neck swelling, polydipsia, polyuria, polyphagia, and marked weight changes, Hematologic/Lymphatic: Negative for swollen nodes, abnormal bleeding, and unusual bruising, 11:37 Skin: Positive for abscess, cellulitis, erythema, swelling, of the left femoral area, Exam: 11:37 Constitutional: This is a well developed, well nourished patient who is awake, alert, kdr and in no acute distress. 11:37 Skin: abscess, that is moderate sized, of the left femoral area, with drainage, that is bloody, that is purulent, that is serosanguinous, with induration, with surrounding cellulitis, induration, that is moderate is noted, Vital Signs: 09:42 BP 138 / 83; Pulse 101; Resp 16; Temp 98.4; Pulse Ox 99% on R/A; Weight 99.79 kg; hb Height 5 ft. 9 in. ; Pain 10/10; 09:42 Body Mass Index 32.49 (99.79 kg, 175.26 cm) hb 09:42 Pain Scale: Adult hb Procedures: 11:37 I \T\ D: Incision and drainage was performed for an abscess of the left Left groin kdr Prepped with Betadine, Anesthetized with ml's 2% Lidocaine with epinephrine. 4 ml's 2% Lidocaine with epinephrine. Also added for mL of 0.25% Marcaine. Incised with #11 blade. Drained moderate amount purulent fluid. serosanguinous fluid. bloody fluid. Packed with sterile gauze, iodoform gauze, Dressing: sterile 4x4 gauze, non-Adherent dressing. MDM: 11:16 Patient medically screened. kdr 11:37 Data reviewed: vital signs, nurses notes. kdr Administered Medications: 11:37 Not Given (Patient left before receivingg): [id number] mg IM once cp4 11:37 Not Given (Patient left before receivingg): trimethoprim-sulfamethoxazole(160 mg-800 mg cp4 (ds) 1 tablet PO once Disposition Summary: 01/11/24 11:16 Discharge Ordered Problem: an acute exacerbation kdr Symptoms: have improved kdr Condition: Stable kdr Diagnosis - Cutaneous abscess of groin kdr Followup: kdr - With: Private Physician - When: 2 - 3 days - Reason: Wound Recheck, If symptoms return, Recheck today's complaints, Continuance of care, Re-evaluation by your physician Discharge Instructions: - Discharge Summary Sheet kdr - Incision and Drainage kdr - Skin Abscess, Lycj-hl-Cete kdr - Incision and Drainage, Care After kdr Forms: - Medication Reconciliation Form kdr - Thank You Letter kdr - Antibiotic Education kdr - Prescription Opioid Use kdr - Patient Portal Instructions kdr - Leadership Thank You Letter kdr Prescriptions: - Clindamycin HCl 300 mg Oral Capsule - take 1 capsule ORAL route every 6 hours for 10 days; 40 capsule; Refills: 0, kdr Product Selection Permitted - Tramadol 50 mg Oral tablet - take 1 tablet ORAL route every 4-6 hours As needed as needed. Take 2 tabs 30 kdr to 45 minutes prior to your dressing change.; 16 tablet; Refills: 0, Product Selection Permitted - Bactrim DS 800-160 mg Oral Tablet - take 1 tablet ORAL route every 12 hours for 10 days; 20 tablet; Refills: 0, kdr Product Selection Permitted Signatures: Thom Rodriguez MD MD kdr Dariela Moura RN RN Eugenai Medrano cp4
[2024-01-11 12:05] VITALS: BP 138/83; TEMP 98.4; O2SAT 99
== END ==
LOC: ER 09:25
PROC: 0H9AXZZ Drainage of Inguinal Skin, External Approach (ICD-10-PCS; principal; 2024-01-11)
DX: L02.214 Cutaneous abscess of groin (principal)
CPT/HCPCS: 99283

== ENCOUNTER 2024-05-04 19:15 | Emergency (ER) | payer BC ==
--- OUTSIDE RECORDS SUMMARY | 2024-05-04 19:19 | XMS REPORT | Continuity of Care Document ---
Author Name Unknown Address [address] [place] [address] [facility] thconnect Address [address] [place] [address] Care Team Providers Care Electronic Prepress Technician Name Role Phone MUSA STOREY Primary Care Physician Unavailab Heriberto Underwood Attending Clinician [phone] HERIBERTO CARDENAS Attending Clinician Unavailable CLAUDIO ESPINOSA Attending Clinician Unavailable Claudio Gómez Attending Clinician [phone] Shivam Lucero MD Attending Clinician [phone] HERIBERTO CARDENAS Admitting Clinician Unavailable Payers Payer Name Policy Type Policy Number Effective Date Expirati on Date Source [facility] [id number] 2017 00:00:00 2022 00:00:00 Problems Condition Name Condition Details Condition Category Status Onset Date Resolution Date Last Treatment Date Treating Clinician Comments Source No known active problems No known active problems Disease [facility] Allergies, Adverse Reactions, Alerts Allergy Name Allergy Type Status Severity Reaction(s) Onset Date Inactive Date Treating Clinician Comments Source NO KNOWN ALLERGIE S Drug Class Active [facility] Social History Social Habit Start Date Stop Date Quantity Comments Source Exposure to SARS-CoV-2 (event) 2022-10-04 00:00:00 2022-10-14 18:30:00 Not sure [facility] Sex Assigned At 1995 00:00:00 1995 00:00:00 [facility] Smoking Status Start Date Stop Date Source Tobacco smoking consumption unknown [facility] Medications Ordered Medication Name Filled Medication Name [...] Tissue
Duration of Therapy: Other (see Comments) [facility] iopamidol (ISOVUE 370-500 mL) injection 75 mL 2021-11 06:00: 00 10-15 06:00 :00 No [id number] 75mL 75 mL, Intravenou s, ONCE, 1 dose, On Sat10/15/22 at 0000, Routine [facility] NaCl 0.9% (NS) bolus infusion 1,000 mL 2021-11 06:00: 00 10-15 06:00 :00 No 1000mL at 999 mL/hr, 1,000 mL, IV Infusion, ONCE, 1 dose, On Sat10/15/22 at 0000, ESTELA [facility] ketorolac (TORADOL) injection 30 mg 2021-11 05:30: 00 10-15 04:49 :00 No 30mg 30 mg, Slow IV Push, ONCE, 1 dose, On Sat10/14/22 at 2330, Routine [facility] ondansetron (ZOFRAN (PF)) injection 4 mg 2021-11 04:30: 00 10-15 04:49 :00 No 4mg 4 mg, Slow IV Push, ONCE, 1 dose, On Sat10/14/22 at 2230, ESTELA [facility] metFORMIN 500 mg tablet 2021-11 00:00: 00 11-15 05:59 :00 No [id number] 500mg Take 1 tablet by mouth in the morning and 1 tablet in the evening. Do all this for 30 days. [facility] amoxicillin -clavulanat e 875-125 mg per tablet 2021-11 00:00: 00 10-30 05:59 :00 No [id number] 1{tbl} Take 1 tablet by mouth every 12 (twelve) hours for 14 days. [facility] ondansetron (ZOFRAN-ODT ) disintegrat ing tablet 4 mg 07-03 21:15: 00 07-04 09:14 :00 No 4mg 4 mg, Oral, ONCE, 1 dose, On Sat07/03/22 at 1615, Routine [facility] NaCl 0.9% (NS) bolus infusion 1,000 mL 05-22 17:15: 05-22 17:50 :00 No 1000mL at 999 mL/hr, 1,000 mL, IV Infusion, ONCE, 1 dose, On Sat05/22/22 [facility] 1215[facility]T ) disintegrat ing tablet 4 mg 05-22 15:15: 05-22 15:17 :00 No 4mg 4 mg, Oral, ONCE, 1 dose, On Sat05/22/22 at 1015, Routine [facility] metFORMIN 500 mg tablet 05-22 00:00: 00 06-22 04:59 :00 No [id number] 500mg Take 1 tablet by mouth 2 (two) times daily with meals for 30 days. [facility] ondansetron 4 mg disintegrat ing tablet 2019-11 00:00: 00 Yes [id number] 4mg Take 1 tablet by mouth every 4 (four) hours as needed for Nausea and Vomiting (N/V) (te). [facility] benzonatate 100 mg capsule 2019-11 00:00: 00 Yes [id number] 100mg Take 1 capsule by mouth 3 (three) times daily as needed for Cough. [facility] albuterol 90 mcg/actuati on inhaler 2019-11 00:00: 00 Yes [id number] 2{puff} Inhale 2 Puffs every 4 (four) hours as needed for Wheezing or Shortness of Breath. [facility] Vital Signs Vital Name Observation Time Observation Value Comments S ourfaiza Systolic blood pressure 2022-10-15 07:00:00 120 mm[Hg] [facility] Diastolic blood pressure 2022-10-15 07:00:00 49 mm[Hg] [facility] Heart rate 2022-10-15 07:00:00 83 /min [facility] Respiratory rate 2022-10-15 07:00:00 16 /min [facility] Oxygen saturation in Arterial blood by Pulse oximetry 2022-10-15 07:00:00 96 /min [facility] Body temperature 2022-10-15 00:32:00 37.33 Debbie [facility] Body height 2022-10-15 00:32:00 175.3 cm [facility] Body weight 2022-10-15 00:32:00 97.523 kg [facility] BMI 2022-10-15 00:32:00 31.75 kg/m2 [facility] Systolic blood pressure 2022-07-03 19:29:00 131 mm[Hg] [facility] Diastolic blood pressure 2022-07-03 19:29:00 78 mm[Hg] [facility] Heart rate 2022-07-03 19:29:00 105 /min [facility] Body temperature 2022-07-03 19:29:00 37.78 Debbie [facility] Respiratory rate 2022-07-03 19:29:00 17 /min [facility] Body height 2022-07-03 19:29:00 175.3 cm [facility] Body weight 2022-07-03 19:29:00 102.059 kg [facility] BMI 2022-07-03 19:29:00 33.23 kg/m2 [facility] Oxygen saturation in Arterial blood by Pulse oximetry 2022-07-03 19:29:00 100 /min [facility] Respiratory rate 2022-05-22 18:00:00 16 /min [facility] Oxygen saturation in Arterial blood by Pulse oximetry 2022-05-22 18:00:00 95 /min [facility] Systolic blood pressure 2022-05-22 18:00:00 119 mm[Hg] [facility] Diastolic blood pressure 2022-05-22 18:00:00 70 mm[Hg] [facility] Heart rate 2022-05-22 18:00:00 69 /min [facility] Body temperature 2022-05-22 18:00:00 36.22 Debbie [facility] Body height 2022-05-22 14:03:00 175.3 cm [facility] Body weight 2022-05-22 14:03:00 102.059 kg [facility] BMI 2022-05-22 14:03:00 33.23 kg/m2 [facility] Systolic blood pressure 2020-10-17 15:08:00 146 mm[Hg] [facility] Diastolic blood pressure 2020-10-17 15:08:00 96 mm[Hg] [facility] Heart rate 2020-10-17 15:08:00 82 /min [facility] Body temperature 2020-10-17 15:08:00 37.11 Debbie [facility] Respiratory rate 2020-10-17 15:08:00 16 /min [facility] Body height 2020-10-17 15:08:00 175.3 cm [facility] Body weight 2020-10-17 15:08:00 108.863 kg [facility] BMI 2020-10-17 15:08:00 35.44 kg/m2 [facility] Oxygen saturation in Arterial blood by Pulse oximetry 2020-10-17 15:08:00 99 /min [facility] Systolic blood pressure 2020-10-17 15:08:00 146 mm[Hg] [facility] Diastolic blood pressure 2020-10-17 15:08:00 96 mm[Hg] [facility] Heart rate 2020-10-17 15:08:00 82 /min [facility] Body temperature 2020-10-17 15:08:00 37.11 Debbie [facility] Respiratory rate 2020-10-17 15:08:00 16 /min [facility] Body height 2020-10-17 15:08:00 175.3 cm [facility] Body weight 2020-10-17 15:08:00 108.863 kg [facility] BMI 2020-10-17 15:08:00 35.44 kg/m2 [facility] Oxygen saturation in Arterial blood by Pulse oximetry 2020-10-17 15:08:00 99 /min [facility] Procedures Procedure Date / Time Performed Performing Clinician Source INCISION AND DRAINAGE 2022-10-15 06:24:14 Ana Cardenas [facility] CT ABDOMEN PELVIS W CONTRAST 2022-10-15 05:12:47 Heriberto Cardenas [facility] BASIC METABOLIC PANEL (NA, K, CL, CO2, GLUCOSE, BUN, CREATININE, CA) 2022-10-15 04:35:00 Heriberto Cardenas [facility] CBC WITH DIFF 2022-10-15 04:35:00 [facility] NOTICE OF PRIVACY PRACTICES 2022-10-15 00:08:32 Doctor Unassigned, [place] [facility] CONSENT/REFUSAL FOR DIAGNOSIS AND TREATMENT 2022-10-15 00:07:37 Doctor Unassigned, [place] [facility] CONSENT/REFUSAL FOR DIAGNOSIS AND TREATMENT 2022-07-03 19:09:53 Doctor Unassigned, [place] [facility] LIPASE 2022-05-22 16:49:00 Claudio Espinosa [facility] COMP. METABOLIC PANEL (35202) 2022-05-22 16:49:00 Claudio Espinosa [facility] CBC WITH DIFF 2022-05-22 16:49:00 Claudio Espinosa [facility] URINALYSIS 2022-05-22 15:18:00 Claudio Espinosa [facility] COVID-19 (ID NOW RAPID TESTING) 2022-05-22 15:18:00 Claudio Espinosa [facility] LAB ONLY COVID INTERPRETATION 2022-05-22 15:18:00 Claudio Espinosa [facility] NOTICE OF PRIVACY PRACTICES 2022-05-22 13:54:40 Doctor Unassigned, [place] [facility] CONSENT/REFUSAL FOR DIAGNOSIS AND TREATMENT 2022-05-22 13:52:44 Doctor Unassigned, [place] [facility] CONSENT/REFUSAL FOR DIAGNOSIS AND TREATMENT 2022-05-22 13:52:42 Doctor Unassigned, [place] [facility] RAPID STREP SCREEN FOR GROUP A 2020-10-17 15:50:00 Shivam Lucero [facility] COVID-19 (ID NOW RAPID TESTING) 2020-10-17 15:50:00 Shivam Lucero [facility] NOTICE OF PRIVACY PRACTICES 2020-10-17 15:05:13 Doctor Unassigned, [place] [facility] CONSENT/REFUSAL FOR DIAGNOSIS AND TREATMENT 2020-10-17 15:04:51 Doctor Unassigned, [place] [facility] Encounters Start Date/Time End Date/Time Encounter Type Admission Type Attending [facility] Facility Care Department Encounter ID Source 2022-10-14 18:33:00 2022-10-15 02:20:00 Emergency OtonielfaridaHeriberto boss [facility] [id number] [facility] 2022-10-14 18:33:00 2022-10-15 02:20:00 Emergency X EBFARIDAANA BossCESARIO [facility] ERT [id number] [facility] 2022-07-03 14:29:00 2022-07-03 16:03:00 Emergency X CLAUDIO ESPINOSA [facility] ERT [id number] [facility] 2022-07-03 14:29:00 2022-07-03 16:03:00 Emergency Espin[facility], [facility] [id number] [facility] 2022-05-22 09:14:00 2022-05-22 13:43:00 Emergency X CLAUDIO ESPINOSA [facility] ERT [id number] [facility] 2022-05-22 09:14:00 2022-05-22 13:43:00 Emergency Claudio Espinosa [facility] [id number] [facility] 2020-10-17 09:13:00 2020-10-17 11:07:00 [facility] [id number] [facility] 2020-10-17 09:13:00 2020-10-17 11:07:00 Emergency Nic [facility] [id number] 2020-10-17 09:03:00 2020-10-17 09:03:00 Emergency X [facility] ERT [id number] [facility] Results Test Description Test Time Test Comments Results Result Co mments Source [facility] PAN[facility] (73007)2022-05-22 17:40:54* Test Item Value Reference Range Interpretation Comme nts NA (test code = 7838405547) 136 mmol/L 135-145 K (test code = 2576538770) 4.7 mmol/L 3.5-5.0 CL (test code = 4724111740) 94 mmol/L 98-108 L CO2 TOTAL (test code = 4486051622) 28 mmol/L 23-31 AGAP (test code = 9463834585) 2-16 BUN (test code = 7031934528) 11 mg/dL 7-23 GLUCOSE (test code = 4356143874) 357 mg/dL 70-110 H CREATININE (test code = 9565095453) 0.65 mg/dL 0.60-1.25 TOTAL BILI (test code = 6629304599) 0.6 mg/dL 0.1-1.1 CALCIUM (test code = 9972218171) 9.9 mg/dL 8.6-10.6 T PROTEIN (test code = 5096882451) 8.5 g/dL 6.3-8.2 H ALBUMIN (test code = 7098280287) 4.7 g/dL 3.5-5.0 ALK PHOS (test code = 7708250274) 223 U/L 34-122 H ALTv (test code = 1742-6) 80 U/L 5-50 H AST(SGOT) (test code = 7645529464) 42 U/L 13-40 H eGFR (test code = 0905233566) mL/min/1.73m2 TAYLOR (test code = TAYLOR) Association [...] imaging tests). Lab Interpretation (test code = 56675-0) Abnormal [facility]2022-[facility]-05 17:40:09* Test Item Value Reference Range Interpretation Comme nts LIPASE (test code = 1147273051) 66 U/L 0-220 Lab Interpretation (test cod e = 45037-3) Normal [facility] [id number] 06:00:06* Test Item Value Reference Range Interpretation Comme nts HEMOGLOBIN A1c (test code = 38686) >15.5 % 4.2-5.6 H [employer] GUIDELINES FOR HGB A1C: [...] CONSULTATION. UNLESS OTHERWISE INDICATED, ALL TESTING PERFORMED [facility] [address] [place] [address] AUTOMATIC STACKER: SUGAR QUEVEDO M.D. CLIA NUMBER [id number] [facility] [place]. [id number] RAPID STREP SCREEN FOR GROUP [id number] 16:23:00* Test Item Value Reference Range Interpretation Comme nts Streptococcus pyogenes (grou p A) antigen (test code = 21469-3) Negative Negative Lab Interpretation (test cod e = 16330-0) Normal [facility] (ID NOW RAPID TESTING)2020-10-17 16:18:00* Test Item Value Reference Range Interpretation Comme nts SARS-CoV-2 Rapid ID NOW (test code = 13818-5) Positive Not Detected A TAYLOR (test code = TAYLOR) ID NOW COVID-19 As say is an isothermal nucleic acid amplification test intended for the qualitative detection of nucleic acid from SARS-CoV-2 viral RNA in nasopharyngeal (CUSTOMER ENGAGEMENT REPRESENTATIVE) specimens. It is used under Emergency Use [...] clinically indicated. Lab Interpretation (test code = 79763-6) Abnormal [facility]"
--- NOTE | 2024-05-04 20:02 | ER ---
Nurse's Notes [facility] Name: Lele Castillo Age: 29 yrs Sex: Male : 1995 Arrival Date: 05/04/2024 Time: 19:15 Bed IW3 Private MD: Diagnosis: Cellulitis of back [any part except buttock] Presentation: 05/04 19:58 Chief complaint: Patient states: I went to the beach Saturday and i started getting the kd3 soars. I don't know if something bit me but they hurt very bad. Coronavirus screen: Vaccine status: Patient reports receiving the 2nd dose of the covid vaccine. Ebola Screen: No symptoms or risks identified at this time. Initial Sepsis Screen: Does the patient meet any 2 criteria? No. Patient's initial sepsis screen is negative. Does the patient have a suspected source of infection? No. Patient's initial sepsis screen is negative. Risk Assessment: Do you want to hurt yourself or someone else?. Onset of symptoms was May 04, 2024. 19:58 Method Of Arrival: Ambulatory kd3 19:58 Acuity: ANJANA 4 kd3 Triage Assessment: 19:58 General: Appears in no apparent distress. Behavior is calm, cooperative. Pain: kd3 Complains of pain in sores. Historical: - Allergies: 19:58 NKA; kd3 - PMHx: 19:58 diabetes mellitus; kd3 - PSHx: 19:58 Nose; kd3 - Immunization history:: Adult Immunizations up to date. - Infectious Disease History:: Denies. - Social history:: Smoking status: Patient denies any tobacco usage or history of. Screenin:05 [facility] ED Fall Risk Assessment (Adult) History of falling in the last 3 months, kd3 including since admission No falls in past 3 months (0 pts) Confusion or Disorientation No (0 pts) Intoxicated or Sedated No (0 pts) Impaired Gait No (0 pts) Mobility Assist Device Used No (0 pt) Altered Elimination No (0 pt) Score/Fall Risk Level 0 - 2 = Low Risk Oriented to surroundings. Abuse screen: Denies threats or abuse. Denies injuries from another. Nutritional screening: No deficits noted. Tuberculosis screening: No symptoms or risk factors identified. Assessment: 20:02 General: Shortly after being evaluated in triage by the provider pt asked this RN, "do kd3 you know what he will per scribe". This RN responded and stated that it was up to the provider to choose an antibiotic. Pt states "this was a waste of my time to come to the ER". This RN responded and attempted to educate the patient that infections likely would get worse without antibiotic. Pt the stood up, threw his blood pressure cuff on the triage desk and stated "I don't fucking need attitude from this [facility]". Pt then left triage without his paper work or antibiotics. . Neuro: Level of Consciousness is awake, alert, obeys commands, Oriented to person, place, time, situation. Respiratory: Airway is patent Trachea midline Respiratory effort is even, unlabored, Respiratory pattern is regular, symmetrical. Vital Signs: 19:57 Pulse 86; Resp 15; Temp 98.2(O); Pulse Ox 100% ; Weight 95.25 kg; Height 5 ft. 9 in. ; kd3 Pain 10/10; 19:58 BP 145 / 78; kd3 19:57 Body Mass Index 31.01 (95.25 kg, 175.26 cm) kd3 19:57 Pain Scale: Adult kd3 ED Course: 19:20 Patient arrived in ED. gm2 19:21 Brenda Rhoades PA-C [facility] sb4 19:21 Luis Armando Garcia MD is Attending Physician. sb4 19:58 Arm band placed on right wrist. kd3 20:01 Triage completed. kd3 20:05 Patient has correct armband on for positive identification. Provided Education on: kd3 antibiotics. . 20:05 No provider procedures requiring assistance completed. Patient did not have IV access kd3 during this emergency room visit. Administered Medications: No medications were administered Medication: 20:07 VIS not applicable for this client. kd3 Outcome: 20:01 Discharge ordered by . ec2 20:05 Discharged to home ambulatory, kd3 20:05 Condition: stable 20:05 Discharge instructions given to patient, Instructed on discharge instructions, follow up and referral plans. Demonstrated understanding of instructions, follow-up care, medications, Prescriptions given X 20:07 Patient left the ED. kd3 Signatures: Lacey Miner RN RN kd3 Brenda Rhoades PA-C PA-C sb4 Luis Armando Garcia MD MD ec2 Jessica Niño gm2
--- NOTE | 2024-05-04 20:02 | EDPHYS ---
Physician Documentation [facility] Name: Lele Castillo Age: 29 yrs Sex: Male : 1995 Arrival Date: 05/04/2024 Time: 19:15 Bed IW3 Private MD: ED Physician Luis Armando Garcia HPI: 05/04 20:02 This 29 yrs old Male presents to ER via Ambulatory with complaints of Rash, ec2 Skin Sore(s). 20:02 Patient arrives today for evaluation of a rash and pain to his skin. [place] felt a bite to his skin. Complaining of back pain on the right lateral back, states that he felt some swelling. had tried to express fluid from it however was unable to. Patient reports no fevers or chills, nausea or vomiting.. Historical: - Allergies: 19:58 NKA; kd3 - PMHx: 19:58 diabetes mellitus; kd3 - PSHx: 19:58 Nose; kd3 - Immunization history:: Adult Immunizations up to date. - Infectious Disease History:: Denies. - Social history:: Smoking status: Patient denies any tobacco usage or history of. ROS: 20:02 Constitutional: as per hpi ec2 Exam: 20:02 Constitutional: GEN: NAD Head: atraumatic Eyes: EOMI Ears: External ears are ec2 normal. CV: regular rate LUNGS: no respiratory distress ABD: non-distended SKIN: Right lateral mid back with erythema and induration, no fluctuance appreciated, tenderness to palpation noted. MSK: no evidence of trauma NEURO: moves all extremities equally Vital Signs: 19:57 Pulse 86; Resp 15; Temp 98.2(O); Pulse Ox 100% ; Weight 95.25 kg; Height 5 ft. 9 in. ; kd3 Pain 10/10; 19:58 BP 145 / 78; kd3 19:57 Body Mass Index 31.01 (95.25 kg, 175.26 cm) kd3 19:57 Pain Scale: Adult kd3 MDM: 19:53 Patient medically screened. ec2 20:02 Data reviewed: vital signs. ED course: Patient arrives today for evaluation of a skin ec2 lesion. Examination remarkable for skin findings as above. Will start the patient on Bactrim for antibiotic coverage, examination is not consistent with an abscess. Patient grew discontent when told him that would not perform incision and drainage, this would be inappropriate to do as there is no fluctuance appreciated with it. I instructed him that cutting into it would not express any fluid. Will continue with discharge, will prescribe antibiotics, return precautions given. I stressed to him given his underlying diabetes, he is predisposed to having worse infection if he does not treat with antibiotics, he appeared frustrated but agreeable.. 20:08 ED course: Patient apparently stormed out saying that this was a waste of his time as I ec2 would not drain his induration.. Administered Medications: No medications were administered Disposition Summary: 05/04/24 20:01 Discharge Ordered Notes: Location: Home ec2 Condition: Stable ec2 Diagnosis - Cellulitis of back [any part except buttock] ec2 Followup: ec2 - With: Private Physician - When: - Reason: Re-evaluation by your physician Discharge Instructions: - Discharge Summary Sheet ec2 - Cellulitis, Adult, [id number] ec2 Forms: - Medication Reconciliation Form ec2 - Antibiotic Education ec2 - Prescription Opioid Use ec2 - Patient Portal Instructions ec2 - Leadership Thank You Letter ec2 Prescriptions: - Bactrim DS 800-160 mg Oral Tablet - take 1 tablet ORAL route every 12 hours for 7 days; 14 tablet; Refills: 0, ec2 Product Selection Permitted Signatures: Lacey Miner RN RN kd3 Luis Armando Garcia MD MD ec2 Corrections: (The following items were deleted from the chart) 20:07 20:02 ED course: Patient arrives today for evaluation of a skin lesion. Examination ec2 remarkable for skin findings as above. Will start the patient on Bactrim for antibiotic coverage, examination is not consistent with an abscess. Patient grew discontent why told her that would not perform incision and drainage, this would be appropriate to do as there is no fluctuance appreciated with it. Will continue with discharge, return precautions given.. ec2 20:08 20:02 ED course: Patient arrives today for evaluation of a skin lesion. Examination ec2 remarkable for skin findings as above. Will start the patient on Bactrim for antibiotic coverage, examination is not consistent with an abscess. Patient grew discontent when told him that would not perform incision and drainage, this would be inappropriate to do as there is no fluctuance appreciated with it. I instructed him that cutting into it would not express any fluid. Will continue with discharge, return precautions given.. ec2 20:09 20:02 ED course: Patient arrives today for evaluation of a skin lesion. Examination ec2 remarkable for skin findings as above. Will start the patient on Bactrim for antibiotic coverage, examination is not consistent with an abscess. Patient grew discontent when told him that would not perform incision and drainage, this would be inappropriate to do as there is no fluctuance appreciated with it. I instructed him that cutting into it would not express any fluid. Will continue with discharge, will prescribe antibiotics, return precautions given.. ec2
[2024-05-04 21:04] VITALS: BP 145/78; TEMP 98.2; O2SAT 100
== END 2024-05-04 20:07 | disposition home or self-care (01) ==
LOC: ER 19:15
DX: L03.312 Cellulitis of back [any part except buttock and flank] (principal)
CPT/HCPCS: 99283

== ENCOUNTER 2024-09-23 16:56 | Emergency (ER) | payer BC ==
--- OUTSIDE RECORDS SUMMARY | 2024-09-23 17:00 | XMS REPORT | Continuity of Care Document ---
Author Name Unknown Address [address] [facility] [address] [place] [address] [facility] thconnect Address [address] [facility] 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 Name Role Phone Pcp, Patient Does Not Have A Primary Care Physic bonita BOLIVAR BRANTLEY Attending Clinician Unavailable Bolivar Brantley MD Attending Clinician [phone] Heriberto Monae Attending Clinician [phone] HERIBERTO CARDENAS Attending Clinician Unavailable CLAUDIO ESPINOSA Attending Clinician Unavailable Claudio Gómez Attending Clinician [phone] Shivam Lucero MD Attending Clinician [phone] HERIBERTO CARDENAS Admitting Clinician Unavailable Payers Payer Name Policy Type Policy Number Effective Date Expirati on Date Source [facility] [id number] 2017 00:00:00 2022 00:00:00 Problems Condition Name Condition Details Condition Category Status Onset Date Resolution Date Last Treatment Date Treating Clinician Comments Source No known active problems No known active problems Disease [facility] Allergies, Adverse Reactions, Alerts Allergy Name Allergy Type Status Severity Reaction(s) Onset Date Inactive Date Treating Clinician Comments Source NO KNOWN ALLERGIE S Drug Class Active [facility] Social History Social Habit Start Date Stop Date Quantity Comments Source [facility] to SARS-CoV-2 (event) 2022-10-04 00:00:00 2022-10-14 18:30:00 Not sure [facility] Sex assigned at 1995 00:00:00 1995 00:00:00 [facility] Smoking Status Start Date Stop Date Source Tobacco smoking consumption unknown [facility] Medications Ordered Medication Name Filled Medication Name Start Date Stop Date Current Medication? Ordering Clinician Indication Dosage Frequency Signature (SIG) Comments Components Source ibuprofen (IBU) tablet 600 mg 05-05 03:00: 00 05-05 02:57 :00 No 600mg 600 mg, Oral, ONCE, 1 dose, On Sat05/04/24 at 2200, ESTELA [facility] doxycycline hyclate (Vibramycin ) capsule 100 mg 05-05 03:00: 00 05-05 02:57 :00 No 100mg 100 mg, Oral, ONCE, 1 dose, On Sat05/04/24 at 2200, ESTELA, Reason for Anti-Infec tive: Documented Infection, Documented Infection Site: Skin / Soft Tissue, Duration of Therapy: Once (ED) [facility] doxycycline hyclate 100 mg capsule 05-04 00:00: 00 Yes [id number] 100mg Take 1 capsule by mouth in the morning and 1 capsule in the evening. [facility] piperacilli n-tazobacta m (ZOSYN) 3.375 g in NaCl 0.9% (NS) 50 mL MINI-BAG 2021-11 06:15: 00 10-15 06:57 :00 No 3.375g 3.375 g, IV Piggyback, ONCE, 1 dose, On Sat10/15/22 at 0015, Administer over 30 Minutes, 50 mL
Reas on for Anti-Infec tive: Documented Infection< br>Documen shaylee Infection Site: Skin / Soft Tissue
Duration of Therapy: Other (see Comments) [facility] iopamidol (ISOVUE 370-500 mL) injection 75 mL 2021-11 06:00: 00 10-15 06:00 :00 No [id number] 75mL 75 mL, Intravenou s, ONCE, 1 dose, On Sat10/15/22 at 0000, Routine [facility] NaCl 0.9% (NS) bolus infusion 1,000 mL 2021-11 06:00: 00 10-15 06:00 :00 No 1000mL at 999 mL/hr, 1,000 mL, IV Infusion, ONCE, 1 dose, On Sat10/15/22 at 0000, ESTELA [facility] ketorolac (TORADOL) injection 30 mg 2021-11 05:30: 00 10-15 04:49 :00 No 30mg 30 mg, Slow IV Push, ONCE, 1 dose, On 10/14/22 at 2330, Routine [facility] ondansetron (ZOFRAN (PF)) injection 4 mg 2021-11 04:30: 00 10-15 04:49 :00 No 4mg 4 mg, Slow IV Push, ONCE, 1 dose, On 10/14/22 at 2230, ESTELA [facility] metFORMIN 500 mg tablet 2021-11 00:00: 00 11-15 05:59 :00 No [id number] 500mg Take 1 tablet by mouth in the morning and 1 tablet in the evening. Do all this for 30 days. [facility] amoxicillin -clavulanat e 875-125 mg per tablet 2021-11 00:00: 00 10-30 05:59 :00 No [id number] 1{tbl} Take 1 tablet by mouth every 12 (twelve) hours for 14 days. [facility] ondansetron (ZOFRAN-ODT ) disintegrat ing tablet 4 mg 07-03 21:15: 00 07-04 09:14 :00 No 4mg 4 mg, Oral, ONCE, 1 dose, On Sat07/03/22 at 1615, Routine [facility] NaCl 0.9% (NS) bolus infusion 1,000 mL 05-22 17:15: 00 05-22 17:50 :00 No 1000mL at 999 mL/hr, 1,000 mL, IV Infusion, ONCE, 1 dose, On Sat05/22/22 at 1215, ESTELA [facility] ondansetron (ZOFRAN-ODT ) disintegrat ing tablet 4 mg 05-22 15:15: 00 05-22 15:17 :00 No 4mg 4 mg, Oral, ONCE, 1 dose, On Sat05/22/22 at 1015, Routine [facility] metFORMIN 500 mg tablet 05-22 00:00: 00 06-22 04:59 :00 No [id number] 500mg Take 1 tablet by mouth 2 (two) times daily with meals for 30 days. [facility] ondansetron 4 mg disintegrat ing tablet 2019-11 00:00: 00 Yes [id number] 4mg Take 1 tablet by mouth every 4 (four) hours as needed for Nausea and Vomiting (N/V) (te). [facility] benzonatate 100 mg capsule 2019-11 00:00: 00 Yes [id number] 100mg Take 1 capsule by mouth 3 (three) times daily as needed for Cough. [facility] albuterol 90 mcg/actuati on inhaler 2019-11 00:00: 00 Yes [id number] 2{puff} Inhale 2 Puffs every 4 (four) hours as needed for Wheezing or Shortness of Breath. [facility] Vital Signs Vital Name Observation Time Observation Value Comments S ource Systolic blood pressure 2024-05-05 03:00:00 141 mm[Hg] [facility] Diastolic blood pressure 2024-05-05 03:00:00 82 mm[Hg] [facility] Heart rate 2024-05-05 03:00:00 87 /min [facility] Body temperature 2024-05-05 03:00:00 37 Debbie [facility] Respiratory rate 2024-05-05 03:00:00 16 /min [facility] Oxygen saturation in Arterial blood by Pulse oximetry 2024-05-05 03:00:00 100 /min [facility] Body height 2024-05-05 01:45:00 175.3 cm [facility] Body weight 2024-05-05 01:45:00 98.884 kg [facility] BMI 2024-05-05 01:45:00 32.19 kg/m2 [facility] Systolic blood pressure 2022-10-15 07:00:00 120 mm[Hg] [facility] Diastolic blood pressure 2022-10-15 07:00:00 49 mm[Hg] [facility] Heart rate 2022-10-15 07:00:00 83 /min [facility] Respiratory rate 2022-10-15 07:00:00 16 /min [facility] Oxygen saturation in Arterial blood by Pulse oximetry 2022-10-15 07:00:00 96 /min [facility] Body temperature 2022-10-15 00:32:00 37.33 Debbie [facility] Body height 2022-10-15 00:32:00 175.3 cm [facility] Body weight 2022-10-15 00:32:00 97.523 kg [facility] BMI 2022-10-15 00:32:00 31.75 kg/m2 [facility] Systolic blood pressure 2022-07-03 19:29:00 131 mm[Hg] [facility] Diastolic blood pressure 2022-07-03 19:29:00 78 mm[Hg] [facility] Heart rate 2022-07-03 19:29:00 105 /min [facility] 2022-07-03 19:29:00 37.78 Debbie [facility] Respiratory rate 2022-07-03 19:29:00 17 /min [facility] Body height 2022-07-03 19:29:00 175.3 cm [facility] Body weight 2022-07-03 19:29:00 102.059 kg [facility] BMI 2022-07-03 19:29:00 33.23 kg/m2 [facility] Oxygen saturation in Arterial blood by Pulse oximetry 2022-07-03 19:29:00 100 /min [facility] Systolic blood pressure 2022-05-22 18:00:00 119 mm[Hg] [facility] Diastolic blood pressure 2022-05-22 18:00:00 70 mm[Hg] [facility] Heart rate 2022-05-22 18:00:00 69 /min [facility] Body temperature 2022-05-22 18:00:00 36.22 Debbie [facility] Respiratory rate 2022-05-22 18:00:00 16 /min [facility] Oxygen saturation in Arterial blood by Pulse oximetry 2022-05-22 18:00:00 95 /min [facility] Body height 2022-05-22 14:03:00 175.3 cm [facility] Body weight 2022-05-22 14:03:00 102.059 kg [facility] BMI 2022-05-22 14:03:00 33.23 kg/m2 [facility] Systolic blood pressure 2020-10-17 15:08:00 146 mm[Hg] [facility] Diastolic blood pressure 2020-10-17 15:08:00 96 mm[Hg] [facility] Heart rate 2020-10-17 15:08:00 82 /min [facility] Body temperature 2020-10-17 15:08:00 37.11 Debbie [facility] Respiratory rate 2020-10-17 15:08:00 16 /min [facility] Body height 2020-10-17 15:08:00 175.3 cm [facility] Body weight 2020-10-17 15:08:00 108.863 kg [facility] BMI 2020-10-17 15:08:00 35.44 kg/m2 [facility] Oxygen saturation in Arterial blood by Pulse oximetry 2020-10-17 15:08:00 99 /min [facility] Systolic blood pressure 2020-10-17 15:08:00 146 mm[Hg] [facility] Diastolic blood pressure 2020-10-17 15:08:00 96 mm[Hg] [facility] Heart rate 2020-10-17 15:08:00 82 /min [facility] Body temperature 2020-10-17 15:08:00 37.11 Debbie [facility] Respiratory rate 2020-10-17 15:08:00 16 /min [facility] Body height 2020-10-17 15:08:00 175.3 cm [facility] Body weight 2020-10-17 15:08:00 108.863 kg [facility] BMI 2020-10-17 15:08:00 35.44 kg/m2 [facility] Oxygen saturation in Arterial blood by Pulse oximetry 2020-10-17 15:08:00 99 /min [facility] Procedures Procedure Date / Time Performed Performing Clinician Source INCISION AND DRAINAGE 2022-10-15 06:24:14 Kevin Cardenas [facility] CT ABDOMEN PELVIS W CONTRAST 2022-10-15 05:12:47 Heriberto Cardenas [facility] BASIC METABOLIC PANEL (NA, K, CL, CO2, GLUCOSE, BUN, CREATININE, CA) 2022-10-15 04:35:00 Heriberto Cardenas [facility] CBC WITH DIFF 2022-10-15 04:35:00 [facility] NOTICE OF PRIVACY PRACTICES 2022-10-15 00:08:32 Doctor Unassigned, Greasy [facility] CONSENT/REFUSAL FOR DIAGNOSIS AND TREATMENT 2022-10-15 00:07:37 Doctor Unassigned, Greasy [facility] CONSENT/REFUSAL FOR DIAGNOSIS AND TREATMENT 2022-07-03 19:09:53 Doctor Unassigned, Greasy [facility] LIPASE 2022-05-22 16:49:00 Claudio Espinosa [facility] COMP. METABOLIC PANEL (00648) 2022-05-22 16:49:00 Claudio Espinosa [facility] CBC WITH DIFF 2022-05-22 16:49:00 Claudio Espinosa [facility] URINALYSIS 2022-05-22 15:18:00 Claudio Espinosa [facility] COVID-19 (ID NOW RAPID TESTING) 2022-05-22 15:18:00 Claudio Espinosa [facility] LAB ONLY COVID INTERPRETATION 2022-05-22 15:18:00 Claudio Espinosa [facility] NOTICE OF PRIVACY PRACTICES 2022-05-22 13:54:40 Doctor Unassigned, Greasy [facility] CONSENT/REFUSAL FOR DIAGNOSIS AND TREATMENT 2022-05-22 13:52:44 Doctor Unassigned, Greasy [facility] CONSENT/REFUSAL FOR DIAGNOSIS AND TREATMENT 2022-05-22 13:52:42 Doctor Unassigned, Greasy [facility] RAPID STREP SCREEN FOR GROUP A 2020-10-17 15:50:00 Shivam Lucero [facility] COVID-19 (ID NOW RAPID TESTING) 2020-10-17 15:50:00 Shivam Lucero [facility] NOTICE OF PRIVACY PRACTICES 2020-10-17 15:05:13 Doctor Unassigned, [place] [facility] CONSENT/REFUSAL FOR DIAGNOSIS AND TREATMENT 2020-10-17 15:04:51 Doctor Unassigned, Greasy [facility] Encounters Start Date/Time End Date/Time Encounter Type Admission Type Attending [facility] Emergency Department Facility Care Department Encounter ID Source 2024-05-04 20:48:00 2024-05-04 22:05:00 Emergency X BOLIVAR BRANTLEY [facility] ERT [id number] [facility] 2024-05-04 20:48:00 2024-05-04 22:05:00 Emergency Bolivar Brantley [facility] [id number] [facility] 2022-10-14 18:33:00 2022-10-15 02:20:00 Emergency Heriberto Cardenas [facility] [id number] [id number] [id number] [facility] 2022-10-14 18:33:00 2022-10-15 02:20:00 Emergency X EBRAHIM, RANIA [facility] ERT [id number] [facility] 2022-07-03 14:29:00 2022-07-03 16:03:00 Emergency X CLAUDIO ESPINOSA [facility] ERT [id number] [facility] 2022-07-03 14:29:00 2022-07-03 16:03:00 Emergency Claudio Espinosa [facility] [id number] [id number] [id number] [facility] 2022-05-22 09:14:00 2022-05-22 13:43:00 Emergency X CLAUDIO ESPINOSA [facility] ERT [id number] [facility] 2022-05-22 09:14:00 2022-05-22 13:43:00 Emergency Claudio Espinosa [facility] [id number] [id number] [id number] [facility] 2020-10-17 09:13:00 2020-10-17 11:07:00 Emergency Nic [facility] [id number] [id number] [id number] [facility] 2020-10-17 09:13:00 2020-10-17 11:07:00 Emergency Nic [facility] [id number] [id number] [id number] 2020-10-17 09:03:00 2020-10-17 09:03:00 Emergency X [facility] ERT [id number] [facility] Results Test Description Test Time Test Comments Results Result Co mments Source [facility]20415[facility]2022-05-22 17:40:54* Test Item Value Reference Range Interpretation Comme nts NA (test code = 0911703277) 136 mmol/L 135-145 K (test code = 2078658763) 4.7 mmol/L 3.5-5.0 CL (test code = 9038417587) 94 mmol/L 98-108 L CO2 TOTAL (test code = 0234509834) 28 mmol/L 23-31 AGAP (test code = 3041365563) 2-16 BUN (test code = 6146532532) 11 mg/dL 7-23 GLUCOSE (test code = 0772929353) 357 mg/dL 70-110 H CREATININE (test code = 7093561410) 0.65 mg/dL 0.60-1.25 TOTAL BILI (test code = 1523502331) 0.6 mg/dL 0.1-1.1 CALCIUM (test code = 0282129266) 9.9 mg/dL 8.6-10.6 T PROTEIN (test code = 1607672040) 8.5 g/dL 6.3-8.2 H ALBUMIN (test code = 8489874963) 4.7 g/dL 3.5-5.0 ALK PHOS (test code = 8445819791) 223 U/L 34-122 H ALTv (test code = 1742-6) 80 U/L 5-50 H AST(SGOT) (test code = 7031512088) 42 U/L 13-40 H eGFR (test code = 9971444649) mL/min/1.73m2 TAYLOR (test code = TAYLOR) Association [...] imaging tests). Lab Interpretation (test code = 95739-2) [facility]normal [facility] 17:40:09* Test Item Value Reference Range Interpretation Comme nts LIPASE (test code = 1548385075) 66 U/L 0-220 Lab Interpretation (test cod e = 25866-6) Normal [facility] [id number] 06:00:06* Test Item Value Reference Range Interpretation Comme nts HEMOGLOBIN A1c (test code = 73020) >15.5 % 4.2-5.6 H [employer] GUIDELINES FOR HGB A1C: [...] CONSULTATION. UNLESS OTHERWISE INDICATED, ALL TESTING PERFORMED [facility] [address] [place] [address] POWER TRANSMISSION ENGINEER: SUGAR QUEVEDO M.D. CLIA NUMBER [id number] [place] [id number] RAPID STREP SCREEN FOR GROUP [id number] 16:23:00* Test Item Value Reference Range Interpretation Comme nts Streptococcus pyogenes (grou p A) antigen (test code = 29616-6) Negative Negative Lab Interpretation (test cod e = 20381-7) Normal [facility] (ID NOW RAPID TESTING)2020-10-17 16:18:00* Test Item Value Reference Range Interpretation Comme nts SARS-CoV-2 Rapid ID NOW (test code = 35116-5) Positive Not Detected A TAYLOR (test code = TAYLOR) ID NOW COVID-19 As say is an isothermal nucleic acid amplification test intended for the qualitative detection of nucleic acid from SARS-CoV-2 viral RNA in nasopharyngeal (PATTERN ATTENDANT) specimens. It is used under Emergency Use [...] clinically indicated. Lab Interpretation (test code = 97967-3) Abnormal [facility] Notes Date/Time Note Provider Source 2024-05-04 22:05:00 Pt given printed and verbal discharge instructions regarding insect bite Prescriptions provided Discussed antibiotic therapy and to take until all completed unless adverse reaction occurs - if occurs, discontinue medication and follow up with pcp/seek medical attention Pt verbalized understanding of instructions, pt awake alert oriented, resp reg unlabored, skin w/d, color appropriate for race, moves all ext well,pt encouraged to follow up with pcp Advised to seek medical attention for new/prolonged/worsening of symptoms No adverse reaction to meds given in ER noted upon discharge Awake, alert oriented, resp reg unlabored, skin w/d, pt leaving amb with steady gait, in no apparent distress [facility] 2024-05-04 20:43:20 Pt arrived with c/o insect bite. Pt [place], and believes he was bit by something. Pt is unsure of what bit him. Pt is three bites on his chest and one on his back. Tamika Watts RN [facility] - Health 2024-05-04 20:26:00 [facility] Emergency Department Note Demographics Patient Name: Lele Castillo Jr. 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 Pt [place] the [place], and believes he was bit by something. Pt is unsure of what bit him. Pt is three bites on his chest and one on his back. Chief Complaint Patient presents with Insect Bite History of present illness HPI 29-year-old man comes to the emergency department for evaluation of insect bites to the chest back and flank. This bite happened 3 days ago while at the beach in [place]. Patient denies fevers, chills, nausea, vomiting, abdominal pain or any other problems. Lesions are painful with raised pustule like areas and mild erythema. He denies chronic medical problems or medications. BP (!) 145/85 | Pulse 79 | Temp 37 ?C (98.6 ?F) (Oral) | Resp 16 | Ht 1.753 m (5' 9") | Wt 98.9 kg (218 lb) | SpO2 100% | BMI 32.19 kg/m? Past Medical and Social History History reviewed. No pertinent past medical history. Tetanus received in last 5 years: Yes Past Surgical History History reviewed. No pertinent surgical history. Medications Medications - No data to display Allergies No Known Allergies Review of Systems Review of Systems Constitutional: Negative. HENT: Negative. Eyes: Negative. Respiratory: Negative. Breasts: Negative. Cardiovascular: Negative. Gastrointestinal: Negative. Genitourinary: Negative. Musculoskeletal: Negative. Skin: Positive for rash. Neurological: Negative. Psychiatric/Behavioral: Negative. Endocrine: Endocrine negative Physical Exam BP (!) 145/85 | Pulse 79 | Temp 37 ?C (98.6 ?F) (Oral) | Resp 16 | Ht 1.753 m (5' 9") | Wt 98.9 kg (218 lb) | SpO2 100% | BMI 32.19 kg/m? Physical Exam Vitals and nursing note reviewed. Constitutional: General: He is not in acute distress. Appearance: He is well-developed. He is not ill-appearing. HENT: Head: Normocephalic and atraumatic. Right Ear: Ear canal and external ear normal. Left Ear: Ear canal and external ear normal. Nose: Nose normal. No congestion or rhinorrhea. Mouth/Throat: Mouth: Mucous membranes are moist. Pharynx: Oropharynx is clear. No oropharyngeal exudate or posterior oropharyngeal erythema. Eyes: General: Right eye: No discharge. Left eye: No discharge. Conjunctiva/sclera: Conjunctivae normal. Pupils: Pupils are equal, round, and reactive to light. Cardiovascular: Rate and Rhythm: Normal rate and regular rhythm. Pulses: Normal pulses. Heart sounds: Normal heart sounds. No murmur heard. No friction rub. Pulmonary: Effort: Pulmonary effort is normal. No respiratory distress. Breath sounds: Normal breath sounds. No stridor. No wheezing or rhonchi. Abdominal: General: Bowel sounds are normal. There is no distension. Palpations: Abdomen is soft. There is no mass. Tenderness: There is no abdominal tenderness. Hernia: No hernia is present. Musculoskeletal: General: No swelling, tenderness, deformity or signs of injury. Normal range of motion. Cervical back: Normal range of motion and neck supple. No rigidity or tenderness. Skin: General: Skin is warm and dry. Capillary Refill: Capillary refill takes less than 2 seconds. Coloration: Skin is not jaundiced or pale. Findings: No bruising or erythema. Comments: Furuncle like lesions to anterior chest wall and back Neurological: General: No focal deficit present. Mental Status: He is alert and oriented to person, place, and time. Cranial Nerves: No cranial nerve deficit. Sensory: No sensory deficit. Motor: No weakness. Coordination: Coordination normal. Psychiatric: Mood and Affect: Mood normal. Behavior: Behavior normal. Thought Content: Thought content normal. Judgment: Judgment normal. Labs and Studies Lab Results - No data to display No orders to display Orders and Treatments No orders of the defined types were placed in this encounter. No orders of the defined types were placed in this encounter. Patient's Medications START taking these medications No medications on file CONTINUE taking these medications which have NOT CHANGED ALBUTEROL 90 MCG/ACTUATION INHALER Inhale 2 Puffs every 4 (four) hours as needed for Wheezing or Shortness of Breath. BENZONATATE 100 MG CAPSULE Take 1 capsule by mouth 3 (three) times daily as needed for Cough. ONDANSETRON 4 MG DISINTEGRATING TABLET Take 1 tablet by mouth every 4 (four) hours as needed for Nausea and Vomiting (N/V) (te). START taking Modified Medications as Prescribed No medications on file STOP taking these medications No medications on file Procedures Procedures Evidence Care MDM & Notes Patient was evaluated for an emergency medical condition related to Insect Bite Labs:were not ordered. Abnormal Labs Reviewed - No data to display Imaging:Was not ordered Diagnosis/Impression as of 05/04/242126 Insect bite of left front wall of thorax, initial encounter Medical Decision Making 29-year-old man comes to the emergency department for evaluation of insect bites to the chest back and flank. This bite happened 3 days ago while at the beach in [place]. Patient denies fevers, chills, nausea, vomiting, abdominal pain or any other problems. Lesions are painful with raised pustule like areas and mild erythema. He denies chronic medical problems or medications. BP (!) 145/85 | Pulse 79 | Temp 37 ?C (98.6 ?F) (Oral) | Resp 16 | Ht 1.753 m (5' 9") | Wt 98.9 kg (218 lb) | SpO2 100% | BMI 32.19 kg/m? Assessment and plan: 29-year-old male with furuncle like lesions to the chest and back with mild erythema. Patient is otherwise hemodynamically stable afebrile and in no obvious distress. Will start doxycycline orally twice daily advised to continue home medications, Tylenol and Motrin as needed for pain, follow-up with PCP and return to the ED if worsening of symptoms. Problems Addressed: Insect bite of left front wall of thorax, initial encounter: acute illness or injury Pulse Oximetry: is not hypoxic. Interpreted. Reassessment:stable Limitations to patient care and compliance: none. Plan & Summary: Lele Castillo Jr. is a 29 year old male presenting for complaint(s) listed within the note. Patient has been deemed stable for discharge. Follow up with providers listed below for further evaluation and management. Return precautions given if symptoms worsen as documented in the discharge instructions. History, physical exam findings, results of visit, diagnosis, medication regimens and plan of future care have been considered. Additional MDM may be found in the ED course. Vital signs were rechecked before final disposition and determined to be stable. Disposition & Follow Up ED Disposition ED Disposition Disch - Home Condition Stable Comment -- Patient's Medications START taking these medications No medications on file CONTINUE taking these medications which have NOT CHANGED ALBUTEROL 90 MCG/ACTUATION INHALER Inhale 2 Puffs every 4 (four) hours as needed for Wheezing or Shortness of Breath. BENZONATATE 100 MG CAPSULE Take 1 capsule by mouth 3 (three) times daily as needed for Cough. ONDANSETRON 4 MG DISINTEGRATING TABLET Take 1 tablet by mouth every 4 (four) hours as needed for Nausea and Vomiting (N/V) (te). START taking Modified Medications as Prescribed No medications on file STOP taking these medications No medications on file Diagnoses ICD-10-CM 1. Insect bite of left front wall of thorax, initial encounter S20.362A W57.XXXA Disposition and Condition ED Disposition ED Disposition Disch - Home Condition Stable Comment -- Patient's Medications START taking these medications No medications on file CONTINUE taking these medications which have NOT CHANGED ALBUTEROL 90 MCG/ACTUATION INHALER Inhale 2 Puffs every 4 (four) hours as needed for Wheezing or Shortness of Breath. BENZONATATE 100 MG CAPSULE Take 1 capsule by mouth 3 (three) times daily as needed for Cough. ONDANSETRON 4 MG DISINTEGRATING TABLET Take 1 tablet by mouth every 4 (four) hours as needed for Nausea and Vomiting (N/V) (te). START taking Modified Medications as Prescribed No medications on file STOP taking these medications No medications on file [employer] is used frequently and may produce errors. Promptly contact for obvious discrepancies. Bolivar Brantley MD, FACEP, FAAEM [employer] Liaison of Emergency and Internal Medicine [facility] [place] #[id number] Bolivar Brantley MD 05/04/247 [facility]
[2024-09-23] MEDS ORDERED: SMZ./TMP. 800/160 MG TABLET ONE (17:21)
[2024-09-23] MEDS ORDERED: LIDOCAINE 1% 20 ML MDV ONE (17:21)
--- NOTE | 2024-09-23 18:57 | EDPHYS ---
Physician Documentation [facility] Name: Lele Castillo Age: 29 yrs Sex: Male : 1995 Arrival Date: 09/23/2024 Time: 16:56 Bed 6 Private MD: ED Physician Edinson Armendariz HPI: 09/23 18:56 This 29 yrs old Male presents to ER via Ambulatory with complaints of Abscess kb - on breast. 18:57 Patient is a 29-year-old male who presents for abscess to right breast that developed kb Saturday. States it has gotten worse since then. Has been trying to drain it at home with minimal success. Denies fever.. Historical: - Allergies: 17:08 NKA; cm10 - PMHx: 17:08 diabetes mellitus; cm10 - PSHx: 17:08 Nose; cm10 - Immunization history:: Adult Immunizations up to date. - Infectious Disease History:: Denies. - Social history:: Smoking status: Patient denies any tobacco usage or history of. ROS: 18:57 Constitutional: As per HPI kb Exam: 18:57 Constitutional: This is a well developed, well nourished patient who is awake, alert, kb and in no acute distress. Head/Face: Normocephalic, atraumatic. ENT: Moist Mucous membranes Cardiovascular: Regular rate Respiratory: Respirations even and unlabored. No increased work of breathing. Talking in full sentences MS/ Extremity: Pulses equal, no cyanosis. Neurovascular intact. Full, normal range of motion. Neuro: Awake and alert, GCS 15, oriented to person, place, time, and situation. 18:57 Skin: abscess, that is small, that is moderate sized, of the right breast, with drainage, with fluctuance, with induration, Vital Signs: 17:07 BP 134 / 94; Pulse 114; Resp 18; Temp 98.1; Pulse Ox 99% on R/A; Weight 95.25 kg; cm10 Height 5 ft. 9 in. ; Pain 10/10; 19:41 BP 136 / 92; Pulse 99; Resp 18; Pulse Ox 99% ; bp 17:07 Body Mass Index 31.01 (95.25 kg, 175.26 cm) cm10 17:07 Pain Scale: Adult cm10 Procedures: 18:55 I \T\ D: Incision and drainage was performed for an abscess of the right right breast kb Prepped with Betadine, Anesthetized with 2 ml's 1% Lidocaine. Incised with #11 blade. Drained moderate amount purulent fluid. Dressing: sterile 4x4 gauze, the patient tolerated the procedure well. MDM: 17:00 Medical Screening Exam initiated kb 18:55 Differential diagnosis: abscess, allergic reaction, cellulitis, insect bite. Data kb reviewed: vital signs, nurses notes. Counseling: I had a detailed discussion with the patient and/or guardian regarding the historical points, exam findings, and any diagnostic results supporting the discharge/admit diagnosis, the need for outpatient follow up, a family practitioner, to return to the emergency department if symptoms worsen or persist or if there are any questions or concerns that arise at home. 09/23 17:17 Order name: I\T\D Setup; Complete Time: 17:25 kb Administered Medications: 17:25 Drug: Trimethoprim-Sulfamethoxazole PO (160 mg-800 mg (DS) 1 tablet PO once Route: PO; ph 17:36 Drug: Lidocaine Infiltration (1 %) 1 vials 5 ml Infiltration once; to bedside Volume: 5 bp ml; Route: Infiltration; Disposition Summary: 09/23/24 18:56 Discharge Ordered Notes: Location: Home kb Condition: Stable kb Diagnosis - Cutaneous abscess of chest wall - right breast kb Followup: kb - With: Emergency Department - When: As needed - Reason: Worsening of condition Followup: kb - With: Private Physician - When: 2 - 3 days - Reason: Recheck today's complaints, Continuance of care, Re-evaluation by your physician Discharge Instructions: - Discharge Summary Sheet kb - Skin Abscess, [id number] kb - Incision and Drainage, Care After kb Forms: - Medication Reconciliation Form kb - Antibiotic Education kb - Prescription Opioid Use kb - Patient Portal Instructions kb - Leadership Thank You Letter kb Prescriptions: - Bactrim DS 800-160 mg Oral Tablet - take 1 tablet ORAL route every 12 hours for 10 days; 20 tablet; Refills: 0, kb Product Selection Permitted Signatures: Nirmala Reyna FNP-C FNP-Ckb Hall, Patricia RN Rhett Richards ph, RN RN bp Martinez, Clarissa, RN RN cm10
--- NOTE | 2024-09-23 18:57 | ER ---
Nurse's Notes [facility] Name: Lele Castillo Age: 29 yrs Sex: Male : 1995 Arrival Date: 09/23/2024 Time: 16:56 Bed 6 Private MD: Diagnosis: Cutaneous abscess of chest wall-right breast Presentation: 09/23 17:07 Chief complaint: Patient states: Abscess to right side of chest onset Saturday. Pt states cm10 that he tried to pop it but was unable to. Coronavirus screen: Client denies travel out of the [place] in the last 14 days. Ebola Screen: Patient denies travel to an Ebola-affected area in the 21 days before illness onset. No symptoms or risks identified at this time. Initial Sepsis Screen: Does the patient meet any 2 criteria? HR > 90 bpm. Does the patient have a suspected source of infection?. Risk Assessment: Do you want to hurt yourself or someone else? Patient reports no desire to harm self or others. Onset of symptoms was September 23, 2024. 17:07 Method Of Arrival: Ambulatory cm10 17:07 Acuity: ANJANA 4 cm10 Triage Assessment: 17:09 General: Appears in no apparent distress. uncomfortable, Behavior is calm, cooperative. cm10 Neuro: No deficits noted. Level of Consciousness is awake, alert, obeys commands, Oriented to person, place, time, situation, Appropriate for age. Respiratory: No deficits noted. Airway is patent Respiratory effort is even, unlabored, Respiratory pattern is regular, symmetrical. Derm: Abscess located on right breast. Historical: - Allergies: 17:08 NKA; cm10 - PMHx: 17:08 diabetes mellitus; cm10 - PSHx: 17:08 Nose; cm10 - Immunization history:: Adult Immunizations up to date. - Infectious Disease History:: Denies. - Social history:: Smoking status: Patient denies any tobacco usage or history of. Screenin:25 [facility] ED Fall Risk Assessment (Adult) History of falling in the last 3 months, ph including since admission No falls in past 3 months (0 pts) Confusion or Disorientation No (0 pts) Intoxicated or Sedated No (0 pts) Impaired Gait No (0 pts) Mobility Assist Device Used No (0 pt) Altered Elimination No (0 pt) Score/Fall Risk Level 0 - 2 = Low Risk Oriented to surroundings, Maintained a safe environment, Hourly rounding (assess needs \T\ fall precautionary measures) done. Abuse screen: Denies threats or abuse. Denies injuries from another. Nutritional screening: No deficits noted. Tuberculosis screening: No symptoms or risk factors identified. Assessment: 17:58 General: Appears in no apparent distress. Behavior is calm, cooperative. Pain: ph Complains of pain in right lateral anterior chest. Neuro: Level of Consciousness is awake, alert, obeys commands, Oriented to person, place, time, situation. Derm: Skin is pink, warm \T\ dry. Abscess located on right lateral anterior chest is dime sized, is red, is raised, was lanced by patient prior to arrival. 18:33 Reassessment: Patient appears in no apparent distress at this time. Patient and/or ph family updated on plan of care and expected duration. Pain level reassessed. Patient is alert, oriented x 3, equal unlabored respirations, skin warm/dry/pink. 19:38 Reassessment: Patient upset that wound was not dressed by provider and that he had bp already been here for 3 hours. Patient offered dressing but refused. Patient was provided discharge instructions on how to care for abscess. Vital Signs: 17:07 BP 134 / 94; Pulse 114; Resp 18; Temp 98.1; Pulse Ox 99% on R/A; Weight 95.25 kg; cm10 Height 5 ft. 9 in. ; Pain 10/10; 19:41 BP 136 / 92; Pulse 99; Resp 18; Pulse Ox 99% ; bp 17:07 Body Mass Index 31.01 (95.25 kg, 175.26 cm) cm10 17:07 Pain Scale: Adult cm10 ED Course: 17:00 Patient arrived in ED. im 17:00 [facility]irm[facility] Reyn[facility]C [facility]. kb 17:00 Edinson Armendariz MD is Attending Physician. kb 17:08 Triage completed. cm10 17:09 Arm band placed on left wrist. Patient placed in an exam room, on a stretcher. cm10 17:11 Gabby Vidal, RN is Primary Nurse. ph 17:26 Patient has correct armband on for positive identification. Bed in low position. Call ph light in reach. Side rails up X 1. Pulse ox on. NIBP on. 18:33 Patient did not have IV access during this emergency room visit. ph 18:46 Assist provider with I \T\ D: of an abscess on right lateral chest, beneath breast Set up ph I\T\D tray. Performed by Nirmala BUCKLEY Dressing with 4X4s, tape Patient tolerated well. 19:41 Provided Education on: abscess. bp Administered Medications: 17:25 Drug: Trimethoprim-Sulfamethoxazole PO (160 mg-800 mg (DS) 1 tablet PO once Route: PO; ph 17:36 Drug: Lidocaine Infiltration (1 %) 1 vials 5 ml Infiltration once; to bedside Volume: 5 bp ml; Route: Infiltration; Medication: 17:25 VIS not applicable for this client. ph Outcome: 18:56 Discharge ordered by . kb 19:41 Discharged to home ambulatory, bp 19:41 Condition: stable 19:41 Discharge instructions given to patient, Instructed on discharge instructions, follow up and referral plans. medication usage, Demonstrated understanding of instructions, follow-up care, medications, Prescriptions given X 1, 19:43 Patient left the ED. bp Signatures: Nirmala Reyna, [employer] A[employer] ANALYST-Gabby Phelan, RN RN Rhett Gomez RN RN bp Justa Castillo Clarissa, RN RN cm10
[2024-09-23 20:15] VITALS: TEMP 98.1; O2SAT 99
[2024-09-23 20:16] VITALS: BP 136/92
== END 2024-09-23 19:43 | disposition home or self-care (01) ==
LOC: ER 16:56
PROC: 0H95XZZ Drainage of Chest Skin, External Approach (ICD-10-PCS; principal; 2024-09-23)
DX: N61.1 Abscess of the breast and nipple (principal)
CPT/HCPCS: 10060; J2003

== ENCOUNTER 2024-11-19 17:05 | Emergency (ER) | payer BC, SELFPAY ==
--- OUTSIDE RECORDS SUMMARY | 2024-11-19 17:09 | XMS REPORT | Continuity of Care Document ---
Author Name Unknown Address [address] [place] [address] [facility] thconnect Address [address] [place] [address] Care Team Providers Care Cargo Surveyor Name Role Phone Pcp, Patient Does Not Have A Primary Care Physic bonita BOLIVAR BRANTLEY Attending Clinician Unavailable Bolivar Brantley MD Attending Clinician [phone] Heriberto Monae Attending Clinician [phone] HERIBERTO CARDENAS Attending Clinician Unavailable CLAUDIO ESPINOSA Attending Clinician Unavailable Claudio Gómez Attending Clinician [phone] Shivam Lucero MD Attending Clinician [phone] HERIBERTO CARDENAS Admitting Clinician Unavailable Payers Payer Name Policy Type Policy Number Effective Date Expirati on Date Source [facility] [id number] 2017 00:00:00 2022 00:00:00 Problems Condition Name Condition Details Condition Category Status Onset Date Resolution Date Last Treatment Date Treating Clinician Comments Source No known active problems No known active problems Disease [facility] Allergies, Adverse Reactions, Alerts Allergy Name Allergy Type Status Severity Reaction(s) Onset Date Inactive Date Treating Clinician Comments Source NO KNOWN ALLERGIE S Drug Class Active [facility] Social History Social Habit Start Date Stop Date Quantity Comments Source [facility] SARS-[facility]-2 (event) 2022-10-04 00:00:00 2022-10-14 18:30:00 Not sure [facility] Sex assigned at 1995 00:00:00 1995 00:00:00 [facility] Smoking Status Start Date Stop Date Source Tobacco smoking consumption unknown [facility] Medications Ordered Medication Name Filled Medication Name Start Date Stop Date Current Medication? Ordering Clinician Indication Dosage Frequency Signature (SIG) Comments Components Source ibuprofen (IBU) tablet 600 mg 05-05 03:00: 00 05-05 02:57 :00 No 600mg 600 mg, Oral, ONCE, 1 dose, On Sat05/04/24 at 2200, ESTELA [facility] doxycycline hyclate (Vibramycin ) capsule 100 mg 05-05 03:00: 00 05-05 02:57 :00 No 100mg 100 mg, Oral, ONCE, 1 dose, On Sat05/04/24 at 2200, ESTELA, Reason for Anti-Infec tive: Documented Infection, Documented Infection Site: Skin / Soft Tissue, Duration of Therapy: Once (ED) [facility] doxycycline hyclate 100 mg capsule 05-04 00:00: 00 Yes [id number] 100mg Take 1 capsule by mouth in the morning and 1 capsule in the evening. [facility] piperacilli n-tazobacta m (ZOSYN) 3.375 g in NaCl 0.9% (NS) 50 mL MINI-BAG 2021-11 06:15: 00 10-15 06:57 :00 No 3.375g 3.375 g, IV Piggyback, ONCE, 1 dose, On Sat10/15/22 at 0015, Administer over 30 Minutes, 50 mL
Reas on for Anti-Infec tive: Documented Infection< br>Documen shaylee Infection Site: Skin / Soft Tissue
Duration of Therapy: Other (see Comments) [facility] iopamidol (ISOVUE 370-500 mL) injection 75 mL 2021-11 06:00: 00 10-15 06:00 :00 No [id number] 75mL 75 mL, Intravenou s, ONCE, 1 dose, On Sat10/15/22 at 0000, Routine [facility] NaCl 0.9% (NS) bolus infusion 1,000 mL 2021-11 06:00: 00 10-15 06:00 :00 No 1000mL at 999 mL/hr, 1,000 mL, IV Infusion, ONCE, 1 dose, On Sat10/15/22 at 0000, ESTELA [facility] ketorolac (TORADOL) injection 30 mg 2021-11 05:30: 00 10-15 04:49 :00 No 30mg 30 mg, Slow IV Push, ONCE, 1 dose, On 10/14/22 at 2330, Routine [facility] ondansetron (ZOFRAN (PF)) injection 4 mg 2021-11 04:30: 00 10-15 04:49 :00 No 4mg 4 mg, Slow IV Push, ONCE, 1 dose, On 10/14/22 at 2230, ESTELA [facility] metFORMIN 500 mg tablet 2021-11 00:00: 00 11-15 05:59 :00 No [id number] 500mg Take 1 tablet by mouth in the morning and 1 tablet in the evening. Do all this for 30 days. [facility] amoxicillin -clavulanat e 875-125 mg per tablet 2021-11 00:00: 00 10-30 05:59 :00 No [id number] 1{tbl} Take 1 tablet by mouth every 12 (twelve) hours for 14 days. [facility] ondansetron (ZOFRAN-ODT ) disintegrat ing tablet 4 mg 07-03 21:15: 00 07-04 09:14 :00 No 4mg 4 mg, Oral, ONCE, 1 dose, On Sat07/03/22 at 1615, Routine [facility] NaCl 0.9% (NS) bolus infusion 1,000 mL 05-22 17:15: 00 05-22 17:50 :00 No 1000mL at 999 mL/hr, 1,000 mL, IV Infusion, ONCE, 1 dose, On Sat05/22/22 at 1215, ESTELA [facility] ondansetron (ZOFRAN-ODT ) disintegrat ing tablet 4 mg 05-22 15:15: 00 05-22 15:17 :00 No 4mg 4 mg, Oral, ONCE, 1 dose, On Sat05/22/22 at 1015, Routine [facility] metFORMIN 500 mg tablet 05-22 00:00: 00 06-22 04:59 :00 No [id number] 500mg Take 1 tablet by mouth 2 (two) times daily with meals for 30 days. [facility] ondansetron 4 mg disintegrat ing tablet 2019-11 00:00: 00 Yes [id number] 4mg Take 1 tablet by mouth every 4 (four) hours as needed for Nausea and Vomiting (N/V) (te). [facility] benzonatate 100 mg capsule 2019-11 00:00: 00 Yes [id number] 100mg Take 1 capsule by mouth 3 (three) times daily as needed for Cough. [facility] albuterol 90 mcg/actuati on inhaler 2019-11 00:00: 00 Yes [id number] 2{puff} Inhale 2 Puffs every 4 (four) hours as needed for Wheezing or Shortness of Breath. [facility] Vital Signs Vital Name Observation Time Observation Value Comments S ource Systolic blood pressure 2024-05-05 03:00:00 141 mm[Hg] [facility] Diastolic blood pressure 2024-05-05 03:00:00 82 mm[Hg] [facility] Heart rate 2024-05-05 03:00:00 87 /min [facility] Body temperature 2024-05-05 03:00:00 37 Debbie [facility] Respiratory rate 2024-05-05 03:00:00 16 /min [facility] Oxygen saturation in Arterial blood by Pulse oximetry 2024-05-05 03:00:00 100 /min [facility] Body height 2024-05-05 01:45:00 175.3 cm [facility] Body weight 2024-05-05 01:45:00 98.884 kg [facility] BMI 2024-05-05 01:45:00 32.19 kg/m2 [facility] Systolic blood pressure 2022-10-15 07:00:00 120 mm[Hg] [facility] Diastolic blood pressure 2022-10-15 07:00:00 49 mm[Hg] [facility] Heart rate 2022-10-15 07:00:00 83 /min [facility] Respiratory rate 2022-10-15 07:00:00 16 /min [facility] Oxygen saturation in Arterial blood by Pulse oximetry 2022-10-15 07:00:00 96 /min [facility] Body temperature 2022-10-15 00:32:00 37.33 Debbie [facility] Body height 2022-10-15 00:32:00 175.3 cm [facility] Body weight 2022-10-15 00:32:00 97.523 kg [facility] BMI 2022-10-15 00:32:00 31.75 kg/m2 [facility] Systolic blood pressure 2022-07-03 19:29:00 131 mm[Hg] [facility] Diastolic blood pressure 2022-07-03 19:29:00 78 mm[Hg] [facility] Heart rate 2022-07-03 19:29:00 105 /min [facility] Body temperature 2022-07-03 19:29:00 37.78 Debbie [facility] Respiratory rate 2022-07-03 19:29:00 17 /min [facility] Body height 2022-07-03 19:29:00 175.3 cm [facility] Body weight 2022-07-03 19:29:00 102.059 kg [facility] BMI 2022-07-03 19:29:00 33.23 kg/m2 [facility] Oxygen saturation in Arterial blood by Pulse oximetry 2022-07-03 19:29:00 100 /min [facility] Systolic blood pressure 2022-05-22 18:00:00 119 mm[Hg] [facility] Diastolic blood pressure 2022-05-22 18:00:00 70 mm[Hg] [facility] Heart rate 2022-05-22 18:00:00 69 /min [facility] Body temperature 2022-05-22 18:00:00 36.22 Debbie [facility] Respiratory rate 2022-05-22 18:00:00 16 /min [facility] Oxygen saturation in Arterial blood by Pulse oximetry 2022-05-22 18:00:00 95 /min [facility] Body height 2022-05-22 14:03:00 175.3 cm [facility] Body weight 2022-05-22 14:03:00 102.059 kg [facility] BMI 2022-05-22 14:03:00 33.23 kg/m2 [facility] Systolic blood pressure 2020-10-17 15:08:00 146 mm[Hg] [facility] Diastolic blood pressure 2020-10-17 15:08:00 96 mm[Hg] [facility] Heart rate 2020-10-17 15:08:00 82 /min [facility] Body temperature 2020-10-17 15:08:00 37.11 Debbie [facility] Respiratory rate 2020-10-17 15:08:00 16 /min [facility] Body height 2020-10-17 15:08:00 175.3 cm [facility] Body weight 2020-10-17 15:08:00 108.863 kg [facility] BMI 2020-10-17 15:08:00 35.44 kg/m2 [facility] Oxygen saturation in Arterial blood by Pulse oximetry 2020-10-17 15:08:00 99 /min [facility] Systolic blood pressure 2020-10-17 15:08:00 146 mm[Hg] [facility] Diastolic blood pressure 2020-10-17 15:08:00 96 mm[Hg] [facility] Heart rate 2020-10-17 15:08:00 82 /min [facility] Body temperature 2020-10-17 15:08:00 37.11 Debbie [facility] Respiratory rate 2020-10-17 15:08:00 16 /min [facility] Body height 2020-10-17 15:08:00 175.3 cm [facility] Body weight 2020-10-17 15:08:00 108.863 kg [facility] BMI 2020-10-17 15:08:00 35.44 kg/m2 [facility] Oxygen saturation in Arterial blood by Pulse oximetry 2020-10-17 15:08:00 99 /min [facility] Procedures Procedure Date / Time Performed Performing Clinician Source INCISION AND DRAINAGE 2022-10-15 06:24:14 Kevin Cardenas [facility] CT ABDOMEN PELVIS W CONTRAST 2022-10-15 05:12:47 Heriberto Cardenas [facility] BASIC METABOLIC PANEL (NA, K, CL, CO2, GLUCOSE, BUN, CREATININE, CA) 2022-10-15 04:35:00 Heriberto Cardenas [facility] CBC WITH DIFF 2022-10-15 04:35:00 Heriberto Cardenas [facility] NOTICE OF PRIVACY PRACTICES 2022-10-15 00:08:32 Doctor Unassigned, [place] [facility] CONSENT/REFUSAL FOR DIAGNOSIS AND TREATMENT 2022-10-15 00:07:37 Doctor Unassigned, [place] [facility] CONSENT/REFUSAL FOR DIAGNOSIS AND TREATMENT 2022-07-03 19:09:53 Doctor Unassigned, [place] [facility] LIPASE 2022-05-22 16:49:00 Claudio Espinosa [facility] COMP. METABOLIC PANEL ([id number]) 2022-05-22 16:49:00 Claudio Espinosa [facility] CBC WITH DIFF 2022-05-22 16:49:00 Claudio Espinosa [facility] URINALYSIS 2022-05-22 15:18:00 Claudio Espinosa [facility] COVID-19 (ID NOW RAPID TESTING) 2022-05-22 15:18:00 Claudio Espinosa [facility] LAB ONLY COVID INTERPRETATION 2022-05-22 15:18:00 Claudio Espinosa [facility] NOTICE OF PRIVACY PRACTICES 2022-05-22 13:54:40 Doctor Unassigned, [place] [facility] CONSENT/REFUSAL FOR DIAGNOSIS AND TREATMENT 2022-05-22 13:52:44 Doctor Unassigned, [place] [facility] CONSENT/REFUSAL FOR DIAGNOSIS AND TREATMENT 2022-05-22 13:52:42 Doctor Unassigned, [place] [facility] RAPID STREP SCREEN FOR GROUP A 2020-10-17 15:50:00 Shivam Lucero [facility] COVID-19 (ID NOW RAPID TESTING) 2020-10-17 15:50:00 Shivam Lucero [facility] NOTICE OF PRIVACY PRACTICES 2020-10-17 15:05:13 Doctor Unassigned, [place] [facility] CONSENT/REFUSAL FOR DIAGNOSIS AND TREATMENT 2020-10-17 15:04:51 Doctor Unassigned, [place] [facility] Encounters Start Date/Time End Date/Time Encounter Type Admission Type Attending [facility] Care Department Encounter ID Source 2024-05-04 20:48:00 2024-05-04 22:05:00 Emergency X BOLIVAR BRANTLEY [facility] E[facility] [id number] [facility] 2024-05-04 20:48:00 2024-05-04 22:05:00 Emergency Bolivar Brantley [facility] [id number] [facility] 2022-10-14 18:33:00 2022-10-15 02:20:00 Emergency Heriberto Cardenas [facility] [id number] [id number] [id number] [facility] 2022-10-14 18:33:00 2022-10-15 02:20:00 Emergency X EBRAHIM, RANIA [facility] ERT [id number] [facility] 2022-07-03 14:29:00 2022-07-03 16:03:00 Emergency X CLAUDIO ESPINOSA [facility] ERT [id number] [facility] 2022-07-03 14:29:00 2022-07-03 16:03:00 Emergency Claudio Espinosa [facility] [id number] [id number] [facility] 2022-05-22 09:14:00 2022-05-22 13:43:00 Emergency X CLAUDIO ESPINOSA [facility] ERT [id number] [facility] 2022-05-22 09:14:00 2022-05-22 13:43:00 Emergency Claudio Espinosa [facility] [id number] [id number] [facility] 2020-10-17 09:13:00 2020-10-17 11:07:00 Emergency Nic [facility] [id number] [facility] 2020-10-17 09:13:00 2020-10-17 11:07:00 Emergency Nic [facility] [id number] 2020-10-17 09:03:00 2020-10-17 09:03:00 Emergency X [facility] ERT [id number] [facility] Results Test Description Test Time Test Comments Results Result Co mments Source [facility] ([id number])2022-05-22 17:40:54* Test Item Value Reference Range Interpretation Comme nts NA (test code = 0174413679) 136 mmol/L 135-145 K (test code = 9715841395) 4.7 mmol/L 3.5-5.0 CL (test code = 4996516203) 94 mmol/L 98-108 L CO2 TOTAL (test code = 6301392920) 28 mmol/L 23-31 AGAP (test code = 6802423993) 2-16 BUN (test code = 5258514276) 11 mg/dL 7-23 GLUCOSE (test code = 1976241773) 357 mg/dL 70-110 H CREATININE (test code = 3748805876) 0.65 mg/dL 0.60-1.25 TOTAL BILI (test code = 1228587368) 0.6 mg/dL 0.1-1.1 CALCIUM (test code = 0926113608) 9.9 mg/dL 8.6-10.6 T PROTEIN (test code = 1935601457) 8.5 g/dL 6.3-8.2 H ALBUMIN (test code = 6653914293) 4.7 g/dL 3.5-5.0 ALK PHOS (test code = 8225226730) 223 U/L 34-122 H ALTv (test code = 1742-6) 80 U/L 5-50 H AST(SGOT) (test code = 4958931325) 42 U/L 13-40 H eGFR (test code = 8417763888) mL/min/1.73m2 TAYLOR (test code = TAYLOR) Association [...] imaging tests). Lab Interpretation (test code = 92843-6) [facility]normal [facility] 17:40:09* Test Item Value Reference Range Interpretation Comme nts LIPASE (test code = 8064951177) 66 U/L 0-220 Lab Interpretation (test cod e = 36138-2) Normal [facility] [id number] 06:00:06* Test Item Value Reference Range Interpretation Comme nts HEMOGLOBIN A1c (test code = 17367) >15.5 % 4.2-5.6 H [employer] GUIDELINES FOR HGB A1C: [...] CONSULTATION. UNLESS OTHERWISE INDICATED, ALL TESTING PERFORMED [facility] [address] [place] [address] NEW CAR MAKE READY MECHANIC: SUGAR QUEVEDO M.D. CLIA NUMBER [id number] [place]. [id number] RAPID STREP SCREEN FOR GROUP [id number] 16:23:00* Test Item Value Reference Range Interpretation Comme nts Streptococcus pyogenes (grou p A) antigen (test code = 22098-8) Negative Negative Lab Interpretation (test cod e = 02465-5) Normal [facility] (ID NOW RAPID TESTING)2020-10-17 16:18:00* Test Item Value Reference Range Interpretation Comme nts SARS-CoV-2 Rapid ID NOW (test code = 52229-2) Positive Not Detected A TAYLOR (test code = TAYLOR) ID NOW COVID-19 As say is an isothermal nucleic acid amplification test intended for the qualitative detection of nucleic acid from SARS-CoV-2 viral RNA in nasopharyngeal (WIRE MESH FILTER FABRICATOR) specimens. It is used under Emergency Use [...] clinically indicated. Lab Interpretation (test code = 38948-3) Abnormal [facility]"
--- NOTE | 2024-11-19 17:29 | ER ---
Nurse's Notes [facility] Name: Llee Castillo Age: 29 yrs Sex: Male : 1995 Arrival Date: 11/19/2024 Time: 17:05 Bed IW1 Private MD: Diagnosis: Cellulitis of groin Presentation: 11/19 17:24 Chief complaint: Patient states: he has an abscess on his right lower abdomen that's ap3 been there for "a couple of days". Coronavirus screen: At this time, the client does not indicate any symptoms associated with coronavirus-19. Ebola Screen: No symptoms or risks identified at this time. Initial Sepsis Screen: Does the patient meet any 2 criteria? No. Patient's initial sepsis screen is negative. Does the patient have a suspected source of infection? No. Patient's initial sepsis screen is negative. Risk Assessment: Do you want to hurt yourself or someone else? Patient reports no desire to harm self or others. Onset of symptoms is unknown. 17:24 Method Of Arrival: Ambulatory ap3 17:24 Acuity: ANJANA 3 ap3 Triage Assessment: 17:26 General: Appears uncomfortable, Behavior is calm, cooperative, appropriate for age. ap3 Pain: Complains of pain in suprapubic area and right lower quadrant Pain currently is 10 out of 10 on a pain scale. Neuro: Level of Consciousness is awake, alert, obeys commands, Oriented to person, place, time, situation, Appropriate for age. Cardiovascular: Patient's skin is warm and dry. Respiratory: Airway is patent Respiratory effort is even, unlabored, Respiratory pattern is regular, symmetrical. Derm: Abscess located on right inguinal area. Historical: - Allergies: 17:25 NKA; ap3 - Home Meds: 17:25 None [Active]; ap3 - PMHx: 17:25 diabetes mellitus; ap3 - PSHx: 17:25 Nose; ap3 - Immunization history:: Client reports receiving the 2nd dose of the Covid vaccine, Flu vaccine is up to date. - Infectious Disease History:: Denies. - Social history:: Smoking status: Patient denies any tobacco usage or history of. Screenin:27 [facility] ED Fall Risk Assessment (Adult) History of falling in the last 3 months, ap3 including since admission No falls in past 3 months (0 pts) Confusion or Disorientation No (0 pts) Intoxicated or Sedated No (0 pts) Impaired Gait No (0 pts) Mobility Assist Device Used No (0 pt) Altered Elimination No (0 pt) Score/Fall Risk Level 0 - 2 = Low Risk Oriented to surroundings, Maintained a safe environment, Educated pt \\T\\ family on fall prevention, incl call for assistance when getting out of bed, Assessed \\T\\ reinforced patient's understanding of fall precautions, Hourly rounding (assess needs \\T\\ fall precautionary measures) done, Used ambulatory aids as needed (educated on \\T\\ assisted with), Used gait belt as appropriate. Abuse screen: Denies threats or abuse. Nutritional screening: No deficits noted. Tuberculosis screening: No symptoms or risk factors identified. Vital Signs: 17:24 BP 148 / 97; Pulse 87; Resp 18; Temp 98.1; Pulse Ox 100% ; Weight 97.52 kg; Height 5 ap3 ft. 9 in. ; Pain 10/10; 17:24 Body Mass Index 31.75 (97.52 kg, 175.26 cm) ap3 17:24 Pain Scale: Adult ap3 ED Course: 17:13 Patient arrived in ED. ec2 17:25 Triage completed. ap3 17:27 Arm band placed on left wrist. ap3 17:27 Patient has correct armband on for positive identification. ap3 17:28 Brenda Rhoades PA-C is PHCP. sb4 17:28 Luis Armando Garcia MD is Attending Physician. sb4 17:28 Provided Education on: wound care. ap3 18:03 No provider procedures requiring assistance completed. Patient did not have IV access ap3 during this emergency room visit. Administered Medications: 18:03 Not Given (pt said he'd get rx filledd): trimethoprim-sulfamethoxazole(160 mg-800 mg ap3 (ds) 1 tablet PO once Medication: 17:27 VIS not applicable for this client. ap3 Outcome: 17:29 Discharge ordered by . ec2 18:03 Discharged to home ambulatory, ap3 18:03 Condition: good 18:03 Discharge instructions given to patient, Instructed on discharge instructions, follow up and referral plans. medication usage, Demonstrated understanding of instructions, follow-up care, medications, Prescriptions given X 1, 18:03 Patient left the ED. ap3 Signatures: Maria Dolores Garcia RN RN ap3 Brenda Rhoades PA-C PA-C sb4 Luis Armando Garcia MD MD ec2
--- NOTE | 2024-11-19 17:29 | EDPHYS ---
Physician Documentation [facility] Name: Lele Castillo Age: 29 yrs Sex: Male : 1995 Arrival Date: 11/19/2024 Time: 17:05 Bed IW1 Private MD: ED Physician Luis Armando Garcia HPI: 11/19 17:29 This 29 yrs old Male presents to ER via Ambulatory with complaints of skin ec2 irritation. 17:29 Patient arrives today within the right groin. Reports that he has been having some ec2 redness and swelling and had a small abscess which she has self drained. No fevers or chills, no nausea or vomiting. Reports history of recurrent abscesses which have been attributed in the past to diabetes. Otherwise no other concerns.. Historical: - Allergies: 17:25 NKA; ap3 - Home Meds: 17:25 None [Active]; ap3 - PMHx: 17:25 diabetes mellitus; ap3 - PSHx: 17:25 Nose; ap3 - Immunization history:: Client reports receiving the 2nd dose of the Covid vaccine, Flu vaccine is up to date. - Infectious Disease History:: Denies. - Social history:: Smoking status: Patient denies any tobacco usage or history of. ROS: 17:29 Constitutional: as per hpi ec2 Exam: 17:29 Constitutional: GEN: NAD Head: atraumatic Eyes: EOMI Ears: External ears are ec2 normal. CV: regular rate LUNGS: no respiratory distress ABD: non-distended SKIN: Right groin with induration to the right suprapubic region, no fluctuance, no discharge appreciated. Slight amount of warmth noted, no crepitus MSK: no evidence of trauma Vital Signs: 17:24 BP 148 / 97; Pulse 87; Resp 18; Temp 98.1; Pulse Ox 100% ; Weight 97.52 kg; Height 5 ap3 ft. 9 in. ; Pain 10/10; 17:24 Body Mass Index 31.75 (97.52 kg, 175.26 cm) ap3 17:24 Pain Scale: Adult ap3 MDM: 17:29 Medical Screening Exam initiated ec2 17:29 Data reviewed: vital signs, nurses notes. ED course: Patient arrives today for ec2 evaluation of a skin infection. Examination yields well-appearing nontoxic hemodynamically stable individuals otherwise in no acute distress with an obvious induration to the right groin consistent with cellulitis. Will discharge home with prescription for Bactrim. Instructed follow-up with PCP. Differential diagnosis considered include processes such as abscess, Blayne's gangrene. Administered Medications: 18:03 Not Given (pt said he'd get rx filledd): trimethoprim-sulfamethoxazole(160 mg-800 mg ap3 (ds) 1 tablet PO once Disposition Summary: 11/19/24 17:29 Discharge Ordered Notes: Location: Home ec2 Condition: Stable ec2 Diagnosis - Cellulitis of groin ec2 Followup: ec2 - With: Private Physician - When: - Reason: Re-evaluation by your physician Discharge Instructions: - Discharge Summary Sheet ec2 - Cellulitis, Adult ec2 Forms: - Medication Reconciliation Form ec2 - Antibiotic Education ec2 - Prescription Opioid Use ec2 - Patient Portal Instructions ec2 - Leadership Thank You Letter ec2 Prescriptions: - Bactrim DS 800-160 mg Oral Tablet - take 1 tablet ORAL route every 12 hours for 7 days; 14 tablet; Refills: 0, ec2 Product Selection Permitted Signatures: Maria Dolores Garcia RN RN ap3 Luis Armando Garcia MD MD ec2
[2024-11-19 22:31] VITALS: BP 148/97; TEMP 98.1; O2SAT 100
== END 2024-11-19 18:03 | disposition home or self-care (01) ==
LOC: ER 17:05
DX: L02.214 Cutaneous abscess of groin (principal); E11.9 Type 2 diabetes mellitus without complications
CPT/HCPCS: 99283

== ENCOUNTER 2025-06-30 09:04 | Emergency (ER) | payer SELFPAY ==
--- OUTSIDE RECORDS SUMMARY | 2025-06-30 09:08 | XMS REPORT | Continuity of Care Document ---
Author Name Unknown Address [address] [facility] [address] [place] [address] Organization [facility] [place] Address [address] [facility] [address] [place] [address] Care Team Providers Care Manager French Name Role Phone Pcp, Patient Does Not Have A Primary Care Physic bonita BOLIVAR BRANTLEY Attending Clinician Unavailable Bolivar Brantley MD Attending Clinician [phone] Heriberto Monae Attending Clinician [phone] HERIBERTO CARDENAS Attending Clinician Unavailable CLAUDIO ESPINOSA Attending Clinician Unavailable Claudio Gómez Attending Clinician [phone] Shivam Lucero MD Attending Clinician [phone] HERIBERTO CARDENAS Admitting Clinician Unavailable Payers Payer Name Policy Type Policy Number Effective Date Expirati on Date Source [facility] [id number] 2017 00:00:00 2022 00:00:00 Problems Condition Name Condition Details Condition Category Status Onset Date Resolution Date Last Treatment Date Treating Clinician Comments Source No known active problems No known active problems Disease [facility] Allergies, Adverse Reactions, Alerts Allergy Name Allergy Type Status Severity Reaction(s) Onset Date Inactive Date Treating Clinician Comments Source NO KNOWN ALLERGIE S Drug Class Active [facility] Social History Social Habit Start Date Stop Date Quantity Comments Source [facility] Exposure to SARS-CoV-2 (event) 2022-10-04 00:00:00 2022-10-14 18:30:00 Not sure [facility] Sex assigned at 1995 00:00:00 1995 00:00:00 [facility] Smoking Status Start Date Stop Date Source Tobacco smoking consumption unknown [facility] Medications Ordered Medication Name Filled Medication Name Start Date Stop Date Current Medication? Ordering Clinician Indication Dosage Frequency Signature (SIG) Comments Components Source ibuprofen (IBU) tablet 600 mg 05-05 03:00: 00 05-05 02:57 :00 No 600mg 600 mg, Oral, ONCE, 1 dose, On Sat05/04/24 at 2200, ESTELA [facility] doxycycline hyclate (Vibramycin ) capsule 100 mg 05-05 03:00: 00 05-05 02:57 :00 No 100mg 100 mg, Oral, ONCE, 1 dose, On Sat05/04/24 at 2200, ESTELA, Reason for Anti-Infec tive: Documented Infection, Documented Infection Site: Skin / Soft Tissue, Duration of Therapy: Once (ED) [facility] doxycycline hyclate 100 mg capsule 05-04 00:00: 00 Yes [id number] 100mg Take 1 capsule by mouth in the morning and 1 capsule in the evening. [facility] piperacilli n-tazobacta m (ZOSYN) 3.375 g in NaCl 0.9% (NS) 50 mL MINI-BAG 2021-11 06:15: 00 10-15 06:57 :00 No 3.375g 3.375 g, IV Piggyback, ONCE, 1 dose, On Sat10/15/22 at 0015, Administer over 30 Minutes, 50 mL
Reas on for Anti-Infec tive: Documented Infection< br>Documen shaylee Infection Site: Skin / Soft Tissue
Duration of Therapy: Other (see Comments) [facility] iopamidol (ISOVUE 370-500 mL) injection 75 mL 2021-11 06:00: 00 10-15 06:00 :00 No [id number] 75mL 75 mL, Intravenou s, ONCE, 1 dose, On Sat10/15/22 at 0000, Routine [facility] NaCl 0.9% (NS) bolus infusion 1,000 mL 2021-11 06:00: 00 10-15 06:00 :00 No 1000mL at 999 mL/hr, 1,000 mL, IV Infusion, ONCE, 1 dose, On Sat10/15/22 at 0000, ESTELA [facility] ketorolac (TORADOL) injection 30 mg 2021-11 05:30: 00 10-15 04:49 :00 No 30mg 30 mg, Slow IV Push, ONCE, 1 dose, On 10/14/22 at 2330, Routine [facility] ondansetron (ZOFRAN (PF)) injection 4 mg 2021-11 04:30: 00 10-15 04:49 :00 No 4mg 4 mg, Slow IV Push, ONCE, 1 dose, On 10/14/22 at 2230, ESTELA [facility] metFORMIN 500 mg tablet 2021-11 00:00: 00 11-15 05:59 :00 No [id number] 500mg Take 1 tablet by mouth in the morning and 1 tablet in the evening. Do all this for 30 days. [facility] amoxicillin -clavulanat e 875-125 mg per tablet 2021-11 00:00: 00 10-30 05:59 :00 No [id number] 1{tbl} Take 1 tablet by mouth every 12 (twelve) hours for 14 days. [facility] ondansetron (ZOFRAN-ODT ) disintegrat ing tablet 4 mg 07-03 21:15: 00 07-04 09:14 :00 No 4mg 4 mg, Oral, ONCE, 1 dose, On Sat07/03/22 at 1615, Routine [facility] NaCl 0.9% (NS) bolus infusion 1,000 mL 05-22 17:15: 00 05-22 17:50 :00 No 1000mL at 999 mL/hr, 1,000 mL, IV Infusion, ONCE, 1 dose, On Sat05/22/22 at 1215, ESTELA [facility] ondansetron (ZOFRAN-ODT ) disintegrat ing tablet 4 mg 05-22 15:15: 00 05-22 15:17 :00 No 4mg 4 mg, Oral, ONCE, 1 dose, On Sat05/22/22 at 1015, Routine [facility] metFORMIN 500 mg tablet 05-22 00:00: 00 06-22 04:59 :00 No [id number] 500mg Take 1 tablet by mouth 2 (two) times daily with meals for 30 days. [facility] ondansetron 4 mg disintegrat ing tablet 2019-11 00:00: 00 Yes [id number] 4mg Take 1 tablet by mouth every 4 (four) hours as needed for Nausea and Vomiting (N/V) (te). [facility] benzonatate 100 mg capsule 2019-11 00:00: 00 Yes [id number] 100mg Take 1 capsule by mouth 3 (three) times daily as needed for Cough. [facility] albuterol 90 mcg/actuati on inhaler 2019-11 00:00: 00 Yes [id number] 2{puff} Inhale 2 Puffs every 4 (four) hours as needed for Wheezing or Shortness of Breath. [facility] Vital Signs Vital Name Observation Time Observation Value Comments S ource Respiratory rate 2024-05-05 03:00:00 16 /min [facility] Oxygen saturation in Arterial blood by Pulse oximetry 2024-05-05 03:00:00 100 /min [facility] Systolic blood pressure 2024-05-05 03:00:00 141 mm[Hg] [facility] Diastolic blood pressure 2024-05-05 03:00:00 82 mm[Hg] [facility] Heart rate 2024-05-05 03:00:00 87 /min [facility] Body temperature 2024-05-05 03:00:00 37 Debbie [facility] Body height 2024-05-05 01:45:00 175.3 cm [facility] Body weight 2024-05-05 01:45:00 98.884 kg [facility] BMI 2024-05-05 01:45:00 32.19 kg/m2 [facility] Systolic blood pressure 2022-10-15 07:00:00 120 mm[Hg] [facility] Diastolic blood pressure 2022-10-15 07:00:00 49 mm[Hg] [facility] Heart rate 2022-10-15 07:00:00 83 /min [facility] Respiratory rate 2022-10-15 07:00:00 16 /min [facility] Oxygen saturation in Arterial blood by Pulse oximetry 2022-10-15 07:00:00 96 /min [facility] Body temperature 2022-10-15 00:32:00 37.33 Debbie [facility] Body height 2022-10-15 00:32:00 175.3 cm [facility] Body weight 2022-10-15 00:32:00 97.523 kg [facility] BMI 2022-10-15 00:32:00 31.75 kg/m2 [facility] Systolic blood pressure 2022-07-03 19:29:00 131 mm[Hg] [facility] Diastolic blood pressure 2022-07-03 19:29:00 78 mm[Hg] [facility] Heart rate 2022-07-03 19:29:00 105 /min [facility] Body temperature 2022-07-03 19:29:00 37.78 Debbie [facility] Respiratory rate 2022-07-03 19:29:00 17 /min [facility] Body height 2022-07-03 19:29:00 175.3 cm [facility] Body weight 2022-07-03 19:29:00 102.059 kg [facility] BMI 2022-07-03 19:29:00 33.23 kg/m2 [facility] Oxygen saturation in Arterial blood by Pulse oximetry 2022-07-03 19:29:00 100 /min [facility] Systolic blood pressure 2022-05-22 18:00:00 119 mm[Hg] [facility] Diastolic blood pressure 2022-05-22 18:00:00 70 mm[Hg] [facility] Heart rate 2022-05-22 18:00:00 69 /min [facility] Body temperature 2022-05-22 18:00:00 36.22 Debbie [facility] Respiratory rate 2022-05-22 18:00:00 16 /min [facility] Oxygen saturation in Arterial blood by Pulse oximetry 2022-05-22 18:00:00 95 /min [facility] Body height 2022-05-22 14:03:00 175.3 cm [facility] Body weight 2022-05-22 14:03:00 102.059 kg [facility] BMI 2022-05-22 14:03:00 33.23 kg/m2 [facility] Systolic blood pressure 2020-10-17 15:08:00 146 mm[Hg] [facility] Diastolic blood pressure 2020-10-17 15:08:00 96 mm[Hg] [facility] Heart rate 2020-10-17 15:08:00 82 /min [facility] Body temperature 2020-10-17 15:08:00 37.11 Debbie [facility] Respiratory rate 2020-10-17 15:08:00 16 /min [facility] Body height 2020-10-17 15:08:00 175.3 cm [facility] Body weight 2020-10-17 15:08:00 108.863 kg [facility] BMI 2020-10-17 15:08:00 35.44 kg/m2 [facility] Oxygen saturation in Arterial blood by Pulse oximetry 2020-10-17 15:08:00 99 /min [facility] Systolic blood pressure 2020-10-17 15:08:00 146 mm[Hg] [facility] Diastolic blood pressure 2020-10-17 15:08:00 96 mm[Hg] [facility] Heart rate 2020-10-17 15:08:00 82 /min [facility] Body temperature 2020-10-17 15:08:00 37.11 Debbie [facility] Respiratory rate 2020-10-17 15:08:00 16 /min [facility] Body height 2020-10-17 15:08:00 175.3 cm [facility] Body weight 2020-10-17 15:08:00 108.863 kg [facility] BMI 2020-10-17 15:08:00 35.44 kg/m2 [facility] Oxygen saturation in Arterial blood by Pulse oximetry 2020-10-17 15:08:00 99 /min [facility] Procedures Procedure Date / Time Performed Performing Clinician Source INCISION AND DRAINAGE 2022-10-15 06:24:14 Kevin Cardenas [facility] CT ABDOMEN PELVIS W CONTRAST 2022-10-15 05:12:47 Heriberto Cardenas [facility] BASIC METABOLIC PANEL (NA, K, CL, CO2, GLUCOSE, BUN, CREATININE, CA) 2022-10-15 04:35:00 Heriberto Cardenas [facility] CBC WITH DIFF 2022-10-15 04:35:00 Heriberto [facility]ardenas [facility] NOTICE OF PRIVACY PRACTICES 2022-10-15 00:08:32 Doctor Unassigned, [place] [facility] CONSENT/REFUSAL FOR DIAGNOSIS AND TREATMENT 2022-10-15 00:07:37 Doctor Unassigned, [place] [facility] CONSENT/REFUSAL FOR DIAGNOSIS AND TREATMENT 2022-07-03 19:09:53 Doctor Unassigned, [place] [facility] LIPASE 2022-05-22 16:49:00 Claudio Espinosa [facility] COMP. METABOLIC PANEL (19906) 2022-05-22 16:49:00 Claudio Espinosa [facility] CBC WITH DIFF 2022-05-22 16:49:00 Cl[facility] URINALYSIS 2022-05-22 15:18:00 Claudio Espinosa [facility] COVID-19 (ID NOW RAPID TESTING) 2022-05-22 15:18:00 Claudio Espinosa [facility] LAB ONLY COVID INTERPRETATION 2022-05-22 15:18:00 Claudio Espinosa [facility] NOTICE OF PRIVACY PRACTICES 2022-05-22 13:54:40 Doctor Unassigned, [place] [facility] CONSENT/REFUSAL FOR DIAGNOSIS AND TREATMENT 2022-05-22 13:52:44 Doctor Unassigned, [place] [facility] CONSENT/REFUSAL FOR DIAGNOSIS AND TREATMENT 2022-05-22 13:52:42 Doctor Unassigned, [place] [facility] RAPID STREP SCREEN FOR GROUP A 2020-10-17 15:50:00 Shivam Lucero [facility] COVID-19 (ID NOW RAPID TESTING) 2020-10-17 15:50:00 Shivam Lucero [facility] NOTICE OF PRIVACY PRACTICES 2020-10-17 15:05:13 Doctor Unassigned, [place] [facility] CONSENT/REFUSAL FOR DIAGNOSIS AND TREATMENT 2020-10-17 15:04:51 Doctor Unassigned, [place] [facility] Encounters Start Date/Time End Date/Time Encounter Type Admission Type Attending [facility] Facility Care Department Encounter ID Source 2025-03-15 10:54:49 2025-03-15 10:54:[address] [facility] [id number] Jose Yanes 2025-03-12 13:59:42 2025-03-12 13:59:42 Outpatient [facility] [id number] Jose Yanes 2024-05-04 20:48:00 2024-05-04 22:05:00 Emergency X BOLIVAR BRANTLEY [facility] ERT [id number] [facility] 2024-05-04 20:48:00 2024-05-04 22:05:00 Emergency Bolivar Brantley [facility] [id number] [facility] 2022-10-14 18:33:00 2022-10-15 02:20:00 Emergency Heriberto Cardenas [facility] [id number] [facility] 2022-10-14 18:33:00 2022-10-15 02:20:00 Emergency X HERIBERTO CARDENAS [facility] ERT [id number] [facility] 2022-07-03 14:29:00 2022-07-03 16:03:00 Emergency X CLAUDIO ESPINOSA [facility] ERT [id number] [facility] 2022-07-03 14:29:00 2022-07-03 16:03:00 Emergency Cecilia Espinosaanne [facility] [id number] [facility] 2022-05-22 09:14:00 2022-05-22 13:43:00 Emergency X CLAUDIO ESPINOSA [facility] ERT [id number] [facility] 2022-05-22 09:14:00 2022-05-22 13:43:00 Emergency Claudio Espinosa [facility] [id number] [id number] [id number] [id number] [facility] 2020-10-17 09:13:00 2020-10-17 11:07:00 Emergency Nic [facility] [id number] [id number] [facility] 2020-10-17 09:13:00 2020-10-17 11:07:00 Emergency Nic [facility] [id number] [id number] 2020-10-17 09:03:00 2020-10-17 09:03:00 Emergency X [facility] ERT [id number] [facility] Results Test Description Test Time Test Comments Results Result Co mments Source [facility] PAN[facility] (66420)2022-05-22 17:40:54* Test Item Value Reference Range Interpretation Comme nts NA (test code = 9457664479) 136 mmol/L 135-145 K (test code = 5284842296) 4.7 mmol/L 3.5-5.0 CL (test code = 9571329439) 94 mmol/L 98-108 L CO2 TOTAL (test code = 4449151627) 28 mmol/L 23-31 AGAP (test code = 8782884110) 2-16 BUN (test code = 3682360685) 11 mg/dL 7-23 GLUCOSE (test code = 3707660773) 357 mg/dL 70-110 H CREATININE (test code = 6535653461) 0.65 mg/dL 0.60-1.25 TOTAL BILI (test code = 6241384703) 0.6 mg/dL 0.1-1.1 CALCIUM (test code = 9158502774) 9.9 mg/dL 8.6-10.6 T PROTEIN (test code = 1527338909) 8.5 g/dL 6.3-8.2 H ALBUMIN (test code = 7296017027) 4.7 g/dL 3.5-5.0 ALK PHOS (test code = 0509883613) 223 U/L 34-122 H ALTv (test code = 1742-6) 80 U/L 5-50 H AST(SGOT) (test code = 4646619213) 42 U/L 13-40 H eGFR (test code = 4654235802) mL/min/1.73m2 TAYLOR (test code = TAYLOR) Association [...] imaging tests). Lab Interpretation (test code = 34386-1) [facility]normal [facility] 17:40:09* Test Item Value Reference Range Interpretation Comme nts LIPASE (test code = 7730275381) 66 U/L 0-220 Lab Interpretation (test cod e = 45780-1) Normal [facility] [id number] 06:00:06* Test Item Value Reference Range Interpretation Comme nts HEMOGLOBIN A1c (test code = 45052) >15.5 % 4.2-5.6 H [employer] GUIDELINES FOR HGB A1C: [...] INDICATED, ALL TESTING PERFORMED [facility] [employer] [address] [place] [address] [employer]: SUGAR QUEVEDO M.D. CLIA NUMBER [id number] [place]. [id number] RAPID STREP SCREEN FOR GROUP [id number] 16:23:00* Test Item Value Reference Range Interpretation Comme nts Streptococcus pyogenes (grou p A) antigen (test code = 09639-3) Negative Negative Lab Interpretation (test cod e = 29285-4) Normal [facility] (ID NOW RAPID TESTING)2020-10-17 16:18:00* Test Item Value Reference Range Interpretation Comme nts SARS-CoV-2 Rapid ID NOW (test code = 03168-1) Positive Not Detected A TAYLOR (test code = TAYLOR) ID NOW COVID-19 As say is an isothermal nucleic acid amplification test intended for the qualitative detection of nucleic acid from SARS-CoV-2 viral RNA in nasopharyngeal (ORCHID SUPERINTENDENT) specimens. It is used under Emergency Use [...] clinically indicated. Lab Interpretation (test code = 17979-9) Abnormal [facility] Notes Date/Time Note Provider Source 2024-05-04 22:05:00 [...] with steady gait, in no apparent distress T [facility] 2024-05-04 20:43:20 Pt arrived with c/o insect bite. Pt [place] the [place], and believes he was bit by something. Pt is unsure of what bit him. Pt is three bites on his chest and one on his back. Tamika Watts RN [facility] - [facility] 2024-05-04 20:26:00 [facility] Emergency Department Note Demographics Patient Name: Lele Castillo Jr. 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 Patient denies fevers, chills, nausea, vomiting, abdominal [...] days ago while at the beach in [place]. Patient denies fevers, chills, nausea, vomiting, abdominal [...] taking these medications No medications on file Dragon Dictation Software is used frequently and may produce errors. Promptly contact for obvious discrepancies. Bolivar Brantley MD, FACEP, FAAEM Tree Specialist of Emergency and Internal Medicine [facility], [facility] #[id number] Bolivar Brantley MD 05/04/246 [facility]
[2025-06-30] MEDS ORDERED: NA CHLORIDE 0.9% 1,000 ML ONE (10:18)
[2025-06-30] MEDS ORDERED: ONDANSETRON 4 MG/2 ML VIAL ONE (10:18)
[2025-06-30 10:39] LABS: Absolute Lymphocytes (CBC) 1.4 K/uL (0.7-4.9); Hematocrit 48.6 % (39.6-49.0); Hemoglobin 16.7 g/dL (13.6-17.9); MCH 29.9 pg (27.0-35.0); MCHC 34.3 g/dL (32.0-36.0); MCV 87.3 fL (80-100); MPV 9.0 fL (7.6-11.3); Nucleated RBC Absolute Count 0.0 (0-0); Nucleated Red Blood Cells % 0.1 % (0-0); RBC Red Blood Cell Count 5.57 M/uL (4.33-5.43); White Blood Count 7.60 thou/uL (4.3-10.9)
[2025-06-30 10:57] LABS: ALT/SGPT 77.0 U/L (16-61); AST/SGOT 30.0 U/L (15-37); Albumin 3.7 g/dL (3.4-5.0); Albumin/Globulin Ratio 0.8 (1.1-1.8); Alkaline Phosphatase 139.0 U/L (45-117); Anion Gap 9.0 mEq/L (5.0-15.0); BUN Blood Urea Nitrogen 15.0 mg/dL (7-18); Globulin 4.9 g/dL (2.3-3.5); Glucose Level 304.0 mg/dL (74-106); Lipase 22.0 U/L (13-75); Potassium 4.0 mEq/L (3.5-5.1)
[2025-06-30 10:59] LABS: Influenza A Ag Negative; Influenza B Ag Negative; SARS-CoV-2 Antigen Rapid Res Negative (Negative)
--- NOTE | 2025-06-30 11:01 | EDPHYS ---
Physician Documentation [facility] Name: Lele Castillo Age: 30 yrs Sex: Male : 1995 Arrival Date: 06/30/2025 Time: 09:04 Bed 14 Private MD: ED Physician Ryan Doyle HPI: 06/30 09:33 This 30 yrs old Male presents to ER via Ambulatory with complaints of kb Nausea/Vomiting/Diarrhea, Fever, Headache, Nasal Congestion. 09:33 Pt is a 30 year old male who presents for n/v/d, cough, congestion and headache that kb started 3 days ago. States he has been trying to drink water, but everything comes back up. Denies abd pain and sore throat. . Historical: - Allergies: 09:18 NKA; dd2 - PMHx: 09:18 diabetes mellitus; dd2 - PSHx: 09:18 Nose; dd2 - Immunization history:: Adult Immunizations up to date. - Infectious Disease History:: Denies. - Social history:: Smoking status: Patient denies any tobacco usage or history of. ROS: 09:33 Constitutional: As per HPI kb Exam: 09:33 Constitutional: This is a well developed, well nourished patient who is awake, alert, kb and in no acute distress. Head/Face: Normocephalic, atraumatic. ENT: Moist Mucous membranes Cardiovascular: Regular rate Respiratory: Respirations even and unlabored. No increased work of breathing. Talking in full sentences Abdomen/GI: Soft, non-tender. No distention Skin: Warm, dry with normal turgor. Normal color. MS/ Extremity: Pulses equal, no cyanosis. Neurovascular intact. Full, normal range of motion. Neuro: Awake and alert, GCS 15, oriented to person, place, time, and situation. Vital Signs: 09:13 BP 135 / 86; Pulse 96; Resp 16; Temp 98.2; Pulse Ox 100% ; Weight 97.52 kg; Height 5 dd2 ft. 9 in. ; Pain 10/10; 10:30 BP 135 / 90; Pulse 93; Resp 16; Pulse Ox 96% ; bp 11:00 BP 129 / 85; Pulse 90; Resp 14; Temp 98.5; Pulse Ox 96% ; bp 11:25 BP 106 / 88; Pulse 91; Resp 15; Pulse Ox 98% ; me1 09:13 Body Mass Index 31.75 (97.52 kg, 175.26 cm) dd2 09:13 Pain Scale: Adult dd2 MDM: 09:09 Medical Screening Exam initiated kb 10:59 Differential diagnosis: Nonspecific abd pain, viral gastroenteritis, dehydration, kb abnormal electrolytes, viral illness. Data reviewed: vital signs, nurses notes. I considered the following discharge prescriptions or medication management in the emergency department I discussed and recommended Over The Counter medications, Antibiotics: At this time antibiotics are not recommended. Test considered but Not performed: CT: ct abd considered but pt has no abd pain or tenderness. Counseling: I had a detailed discussion with the patient and/or guardian regarding the historical points, exam findings, and any diagnostic results supporting the discharge/admit diagnosis, lab results, the need for outpatient follow up, a family practitioner, to return to the emergency department if symptoms worsen or persist or if there are any questions or concerns that arise at home. 06/30 09:16 Order name: CBC with Diff; Complete Time: 10:45 kb 06/30 09:16 Order name: CMP; Complete Time: 10:57 kb 06/30 09:16 Order name: Lipase; Complete Time: 10:57 kb 06/30 09:16 Order name: COVID-19 Ag + Flu A+B Ag; Complete Time: 11:01 kb 06/30 09:16 Order name: IV Saline Lock; Complete Time: 10:38 kb 06/30 09:16 Order name: Labs collected and sent; Complete Time: 10:38 kb Administered Medications: 10:28 Drug: NS 0.9% IV 1000 ml IV at 1 bolus Per protocol; to be given as a bolus over 60 bp minutes Route: IV; Rate: 1 bolus; Site: right forearm; 11:05 Follow up: Response: No adverse reaction; IV Status: Completed infusion bp 10:28 Drug: Decadron - Dexamethasone IVP 10 mg IVP once Route: IVP; Site: right forearm; bp 11:05 Follow up: Response: No adverse reaction bp 10:29 Drug: Ondansetron IVP 4 mg IVP once; over 2 minutes Route: IVP; Site: right femoral; bp 11:05 Follow up: Response: No adverse reaction; Nausea is decreased bp Disposition: 16:01 I was immediately available on-site in the Emergency Department for consultation in the ms3 care of the patient. Disposition Summary: 06/30/25 11:00 Discharge Ordered Notes: Location: Home kb Condition: Stable kb Diagnosis - Viral infection, unspecified kb Followup: kb - With: Emergency Department - When: As needed - Reason: Worsening of condition Followup: kb - With: Private Physician - When: 2 - 3 days - Reason: Recheck today's complaints, Continuance of care, Re-evaluation by your physician Discharge Instructions: - Discharge Summary Sheet kb - Viral Respiratory Infection, Gjpu-[id number] kb - Viral Illness, Adult kb Forms: - Work release form kb - Medication Reconciliation Form kb - Antibiotic Education kb - Prescription Opioid Use kb - Patient Portal Instructions kb - Leadership Thank You Letter kb Prescriptions: - ondansetron 4 mg Oral Tablet,disintegrating - take 1 tablet ORAL route every 6 hours as needed for nausea and vomiting; 12 kb tablet; Refills: 0, Product Selection Permitted Signatures: Dispatcher [employer] EDPR Nirmala Reyna, JEFRY-C GREETING CARD MAKER-Rhett Ferraro, RN RN Ryan Santana DO DO ms3 BEVERLY BELLO RN RN dd2 Corrections: (The following items were deleted from the chart) 09:34 09:33 Pt is a 30 year old male who presents for n/v/d, cough, congestion and headache kb that started 3 days ago. States he has been trying to drink water, but everything comes back up. Denies abd pain. . kb
--- NOTE | 2025-06-30 11:01 | ER ---
Nurse's Notes [facility] Name: Lele Castillo Age: 30 yrs Sex: Male : 1995 Arrival Date: 06/30/2025 Time: 09:04 Bed 14 Private MD: Diagnosis: Viral infection, unspecified Presentation: 06/30 09:13 Chief complaint: Patient states: HEADACHE, CONGESTION, VOMITING, BODY ACHES, AND dd2 DIARRHEA STARTING SATURDAY. Coronavirus screen: congestion, diarrhea, headache, muscle pain, nausea, vomiting. Ebola Screen: No symptoms or risks identified at this time. Initial Sepsis Screen: Does the patient meet any 2 criteria? HR > 90 bpm. No. Patient's initial sepsis screen is negative. Does the patient have a suspected source of infection? No. Patient's initial sepsis screen is negative. Risk Assessment: Do you want to hurt yourself or someone else? Patient reports no desire to harm self or others. Onset of symptoms was June 28, 2025. 09:13 Method Of Arrival: Ambulatory dd2 09:13 Acuity: ANJANA 4 dd2 Triage Assessment: 09:18 General: Appears in no apparent distress. uncomfortable, Behavior is calm, cooperative, dd2 appropriate for age. Pain: Complains of pain in GENERALIZED MUSCLES Pain currently is 10 out of 10 on a pain scale. EENT: Reports nasal congestion. GI: Reports diarrhea, nausea, vomiting. Musculoskeletal: Circulation, motion, and sensation intact. Range of motion: intact in all extremities. Historical: - Allergies: 09:18 NKA; dd2 - PMHx: 09:18 diabetes mellitus; dd2 - PSHx: 09:18 Nose; dd2 - Immunization history:: Adult Immunizations up to date. - Infectious Disease History:: Denies. - Social history:: Smoking status: Patient denies any tobacco usage or history of. Screenin:31 [facility] ED Fall Risk Assessment (Adult) History of falling in the last 3 months, bp including since admission No falls in past 3 months (0 pts) Confusion or Disorientation No (0 pts) Intoxicated or Sedated No (0 pts) Impaired Gait No (0 pts) Mobility Assist Device Used No (0 pt) Altered Elimination No (0 pt) Score/Fall Risk Level 0 - 2 = Low Risk Maintained a safe environment, Provided non-skid footwear, Hourly rounding (assess needs \T\ fall precautionary measures) done. Abuse screen: Denies threats or abuse. Nutritional screening: No deficits noted. Tuberculosis screening: No symptoms or risk factors identified. Assessment: 10:31 General: Appears ill, well groomed, well developed, well nourished, Behavior is calm, bp cooperative, appropriate for age, Reports HEADACHE, CONGESTION, VOMITING, BODY ACHES, AND DIARRHEA STARTING SATURDAY. Pain: Complains of pain in body generalized Pain does not radiate. Pain currently is 10 out of 10 on a pain scale. Quality of pain is described as aching, Pain began 2-3 days ago. Is continuous. Neuro: Level of Consciousness is awake, alert, obeys commands, Oriented to person, place, time, situation, Appropriate for age. Cardiovascular: Patient's skin is warm and dry. Respiratory: Reports cough that is persistent Airway is patent Respiratory effort is even, unlabored, Respiratory pattern is regular, symmetrical. GI: Reports diarrhea, nausea, vomiting, since Saturday. GI: Abdomen is non-distended. : No signs and/or symptoms were reported regarding the genitourinary system. EENT: Reports nasal congestion since Saturday. Derm: Skin is intact, is healthy with good turgor, Skin is pink, warm \T\ dry. Musculoskeletal: Reports body aches since saturday. Vital Signs: 09:13 BP 135 / 86; Pulse 96; Resp 16; Temp 98.2; Pulse Ox 100% ; Weight 97.52 kg; Height 5 dd2 ft. 9 in. ; Pain 10/10; 10:30 BP 135 / 90; Pulse 93; Resp 16; Pulse Ox 96% ; bp 11:00 BP 129 / 85; Pulse 90; Resp 14; Temp 98.5; Pulse Ox 96% ; bp 11:25 BP 106 / 88; Pulse 91; Resp 15; Pulse Ox 98% ; me1 09:13 Body Mass Index 31.75 (97.52 kg, 175.26 cm) dd2 09:13 Pain Scale: Adult dd2 ED Course: 09:07 Patient arrived in ED. cj3 09:09 Nirmala Reyn[facility]C [facility] kb 09:09 Ryan Doyle DO is Attending Physician. kb 09:18 Triage completed. dd2 09:18 Arm band placed on right wrist. dd2 10:02 Rhett Gomez, RN is Primary Nurse. bp 10:22 Initial lab(s) drawn, by me, sent to lab. Inserted saline lock: 20 gauge in right bp forearm, using aseptic technique. Blood collected. Flushed with 10 mL NS. 10:31 Patient has correct armband on for positive identification. Bed in low position. Call bp light in reach. Side rails up X2. Provided Education on: POC. Verbalized understanding.. Client placed on continuous cardiac and pulse oximetry monitoring. NIBP monitoring applied. Pulse ox on. NIBP on. 10:31 No provider procedures requiring assistance completed. bp 10:38 CBC with Diff Sent. bp 10:38 CMP Sent. bp 10:38 Lipase Sent. bp 11:28 IV discontinued, intact, bleeding controlled, No redness/swelling at site. Pressure me1 dressing applied. Administered Medications: 10:28 Drug: NS 0.9% IV 1000 ml IV at 1 bolus Per protocol; to be given as a bolus over 60 bp minutes Route: IV; Rate: 1 bolus; Site: right forearm; 11:05 Follow up: Response: No adverse reaction; IV Status: Completed infusion bp 10:28 Drug: Decadron - Dexamethasone IVP 10 mg IVP once Route: IVP; Site: right forearm; bp 11:05 Follow up: Response: No adverse reaction bp 10:29 Drug: Ondansetron IVP 4 mg IVP once; over 2 minutes Route: IVP; Site: right femoral; bp 11:05 Follow up: Response: No adverse reaction; Nausea is decreased bp Medication: 10:31 VIS not applicable for this client. bp Outcome: 11:00 Discharge ordered by . lynsey 11:28 Discharged to home ambulatory, me1 11:28 Condition: stable 11:28 Discharge instructions given to patient, Instructed on discharge instructions, follow up and referral plans. medication usage, Demonstrated understanding of instructions, follow-up care, medications, Prescriptions given X 1, 11:29 Patient left the ED. me1 Signatures: Nirmala Reyna, CLIENT ACCOUNT SPECIALIST-C CLIENT ACCOUNT SPECIALIST-Ckb Rhett Gomez, RN RN bp Dionne Little RN RN me1 BEVERLY BELLO RN RN dd2 Latisha Bertrand 3 Corrections: (The following items were deleted from the chart) 10:30 09:13 Chief complaint: Patient states: HEADACHE, CONGESTION, VOMITING, BODY ACHES, AND bp DIARRHEA STARTING SATURDAY. dd2
[2025-06-30 12:01] VITALS: TEMP 98.5
[2025-06-30 12:02] VITALS: BP 106/88; O2SAT 98
== END 2025-06-30 11:29 | disposition home or self-care (01) ==
LOC: ER 09:04
DX: B34.9 Viral infection, unspecified (principal); Z11.52 Encounter for screening for COVID-19
CPT/HCPCS: 36415; 80053; 83690; 85025; 87428; 99284; J1100; J2405; J7030